=== PATIENT | male | born 1945 | race Caucasian/White ===

== ENCOUNTER 2024-01-06 18:37 | Emergency (ER) | payer MEDICARE, SELFPAY ==
[2024-01-06 18:40] VITALS: BP 170/99; PULSE 74; TEMP 36.7; O2SAT 100
--- NOTE | 2024-01-06 19:20 | ED_ITS ---
HPI - Ear Problem General Chief complaint: Ear Stated complaint: Hearing Aid Stuck in Ear Time Seen by Provider: 01/06/24 19:11 Source: patient Mode of arrival: walk-in History of Present Illness HPI Narrative: FB left ear canal. Patient removed his hearing aid and the rubber tip stayed in the ear. He attempted to removed it and pushed it down. not able to remove it Related Data Allergies Allergy/AdvReac Type Severity Reaction Status Date / Time No Known Drug Allergies Allergy Verified 01/06/24 18:42 Review of Systems ROS Status of ROS 10 or more systems reviewed and unremark able except as noted in history and below Exam Constitutional Vital Signs, click to edit/add: Last Vital Signs Temp 98.1 F 01/06/24 18:40 Pulse 74 01/06/24 18:40 Resp 18 01/06/24 18:40 BP 170/99 H 01/06/24 18:40 Pulse Ox 100 01/06/24 18:40 O2 Del Method Room Air 01/06/24 18:40 Common normals: no apparent distress, average body habitus, oriented x3, no limitations, healthy appearing, alert and well nourished [facility] Other: plastic FB left ear canal. normal canal otherwise Eye Common normals: PERRL and EOMs intact bilaterally Respiratory Common normals: normal respiratory effort, no retractions, no use of accessory muscles and clear to auscultation bilaterally Cardio Common normals: regular rate, regular rhythm, S1 normal heart sound and S2 normal heart sound Extremity Common normals: normal to inspection Neuro Common normals: oriented x3, moves all extremities and no focal motor deficits Psych Appearance: grossly normal Course Vital Signs Vital signs: Vital Signs Temperature 98.1 F 01/06/24 18:40 Pulse Rate 74 01/06/24 18:40 Respiratory Rate 18 01/06/24 18:40 Blood Pressure 170/99 H 01/06/24 18:40 Pulse Oximetry 100 01/06/24 18:40 Oxygen Delivery Method Room Air 01/06/24 18:40 Temperature 98.1 F 01/06/24 18:40 Pulse Rate 74 01/06/24 18:40 Respiratory Rate 18 01/06/24 18:40 Blood Pressure 170/99 H 01/06/24 18:40 Pulse Oximetry 100 01/06/24 18:40 Oxygen Delivery Method Room Air 01/06/24 18:40 Medical Decision Making MDM Narrative Medical decision making narrative: presents with FB left ear canal. Able to remove without incident. Tolerated well and discharged home Discharge Plan Discharge Stand Alone Forms: Portal Instructions Chief Complaint: Ear Clinical Impression: Foreign body in left ear Patient Disposition: Home, Self-Care Print Language: Korean Instructions: Ear Foreign Body (ED) Referrals: Cliff Bess MD [Primary Care Provider] - 1 week Procedures ED Procedure Instructions Procedures Procedures: FB identified left ear canal. able to remove on first attempt. No complications. Tolerated well
== END 2024-01-06 19:30 | disposition home or self-care (01) ==
PROVIDERS: Emergency Provider Internal Medicine; PCP Family Medicine
DX: T16.2XXA Foreign body in left ear, initial encounter (principal); W44.G1XA Audio device entering into or through a natural orifice, initial encounter
CPT/HCPCS: 99281

== ENCOUNTER 2024-06-12 08:00 | Outpatient (OUT) | payer MEDICARE, SELFPAY ==
--- NOTE | 2024-06-12 08:12 | ECG_ITS ---
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
== END 2024-06-12 08:01 | disposition home or self-care (01) ==
LOC: PST 08:01
PROVIDERS: PCP Family Medicine; Visit Provider Surgery
DX: Z01.810 Encounter for preprocedural cardiovascular examination (principal); K40.90 Unilateral inguinal hernia, without obstruction or gangrene, not specified as recurrent
CPT/HCPCS: 93005

== ENCOUNTER 2024-06-12 08:03 | Outpatient (OUT) | payer MEDICARE, SELFPAY | END 2024-06-12 08:04 | disposition home or self-care (01) | LOC: PST 08:03 | PROVIDERS: PCP Family Medicine; Visit Provider Surgery | DX: Z01.818 Encounter for other preprocedural examination (principal); Z12.11 Encounter for screening for malignant neoplasm of colon ==

== ENCOUNTER 2024-06-12 08:26 | Outpatient (OUT) | payer MEDICARE, SELFPAY ==
[2024-06-12 09:14] LABS: Basophils Percent Auto 1.1 % (0.2-2.0); Eosinophils Absolute Auto 0.1 10^3/uL (0.0-0.7); Eosinophils Percent Auto 3.7 % (0.9-7.0); Hematocrit 43.9 % (42.0-54.0); Hemoglobin 14.4 g/dL (14.0-18.0); Immature Granulocytes Abs Auto 0.01 10^3/uL (0.00-0.03); Immature Granulocytes Pct Auto 0.3 % (0.0-0.5); Lymphocytes Absolute Auto 0.6 10^3/uL (1.2-3.8); Lymphocytes Percent Auto 16.3 % (20.5-60.0); Mean Corpuscular HGB Conc 32.8 g/dL (29.9-35.2); Mean Corpuscular Volume 91.5 fL (80.0-94.0); Mean Platelet Volume 10.6 fL (9.5-13.5); Monocytes Absolute Auto 0.4 10^3/uL (0.3-0.8); Monocytes Percent Auto 10.4 % (1.7-12.0); Neutrophils Absolute Auto 2.6 10^3/uL (1.4-6.5); Neutrophils Percent Auto 68.2 % (43.0-75.0); Platelet Count 200 10^3/uL (150-450); Red Cell Distribution Width 14.2 % (11.0-15.0); White Blood Count 3.7 10^3/uL (4.0-11.0)
[2024-06-12 10:11] LABS: Alanine Aminotransferase 28 U/L (16-63); Albumin Globulin Ratio 1.2; Albumin Level 3.7 g/dL (3.4-5.0); Alkaline Phosphatase 37 U/L (46-116); Anion Gap 11.2; Aspartate Amino Transferase 22 U/L (15-37); BUN Creatinine Ratio 20.4; Bilirubin Total 0.5 mg/dL (0.2-1.0); Calcium 9.2 mg/dL (8.5-10.1); Carbon Dioxide 27.7 mmol/L (21.0-32.0); Chloride 105 mmol/L (98-107); Chol HDL Ratio 2.7; Cholesterol 218 mg/dL (<=200); Estimated GFR (African America >60 (>=60); Estimated GFR (Non-African Ame >60 (>=60); Free T3 2.42 pg/mL (2.18-3.98); Globulin 3.1 g/dL; Glucose 102 mg/dL (74-106); HDL Cholesterol 81 mg/dL (40-60); Potassium 4.9 mmol/L (3.5-5.1); Sodium 139 mmol/L (136-145); Total Protein 6.8 g/dL (6.4-8.2); Triglycerides 40 mg/dL (<=150)
== END 2024-06-12 08:27 | disposition home or self-care (01) ==
LOC: LAB 08:27
PROVIDERS: PCP Family Medicine; Visit Provider Family Medicine
DX: E78.5 Hyperlipidemia, unspecified (principal); R10.32 Left lower quadrant pain; I26.99 Other pulmonary embolism without acute cor pulmonale; E03.9 Hypothyroidism, unspecified; R73.09 Other abnormal glucose; E05.90 Thyrotoxicosis, unspecified without thyrotoxic crisis or storm
CPT/HCPCS: 80053; 80061; 83036; 84153; 84436; 84443; 84481; 85025

== ENCOUNTER 2025-08-15 10:14 | Outpatient (OUT) | payer MEDICARE, SELFPAY ==
--- OUTSIDE RECORDS SUMMARY | 2024-05-30 04:45 | XMS_ITS ---
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 Hernia swollen. * Medical History: Objective: * Vitals: Assessment: Plan: * Treatment: * * Electronic signature of Ady Bess MD, [id number] on 08/15/2025 at 10:23 AM EST Sign off status: PendingVisit Status:?CANC (Cancelled) * Provider: Brown Bess MD (TTC) Date: 0 05/30/2024 Generated for Printing/Faxing/eTransmitting on:?08/15/2025 10:23 AM EST
--- OUTSIDE RECORDS SUMMARY | 2025-08-11 11:00 | XMS_ITS ---
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 Name Role Phone Ady Bess Primary Care Provider Allergies No Known Allergies REASON FOR VISIT yearly wellness appointment Medications Medication SIG (Take, Route, Frequency, Duration) Notes Start Date End Date Status Latanoprost 0.005 % INSTILL 1 DROP INTO BOTH EYES AT BEDTIME Ophthalmic; Duration: 90 Days Active Social History Tobacco Use: Social History Observation Description Date Details (start date - stop date) Never Smoker NA - NA Tobacco Control (Standard) Question Answer Notes Tobacco use: Nonsmoker AUDIT-C (Standard) Question Answer Notes Did you have a drink containing alcohol in the p ast year? No [id number] Vital Signs Blood pressure systolic 138 mm Hg 08/11/20 25 Blood pressure diastolic 80 mm Hg 025 Height 73 in 08/11/2025 Weight 175.2 lbs 08/11/2025 BMI 23.11 kg/m2 08/11/2025 Procedures Procedure Date Ordered Date Performed Result Body Sit e Cerumen Removal - performed 08/11/2025 08/11/2025 N/A Encounters Encounter Location Date Provider Diagnosis [facility] [address] [place] [address] 08/11/2025 Ady Bess Leukopenia, unspecif ied decreased WBC count D72.819 ; Other pulmonary embolism without acute cor pulmonale I26.99 and Bilateral impacted cerumen H61.23 Assessments Encounter Date Diagnosis (ICD Code) Assessment Notes Treatment Notes Treatment Clinical Notes Section Notes 08/11/2025 Leukopenia, unspecified decrease d WBC count (ICD-10 - D72.819) 08/11/2025Other pulmonary embolism without acute cor pulmonale (ICD-10 - I26.99) 5Bilateral impacted cerumen (ICD-10 - H61.23) Plan Of Treatment Pending Test Test Name Order Date HEMOGLOBIN A1C (GLYCO) 08/11/2025 LIPID PANEL (CHOL/TRIG/HDL/LDL) 08/11/20 25 STOOL OCCULT BLOOD 08/11/2025 THYROID PANEL (T4/TSH/FREE T3) 5 PSA, SCREENING 08/11/2025 CMP (COMP MET KEMP) w/eGFR CKD-EPI 2024 CBC WITH DIFF 08/11/2025 Progress Notes * Get COSTADOB: [birth year] (79 yo M)Acc No.[id number]:08/11/2025 Progress Note Patient: Get DOBSON :?Cliff Bess ([facility]), MDDOB:1945???Age: 79 Y???Sex:MaleDate:08/11/2025Phone:[phone]:[address] [place], [place]Check In:03:50 PM ESTCheck Out:05:03 PM EST Subjective: * Chief Complaints: * Y early wellness appointment * HPI: ???Depression Screening:?PHQ-2 (2015 Edition)?Little interest or pleasure in doing things? Not at all ?Feeling down, depressed, or hopeless??Not at all ?Total Score?0 * ROS: ???EENT:?hearing changes?denies.?visual changes?denies. non-healing mouth sores?denies.?swollen glands or neck lumps?denies.?hoarseness?denies.?sore throat?denies.?difficulty swallowing?denies.?nose bleeds?denies.?nasal congestion?denies.?ear ache?denies.?ear discharge denies.?ringing in ears?denies.?light sensitivity?denies.?eye pain?denies.?blurring?denies.?eye irritation?denies.?double vision?denies. vision loss?denies.?General/Constitutional:?Sweats:?Denies.?Fatigue?denies.?Sleep proble ms?denies.?Anorexia?denies.?Malaise?denies.?Weight loss?denies. Fatigue or Weakness?denies.?Fever or Chills?denies.?Cardiovascular:?Shortness of Breath w/lying flat?denies.?Lightheadedne ss/dizziness?denies.?Chest tightness/ heavy pressure?denies.?Swelling of legs, a nkles, or feet?denies.?Waking up with shortness of breath?denies.?Chest pain&#16 0;denies.?Palpitations?denies.?Weight gain?denies.?Respiratory:?Chronic or frequent cough?denies.?Coughing up blood&#1 60;denies.?Difficulty breathing?denies.?Productive cough?denies.?Snoring&#1 60;denies.?Shortness of breath that awakens from sleep (PND)?denies.?Chest pain? denies.?Sputum production?denies.?Wheezing?denies.?Musculoskeletal:?Joint pain?denies.?Joint Fluid?denies.?Backpain?denies.?Knee pain?denies.?Neck pain?denies.?Joint Stiffness?denies.?Muscle cramps?denies.?Weakness of muscles?denies.?Arthritis?denies.?Muscle aches?denies.?Pain in shoulder(s)?denies.?Swollen joints?denies.? * Active Problem List Z86.718 Personal history of other venous thrombosis and embolism Modified On:05/27/2024W/U Status:okfnhkhucZ65.99Other pulmonary embolism without acute cor pulmonale Modified On:05/27/2024W/U Status:walntelubY47.551Pain in right hip Modified On:05/27/2024/U Status:vzxnxykkcD37.552Pain in left hip Modified On:05/27/2024/U Status:gwusasxzxY93.32Left inguinal pain Modified On:05/27/2024/U Status:dviypwmimF07.819Leukopenia, unspecified decreased WBC count Modified On:06/13/2024U Status:confirmed * Medical History: * Surgical History: W edge Excision & Debulking of Right Cheek Flap 02/24/23Right total Hip replacement Dr. Foley 03/14/22Debridement Right Maxilla with removal of hardware 05/30/22Left hip replacement Left Inguinal Hernia Repair 07/09/24 * Hospitalization/Major Diagno stic Procedure: s ee above * Family History: F ather: , diagnosed with Diabetes. M other: , oral cancer, diagnosed with Diabetes. S ister(s): alive, Colon Cancer, diagnosed with Cancer. 1 sister(s) . 2 son(s) - healthy. . * Social History: ???Tobacco Use:?Tobacco Control (Standard)?Tobacco use:?Nonsmoker ???Drug/Alcohol:?AUDIT-C (Standard)?Did you have a drink containing alcohol in the past year??No ?Points?0 ?Interpretation?Negative * Medications: T akingLatanoprost 0.005 % Solution INSTILL 1 DROP INTO BOTH EYES AT BEDTIME Ophthalmic Medication List reviewed and reconciled with the patientTaking Latanoprost 0.005 % Solution INSTILL 1 DROP INTO BOTH EYES AT BEDTIME Ophthalmic Medication List reviewed and reconciled with the patient * Allergies: N .K.D.A.no[Allergies Verified] Objective: * Vitals: W t:175.2lbs, Ht: 73 in, BP:138/80mm Hg, BMI:23.11Index, Ht-cm: 185.42 cm, Wt-k.47 kg. * Examination: ???Physical Exam: ?GENERAL:?well developed, well nourished, in no acute distress.?HEAD:?normocephalic/atraumatic.?EYES:?pupils equal, round and reactive to light, conjunctivae and sclerae normal.?EARS:?no deformity or lesion of external ear, canals and TM appear normal bilaterally, TM's intact, not inflamed with normal light reflex, hearing grossly normal to conversational speech.?NOSE:?no deformity, discharge, inflammation, or lesions. ?MOUTH:?mucous membranes moist, normal oropharynx and posterior pharynx without lesions or exudates, tongue normal, dentition normal.?NECK:?neck supple, no masses or palpable cervical nodes, trachea midline, thyroid without nodules, masses, tenderness, or enlargement.?CHEST:?no chest wall deformity, no chest wall tenderness. ?LUNGS:?normal respiratory effort and clear to auscultation, no wheezes, rales, or rhonchi, good air exchange.?CARDIO:?regular rate and rhythm, normal S1 and S2, nor murmur, rub, or gallop.?PULSES:?normal capillary refill.?ABDOMEN:?soft, non-distended, non-tender, no masses.?MUSCULOSKELETAL:?no deformity or scoliosis noted, normal range of motion, joints normal, no erythema, edema, effusion, or ecchymosis.?EXTREMITY:?no clubbing, cyanosis, edema, or deformity withnormal ROM in both upper and lower bilateral extremities.?NEUROLOGIC:?grossly normal.?SKIN:?no rashes, ulcerations, or suspicious lesions.?LYMPH NODES:?no cervical adenopathy, nodes normal.?MENTAL STATUS:?alert and oriented x3, normal mood and affect.? Assessment: * Assessment: 1.?Leukopenia, unspecified decreased WBC count - D72.819 (Primary)???2.?Other pulmonary embolism without acute cor pulmonale - I26.99???3.?Bilateral impacted cerumen - H61.23??? Plan: * Treatment: ?LAB: HEMOGLOBIN A1C (GLYCO) ?LAB: LIPID PANEL (CHOL/TRIG/HDL/LDL) ?LAB: STOOL OCCULT BLOOD ?LAB: THYROID PANEL (T4/TSH/FREE T3) ?LAB: PSA, SCREENING ?LAB: CMP (COMP MET KEMP) w/eGFR CKD-EPI ?LAB: CBC WITH DIFF2.?Other pulmonary embolism without acute cor pulmonale?LAB: HEMOGLOBIN A1C (GLYCO) ?LAB: LIPID PANEL (CHOL/TRIG/HDL/LDL) ?LAB: STOOL OCCULT BLOOD ?LAB: THYROID PANEL (T4/TSH/FREE T3) ?LAB: PSA, SCREENING ?LAB: CMP (COMP MET KEMP) w/eGFR CKD-EPI ?LAB: CBC WITH DIFF3.?Others?Procedure: Cerumen Removal - performed (Performed Date - 08/11/2025) * Procedure Codes: 6 9210 REMOVE IMPACTED CERUMEN * Preventive Medicine: ??Screenings/Counseling:?FALL RISK SCREENING?Fall Risk Assessment:?No falls in the past year * * Sign off status: CompletedVisit Status:?CHK (Check Out) true * Provider: Brown Bess (TTC)MD Date: 1 10/11/2024 Generated for Printing/Faxing/eTransmitting on:?08/15/2025 10:22 AM EST History and Physical Notes * HPI (History of Present Illness) CategorySub-CategoryDetailNotesCategory NotesDepression ScreeningPHQ-2 (2015 Edition)Little interest or pleasure in doing things?: Not at allFeeling down, depressed, or hopeless?: Not at allTotal Score: 0 Examination CategorySub-CategoryDetailNotesCategory NotesPhysical ExamGENERAL:well developed, well nourished, in no acute distressHEAD:normocephalic/atraumatic EYES:pupils equal, round and reactive to light, conjunctivae and sclerae normal EARS:no deformity or lesion of external ear, canals and TM appear normal bilaterally, TM's intact, not inflamed with normal light reflex, hearing grossly normal to conversational speechNOSE:no deformity, discharge, inflammation, or lesionsMOUTH:mucous membranes moist, normal oropharynx and posterior pharynx without lesions or exudates, tonguenormal, dentition normalNECK:neck supple, no masses or palpable cervical nodes, trachea midline, thyroid without nodules, masses, tenderness, or enlargementCHEST:no chest wall deformity, no chest wall tendernessLUNGS:normal respiratory effort and clear to auscultation, no wheezes, rales, or rhonchi, good air exchangeCARDIO:regular rate and rhythm, normal S1 and S2, nor murmur, rub, or gallopPULSES:normal capillary refillABDOMEN:soft, non-distended, non-tender, no massesRECTAL:MUSCULOSKELETAL:no deformity or scoliosis noted, normal range of motion, joints normal, no erythema, edema, effusion, or ecchymosisEXTREMITY:no clubbing, cyanosis, edema, or deformity with normal ROM in both upper and lower bilateral extremitiesNEUROLOGIC:grossly normalSKIN:no rashes, ulcerations, or suspicious lesionsLYMPH NODES:no cervical adenopathy, nodes normalMENTAL STATUS:alert and oriented x3, normal mood and affect
--- OUTSIDE RECORDS SUMMARY | 2025-08-15 10:21 | XMS_ITS | CCD ---
Author Organization [facility] CliniSyin Care Team Providers Care Emergency Service Restorer Name Role Phone KAVYA LUIS Admitting Unavailable KAVYA LUIS Attending Unavailable CLIFF FITZGERALD Referring Unavailable SR CHARLIE MULLINS Primary Care Unavailable TOMASZ SILVA Consulting Unavailable DOMINIQUE FRANCO Consulting Unavailable Sr Charlie Mullins Primary Care Provider Chuck MANZOS, Branden Unavailable Charlie Mullins DO Primary Care Provider Sang FLORES, Galo Unavailable Chuck DDS, Branden Unavailable Cliff Fitzgerald MD Primary Care Provider [phone] SLAVA, DR LETICIA Coppola Attending Unavailable SLAVA, DR LETICIA Coppola Admitting Unavailable SLAVA, DR LETICIA Coppola Consulting Unavailable AMILCAR, DR UPTON Primary Care Unavailable LÓPEZ STERN Consulting Unavailable SLAVA, DR LETICIA Coppola Admitting Unavailable SLAVA, DR LETICIA Coppola Consulting Unavailable SLAVA, DR LETICIA Coppola Attending Unavailable AMILCAR, DR UPTON Primary Care Unavailable HALLEY SCHNEIDER Consulting Unavailable SLAVA, DR LETICIA Coppola Admitting Unavailable HALLEY SCHNEIDER Consulting Unavailable AMILCAR, DR UPTON Primary Care Unavailable SLAVA, DR LETICIA Coppola Attending Unavailable SLAVA, DR LETICIA Coppola Attending Unavailable SLAVA, DR LETICIA Coppola Admitting Unavailable HALLEY SCHNEIDER Consulting Unavailable AMILCAR, DR UPTON Primary Care Unavailable AMILCAR, DR UPTON Primary Care Unavailable AMILCAR, DR UPTON Attending Unavailable AMILCAR, DR UPTON Admitting Unavailable MISC, DR LOPEZ Attending Unavailable REQUEST, NONE LISTED Primary Care Unavaila ble MISC, DR LOPEZ Admitting Unavailable MISC, DR LOPEZ Consulting Unavailable MISC, DR LOPEZ Consulting Unavailable MISC, DR LOPEZ Attending Unavailable REQUEST, NONE LISTED Primary Care Unavaila ble MISC, DR LOPEZ Admitting Unavailable MISC, DR LOPEZ Consulting Unavailable MISC, DR LOPEZ Attending Unavailable REQUEST, NONE LISTED Primary Care Unavaila ble MISC, DR LOPEZ Admitting Unavailable HOY, DR UPTON Primary Care Unavailable HOY, DR UPTON Consulting Unavailable HOY, DR UPTON Attending Unavailable HOY, DR UPTON Admitting Unavailable ECHEVERRIA, DR LETICIA Coppola Attending Unavailable ECHEVERRIA, DR LETICIA Coppola Admitting Unavailable AMILCAR, DR UPTON Primary Care Unavailable WEST, DR UMM Vanegas Consulting Unavailable ECHEVERRIA, DR LETICIA Coppola Consulting Unavailable ECHEVERRIA, DR LETICIA Coppola Attending Unavailable ECHEVERRIA, DR LETICIA Coppola Admitting Unavailable ECHEVERRIA, DR LETICIA Coppola Consulting Unavailable AMILCAR, DR UPTON Primary Care Unavailable Chuck DDS, Branden Unavailable Sang FLORES, Galo Unavailable Cliff Fitzgerald MD Primary Care Provider [phone] Chuck MANZOS, Branden Unavailable Sang FLORES, Galo Unavailable Cliff Fitzgerald MD Primary Care Provider [phone] Bobo Davidson MD Unavailable Cliff Fitzgerald Primary Care Physician Cliff Fitzgerald Referring Unavailable NILRajeev Morin Attending Unavailable Cliff Fitzgerald Referring Unavailable NILRajeev Morin Attending Unavailable AMILCAR CLIFF M Referring Unavailable AMILCAR CLIFF M Primary Care Unavailable UMM STEPHEN Attending Unavailable RAJEEV JONES Referring Unavailable AMILCAR, CLIFF M Primary Care Unavailable RAJEEV JONES Admitting Unavailable CAROLEESRAJEEV Attending Unavailable UMM STEPHEN Attending Unavailable HOY, CLIFF M Primary Care Unavailable RAJEEV JONES Attending Unavailable HOY, CLIFF M Primary Care Unavailable CLAUDIA CANADA Attending Unavailable JORDANY, CLIFF M Referring Unavailable HOY, CLIFF M Primary Care Unavailable Cliff Fitzgerald MD Primary Care Provider [phone] Cliff Fitzgerald MD Primary Care Provider [phone] Charlie Mullins MD Primary Care Provider AMANDA PENNINGTON Attending Unavailable Cliff Fitzgerald MD Primary Care Provider [phone] BOBO DAVIDSON Attending Unavailable CLIFF FITZGERALD Primary Care Unavailable CLIFF FITZGERALD Referring Unavailable Allergies Allergy ClassificationReported Allergen(s)Allergy TypeDate of OnsetReaction(s) Facility (1 source)No Known Medication Allergies; Translations: [No Known Medication Allergies]Propensity to adverse reactions (disorder)[facility] Repository Medications Current Medications MedicationDrug Class(es)DatesSig (Normalized)Sig (Original)acetaminophen 325 mg oral tablet (6 sources)Start: 34-96-3593qpou 3 tablets by mouth every eight hours acetaminophen (Tylenol) 325 MG tablet Take 3 tablets by mouth every 8 hours. 0 06/02/2022 ActiveStart: 05-27-2022 End: 79-87-0529orzv 1 tablet by mouth every eight hoursacetaminophen (TYLENOL) tablet 975 mgStart: 68-09-4809kmxqszhffhcry (TYLENOL) tablet 650 mg End: 68-82-0430jzvw 1 tablet by mouth every four hoursacetaminophen 325 MG tablet Take 325 mg by mouth every 4 hours. 0 06/02/2022 Discontinued (Stop Lilian pia at Discharge)take 1 tablet by mouth every six hours as neededacetaminophen (TYLENOL) 500 MG tablet Take 500 mg by mouth every 6 hours as needed 0 Active ampicillin 1000 mg / sulbactam 500 mg injection (2 sources)Penicillin-class Antibacterial, beta Lactamase InhibitorStart: 06-02-2022 End: 38-39-9402kbnaiw 1 dose intravenously every twelve hoursAmpicillin- Sulbactam Sodium injection 6 mg per dose, IV infusion every 12 hours continuous infusion. *diluent and final concentration at discretion of receiving pharmacy* 72 Each 0 06/02/2022 07/08/2022 Activeapixaban 5 mg oral tablet (4 sources)Factor Xa InhibitorStart: 37-41-1484rgkr 1 tablet by mouth twice dailyapixaban (ELIQUIS) 5 MG TABS tablet Take 1 tablet by mouth 2 times daily Start after you finish 10 mg twice a day on the next scheduled dose 60 tablet 3 12/14/2019 ActiveStart: 12-14-2019 End: 57-49-1756hrdsujts (ELIQUIS) tablet 5 mgStart: 12-08-2019 End: 85-67-8640fcmv 2 tablets by mouth twice dailyapixaban (ELIQUIS) 5 MG TABS tablet Take 2 tablets by mouth 2 times daily for 6 days 24 tablet 0 12/08/2019 12/14/2019 ActiveStart: 12-07-2019 End: 14-67-4894gftmpdbf (ELIQUIS) tablet 10 mgArtificial Tear Ointment (DRY EYES OP) (12 sources)Artificial Tear Ointment (DRY EYES OP) Apply to eye as needed. ActiveArtificial Tear Ointment (DRY EYES OP) Apply to eye as needed. 0 Active ARTIFICIAL TEAR OINTMENT OP (3 sources)ARTIFICIAL TEAR OINTMENT OP Administer into affected eye(s) Active ascorbic acid 500 mg oral tablet (3 sources)Vitamin Ctake 500 mg by mouth in the morningascorbic acid (VITAMIN C ORAL) Take 500 mg by mouth in the morning. Activeaspirin 81 mg delayed release oral tablet (20 sources)Platelet Aggregation Inhibitor, Nonsteroidal Anti-inflammatory Drug Start: 46-77-6604dtuardf 81 MG EC tablet Take 81 mg by mouth 06/07/2024 Active Start: 84-02-4951hjol 1 tablet by mouth twice dailyaspirin 81 mg Indications: Primary osteoarthritis of left hip TAKE 1 TABLET BY MOUTH TWICE A DAY *BEGIN TAKING AFTER TOTAL JOINT REPLACEMENT* 180 tablet 1 06/09/2022 ActiveStart: 05-28-2022 End: 24-54-2317gjjpxzg chewable tablet 81 mgStart: 44-84-0368elvf 1 tablet by mouth once dailyaspirin 81 MG chewable tablet Take 1 tablet by mouth daily 30 tablet 3 12/08/2019 ActiveStart: 15-45-0934lpeowfq chewable tablet 81 mg atorvastatin 40 mg oral tablet (2 sources)HMG-CoA Reductase InhibitorStart: 25-71-4597blkabmgaaypb (LIPITOR) tablet 40 mgStart: 11-01-5918cydg 1 tablet by mouth once dailyatorvastatin (LIPITOR) 40 MG tablet Take 1 tablet by mouth nightly 30 tablet 3 12/08/2019 ActiveCalcium Acetate-Magnesium Carb 450-200 MG tablet (20 sources)take 1 tablet by mouth at bedtimeCalcium Acetate-Magnesium Carb 450- 200 MG tablet Take 1 tablet by mouth at bedtime. Activetake 1 tablet by mouth at bedtimeCalcium Acetate-Magnesium Carb 450-200 MG tablet Take 1 tablet by mouth at bedtime. 0 ActiveCALCIUM ACETATE-MAGNESIUM CARB PO (3 sources)take 1 tablet by mouth at bedtimeCALCIUM ACETATE-MAGNESIUM CARB PO Take 1 tablet by mouth at bedtime ActiveCALCIUM-MAGNESIUM ORAL (3 sources)take 2 tablets by mouth once dailyCALCIUM-MAGNESIUM ORAL Take 2 tablets by mouth daily. Activecascara sagrada 450 mg oral capsule (20 sources)take 1 capsule by mouth once daily in the morningCascara Sagrada 450 MG capsule Take by mouth daily every morning. Activecaspofungin acetate 70 mg injection (2 sources)Echinocandin AntifungalStart: 06-02-2022 End: 09-17-0005gtmolf 1 dose intravenously every twenty-four hourscaspofungin injection 50 mg per dose, IV infusion every 24 hours. *diluent and final concentration at discretion of receiving pharmacy* 36 Each 0 06/02/2022 07/08/2022 Activechlorhexidine gluconate 1.2 mg/ml mouthwash (10 sources)Start: 05-27-2022 End: 84-96-5373fhdo 15 mL by mouth twice dailychlorhexidine 0.12 % Solution oral solution Swish and spit 15 mL 2 times daily for 7 days. 473 mL ActiveStart: 05-25-2021 End: 12-17-1235ajfzoohpxdeya 0.12 % Solution oral solution Swish 15-20mL of liquid for 20 seconds and spit. Twice daily until finished. 473 mL 3 05/25/2021 06/02/2022 Discontinued (Stop Taking at Discharge)Start: 41-11-7211ojqozymhmygff (PERIDEX) 0.12 % solution 15 mLCHROMIUM PICOLINATE (20 sources)CHROMIUM PICOLINATE PO Take by mouth in the morning. ActiveCHROMIUM PICOLINATE PO Take by mouth Daily Activetake 1 tablet by mouth in the morning chromium picolinate 200 mcg tablet Take 1 tablet by mouth in the morning. Active Chromium Picolinate (CHROMIUM PICOLATE PO) Take by mouth daily every morning. ActiveChromium Picolinate (CHROMIUM PICOLATE PO) Take by mouth daily every morning. 0 Activedocusate sodium 10 mg/ml oral suspension (2 sources)Start: 99-19-7814238 mg, Per G Tube, 2 TIMES DAILY PRN, Constipation, Starting 12/06/19 at 1342Start: 77-21-4880vrqtxhks (COLACE) 50 MG/5ML liquid 100 mg by Nasogastric route 2 times daily as needed 0 11/29/2019Activeibuprofen 600 mg oral tablet (20 sources)Nonsteroidal Anti-inflammatory DrugStart: 72-27-5195wwyv 1 tablet by mouth every six hours as neededibuprofen 600 MG tablet Take 600 mg by mouth every 6 (six) hours if needed 07/09/2024 Active End: 27-35-2273Rfyxwhyha 200 MG tablet Take 1 tablet by mouth as needed for Mild Pain. Activelatanoprost 0.05 mg/ml ophthalmic solution (6 sources)Prostaglandin AnalogStart: 43-19-1977nief 1 drop(s) into the eye(s) at bedtimelatanoprost (Xalatan) 0.005 % ophthalmic solution Administer 1 drop into both eyes at bedtime 11/12/2024 ActiveStart: 19-15-4577xuvx 1 drop(s) into the eye(s) once dailylatanoprost 0.005 % drops, emulsion Administer 1 drop to both eyes nightly. Instill 1 drop into both eyes at bedtime 06/03/2024 Active Start: 48-88-9517rsux 1 drop(s) into the eye(s) once daily in the evening latanoprost 0.005% ophthalmic emulsion 1 drop(s), Eye-Both, qPM, Refill(s) 0 Start Date: 06/03/24 Status: OrderedLecithin (3 sources)take 1 capsule by mouth in the morningLECITHIN ORAL Take 1 capsule by mouth in the morning. Activelisinopril 2.5 mg oral tablet (2 sources)Angiotensin Converting Enzyme InhibitorStart: 81-46-1648ysix 1 tablet by mouth once dailylisinopril (PRINIVIL;ZESTRIL) 2.5 MG tablet Take 1 tablet by mouth daily 30 tablet 3 12/08/2019 ActiveStart: 50-77-5740jzpsfrpfdf (PRINIVIL;ZESTRIL) tablet 2.5 mgLORazepam 0.5 mg oral tablet (2 sources)BenzodiazepineStart: 30-23-8374egho 0.5 mg by mouth every six hours as needed for anxiety0.5 mg, Oral, EVERY 6 HOURS PRN, Anxiety, Starting 12/06/19 at 1343Start: 10-37-3210addf 1 tablet by mouth twice dailyLORazepam (ATIVAN) 0.5 MG tablet Take 1 tablet by mouth 2 times daily. 0 11/04/2019 Active 24 hr metoprolol succinate 25 mg extended release oral tablet (2 sources)beta-Adrenergic BlockerStart: 87-45-2927ofyy 1 tablet by mouth once dailymetoprolol succinate (TOPROL XL) 25 MG extended release tablet Take 1 tablet by mouth daily 30 tablet 3 12/09/2019 ActiveStart: 19-55-7896ufysjfmsfi succinate (TOPROL XL) extended release tablet 25 mgmineral oil 0.15 mg/mg / petrolatum 0.83 mg/mg ophthalmic ointment (20 sources)Start: 06-02-2022 End: 24-76-9436mpezbfavir Ointment ophthalmic ointment Apply 1 Application to right eye at bedtime. 3.5 g 06/02/2022 ActiveStart: 06-01-2022 End: 14-15-5554vrrtirluvs (LUBRIFRESH) ophthalmic ointment 1 ApplicationMultiple Vitamin (multivitamin) capsule (20 sources)take 1 capsule by mouth twice dailyMultiple Vitamin (multivitamin) capsule Take 1 capsule by mouth 2 times daily. Activetake 1 capsule by mouth twice dailyMultiple Vitamin (multivitamin) capsule Take 1 capsule by mouth 2 times daily. 0 Activetake 1 capsule by mouth once daily in the morningMultiple Vitamin (multivitamin) capsule Take 1 capsule by mouth daily every morning. 0 Activemultivit-min/ferrous fumarate (MULTI VITAMIN ORAL) (3 sources)take 1 capsule by mouth once in the morningmultivit-min/ferrous fumarate (MULTI VITAMIN ORAL) Take 1 capsule by mouth in the morning. Active oxyCODONE hydrochloride 5 mg oral capsule (20 sources)Opioid AgonistStart: 28-32-1648gcbn 1 capsule by mouth every four hours as needed for painoxycodone 5 MG capsule Indications: Postoperative state Take 1 capsule by mouth every 4 hours as needed for moderate or severe pain for up to 3 days. 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 28 tablet0 06/02/2022 06/16/2022 Discontinued (Therapy completed)Start: 05-28-2022 End: 40-18-2293xomz 1 tablet by mouth every four hours as neededoxyCODONE (ROXICODONE) tablet 5 mgStart: 11-23-2019 End: 89-54-6991UKFUPBSAQ ER PO 5 mg by Nasogastric route 0 11/23/2019 12/08/2019 Discontinued (Stop Taking at Discharge)polyethylene glycol 3350 26756 mg powder for oral solution (1 source)Osmotic LaxativeStart: 55-95-733779 g, Oral, DAILY PRN, Constipation, Starting 12/06/19 at 1343 First line therapy for constipationpolyvinyl alcohol 0.014 ml/ml / povidone 6 mg/ml ophthalmic solution (20 sources)Start: 06-02-2022 End: 04-63-4501pioh 2 drop(s) into the eye(s) four times dailyPolyvinyl Alcohol- Povidone PF 1.4-0.6 % Solution ophthalmic solution Place 2 drops in right eye 4 times daily. 30 Each 1 06/02/2022 ActiveStart: 05-29-2022 End: 99-69-9209Usdfnbltd Alcohol-Povidone PF (REFRESH) ophthalmic solution 2 dropPromethazine (1 source)PhenothiazineStart: 09-55-7648ivwvnqappuem (PHENERGAN) tablet 12.5 mg sennosides, alf 8.6 mg oral tablet (1 source)Start: 10-20-2789bzufm (SENOKOT) 8.6 MG tablet 8.6 mg by Nasogastric route daily as needed 0 11/29/2019 Activesodium fluoride 0.011 mg/mg oral gel (11 sources)Start: 06-23-2023 End: 82-48-8698ALCDVY FLUORIDE, DENTAL GEL, 1.1 % Gel Apply 3-4 drops of gel directly to teeth. Do Not eat or drink for 30min. Once daily at bedtime. Fruit flavor 56 g 12 06/23/2023 ActiveStart: 04-15-2020 End: 92-95-4953QHNGLV FLUORIDE, DENTAL GEL, 1.1 % Gel Apply 3-4 drops of gel directly to teeth. Do Not eat or drink for 30min. Once daily at bedtime. 1 Tube 12 04/15/2020 06/02/2022 Discontinued (Stop Taking at Discharge)traMADol hydrochloride 50 mg oral tablet (2 sources)Opioid AgonistStart: 02-10-2022 End: 93-02-1040ghzq 1 tablet by mouth twice daily as neededtraMADol 50 MG tablet Take 50 mg by mouth 2 times daily as needed. 0 05/24/2022 ActiveTurmeric extract (17 sources)take 1 tablet by mouth in the morningTURMERIC PO Take 1 tablet by mouth in the morning. Active End: 67-92-6293hfjv 1 tablet by mouth once dailyTURMERIC ORAL Take 1 tablet by mouth daily. 07/03/2024 Discontinued (Patient Stopped On Own) End: 83-07-4266YQQOMCVC PO Take by mouth 3 times daily. 0 02/21/2023 Discontinued (Medication Reconciliation (suppress cancel msg))TURMERIC PO Take by mouth 3 times daily. 0 ActiveTURMERIC PO Take by mouth daily. 0 Active ubidecarenone 200 mg oral capsule (12 sources)take 1 capsule by mouth in the morningcoenzyme Q-10 200 MG capsule Take 200 mg by mouth in the morning. Activecoenzyme Q10 (CO Q-10) 200 mg capsule Take 200 mg by mouth in the morning. Active End: 22-59-7303mcyh 10 capsules by mouth once daily in the morningCoenzyme Q10 (Co Q 10) 100 MG capsule Take 200 mg by mouth daily every morning. 0 06/02/2022 Discontinued (Stop Taking at Discharge)UNABLE TO FIND (3 sources)take 2 tablets by mouth once dailyUNABLE TO FIND Take 2 tablets by mouth daily. josé dong Activevitamin e 180 mg oral capsule (20 sources)Start: 83-40-5991eerx 1 capsule by mouth twice dailyvitamin E 400 units capsule Take 1 capsule by mouth 2 times daily. 60 capsule 04/28/2021 ActiveStart: 12-25-2020 End: 81-48-3288vhor 1 capsule by mouth twice dailyvitamin E 400 units capsule Take 1 capsule by mouth 2 times daily. 60 capsule 0 04/28/2021 Active Completed/Discontinued Medications MedicationDrug Class(es)DatesSig (Normalized)Sig (Original)acetaminophen 325 mg / HYDROcodone bitartrate 5 mg oral tablet (2 sources)Opioid AgonistStart: 03-28-2022 End: 03-85-9786FXDAEgjbgqb-acetaminophen (NORCO) 5-325 mg per tablet Indications: S/P total left hip arthroplasty Take 1 tablet by mouth every 6 (six) hours as needed for pain. Max Daily Amount: 4 tablets 28 [id number]/28/2022 07/03/2024 Discontinued (Patient Stopped On Own)Start: 84-31-8388HUYRHfbsnmw- acetaminophen (NORCO) 5-325 MG per tablet 1 tabletacetaminophen 325 mg / oxyCODONE hydrochloride 5 mg oral tablet (1 source)Opioid AgonistStart: 07-09-2024 End: 82-27-6696kjgRAFANS-acetaminophen (PERCOCET) 5-325 mg per tablet Indications: Left inguinal hernia Take 1 tablet by mouth every 6 (six) hours as needed for pain for up to 12 doses. Max Daily Amount: 4 tablets 12 tablet 07/09/2024 07/23/2024 Discontinued (Therapy completed)Ampicillin-Sulbactam Sodium (UNASYN) 1.5 g in sodium chloride 0.9% (MB PLUS) 50 mL (total volume) IV PB (1 source)Start: 05-27-2022 End: 24-72-9796Glcjtlzowx-Sulbactam Sodium (UNASYN) 1.5 g in sodium chloride 0.9% (MB PLUS) 50 mL (total volume) IVPBAmpicillin-Sulbactam Sodium (UNASYN) 3 g in sodium chloride 0.9% (MB PLUS) 100 mL (total volume) IVPB (1 source)Start: 06-01-2022 End: 11-28-2195Smcazsutdj-Sulbactam Sodium (UNASYN) 3 g in sodium chloride 0.9% (MB PLUS) 100 mL (total volume) IVPBASHWAGANDHA PO (5 sources) End: 08-79-8888APOCIUCKNAU PO Take by mouth daily every morning. 0 06/02/2022 Discontinued (Stop Taking at Discharge)ASHWAGANDHA PO Take by mouth daily every morning. 0 Activebisacodyl 10 mg rectal suppository (1 source)Stimulant LaxativeStart: 05-27-2022 End: 20-62-3333bxqtigdxb (DULCOLAX) suppository 10 mgcalcium chloride 0.0014 meq/ml / potassium chloride 0.004 meq/ml / sodium chloride 0.103 meq/ml / sodium lactate 0.028 meq/ml injectable solution (3 sources)Start: 05-27-2022 End: 91-28-8567udeprtke ringers IV solutioncaspofungin (CANCIDAS) 50 mg in sodium chloride 0.9%, with overfill 282.14 mL (total volume) IVPB (2 sources)Start: 06-02-2022 End: 90-57-0106uamxiuqhynd (CANCIDAS) 50 mg in sodium chloride 0.9%, with overfill 282.14 mL (total volume) IVPBStart: 05-31-2022 End: 90-89-2999ropmtqsxtsp (CANCIDAS) 50 mg in sodium chloride 0.9%, with overfill 282.14 mL (total volume) IVPBcaspofungin (CANCIDAS) 70 mg in sodium chloride 0.9%, with overfill 285 mL (total volume) IVPB (1 source)Start: 05-30-2022 End: 31-21-0718xxrrdkpvdzn (CANCIDAS) 70 mg in sodium chloride 0.9%, with overfill 285 mL (total volume) IVPBcholecalciferol 0.025 mg oral capsule (20 sources)Vitamin DStart: 03-31-2022 End: 46-03-9141mqbw 1 capsule by mouth once in the morningcholecalciferol, vitamin D3, 25 mcg (1,000 unit) capsule Indications: Vitamin D deficiency TAKE 1 CAPSULE BY MOUTH IN THE MORNING AND 1 CAPSULE IN THE EVENING WITH MEALS 180 capsule 1 03/31/2022 07/03/2024 Discontinued (Patient Stopped On Own)Start: 03-31-2022 End: 10-88-2395XQU D3 25 MCG (1000 UT) capsule Take 25 capsules by mouth 2 times daily. 0 03/31/2022 02/21/2023 Discontinued (Medication Reconciliation (suppress cancel msg)) End: 34-75-0921unkz 1 tablet by mouth once daily in the morningcholecalciferol 25 MCG (1000 UNIT) tablet Take 1 tablet by mouth daily every morning. STOPPED TAKING ON 02/18/23 FOR SURGERY. 02/19/2025 Discontinued (Therapy completed) Collagen (4 sources) End: 06-09-8975cnvg 1 scoop(s) by mouth once dailyCOLLAGEN PO Take 1 Scoop by mouth daily. Collagen Powder 0 02/08/2023 Discontinued (Therapy completed)take 1 scoop(s) by mouth once dailyCOLLAGEN PO Take 1 Scoop by mouth daily. Collagen Powder 0 Active1 ml dexamethasone phosphate 4 mg/ml injection (1 source)CorticosteroidStart: 05-29-2022 End: 20-95-7309qufZDHAEevdlp (DECADRON) injection 8 mg0.4 ml enoxaparin sodium 100 mg/ml prefilled syringe (1 source)Low Molecular Weight HeparinStart: 05-28-2022 End: 92-23-1428Sxlmdxypre Sodium (LOVENOX) injection 40 mgergocalciferol 1.25 mg oral capsule (1 source)Provitamin D2 CompoundStart: 12-01-2021 End: 14-38-0000acxa 1 capsule by mouth every weekergocalciferol (DRISDOL) 1,250 mcg (50,000 unit) capsule Indications: Vitamin D deficiency Take 1 capsule (50,000 Units total) by mouth once a week. 6 capsule 12/01/2021 07/03/2024 Discontinued (Patient Stopped On Own)fluconazole 150 mg oral tablet (1 source)Azole AntifungalStart: 05-29-2022 End: 38-86-0965gxvdjvsmzva (DIFLUCAN) tablet 150 mggabapentin 100 mg oral capsule (6 sources)Anti-epileptic AgentStart: 11-02-2021 End: 28-26-9782ccrg 1 capsule by mouth three times dailygabapentin (NEURONTIN) 100 mg capsule Take 100 mg by mouth 3 (three) times a day. 11/02/2021 07/03/2024 Discontinued (Discontinued by another clinician)1 ml haloperidol 5 mg/ml injection (1 source)Typical AntipsychoticStart: 05-27-2022 End: 52-74-6667tricwxkperu lactate (HALDOL) injection 1 mg1 ml heparin sodium, porcine 5000 unt/ml prefilled syringe (3 sources)Unfractionated Heparin, Anti-coagulantStart: 05-27-2022 End: 72-43-9666rdwfduz injection 5,000 UnitsStart: 12-06-2019 End: 79-83-185254 Units/kg/hr 84.8 kg (15.264 mL/hr, rounded to 15.3 mL/hr), Intravenous, at 15.3 mL/hr, CONTINUOUS, Starting Mon12/06/19 at 1415 HIGH DOSE HEPARIN PROTOCOL 80 units/kg IV x 1 (max 10,000 units), then 18 units/kg/hr (max initial rate 2100 units/hr) Adjust infusion rate based on aPTT results (aPTT t arget range 1.5-2.5) aPTT < 30 Heparin Full re-bolus Increase infusion by 4 units/kg/hr aPTT 30-59 Heparin Half re-bolus Increase infusion by 2 units/kg/hr aPTT 60-80 No bolus No change aPTT 81-100 No bolus Decrease infusion by 2 units/kg/hr aPTT > 100 Hold heparin for 60 min Decrease infusion by 3 units/kg/hr aPTT > 120 Hold heparin for 60 min Decrease infusion by 4 units/kg/hr Check aPTT 6 hours after initiation and 6 hours after every dose change. When aPTT is within target range for two consecutive times, check aPTT once daily.Start: 12-06-2019 End: ,390 Units (rounded from 3,392 Units = 40 Units/kg 84.8 kg), Intravenous, PRN, Other, heparin dosing algorithm, Starting Mon12/06/19 at 1344 Half dose re-bolus based on pharmacy algorithm1 ml hydrALAZINE hydrochloride 20 mg/ml injection (1 source)Arteriolar VasodilatorStart: 05-27-2022 End: 11-74-5577zfow 10 mg intravenously every six hours as neededhydrALAZINE (APRESOLINE) injection 10 mgiohexol (OMNIPAQUE) 350 MG/ML injection 1-171 mL (2 sources)Start: 04-30-2022 End: 55-71-3975erxtohh (OMNIPAQUE) 350 MG/ML injection 1-171 mLStart: 04-28-2021 End: 58-07-7227epvuslw (OMNIPAQUE) 350 MG/ML injection 1-171 mLJevity 1.5 Ismael/Fiber LIQD (3 sources)Start: 06-01-2022 End: 94-12-6363Suxmum 1.5 Ismael/Fiber LIQDStart: 05-28-2022 End: 77-79-8622Abdzhs 1.5 Ismael/Fiber LIQDStart: 05-28-2022 End: 72-76-8742Cnjajw 1.5 Ismael/Fiber LIQDlabetalol (NORMODYNE) 10 mg in sodium chloride 0.9%, with overfill 62 mL (total volume) IVPB (1 source)Start: 05-27-2022 End: 11-05-1588hirq 10 mg intravenously every six hours as neededlabetalol (NORMODYNE) 10 mg in sodium chloride 0.9%, with overfill 62 mL (total volume) IVPBlidocaine hydrochloride 10 mg/ml injectable solution (1 source)Antiarrhythmic, Amide Local AnestheticStart: 06-01-2022 End: 71-08-2955Nwyinkfzz 1% for PICC (XYLOCAINE) 1 % injection SOLN 10-30 mg magnesium hydroxide 240 mg/ml oral suspension (1 source)Start: 05-27-2022 End: 85-23-3992sfqd 10 mL by mouth every twenty-four hours as neededmagnesium hydroxide (concentrate) (MILK OF MAGNESIA) oral suspension 10 mL50 ml magnesium sulfate 80 mg/ml injection (1 source)Start: 05-29-2022 End: 38-76-6807Sejfjpcul Sulfate 4 g in sterile water 50 ml premix IVPBmelatonin 3 mg oral tablet (1 source)Start: 05-27-2022 End: 40-58-7389tavixvbbl tablet 6 mgmeloxicam 15 mg oral tablet (1 source)Nonsteroidal Anti-inflammatory DrugStart: 02-09-2022 End: 62-86-9760bcav 1 tablet by mouth once daily in the morningmeloxicam (MOBIC) 15 mg tablet Indications: Primary osteoarthritis of right hip Take 1 tablet (15 mg total) by mouth in the morning. Begin taking day AFTER total joint replacement. 30 tablet 02/09/2022 07/03/2024 Discontinued (Therapy completed) mupirocin 0.02 mg/mg topical ointment (3 sources)RNA Synthetase Inhibitor AntibacterialStart: 04-28-2022 End: 34-60-5417vkorf 22 g nasal route twice dailymupirocin 2 % ointment Apply a small amount in each nostril twice daily for 5 days prior to surgery. 22 g 0 04/28/2022 06/02/2022 Discontinued (Stop Taking at Discharge)omega-3 acid ethyl esters (alf) 1000 mg oral capsule (4 sources) End: 51-62-3386vckj 1 capsule by mouth twice dailyomega-3 acid ethyl esters 1 g capsule Take 2 g by mouth 2 times daily. 0 04/27/2022 Discontinued (Therapy completed)ondansetron 4mg/2ml (ZOFRAN) injection 4 mg (1 source)Start: 05-28-2022 End: 35-57-3031wjlj 4 mg intravenously every six hours as neededondansetron 4mg/2ml (ZOFRAN) injection 4 mgpentoxifylline 400 mg extended release oral tablet (11 sources)Blood Viscosity ReducerStart: 12-25-2020 End: 67-05-8861vvat 1 tablet by mouth three times daily at mealtime pentoxifylline 400 MG Tab CR tablet ER Take 1 tablet by mouth 3 times daily with meals. 90 tablet 06/02/2022 Discontinued (Stop Taking at Discharge) PENTOXIFYLLINE PO ActivePENTOXIFYLLINE PO Pentoxifylline Activepiperacillin 4000 mg / tazobactam 500 mg injection (2 sources)Penicillin-class Antibacterial, beta Lactamase InhibitorStart: 05-29-2022 End: 35-42-1148rrgu 4.5 g intravenously every eight hourspiperacillin-tazobactam (ZOSYN) 4.5 g in dextrose premix IVPBpolyethylene glycol (MIRALAX) packet 17 g (1 source)Start: 05-28-2022 End: 24-76-9984vwyflkzubtic glycol (MIRALAX) packet 17 gpotassium phosphates 15 mmol in sodium chloride 0.9%, with overfill 280 mL (total volume) IVPB (1 source)Start: 05-29-2022 End: 57-42-9448inyjqfrez phosphates 15 mmol in sodium chloride 0.9%, with overfill 280 mL (total volume) IVPBProchlorperazine (1 source)PhenothiazineStart: 05-27-2022 End: 26-49-8447eait 1 tablet by mouth every six hours as neededprochlorperazine (COMPAZINE) tablet 10 mgSenna Leaves (1 source)Start: 06-02-2022 End: 34-69-7269xijib (SENOKOT) tablet 17.2 ir8878 ml sodium chloride 9 mg/ml injection (6 sources)Start: 06-01-2022 End: 68-08-6525emlpcp chloride 0.9% IV solutionStart: 05-31-2022 End: 23-14-9869lgzhps chloride 0.9% IV solutionStart: 04-30-2022 End: 51-68-0730eppmji chloride (PF) 0.9 % injection 1-100 mLStart: 04-28-2021 End: 01-58-6809wdnpal chloride (PF) 0.9 % injection 1-100 mLStart: 91-49-842583 mL, Intravenous, EVERY 12 HOURS SCHEDULED (2 times per day), First dose on Mon12/06/19 at 2100Start: 53-12-2205izvi 10 mL intravenous route once as ndxkny94 mL, Intravenous, PRN, Line Care, After every IV line use, Starting Mon12/06/19 at 1343sodium phosphate 15 mmol in sodium chloride 0.9%, with overfill 115 mL (total volume) IVPB (2 sources)Start: 05-30-2022 End: 06-48-9588vlcufs phosphate 15 mmol in sodium chloride 0.9%, with overfill 115 mL (total volume) IVPBStart: 05-29-2022 End: 05-56-8117epzcao phosphate 15 mmol in sodium chloride 0.9%, with overfill 115 mL (total volume) IVPBVancomycin HCl in NaCl (Vancocin) 1,250 mg 287.5 ml premade IVPB (2 sources)Start: 05-30-2022 End: 99-78-3345Lhzffpptse HCl in NaCl (Vancocin) 1,250 mg 287.5 ml premade IVPB Start: 05-29-2022 End: 29-29-1231Cmvdrtlxxg HCl in NaCl (Vancocin) 1,250 mg 287.5 ml premade IVPB zinc sulfate 220 mg oral capsule (4 sources) End: 24-33-2398jadd 1 capsule by mouth once daily in the morningzinc sulfate 220 MG capsule Take 220 mg by mouth daily every morning. 0 04/27/2022 Discontinued (Therapy completed) Problems Active Problems Problem ClassificationProblemDateDocumented DateEpisodic/ChronicAbdominal hernia (7 sources)Inguinal hernia; Translations: [Unilateral inguinal hernia, without obstruction or gangrene, not specified as recurrent]Onset: 91-06-8187Otzdztua Cancer of head and neck (20 sources)Primary malignant neoplasm of upper gum; Translations: [Malignant neoplasm of upper gum]Onset: 346094-17-7486YuwxaskVyvarz; other and unspecified primary (1 source)Personal history of malignant neoplasm of other organs and systems; Translations: [Personal historyof malignant neoplasm of other organs and systems]Onset: 72-93-2143VkysezdwHmlgwvhok of teeth and jaw (8 sources)Partial edentulism; Translations: [Partial loss of teeth, unspecified cause, unspecified class]EpisodicEsophageal disorders (1 source)Gastroesophageal reflux disease without esophagitis; Translations: [Gastro-esophageal reflux disease without esophagitis]ChronicGlaucoma (1 source)Igphmkxo65-25-4470RpstixrDkqg disorders (1 source)Mood unbmwifj19-55-3515PlaojeyZnnyfp and vomiting (1 source)Postoperative nausea and vomiting; Translations: [Nausea with vomiting, unspecified]EpisodicOsteoarthritis (15 sources)Unilateral primary osteoarthritis, right hip; Translations: [Bilateral primary osteoarthritis of hip]Onset: 36-92-4560BwqxxdwWuplg and unspecified benign neoplasm (2 sources)Melanocytic nevi of other parts of face; Translations: [Benign neoplasm of skin of other and unspecified parts of face]02-87-4305LtsmhqyqNjfwo and unspecified benign neoplasm (2 sources)Melanocytic nevus of trunk; Translations: [Melanocytic nevi of trunk] 26-30-4446RipshuqhWuhwd connective tissue disease (3 sources)History of total hip arthroplasty; Translations: [Presence of left artificial hip joint]Onset: 542220-22-1480AmgswrzMfjaf ear and sense organ disorders (20 sources)Hearing loss; Translations: [Unspecified hearing loss, unspecified ear]Onset: 111252-81-8053JnogpuuRnjrs gastrointestinal disorders (1 source)Personal history of other diseases of the digestive system; Translations: [Personal history of other diseases of the digestive system]Onset: 49-01-1689FyeheyegBriqg lower respiratory disease (2 sources)Nodule of lung; Translations: [Solitary pulmonary nodule]Episodic Other nervous system disorders (1 source)Trigeminal cerzdkkoc38-86-6910DaexidxsHxjch screening for suspected conditions (not mental disorders or infectious disease) (1 source)Screening for malignant neoplasm of colon done; Translations: [Encounter for screening for malignant neoplasm of colon]Onset: 06-07-2024 EpisodicOther skin disorders (2 sources)Seborrheic keratosis; Translations: [Other seborrheic keratosis] 95-69-8970YkacnzdeBozhm skin disorders (2 sources)Lentiginosis; Translations: [Other melanin hyperpigmentation] 20-79-2364CzrewguzCrgfoqqarc and visceral atherosclerosis (5 sources)Peripheral vascular disease, unspecified; Translations: [Peripheral vascular disease]Onset: 19-35-8304ZmqkyaqPzuvtydce; thrombophlebitis and thromboembolism (1 source)H/O: Deep vein hefyvguhxe39-79-7039ZurgwcgkGjktbcsvhqruyp care; fitting of prostheses; and adjustment of devices (1 source)Device status; Translations: [Encounter for fitting and adjustment of unspecified external prosthetic device]10-21-4527YgajuaoaIoyoqlsj codes; unclassified (20 sources)H/O: radiation exposure; Translations: [Personal history of irradiation]51-58-2593ShendmibKipqvvyy codes; unclassified (1 source)At high risk for dental caries; Translations: [Risk for dental caries, high]55-71-6835QwhjelutDlhnfhoo codes; unclassified (1 source)Other specified postprocedural states; Translations: [Other specified postprocedural states]Onset: 31-72-6865VqwdbijpLtiwjfng codes; unclassified (1 source)Family history of malignant neoplasm of digestive organs; Translations: [Family history of malignant neoplasm of digestive organs]Onset: 24-41-0144HkovhgalRuljegghrmu; intervertebral disc disorders; other back problems (2 sources)Spondylosis without myelopathy or radiculopathy, lumbar region; Translations: [Other spondylosis with radiculopathy, lumbar region]Onset: 28-18-2159LlamzinTnfesikgpcq; intervertebral disc disorders; other back problems (5 sources)Radiculopathy, lumbar region; Translations: [Lumbar radiculopathy] Onset: 98-65-6658LtbuhrqjUfudhbttxztd (1 source)Patient encounter kpgatl85-09-9536Uqamehggfyrk (1 source)Post-opOnset: 07-23-2024 Past or Other Problems Problem ClassificationProblemDateDocumented DateEpisodic/ChronicCancer of head and neck (1 source)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, oral cavity, and pharynx; Translations: [PERS HX MAL YOGESH LIP ORL CAV AND PHARYNX]Onset: 37-80-0958XqibjmndNtvayg; other and unspecified primary (20 sources)History of malignant neoplasm of head and/or neck; Translations: [Personal history of malignant neoplasm of other organs and systems]Onset: 475031-13-6953HqqkankaZjgb disorders (20 sources)Mood disordersOnset: 04-27-2022 Resolved: 515412-07-6099Kgqyc aftercare (1 source)Other senior living (current) drug therapy; Translations: [[employer]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]Onset: 34-81-8422UbdfiosiSonzt nervous system disorders (1 source)Trigeminal neuralgia; Translations: [TRIGEMINAL NEURALGIA]Onset: 71-45-0244GzsomrzcDrlzb non-traumatic joint disorders (1 source)Pain in left knee; Translations: [PAIN IN LEFT KNEE]Onset: 11-04-2021 EpisodicOther non-traumatic joint disorders (4 sources)Pain in left hip; Translations: [PAIN IN LEFT HIP]Onset: 10-12-2021 EpisodicOther non-traumatic joint disorders (1 source)Pain in right hip; Translations: [PAIN IN RIGHT HIP]Onset: 10-16-2021 EpisodicPulmonary heart disease (20 sources)Pulmonary embolism; Translations: [H/O: pulmonary embolus]Onset: 601836-52-4248LxqoqbqcJagslrcq codes; unclassified (19 sources)Postoperative state; Translations: [Other specified postprocedural states]Onset: 40-48-2092HhnkbxioPfclefya codes; unclassified (2 sources)Family history of cancer of colon; Translations: [Family history of malignant neoplasm of digestiveorgans]14-93-1452Aiqiyqku Results Test NameValueInterpretationReference RangeFacilityAmbulatory Visit Summaryon 20-66-2157Cpyzuesiud Visit SummaryAmbulatory Visit Summary LILLY ARGUETA :1945 Visit Date:06/07/2024 Ambulatory Visit Instructions Your Care Team Attending Physician - Rajeev SOLO MD Primary Care Physician - Cliff Fitzgerald MD Referring Physician - Cliff Fitzgerald MD This Is Your Medications List aspirin (aspirin 81 mg Oral EC Tab) Contact prescribing physician if questions or concerns latanoprost ophthalmic (latanoprost 0.005% ophthalmic emulsion) Procedures Performed Appendectomy, Arthroplasty of left hip, Arthroplasty of right hip, Debridement, Debulking, Graft ofskin, Tracheostomy, Wedge excision. Discharge Vitals Heart Rate (Peripheral) 85 Respiratory Rate 16 Blood Pressure 136/90 Height 185.4 cm Height 73 in Weight 78.7 kg Weight 173.14 lb BMI 22.9 Medications What How Much When Instructions Unchanged aspirin (aspirin 81 mg Oral EC Tab) 1 Tablets By Mouth Every day Unchanged latanoprost ophthalmic (latanoprost 0.005% ophthalmic emulsion) 1 Drops Both eyes Once a day (in the evening) Contact prescribing physician if questions or concerns Allergies No Known Allergies No Known Medication Allergies Problems Ongoing - Any problem that you are currently receiving treatment for. Family history of colon cancer Glaucoma Hearing loss History of DVT (deep vein thrombosis) History of malignant neoplasm of head and/or neck Lumbar radiculopathy Mood disorder Nodule of lung Pulmonary embolism PVD (peripheral vascular disease) Trigeminal neuralgia Patient Survey You may receive a survey via text or e-mail asking about your office visit. Please share your experience with us by completing your survey. We appreciate your feedback and thank you for choosing us for your care. NormalMansfield HospitalCBC AND ELECTRONIC DIFFon 38-50-5025Kltgwvpqj (Bld) [#/Vol]0.05 10*3/uL0.00 - 0.09 K/uLSelect Medical Specialty Hospital - CantonBasophils/100 WBC (Bld)0.8 %[facility] CantonDifferential cell count method Nom (Bld)Electronic DifferentialOSFayette County Memorial Hospital Eosinophils (Bld) [#/Vol]0.10 10*3/uL0.00 - 0.48 K/[facility] Eosinophils/100 WBC (Bld)1.5 %[facility] - CantonErythrocyte distribution width (RBC) [Ratio]14.7 %High10.9 - 14.3 %[facility] CantonHematocrit (Bld) [Volume fraction]42.3 %39.6 - 48.8 %[facility] CantonHemoglobin (Bld) [Mass/Vol]13.3 g/dLLow13.4 - 16.8 g/dLSelect Medical Specialty Hospital - CantonImmature granulocytes (Bld) [#/Vol]K/uLNINF - 0.07 K/uLSelect Medical Specialty Hospital - CantonImmature granulocytes/100 WBC (Bld)0.3 %[facility] CantonInterpretation and review of laboratory resultsAbnormalOACMC Healthcare SystemLymphocytes (Bld) [#/Vol]0.54 10*3/uLLow0.83 - 3.57 K/uLSelect Medical Specialty Hospital - CantonLymphocytes/100 WBC (Bld)8.1 %[facility] CenterH (RBC) [Entitic mass]27.7 pg26.1 - 33.3 pgSelect Medical Specialty Hospital - CantonMCHC (RBC) [Mass/Vol]31.4 g/dLLow31.9 - 36.5 g/dLSelect Medical Specialty Hospital - CantonMCV (RBC) [Entitic vol]87.9 fL79.0 - 94.5 [facility] Cancer CenterMonocytes (Bld) [#/Vol]0.76 10*3/uL0.24 - 0.93 K/[facility] CenterMonocytes/100 WBC (Bld)11.4 %[facility] Neutrophils (Bld) [#/Vol]5.17 10*3/uL1.57 - 6.19 [facility] Nucleated RBC/100 WBC (Bld) [Ratio]0.0 %Peoples HospitalPlatelet mean volume (Bld) [Entitic vol]10.8 fL8.7 - 12.3 [facility] Platelets (Bld) [#/Vol]263 10*3/uL146 - 337 K/[facility] CenterRBC (Bld) [#/Vol]4.81 10*6/[facility] Healthegmented neutrophils/100 WBC (Bld)77.9 %[facility] - CantonWBC (Bld) [#/Vol]6.64 10*3/uL3.73 - 10.10 /[facility] CenterCHEM 6 (LYTES, BUN CREA)on 05-13-4155Rykuc gap [Moles/Vol]11 mmol/L7 - 17 mmol/[facility] Chloride [Moles/Vol]106 mmol/L98 - 108 mmol/[facility] InstituteCO2 [Moles/Vol]26 mmol/L21 - 31 mmol/[facility] InstituteCreatinine [Mass/Vol] 1.11 mg/dL0.70 - 1.30 mg/dLSelect Medical Specialty Hospital - CantonGFR/1.73 sq M.predicted CKD- EPI (S/P/Bld) [Vol rate/Area]69- PINFOACMC Healthcare SystemComment on above: Reported eGFR is based on the CKD-EPI 2020 equation using creatinine, age, and sex.Potassium [Moles/Vol]4.5 mmol/L3.5 - 5.0 mmol/[facility] Sodium [Moles/Vol]138 mmol/L135 - 145 mmol/[facility] InstituteUrea nitrogen [Mass/Vol]20 mg/dL7 - 25 mg/dLSelect Medical Specialty Hospital - CantonUrea nitrogen/Creatinine [Mass ratio]18 mg/mgKaiser Foundation HospitalPR PREP FACE/ORAL PROST MANDIBULARon 50-66-5330HkbdxNell Lucio DMD 03/06/2023 4:04 PM Date of service: 12/22/22 Maxillary Resection Prosthesis ( The mandibular resection prosthesis code was used since there is no code for maxillary resection prosthesis) The maxillary resection prosthesis is prescribed for patients who have had significant segments of the maxilla removed due to cancer, trauma or infection that does not communicate with the nasal cavity, maxillary sinus or nasopharynx. These patients have a disruption in mastication, swallowing and can experience altered speech. This prosthesis is medically necessary and must be worn for the remainder of the patient s life. Lilly Argueta was prescribed a maxillary resection prosthesis. He is s/p maxillary resection and free flap christianity to close the site. Fabrication of the prosthesis should provide prosthetic reshaping of the maxilla and palatal contours to improve speech and tongue function. It will allow the tongue to articulate against the palate during speech and forcefully move the food bolus toward the throat during deglutition. Impressions were made today for its fabrication. A custom tray was used and border molded in the right side. A final impression was made using PVS light and medium body. The impression was poured in type IV dnetal stone. He tolerated the procedures very well.Kaiser Foundation HospitalXR tomography Mandible PanoramicOrdered By: Unassigned Pacs on 62-73-3135SQPSelect Medical Specialty Hospital - Canton Work Phone: XR tomography Mandible Panoramicon 51-32-2716Xpajnjerc Study observation (narrative)[facility] - CantonCBC AUTO DIFFon 07-04-2022 BASO #0.0 103/ulNormal0.0-0.1The [facility] HospitalComment on above:Performed By: #### CBC #### [facility] [address] [place] [address] Dr. Marine HsiehBasophils/100 WBC (Bld)0.6 %Normal0.2-2.0The [facility] Comment on above:Performed By: #### CBC #### [facility] [address] [place] [address] Dr. Marine Espinal #0.2 103/ulNormal0.0-0.7The [facility] HospitalComment on above: Performed By: #### CBC #### [facility] [address] [place] [address] Dr. Marine Tsaiosinophils/100 WBC (Bld)4.1 %Normal0.9-7.0The [facility] Comment on above:Performed By: #### CBC #### [facility] [address] [place] [address] Dr. Marine Tsairythrocyte distribution width (RBC) [Ratio]14.6 %Huwjvi69.0-15.0 The [facility] HospitalComment on above:Performed By: #### CBC #### [facility] [address] [place] [address] Dr. Marine HsiehHematocrit (Bld) [Volume fraction]32.4 %Critically low42.0-54.0 The [facility] HospitalComment on above:Performed By: #### CBC #### [facility] [address] [place] [address] Dr. Marine HsiehHemoglobin (Bld) [Mass/Vol]10.1 g/dLCritically low14.0-18.0The [facility] HospitalComment on above:Performed By: #### CBC #### [facility] [address] [place] [address] Dr. Marine Myles #0.01 10e3/ulNormal0.00-0.03The [facility] HospitalComment on above:Performed By: #### CBC #### [facility] [address] [address] [address] Marine Myles %0.2 %Normal0.0-0.5The [facility] HospitalComment on above: Performed By: #### CBC #### [facility] [address] [place] [address] Dr. Marine Byrne #0.6 103/ulCritically low1.2-3.8The [facility] Comment on above:Performed By: #### CBC #### [facility] [address] [place] [address] Dr. Marine Chavezhocytes/100 WBC (Bld)12.3 %Critically low20.5-60.0The [facility] HospitalComment on above:Performed By: #### CBC #### [facility] [address] [place] [address] Dr. Marine HortonUAL DIFF REQNONormalThe [facility] HospitalComment on above: Performed By: #### CBC #### [facility] [address] [place] [address] Dr. Marine Lopez (RBC) [Entitic mass]27.5 lbKglmzr66.9-34.0The [facility] HospitalComment on above:Performed By: #### CBC #### [facility] [address] [place] [address] Dr. Marine Lopez (RBC) [Mass/Vol]31.2 g/xZHyanpu93.9-35.2The [facility] HospitalComment on above:Performed By: #### CBC #### [facility] [address] [place] [address] Dr. Marine Lopez (RBC) [Entitic vol]88.3 vFAvslll06.0-94.0The [facility] HospitalComment on above:Performed By: #### CBC #### [facility] [address] [place] [address] Dr. Marine Martin #0.5 103/ulNormal0.3-0.8The [facility] HospitalComment on above:Performed By: #### CBC #### [facility] [address] [address] [address] Marine HsiehMonocytes/100 WBC (Bld)11.4 %Normal1.7-12.0[facility] Comment on above:Performed By: #### CBC #### [facility] [address] [place] [address] Dr. Marine EstevesUT #3.3 103/ulNormal1.4-6.5The [facility] HospitalComment on above:Performed By: #### CBC #### [facility] [address] [place] [address] Dr. Marine Estevesutrophils/100 WBC (Bld)71.4 %Ukbqog34.0-75.0The [facility] HospitalComment on above:Performed By: #### CBC #### [facility] [address] [place] [address] Dr. Marine HsiehPlatelet mean volume (Bld) [Entitic vol]10.2 fLNormal9.5-13.5The [facility] HospitalComment on above:Performed By: #### CBC #### [facility] [address] [place] [address] Dr. Marine HsiehPLT339 103/fbEpumlo038-933Bwg [facility] HospitalComment on above: Performed By: #### CBC #### [facility] [address] [place] [address] Dr. Marine HsiehRBC3.67 106/ulCritically low4.70-6.10The [facility] HospitalComment on above:Performed By: #### CBC #### [facility] [address] [place] [address] Dr. Marine HsiehWBC4.6 103/ulNormal4.0-11.0The [facility] HospitalComment on above: Performed By: #### CBC #### [facility] [address] [place] [address] Dr. Marine HsiehPROF CHEM 8 (BAS METB)on 71-92-5113Rrlka gap [Moles/Vol]12.5 mmol/LNormalThe Tarah HospitalComment on above:Performed By: #### BMP #### [facility] [address] [address] [address] Marine HsiehCalcium [Mass/Vol]8.7 mg/dLNormal8.5-10.1[facility] Comment on above:Performed By: #### BMP #### [facility] [address] [address] [address] Marine HsiehChloride [Moles/Vol]106 mmol/DAfgvvu23-694UcgOhiohealth Grady Memorial Hospital Comment on above:Performed By: #### BMP #### [facility] [address] [address] [address] Marine HsiehCO2 [Moles/Vol]27.4 mmol/DKdeusb82.0-32.0The [facility] Comment on above:Performed By: #### BMP #### [facility] [address] [place] [address] Dr. Marine HsiehCreatinine [Mass/Vol]1.05 mg/dLNormal0.70-1.30The [facility] HospitalComment on above:Performed By: #### BMP #### [facility] [address] [address] [address] Hawthorne ChangEGFR-AF PRYDEINIG>60Normal>=60The [facility] HospitalComment on above:Performed By: #### BMP #### [facility] [address] [place] [address] Dr. Marine TsaiGFR-NON AF PRYDEINIG>60Normal>=60The [facility] HospitalComment on above:Performed By: #### BMP #### [facility] [address] [address] [address] Marine HsiehGlucose [Mass/Vol]94 mg/sKJlnzlc76-645WqcOhiohealth Grady Memorial Hospital Comment on above:Performed By: #### BMP #### [facility] [address] [address] [address] Marine HsiehPotassium [Moles/Vol]3.9 mmol/LNormal3.5-5.1The [facility] Comment on above:Performed By: #### BMP #### [facility] [address] [address] [address] Marine Nixondium [Moles/Vol]142 mmol/NGnpdsl315-283Eig [facility] Comment on above:Performed By: #### BMP #### [facility] [address] [address] [address] Marine HsiehUrea nitrogen [Mass/Vol]16.0 mg/dLNormal7.0-18.0The [facility] HospitalComment on above:Performed By: #### BMP #### [facility] [address] [address] [address] Marine HsiehUrea nitrogen/Creatinine [Mass ratio]15.2 mg/mgNormalThe [facility] HospitalComment on above:Performed By: #### BMP #### [facility] [address] [address] [address] Marine Menendez W MANUAL DIFFon 77-48-6016VSDYCUUX LYMPH #NormalThe [facility] HospitalComment on above:Performed By: #### CBCMAN ####[facility] [address] [address]. Yilan ChangATYPICAL LYMPH %NormalThe [facility] Memorial HospitalComment on above:Performed By: #### CBCMAN ####[facility] [address] [address]Dr. Yilan ChangBAND #Normal0.0-0.3The [facility] HospitalComment on above:Performed By: #### CBCMAN ####[facility] [address] [address]Dr. Yilan ChangBAND %Normal0-5The [facility] HospitalComment on above: Performed By: #### CBCMAN ####[facility] [address]qghino[address] [address]Dr. Yilan ChangBASOM #0.10 103/ulNormal0.00-0.10The [facility] HospitalComment on above:Performed By: #### CBCMAN ####[facility] Wiuziimccb[address] [place], [place] [address]Dr. Yilan ChangBASOM %2.0 %Normal0.2-2.0The [facility] HospitalComment on above:Performed By: #### CBCMAN ####[facility] U[address]xdevjks[address] [address]Dr. Yilan ChangBLAST #NormalThe [facility] HospitalComment on above:Performed By: #### CBCMAN ####[facility] Wbowznjchm[address] [address]Dr. Yilan ChangBLAST %NormalThe [facility] HospitalComment on above: Performed By: #### CBCMAN ####[facility] Gjxqunxpqv[address] [place], [place] [address]Dr. Yilan ChangBURR CELLSSLIGHTNormalThe [facility] HospitalComment on above:Performed By: #### CBCMAN ####[facility] Pangyvpdgy[address] [place], [place] [address]Dr. Yilan ChangCORRECTED WBC Normal4.0-11.0The [facility] HospitalComment on above:Performed By: #### CBCMAN ####[facility] Cgnpxpvkdr[address] [place], [place] [address]Dr. Yilan ChangEOS #0.30 103/ulNormal0.00-0.70The [facility] HospitalComment on above: Performed By: #### CBCMAN ####[facility] Rjbzxrofms[address] [place], [place] [address]Dr. Yilan ChangEOS%6.0 %Normal0.9-7.0The [facility] HospitalComment on above:Performed By: #### CBCMAN ####[facility] Uovxelzuwf[address] [place], [place] [address]Dr. Yilan IpbxhVIT72.7 % Critically low42.0-54.0The [facility] HospitalComment on above:Performed By: #### CBCMAN ####[facility] Gegndxfhfi[address] [place], [place] [address]Dr. Yilan OawmuYWN90.6 g/dlCritically low14.0-18.0The [facility] Comment on above:Performed By: #### CBCMAN ####[facility] Ilsunqpasj[address] [place], [place] [address]Dr. Yilan ChangLYMPHM #0.65 103/ulCritically low1.20-3.80The [facility] HospitalComment on above:Performed By: #### CBCMAN ####[facility] Dyclvozcxc[address] [address]Dr. Marine HsiehLYMPHM%13.0 %Critically low20.5-60.0The [facility] HospitalComment on above:Performed By: #### CBCMAN ####[facility] Svphkyqduv[address] [address]Dr. Marine HsiehMCH27.7 vfUesbyt35.9-34.0The [facility] HospitalComment on above:Performed By: #### CBCNETTA ####[facility] Ibzihujceq[address] [place], [place] [address]Dr. Marine HsiehMCHC31.5 g/dl Fzjeue15.9-35.2The [facility] HospitalComment on above:Performed By: #### CBCNETTA ####[facility] Fbegssjtna[address] [place], [place] [address]Dr. Marine HsiehMCV88.0 pKOsvliv26.0-94.0The [facility] HospitalComment on above: Performed By: #### CBCMAN ####[facility] Inukkbagdo[address] [place], [place] [address]Dr. Marine ChangMETAMYELOCYTE #NormalOhiohealth Grady Memorial HospitalComchelsea hospital on above:Performed By: #### CBCMAN ####[facility] Ugatwocnrm[address] [place], [place] [address]Dr. Marine ChangMETAMYELOCYTE %NormalThe [facility] HospitalComment on above:Performed By: #### CBCMAN ####[facility] Ezvggcclrz[address] [place], [place] [address]Dr. Marine HsiehMONOM#0.50 103/ulNormal0.30-0.80The [facility] HospitalComment on above:Performed By: #### CBCMAN ####[facility] Bvovlptgad[address] [place], [place] [address]Dr. Marine HsiehMONOM%10.0 %Normal1.7-12.0The [facility] HospitalComment on above:Performed By: #### CBCMAN ####[facility] [address]fc[address]jbbs[address] [address]Dr. Yilan GegheIAB20.1 fL Normal9.5-13.5The [facility] HospitalComment on above:Performed By: #### CBCMAN ####[facility] [address]ptbaxtfge[address] [address]Dr. Yilan ChangMYELOCYTE #NormalThe [facility] HospitalComment on above:Performed By: #### CBCMAN ####[facility] Isnoenkgrb[address] [address]Dr. Yilan ChangMYELOCYTE %NormalThe [facility] HospitalComment on above: Performed By: #### CBCMAN ####[facility] Aaemlnwbln[address] [place], [place] [address]Dr. Yilan ChangNRBCNormalThe [facility] HospitalComment on above:Performed By: #### CBCNETTA ####[facility] Qvzyqpzjfz[address] [place], [place] [address]Dr. Yilan NkwwoGDD612 103/efQobcgl790-851Loz [facility] HospitalComment on above:Performed By: #### CBCNETTA ####[facility] Vevxnuhrjg[address] [place], [place] [address]Dr. Yilan ChangRBC 3.83 106/ulCritically low4.70-6.10The [facility] HospitalComment on above: Performed By: #### CBCNETTA ####[facility] Hbduvdcqtw34[address] [place], [place] [address]Dr. Yilan FjoyxBGK63.5 %Kwqbwp31.0-15.0The [facility] HospitalComment on above:Performed By: #### CBCMAN ####[facility] Ynovsgxzvl[address] [place], [place] [address]Dr. Yilan ChangSEG #3.45 103/ulNormal1.40-6.50The [facility] HospitalComment on above:Performed By: #### CBCMAN ####[facility] Pdesngvzhj[address] [place], [place] [address]Dr. Yilan ChangSEG %69.0 %Dnxgis72.0-75.0The [facility] HospitalComment on above:Performed By: #### CBCMAN ####[facility] [address] [address]Dr. Marine HsiehWBC5.0 103/ulNormal4.0-11.0The [facility] HospitalComment on above:Performed By: #### CBCMAN ####[facility] [address]uxmmlrth[address] [address]Dr. Marine HsiehPROF CHEM 8 (BAS METB)on 93-94-9532Aytqd gap [Moles/Vol]12.8 mmol/LNormalThe [facility] HospitalComment on above:Performed By: #### BMP #### [facility] [address] [address] [address] Marine HsiehCalcium [Mass/Vol]9.2 mg/dLNormal8.5-10.1The [facility] Comment on above:Performed By: #### BMP #### [facility] [address] [address] [address] Marine HsiehChloride [Moles/Vol]104 mmol/AJfbmeq94-022Lfq [facility] Comment on above:Performed By: #### BMP #### [facility] [address] [address] [address] Marine HsiehCO2 [Moles/Vol]27.1 mmol/WZzlano27.0-32.0The [facility] Comment on above:Performed By: #### BMP #### [facility] [address] [address] [address] Marine HsiehCreatinine [Mass/Vol]1.11 mg/dLNormal0.70-1.30The [facility] HospitalComment on above:Performed By: #### BMP #### [facility] [address] [address] [address] Marine TsaiGFR-AF PRYDEINIG>60Normal>=60The [facility] HospitalComment on above:Performed By: #### BMP #### [facility] [address] [address] [address] Marine TsaiGFR-NON AF PRYDEINIG>60Normal>=60The [facility] HospitalComment on above:Performed By: #### BMP #### [facility] [address] [address] [address] Marine HsiehGlucose [Mass/Vol]101 mg/oQNvujhi47-877KozOhiohealth Grady Memorial Hospital Comment on above:Performed By: #### BMP #### [facility] [address] [address] [address] Marine HsiehPotassium [Moles/Vol]3.9 mmol/LNormal3.5-5.1[facility] Comment on above:Performed By: #### BMP #### [facility] [address] [address] [address] Marine HsiehSodium [Moles/Vol]140 mmol/QVjklsg800-083Gxh [facility] Comment on above:Performed By: #### BMP #### [facility] [address] [place] [address] Dr. Marine HsiehUrea nitrogen [Mass/Vol]11.0 mg/dLNormal7.0-18.0The [facility] HospitalComment on above:Performed By: #### BMP #### [facility] [address] [place] [address] Dr. Marine Bazan nitrogen/Creatinine [Mass ratio]9.9 mg/mgNormalThe [facility] HospitalComment on above:Performed By: #### BMP #### [facility] [address] [place] [address] Dr. Marine Menendez W MANUAL DIFFon [id number] LYMPH #0.18 103/ulNormal The [facility] HospitalComment on above:Performed By: #### CBCMAN #### [facility] [address] [place] [address] Dr. Marine HsiehATYPICAL LYMPH %4 %NormalThe [facility] HospitalComment on above: Performed By: #### CBCMAN #### [facility] [address] [place] [address] Dr. Marine Walker #0.0 103/ulNormal0.0-0.3The [facility] HospitalComment on above:Performed By: #### CBCNETTA #### [facility] [address] [address] [address] Marine Walker %1 %Normal0-5The [facility] HospitalComment on above:Performed By: #### CBCNETTA #### [facility] [address] [address] [address] Marine Pride #0.00 103/ulNormal0.00-0.10The [facility] HospitalComment on above:Performed By: #### VERONICA #### [facility] [address] [place] [address] Dr. Marine Pride %0.0 %Critically low0.2-2.0The [facility] HospitalComment on above:Performed By: #### VERONICA #### [facility] [address] [place] [address] Dr. Marine Hassan #NormalThe [facility] HospitalComment on above:Performed By: #### VERONICA #### [facility] [address] [place] [address] Dr. Marine Hassan %NormalThe [facility] HospitalComment on above:Performed By: #### VERONICA #### [facility] [address] [place] [address] Dr. Marine HsiehCORRECTED WBCNormal4.0-11.0The [facility] HospitalComment on above: Performed By: #### CBCNETTA #### [facility] [address] [place] [address] Dr. Marine Rodriguez #0.36 103/ulNormal0.00-0.70The [facility] HospitalComment on above:Performed By: #### CBCNETTA #### [facility] [address] [place] [address] Dr. Marine Rodriguez%8.0 %Critically high0.9-7.0The [facility] HospitalComment on above:Performed By: #### CBCNETTA #### [facility] [address] [place] [address] Dr. Marine HsiehHCT33.2 %Critically low42.0-54.0The [facility] HospitalComment on above:Performed By: #### CBCMAN #### [facility] [address] [address] [address] Marine HsiehHGB10.5 g/dlCritically low14.0-18.0The [facility] HospitalComment on above:Performed By: #### CBCMAN #### [facility] [address] [address] [address] Marine Thompson #0.27 103/ulCritically low1.20-3.80The [facility] Comment on above:Performed By: #### CBCNETTA #### [facility] [address] [address] [address] Marine Thompson%6.0 %Critically low20.5-60.0The [facility] HospitalComment on above:Performed By: #### CBCNETTA #### [facility] [address] [place] [address] Dr. Marine LopezH28.1 keOqzfeh02.9-34.0The [facility] HospitalComment on above: Performed By: #### CBCNETTA #### [facility] [address] [address] [address] Marine LopezHC31.6 g/rrTnbvhb36.9-35.2The [facility] HospitalComment on above:Performed By: #### CBCNETTA #### [facility] [address] [address] [address] Marine LopezV88.8 cEHzqhfs19.0-94.0The [facility] HospitalComment on above: Performed By: #### CBCMAN #### [facility] [address] [address] [address] Marine QuezadaOCYTE #NormalThe [facility] HospitalComment on above: Performed By: #### CBCMAN #### [facility] [address] [address] [address] Marine QuezadaOCYTE %NormalThe [facility] HospitalComment on above: Performed By: #### CBCMAN #### [facility] [address] [address] [address] Marine Perea#0.27 103/ulCritically low0.30-0.80The [facility] Comment on above:Performed By: #### VERONICA #### [facility] [address] [place] [address] Dr. Marine Perea%6.0 %Normal1.7-12.0The [facility] HospitalComment on above: Performed By: #### VERONICA #### [facility] [address] [place] [address] Dr. Marine HsiehMPV10.9 fLNormal9.5-13.5The [facility] HospitalComment on above: Performed By: #### VERONICA #### [facility] [address] [place] [address] Dr. Marine Valerio #NormalThe [facility] HospitalComment on above:Performed By: #### VERONICA #### [facility] [address] [place] [address] Dr. Marine AbrahamOCYTE %NormalThe [facility] HospitalComment on above:Performed By: #### VERONICA #### [facility] [address] [place] [address] Dr. Marine HsiehNRBCNormalThe [facility] HospitalComment on above:Performed By: #### VERONICA #### [facility] [address] [place] [address] Dr. Marine HsiehPLT231 103/gnCskwlx933-221Ghe [facility] HospitalComment on above: Performed By: #### VERONICA #### [facility] [address] [place] [address] Dr. Marine HsiehRBC3.74 106/ulCritically low4.70-6.10The [facility] HospitalComment on above:Performed By: #### VERONICA #### [facility] [address] [place] [address] Dr. Marine HsiehRDW14.5 %Pvuuvl03.0-15.0The [facility] HospitalComment on above: Performed By: #### VERONICA #### [facility] [address] [address] [address] Marine Johnson #3.38 103/ulNormal1.40-6.50The [facility] HospitalComment on above:Performed By: #### CBCMAN #### [facility] [address] [place] [address] Dr. Marnie Johnson %75.0 %Kwrhlz40.0-75.0The [facility] HospitalComment on above: Performed By: #### CBCMAN #### [facility] [address] [place] [address] Dr. Marine HsiehWBC4.5 103/ulNormal4.0-11.0The [facility] HospitalComment on above: Performed By: #### CBCMAN #### [facility] [address] [place] [address] Dr. Marine HsiehPROF CHEM 8 (BAS METB)on 66-53-6436Mczfc gap [Moles/Vol]11.1 mmol/LNormalThe [facility] HospitalComment on above:Performed By: #### BMP #### [facility] [address] [place] [address] Dr. Marine HsiehCalcium [Mass/Vol]9.2 mg/dLNormal8.5-10.1The [facility] Comment on above:Performed By: #### BMP #### [facility] [address] [place] [address] Dr. Marine HsiehChloride [Moles/Vol]106 mmol/FAiwslm35-057Aau [facility] Comment on above:Performed By: #### BMP #### [facility] [address] [place] [address] Dr. Marine HsiehCO2 [Moles/Vol]28.2 mmol/MHksfkw58.0-32.0The [facility] Comment on above:Performed By: #### BMP #### [facility] [address] [place] [address] Dr. Marine HsiehCreatinine [Mass/Vol]1.08 mg/dLNormal0.70-1.30The [facility] HospitalComment on above:Performed By: #### BMP #### [facility] [address] [address] [address] Marine TsaiGFR-AF PRYDEINIG>60Normal>=60The [facility] HospitalComment on above:Performed By: #### BMP #### [facility] [address] [address] [address] Marine TsaiGFR-NON AF PRYDEINIG>60Normal>=60The [facility] HospitalComment on above:Performed By: #### BMP #### [facility] [address] [address] [address] Marine HsiehGlucose [Mass/Vol]99 mg/wAWalanr39-234Lpa [facility] Comment on above:Performed By: #### BMP #### [facility] [address] [address] [address] Marine HsiehPotassium [Moles/Vol]4.3 mmol/LNormal3.5-5.1The [facility] Comment on above:Performed By: #### BMP #### [facility] [address] [address] [address] Marine HsiehSodium [Moles/Vol]141 mmol/HDqqgbg603-887Ahm [facility] Comment on above:Performed By: #### BMP #### [facility] [address] [address] [address] Marine HsiehUrea nitrogen [Mass/Vol]12.0 mg/dLNormal7.0-18.0The [facility] HospitalComment on above:Performed By: #### BMP #### [facility] [address] [address] [address] Marine Bazan nitrogen/Creatinine [Mass ratio]11.1 mg/mgNormalThe [facility] HospitalComment on above:Performed By: #### BMP #### [facility] [address] [address] [address] Marine Menendez W MANUAL DIFFon [id number] LYMPH #0.00 103/ulNormal The [facility] HospitalComment on above:Performed By: #### CBCMAN #### [facility] [address] [place] [address] Dr. Marine Romo LYMPH %0 %NormalThe [facility] HospitalComment on above: Performed By: #### VERONICA #### [facility] [address] [place] [address] Dr. Marine Walker #0.1 103/ulNormal0.0-0.3The [facility] HospitalComment on above:Performed By: #### VERONICA #### [facility] [address] [place] [address] Dr. Marnie Walker %2 %Normal0-5The [facility] HospitalComment on above:Performed By: #### VERONICA #### [facility] [address] [place] [address] Dr. Marine Pride #0.00 103/ulNormal0.00-0.10The [facility] HospitalComment on above:Performed By: #### VERONICA #### [facility] [address] [place] [address] Dr. Marine Pride %0.0 %Critically low0.2-2.0The [facility] HospitalComment on above:Performed By: #### VERONICA #### [facility] [address] [place] [address] Dr. Marine Hassan #0.0 103/ulNormalThe [facility] HospitalComment on above: Performed By: #### VERONICA #### [facility] [address] [place] [address] Dr. Marine Hassan %0 %NormalThe [facility] HospitalComment on above:Performed By: #### VERONICA #### [facility] [address] [place] [address] Dr. Marine HsiehCORRECTED WBCNormal4.0-11.0The [facility] HospitalComment on above: Performed By: #### VERONICA #### [facility] [address] [place] [address] Dr. Marine Rodriguez #0.05 103/ulNormal0.00-0.70The [facility] HospitalComment on above:Performed By: #### CBCNETTA #### [facility] [address] [address] [address] Marine Rodriguez%1.0 %Normal0.9-7.0The [facility] HospitalComment on above: Performed By: #### CBCNETTA #### [facility] [address] [address] [address] Marine HsiehHCT31.1 %Critically low42.0-54.0The [facility] HospitalComment on above:Performed By: #### CBCNETTA #### [facility] [address] [address] [address] Marine HsiehHGB10.0 g/dlCritically low14.0-18.0The [facility] HospitalComment on above:Performed By: #### VERONICA #### [facility] [address] [address] [address] Marine Thompson #0.36 103/ulCritically low1.20-3.80The [facility] Comment on above:Performed By: #### VERONICA #### [facility] [address] [address] [address] Marine Thompson%7.0 %Critically low20.5-60.0The [facility] HospitalComment on above:Performed By: #### VERONICA #### [facility] [address] [address] [address] Marine LopezH28.9 veJpeghq33.9-34.0The [facility] HospitalComment on above: Performed By: #### CBCNETTA #### [facility] [address] [address] [address] Marine LopezHC32.2 g/arYgewfq97.9-35.2The [facility] HospitalComment on above:Performed By: #### CBCNETTA #### [facility] [address] [address] [address] Marine LopezV89.9 eZSlorwl25.0-94.0The [facility] HospitalComment on above: Performed By: #### CBCNETTA #### [facility] [address] [address] [address] Marine PaulinoAMYELOCYTE #0.0 103/ulNormOhioHealth Nelsonville Health CenterComment on above:Performed By: #### VERONICA #### [facility] [address] [place] [address] Dr. Marine HsiehMETAMYELOCYTE %0 %NormalOhiohealth Grady Memorial HospitalComment on above: Performed By: #### VERONICA #### [facility] [address] [address] [address] Marine AgustinOM#0.46 103/ulNormal0.30-0.80The [facility] HospitalComment on above:Performed By: #### VERONICA #### [facility] [address] [place] [address] Dr. Marine Perea%9.0 %Normal1.7-12.0[facility] HospitalComchelsea hospital on above: Performed By: #### VERONICA #### [facility] [address] [place] [address] Dr. Marine HsiehMPV11.[address] fLNormal9.5-13.5ThMount St. Mary HospitalComment on above: Performed By: #### VERONICA #### [facility] [address] [place] [address] Dr. Marine AbrahamOCYTE #0.0 103/ulFirelands Regional Medical CenterComchelsea hospital on above: Performed By: #### VERONICA #### [facility] [address] [place] [address] Dr. Marine AbrahamOCYTE %0 %NormalOhiohealth Grady Memorial HospitalComchelsea hospital on above: Performed By: #### VERONICA #### [facility] [address] [place] [address] Dr. Marine HsiehHrediDLTQ8MljumkFoyFirelands Regional Medical CenterComchelsea hospital on above:Performed By: #### VERONICA #### [facility] [address] [place] [address] Dr. Marine HsiehPLT339 103/vmOyuevt103-348Fox [facility] HospitalComment on above: Performed By: #### VERONICA #### [facility] [address] [address] [address] Marine CernaC3.46 106/ulCritically low4.70-6.10The [facility] HospitalComment on above:Performed By: #### CBCNETTA #### [facility] [address] [address] [address] Marine HsiehRDW14.9 %Enhclv69.0-15.0The [facility] HospitalComment on above: Performed By: #### VERONICA #### [facility] [address] [address] [address] Marine Johnson #4.13 103/ulNormal1.40-6.50The [facility] HospitalComment on above:Performed By: #### VERONICA #### [facility] [address] [address] [address] Marine Johnson %81.0 %Critically high43.0-75.0The [facility] HospitalComment on above:Performed By: #### VERONICA #### [facility] [address] [address] [address] Marine HsiehWBC5.1 103/ulNormal4.0-11.0The [facility] HospitalComment on above: Performed By: #### VERONICA #### [facility] [address] [address] [address] Marine Blanca CHEM 8 (BAS METB)on 65-95-7518Hvaxi gap [Moles/Vol]11.0 mmol/LNormalThe [facility] HospitalComment on above:Performed By: #### BMP ####[facility] [address] [place] [address]Dr. Marine HsiehCalcium [Mass/Vol]9.3 mg/dLNormal8.5-10.1The [facility] HospitalComchelsea hospital on above:Performed By: #### BMP ####[facility] [address] [address]Dr.Yilan HsiehChloride [Moles/Vol]105 mmol/LNormal 98-107The [facility] HospitalComment on above:Performed By: #### BMP ####[facility] [address] [address]Dr.Yilan ChangCO2 [Moles/Vol]27.1 mmol/CGsqxoq55.0-32.0The [facility] HospitalComment on above: Performed By: #### BMP ####[facility] [address]xt[address] [place], [place] [address]Dr.Yilan ChangCreatinine [Mass/Vol]1.07 mg/dLNormal 0.70-1.30The [facility] HospitalComment on above:Performed By: #### BMP ####[facility] [address] [place], [place] [address]Dr. Yilan ChangEGFR-AF PRYDEINIG>60Normal>=60The [facility] HospitalComchelsea hospital on above: Performed By: #### BMP ####[facility] [address]qfmktmh[address] [place], [place] [address]Dr.Yilan ChangEGFR-NON AF PRYDEINIG>60Normal>=60The [facility] Hospitalment on above:Performed By: #### BMP ####[facility] Jrz[address]zkcadb[address] [place], [place] [address]Dr.Yilan ChangGlucose [Mass/Vol]101 mg/aTMqwice68-496Knd [facility] on above:Performed By: #### BMP ####[facility] [address]mndohmadm[address] [place], [place] [address]Dr.Yilan ChangPotassium [Moles/Vol]4.1 mmol/LNormal3.5-5.1The [facility] HospitalComment on above:Performed By: #### BMP ####[facility] [address]myoteeujr[address] [place], [place] [address]Dr.Yilan ChangSodium [Moles/Vol]139 mmol/QQqisfg011-679Rzj [facility] HospitalComment on above: Performed By: #### BMP ####[facility] [address] [place], [place] [address]Dr.Yilan ChangUrea nitrogen [Mass/Vol]19.0 mg/dL Critically high7.0-18.0The [facility] Memorial HospitalComment on above:Performed By: #### BMP ####[facility] [address] [address]Dr. Marine Bazan nitrogen/Creatinine [Mass ratio]17.8 mg/mgNormalThe [facility] HospitalComment on above:Performed By: #### BMP ####[facility] [address] [address]Dr.Yilan Menendez W MANUAL DIFFon [id number] LYMPH #NormalGreen Cross Hospital HospitalComment on above: Performed By: #### VERONICA #### [facility] [address] [place] [address] Dr. Marine CevallosYPICAL LYMPH %NormalGreen Cross Hospital HospitalComment on above: Performed By: #### VERONICA #### [facility] [address] [place] [address] Dr. Marine Walker #0.0 103/ulNormal0.0-0.3The [facility]ason HospitalComment on above:Performed By: #### VERONICA #### [facility] [address] [place] [address] Dr. Marine Walker %1 %Normal0-5The [facility] HospitalComment on above:Performed By: #### VERONICA #### [facility] [address] [place] [address] Dr. Marine Pride #0.00 103/ulNormal0.00-0.10The [facility] HospitalComment on above:Performed By: #### VERONICA #### [facility] [address] [place] [address] Dr. Marine Pride %0.0 %Critically low0.2-2.0The [facility] HospitalComment on above:Performed By: #### CBCNETTA #### [facility] [address] [place] [address] Dr. Marine Hassan #NormalOhiohealth Grady Memorial HospitalComment on above:Performed By: #### VERONICA #### [facility] [address] [place] [address] Dr. Marine Hassan %NormalOhiohealth Grady Memorial HospitalComment on above:Performed By: #### CBCNETTA #### [facility] [address] [address] [address] Marine HsiehCORRECTED WBCNormal4.0-11.0The [facility] Hospitalment on above: Performed By: #### CBCNETTA #### [facility] [address] [address] [address] Marine Rodriguez #0.05 103/ulNormal0.00-0.70The [facility] Hospitalment on above:Performed By: #### CBCNETTA #### [facility] [address] [address] [address] Marine Rodriguez%1.0 %Normal0.9-7.0[facility] on above: Performed By: #### VERONICA #### [facility] [address] [address] [address] Marine HsiehHCT30.9 %Critically low42.0-54.0[facility] on above:Performed By: #### VERONICA #### [facility] [address] [address] [address] Marine HsiehHGB9.8 g/dlCritically low14.0-18.0[facility] on above:Performed By: #### VERONICA #### [facility] [address] [address] [address] Marine Thompson #0.38 103/ulCritically low1.20-3.80The [facility] Comment on above:Performed By: #### CBCNETTA #### [facility] [address] [address] [address] Marine Thompson%8.0 %Critically low20.5-60.0[facility] on above:Performed By: #### CBCNETTA #### [facility] [address] [address] [address] Marine HsiehMCH28.7 ysIkmlnj48.9-34.0[facility] on above: Performed By: #### CBCNETTA #### [facility] [address] [place] [address] Dr. Marine LopezHC31.7 g/pzHjjipa77.9-35.2The [facility] HospitalComment on above:Performed By: #### VERONICA #### [facility] [address] [place] [address] Dr. Marine LopezV90.4 aEBuodka25.0-94.0The [facility] HospitalComment on above: Performed By: #### VERONICA #### [facility] [address] [place] [address] Dr. Marine QuezadaOCYTE #NormalThe [facility]ason HospitalComment on above: Performed By: #### VERONICA #### [facility] [address] [place] [address] Dr. Marine QuezadaOCYTE %NormalThe [facility] HospitalComment on above: Performed By: #### VERONICA #### [facility] [address] [place] [address] Dr. Marine Perea#0.53 103/ulNormal0.30-0.80The [facility] HospitalComment on above:Performed By: #### VERONICA #### [facility] [address] [place] [address] Dr. Marine Perea%11.0 %Normal1.7-12.0The [facility] HospitalComment on above: Performed By: #### VERONICA #### [facility] [address] [place] [address] Dr. Marine HartV10.6 fLNormal9.5-13.5The [facility] HospitalComment on above: Performed By: #### VERONICA #### [facility] [address] [place] [address] Dr. Marine Valerio #NormalThe [facility] HospitalComment on above:Performed By: #### VERONICA #### [facility] [address] [place] [address] Dr. Marine AbrahamOCYTE %NormalThe [facility] HospitalComment on above:Performed By: #### VERONICA #### [facility] [address] [place] [address] Dr. Marine HsiehNRBCNormalThe [facility] HospitalComment on above:Performed By: #### VERONICA #### [facility] [address] [place] [address] Dr. Marine AriasT357 103/skDmfgxf735-750Nil [facility] HospitalComment on above: Performed By: #### VERONICA #### [facility] [address] [place] [address] Dr. Marine CernaC3.42 106/ulCritically low4.70-6.10The [facility] HospitalComment on above:Performed By: #### VERONICA #### [facility] [address] [place] [address] Dr. Marine HsiehRDW14.8 %Fuelvp06.0-15.0The [facility] HospitalComchelsea hospital on above: Performed By: #### VERONICA #### [facility] [address] [place] [address] Dr. Marine Johnson #3.79 103/ulNormal1.40-6.50The [facility] HospitalComment on above:Performed By: #### VERONICA #### [facility] [address] [place] [address] Dr. Marine Johnson %79.0 %Critically high43.0-75.0The [facility] HospitalComchelsea hospital on above:Performed By: #### VERONICA #### [facility] [address] [place] [address] Dr. Marine ManningBC4.8 103/ulNormal4.0-11.0The [facility] HospitalComment on above: Performed By: #### VERONICA #### [facility] [address] [place] [address] Dr. Marine Blanca CHEM 8 (BAS METB)on 40-87-4708Kcvof gap [Moles/Vol]8.7 mmol/LNormalThe [facility] HospitalComment on above:Performed By: #### BMP #### [facility] [address] [place] [address] Dr. Marine HsiehCalcium [Mass/Vol]8.7 mg/dLNormal8.5-10.1The [facility] Comment on above:Performed By: #### BMP #### [facility] [address] [address] [address] Marine HsiehChloride [Moles/Vol]105 mmol/XSuqnwm75-525Efi [facility] Comment on above:Performed By: #### BMP #### [facility] [address] [address] [address] Marine HsiehCO2 [Moles/Vol]29.3 mmol/LUettgu89.0-32.0The [facility] Comment on above:Performed By: #### BMP #### [facility] [address] [place] [address] Dr. Marine HsiehCreatinine [Mass/Vol]0.98 mg/dLNormal0.70-1.30The [facility] HospitalComment on above:Performed By: #### BMP #### [facility] [address] [place] [address] Dr. Hawthorne ChangEGFR-AF PRYDEINIG>60Normal>=60The [facility] HospitalComment on above:Performed By: #### BMP #### [facility] [address] [place] [address] Dr. Marine TsaiGFR-NON AF PRYDEINIG>60Normal>=60The [facility] HospitalComment on above:Performed By: #### BMP #### [facility] [address] [place] [address] Dr. Marine HsiehGlucose [Mass/Vol]106 mg/kGEswmvn16-828Zdv [facility] Comment on above:Performed By: #### BMP #### [facility] [address] [address] [address] Marine HsiehPotassium [Moles/Vol]4.1 mmol/LNormal3.5-5.1The [facility] Comment on above:Performed By: #### BMP #### [facility] [address] [address] [address] Marine HsiehSodium [Moles/Vol]139 mmol/AOtjnxt242-206Heg [facility] Comment on above:Performed By: #### BMP #### [facility] [address] [place], [place] [address] Dr. Marine Bazan nitrogen [Mass/Vol]19.0 mg/dLCritically high7.0-18.0Ohio[facility]ady Memorial HospitalComment on above:Performed By: #### BMP #### [facility] [address] [place], [place] [address] Dr. Marine Bazan nitrogen/Creatinine [Mass ratio]19.4 mg/mgNormalThMount St. Mary HospitalComment on above:Performed By: #### BMP #### [facility] [address] [place], [place] [address] Dr. Marine Bernard CULTUREOrdered By: Hailee Watkins on 06-02-2022 Bacteria identified Cx Nom (Unsp spec)No anaerobic growthOSU Our Lady Of Mercy Hospital - AndersonOSFayette County Memorial HospitalT4 FREEon 69-01-3466Llas T4 [Mass/Vol]1.46 ng/dL 0.89 - 1.76 ng/dLSelect Medical Specialty Hospital - CantonInterpretation and review of laboratory resultsNormKentfield HospitalTSHon 75-88-7679Oeaiflfjdzirep and review of laboratory resultsNoVeterans Health Administration Qn2.457 m[IU]/LOSU [facility] - AndersonOSFayette County Memorial HospitalBACTERIAL CULTURE AND DIRECT SMEAR, LESION, TISSUE, DEVICEOrdered By: Rosangela Cook on 62-10-4843Hmzlddbx identified Cx Nom (Unsp spec)GrowthOSU [facility] Hospital - AndersonBacteria identified Cx Nom (Unsp spec)STAPHYLOCOCCUS AUREUS AbnormalOSU [facility] Hospital - AndersonComment on above:Susceptibilities setup on 05/29/22 Bacteria identified Cx Nom (Unsp spec)Common oropharyngeal microbesOSU [facility] Hospital - AndersonBacteria identified Cx Nom (Unsp spec)STAPHYLOCOCCUS EPIDERMIDIS AbnormalOSU [facility] Hospital - AndersonComment on above:Per request, Susceptibilities setup on 05/30/22Bacteria identified Cx Nom (Unsp spec)STREPTOCOCCUS CONSTELLATUSAbnormalOSU [facility] Hospital - AndersonComment on above:Member of Streptococcus anginosus group Per request, Susceptibilities setup on 05/30/22 Bacteria identified Cx Nom (Unsp spec)Moderate Growth Streptococcus viridans groupAbMercy Health St. Rita's Medical CenterComment on above:Per request, Susceptibilities setup on 05/29/22 Bacteria identified Cx Nom (Unsp spec)NATASHA KRUSEIAbnoBrown Memorial HospitalComment on above:PER REQUEST, Susceptibility to Follow Identification was performed on the MALDI-TOF mass spectrometer Biotyper using the FDA, lab-developed, or RUO libraries. The performance characteristics of the lab-developed and RUO libraries were determined by [facility] at [facility].They have not been cleared or approved by the FDA. The laboratory is regulated under CLIA as qualified to perform high-complexity testing. This test is used for clinical purposes. It should not be regarded as investigational or for research. Susceptibilities setup on 05/31/22 Natasha krusei is intrinsically resistant to fluconazole. Bacteria identified Cx Nom (Unsp spec)Ordered By: Rosangela Cook on 06-01-2022 Interpretation and review of laboratory resultsAbMercy Health St. Rita's Medical Center Microscopic observation Other stain Nom (Unsp spec)Neutrophils, LightOSU [facility] Hospital - AndersonMicroscopic observation Other stain Nom (Unsp spec)Mononuclear cells presentOSU [facility] - AndersonMicroscopic observation Other stain Nom (Unsp spec)Red Blood Cells PresentOSU [facility] - AndersonMicroscopic observation Other stain Nom (Unsp spec)PositiveOSU [facility] Microscopic observation Other stain Nom (Unsp spec)NegativeOSU [facility] - AndersonOSU [facility] - AndersonCALCIUMon 94-75-7880Qmgdmgb [Mass/Vol]8.7 mg/dL 8.6 - 10.5 mg/dLOSFayette County Memorial HospitalCBC,PLATELETSon 64-07-3394Niokmrykuiw distribution width (RBC) [Ratio]14.7 %High10.9 - 14.3 %[facility] Hematocrit (Bld) [Volume fraction]33.0 %Low39.6 - 48.8 %[facility] - CantonHemoglobin (Bld) [Mass/Vol]10.6 g/dLLow13.4 - 16.8 g/dLSelect Medical Specialty Hospital - CantonInterpretation and review of laboratory resultsAbnormWayne HealthCare Main CampusH (RBC) [Entitic mass]28.8 pg26.1 - 33.3 pgSelect Medical Specialty Hospital - CantonMCHC (RBC) [Mass/Vol]32.1 g/dL31.9 - 36.5 g/dLSelect Medical Specialty Hospital - CantonMCV (RBC) [Entitic vol]89.7 fL79.0 - 94.5 [facility] MD, Cancer CenterPlatelet mean volume (Bld) [Entitic vol]10.3 fL8.7 - 12.3 [facility], Cancer CenterPlatelets (Bld) [#/Vol]305 10*3/uL146 - 337 K/[facility] CenterRBC (Bld) [#/Vol]3.68 10*6/uLLowSelect Medical Specialty Hospital - CantonWBC (Bld) [#/Vol]5.67 10*3/uL3.73 - 10.10 K/uLSelect Medical Specialty Hospital - CantonOSFayette County Memorial HospitalCHEM 7 (LYTES,BUN,CREA,GLUC)on 91-97-9821Mnffh gap [Moles/Vol]13 mmol/L7 - 17 mmol/[facility] InstituteChloride [Moles/Vol]104 mmol/L98 - 108 mmol/[facility] InstituteCO2 [Moles/Vol]26 mmol/L21 - 31 mmol/[facility] Creatinine [Mass/Vol]0.92 mg/dL0.70 - 1.30 mg/dLSelect Medical Specialty Hospital - [facility]on GFR/1.73 sq M.predicted CKD-EPI (S/P/Bld) [Vol rate/Area]87>=60 mL/min/1.46s1IUOSelect Medical Specialty Hospital - CantonComment on above:Reported eGFR is based on the CKD-EPI 2020 equation using creatinine, age, and sex.Glucose [Mass/Vol]131 mg/vHFytn06 - 99 mg/dLSelect Medical Specialty Hospital - CantonInterpretation and review of laboratory results AbnormalSelect Medical Specialty Hospital - CantonOsmolality Calc [Osmolality]295OSFayette County Memorial HospitalPotassium [Moles/Vol]4.1 mmol/L3.5 - 5.0 mmol/LOSU [facility] Healthcareodium [Moles/Vol]139 mmol/L135 - 145 mmol/LOSU [facility] - AndersonUrea nitrogen [Mass/Vol]19 mg/dL7 - 25 mg/dLSelect Medical Specialty Hospital - CantonUrea nitrogen/Creatinine [Mass ratio]21 mg/mgSelect Medical Specialty Hospital - CantonMAGNESIUMon 10-15-6664Xbtvafbew [Mass/Vol]2.0 mg/dL1.6 - 2.6 mg/dLSelect Medical Specialty Hospital - [facility]on No Panel Informationon 68-68-7728Lcgppeymxesfya and review of laboratory results NormalSelect Medical Specialty Hospital - CantonOSFayette County Memorial HospitalPHOSPHATE, INORGANICon 86-13-6810Aashdiplu [Mass/Vol]3.1 mg/dL2.2 - 4.6 mg/dLSelect Medical Specialty Hospital - [facility]on CALCIUMon 87-89-2646Cfchgxd [Mass/Vol]8.9 mg/dL8.6 - 10.5 mg/dLSelect Medical Specialty Hospital - CantonCBC,PLATELETSon 39-82-2697Ofrqnnedfya distribution width (RBC) [Ratio]15.1 %High10.9 - 14.3 %[facility] - CantonHematocrit (Bld) [Volume fraction]32.4 %Low39.6 - 48.8 %[facility] CantonHemoglobin (Bld) [Mass/Vol]10.6 g/dLLow13.4 - 16.8 g/dLSelect Medical Specialty Hospital - CantonInterpretation and review of laboratory resultsAbnormalOACMC Healthcare SystemMCH (RBC) [Entitic mass]28.8 pg26.1 - 33.3 pgSelect Medical Specialty Hospital - CantonMCHC (RBC) [Mass/Vol]32.7 g/dL31.9 - 36.5 g/dLSelect Medical Specialty Hospital - CantonMCV (RBC) [Entitic vol]88.0 fL79.0 - 94.5 [facility], Cancer CenterPlatelet mean volume (Bld) [Entitic vol]10.7 fL8.7 - 12.3 [facility] Cancer CenterPlatelets (Bld) [#/Vol]322 10*3/uL146 - 337 K/uLSelect Medical Specialty Hospital - CantonRBC (Bld) [#/Vol]3.68 10*6/uLLowU [facility] - AndersonWBC (Bld) [#/Vol]7.38 10*3/uL3.73 - 10.10 K/uLSelect Medical Specialty Hospital - CantonOSFayette County Memorial HospitalCHEM 7 (LYTES,BUN,CREA,GLUC)on 76-04-7380Mgnio gap [Moles/Vol]11 mmol/L7 - 17 mmol/[facility] InstituteChloride [Moles/Vol]105 mmol/L98 - 108 mmol/[facility] InstituteCO2 [Moles/Vol]29 mmol/L21 - 31 mmol/[facility] Creatinine [Mass/Vol]1.01 mg/dL0.70 - 1.30 mg/dLSelect Medical Specialty [facility] GFR/1.73 sq M.predicted CKD-EPI (S/P/Bld) [Vol rate/Area]78>=60 mL/min/1.17j8XUHSelect Medical Specialty Hospital - CantonComment on above:Reported eGFR is based on the CKD-EPI 2020 equation using creatinine, age, and sex.Glucose [Mass/Vol]96 mg/dL70 - 99 mg/dL [facility] - AndersonOsmolality Calc [Osmolality]299OSFayette County Memorial HospitalPotassium [Moles/Vol]4.3 mmol/L3.5 - 5.0 mmol/[facility] Sodium [Moles/Vol]141 mmol/L135 - 145 mmol/[facility] Health InstituteUrea nitrogen [Mass/Vol]23 mg/dL7 - 25 mg/dLSelect Medical Specialty Hospital - CantonUrea nitrogen/Creatinine [Mass ratio]23 mg/mgSelect Medical Specialty Hospital - CantonMAGNESIUMon 50-20-7742Yzbwqikgd [Mass/Vol]2.2 mg/dL1.6 - 2.6 mg/dLSelect Medical Specialty Hospital - [facility] No Panel Informationon 59-19-9081Macccoqifdyjtv and review of laboratory results NormalOSU [facility] Hospital - AndersonOSFayette County Memorial HospitalPHOSPHATE, INORGANICon 34-00-1442Ulhulykzi [Mass/Vol]3.1 mg/dL2.2 - 4.6 mg/dLSelect Medical Specialty [facility] VANCOMYCIN LEVEL, TROUGH (PRE DRUG LEVEL)on 07-62-2499Kbkgijcfps trough [Mass/Vol]16.1 ug/mLTherapeutic Range: 10.0-20.0 mcg/mL mcg/mLSelect Medical Specialty Hospital - CantonCALCIUMon 35-42-0772Lukiwnt [Mass/Vol]8.9 mg/dL8.6 - 10.5 mg/dLSelect Medical Specialty Hospital - CantonCBC,PLATELETSon 85-67-0957Zagkvjyyxcf distribution width (RBC) [Ratio]15.0 %High10.9 - 14.3 %[facility] - CantonHematocrit (Bld) [Volume fraction]34.7 %Low39.6 - 48.8 %[facility] CantonHemoglobin (Bld) [Mass/Vol]11.0 g/dLLow13.4 - 16.8 g/dLSelect Medical Specialty Hospital - CantonInterpretation and review of laboratory resultsAbnormWayne HealthCare Main CampusH (RBC) [Entitic mass]28.2 pg26.1 - 33.3 pgU [facility] for RehabilitationHC (RBC) [Mass/Vol]31.7 g/dLLow31.9 - 36.5 g/dLSelect Medical Specialty Hospital - CantonMCV (RBC) [Entitic vol]89.0 fL79.0 - 94.5 [facility] Cancer CenterPlatelet mean volume (Bld) [Entitic vol]10.6 fL8.7 - 12.3 [facility] Cancer CenterPlatelets (Bld) [#/Vol]306 10*3/uL146 - 337 K/uLU [facility] - AndersonRBC (Bld) [#/Vol]3.90 10*6/uLLowU [facility] AndersonWBC (Bld) [#/Vol]10.46 10*3/uLHigh3.73 - 10.10 K/uLU [facility] AndersonOSFayette County Memorial HospitalCHEM 7 (LYTES,BUN,CREA,GLUC)on 56-35-1503Ughvq gap [Moles/Vol]11 mmol/L7 - 17 mmol/[facility] InstituteChloride [Moles/Vol]104 mmol/L98 - 108 mmol/[facility] InstituteCO2 [Moles/Vol]28 mmol/L21 - 31 mmol/[facility] Creatinine [Mass/Vol]0.98 mg/dL0.70 - 1.30 mg/dLSelect Medical Specialty [facility] GFR/1.73 sq M.predicted CKD-EPI (S/P/Bld) [Vol rate/Area]81>=60 mL/min/1.94c0IHOSelect Medical Specialty Hospital - CantonComment on above:Reported eGFR is based on the CKD-EPI 2020 equation using creatinine, age, and sex.Glucose [Mass/Vol]172 mg/pYTuhc98 - 99 mg/dLSelect Medical Specialty Hospital - CantonInterpretation and review of laboratory results AbnormalSelect Medical Specialty Hospital - CantonOsmolality Calc [Osmolality]298OSFayette County Memorial HospitalPotassium [Moles/Vol]4.2 mmol/L3.5 - 5.0 mmol/[facility] Campusodium [Moles/Vol]139 mmol/L135 - 145 mmol/[facility] InstituteUrea nitrogen [Mass/Vol]19 mg/dL7 - 25 mg/dLSelect Medical Specialty Hospital - CantonUrea nitrogen/Creatinine [Mass ratio]19 mg/mgSelect Medical Specialty Hospital - CantonMAGNESIUMon 42-18-9026Mklqesdqw [Mass/Vol]2.3 mg/dL1.6 - 2.6 mg/dLSelect Medical Specialty [facility] No Panel Informationon 33-41-9526Heazppjpmvnabn and review of laboratory results NormalOSHudson County Meadowview HospitalPHOSPHATE, INORGANICon 95-91-4677Vqacwizay [Mass/Vol]2.4 mg/dL2.2 - 4.6 mg/dLSelect Medical Specialty [facility] - [facility]on T4 FREEon 59-42-5640Abeh T4 [Mass/Vol]1.26 ng/dL0.89 - 1.76 ng/dLSelect Medical Specialty Hospital - CantonInterpretation and review of laboratory resultsNormalOSU [facility] - AndersonOSFayette County Memorial HospitalTSHon 37-79-5784Tmeuufhjdvrluk and review of laboratory resultsAbnormWooster Community HospitalTSH Qn0.330 m[IU]/LLowU [facility] CenterCALCIUMon 83-32-3494Retskuc [Mass/Vol]8.7 mg/dL8.6 - 10.5 mg/dLSelect Medical Specialty Hospital - CantonCBC,PLATELETSon 16-94-4416Kfimjhvttjf distribution width (RBC) [Ratio]14.9 %High10.9 - 14.3 %[facility] - CantonHematocrit (Bld) [Volume fraction]34.4 %Low39.6 - 48.8 % [facility] - CantonHemoglobin (Bld) [Mass/Vol]11.2 g/dLLow13.4 - 16.8 g/dL [facility] CantonInterpretation and review of laboratory resultsAbnormal [facility] CenterH (RBC) [Entitic mass]28.7 pg26.1 - 33.3 pgSelect Medical Specialty Hospital - CantonMCHC (RBC) [Mass/Vol]32.6 g/dL31.9 - 36.5 g/dLSelect Medical Specialty Hospital - CantonMCV (RBC) [Entitic vol]88.2 fL79.0 - 94.5 [facility] Platelet mean volume (Bld) [Entitic vol]10.2 fL8.7 - 12.3 [facility] Cancer CenterPlatelets (Bld) [#/Vol]272 10*3/uL146 - 337 K/[facility] RBC (Bld) [#/Vol]3.90 10*6/uLLowU [facility] - AndersonWBC (Bld) [#/Vol]10.04 10*3/uL3.73 - 10.10 K/[facility] CenterComment on above:This is an appended report. These results have been appended to a previously preliminary verified report.[facility] - CantonCHEM 7 (LYTES,BUN,CREA,GLUC)on 22-70-6306Zobzo gap [Moles/Vol]11 mmol/L7 - 17 mmol/LOSU [facility] Chloride [Moles/Vol]105 mmol/L98 - 108 mmol/[facility] InstituteCO2 [Moles/Vol]25 mmol/L21 - 31 mmol/[facility] InstituteCreatinine [Mass/Vol] 0.93 mg/dL0.70 - 1.30 mg/dLSelect Medical Specialty Hospital - CantonGFR/1.73 sq M.predicted CKD- EPI (S/P/Bld) [Vol rate/Area]86>=60 mL/min/1.71z4CYRSelect Medical Specialty [facility] Comment on above:Reported eGFR is based on the CKD-EPI 2020 equation using creatinine, age, and sex.Glucose [Mass/Vol]220 mg/yBQywv28 - 99 mg/dLSelect Medical Specialty Hospital - CantonOsmolality Calc [Osmolality]295OSFayette County Memorial HospitalPotassium [Moles/Vol]4.2 mmol/L3.5 - 5.0 mmol/[facility] Campusodium [Moles/Vol] 137 mmol/L135 - 145 mmol/[facility] InstituteUrea nitrogen [Mass/Vol]13 mg/dL7 - 25 mg/dLSelect Medical Specialty Hospital - CantonUrea nitrogen/Creatinine [Mass ratio] 14 mg/mgSelect Medical Specialty Hospital - CantonMAGNESIUMon 66-20-6014Dcnevztzb [Mass/Vol]2.4 mg/dL1.6 - 2.6 mg/dLSelect Medical Specialty Hospital - CantonNo Panel Informationon 05-29-2022 Interpretation and review of laboratory resultsAbnoBrown Memorial Hospital Interpretation and review of laboratory resultsNoBrown Memorial Hospital O[facility] - AndersonPHOSPHATE, INORGANICon 59-30-0093Xzdtejxkr [Mass/Vol] 1.7 mg/dLLow2.2 - 4.6 mg/dLSelect Medical Specialty Hospital - CantonT4 FREEon 45-02-6524Zsql T4 [Mass/Vol]1.38 ng/dL0.89 - 1.76 ng/dLSelect Medical Specialty Hospital - CantonInterpretation and review of laboratory resultsNoBarlow Respiratory HospitalCALCIUMon 63-81-9133Qjsawpq [Mass/Vol]8.8 mg/dL8.6 - 10.5 mg/dLSelect Medical Specialty Hospital - CantonCBC,PLATELETSon 86-12-0818Samusvrezoc distribution width (RBC) [Ratio]15.0 %High10.9 - 14.3 %[facility] - CantonHematocrit (Bld) [Volume fraction]33.3 %Low39.6 - 48.8 %[facility] CantonHemoglobin (Bld) [Mass/Vol]11.0 g/dLLow13.4 - 16.8 g/dLSelect Medical Specialty Hospital - CantonInterpretation and review of laboratory resultsAbnormWayne HealthCare Main CampusH (RBC) [Entitic mass]28.9 pg26.1 - 33.3 pgSelect Medical Specialty Hospital - CantonMCHC (RBC) [Mass/Vol]33.0 g/dL31.9 - 36.5 g/dLSelect Medical Specialty Hospital - CantonMCV (RBC) [Entitic vol]87.4 fL79.0 - 94.5 [facility], Cancer CenterPlatelet mean volume (Bld) [Entitic vol]10.3 fL8.7 - 12.3 [facility] Cancer CenterPlatelets (Bld) [#/Vol]254 10*3/uL146 - 337 K/uLSelect Medical Specialty Hospital - CantonRBC (Bld) [#/Vol]3.81 10*6/uLLowU [facility] AndersonWBC (Bld) [#/Vol]9.01 10*3/uL3.73 - 10.10 K/uLSelect Medical Specialty Hospital - CantonOSFayette County Memorial HospitalCHEM 7 (LYTES,BUN,CREA,GLUC)on 34-39-1271Xyphu gap [Moles/Vol]13 mmol/L7 - 17 mmol/[facility] InstituteChloride [Moles/Vol]105 mmol/L98 - 108 mmol/[facility] InstituteCO2 [Moles/Vol]25 mmol/L21 - 31 mmol/[facility] Creatinine [Mass/Vol]1.02 mg/dL0.70 - 1.30 mg/dLSelect Medical Specialty Hospital [facility]on GFR/1.73 sq M.predicted CKD-EPI (S/P/Bld) [Vol rate/Area]77>=60 mL/min/1.55l2ZYCSelect Medical Specialty Hospital - CantonComment on above:Reported eGFR is based on the CKD-EPI 2020 equation using creatinine, age, and sex.Glucose [Mass/Vol]122 mg/aLZlas84 - 99 mg/dLSelect Medical Specialty Hospital - CantonInterpretation and review of laboratory results AbnormalOSU [facility] AndersonOsmolality Calc [Osmolality]293OSU [facility] AndersonPotassium [Moles/Vol]4.1 mmol/L3.5 - 5.0 mmol/LOSU UK Healthcareodium [Moles/Vol]139 mmol/L135 - 145 mmol/LOSU [facility] AndersonUrea nitrogen [Mass/Vol]13 mg/dL7 - 25 mg/dLSelect Medical Specialty Hospital - CantonUrea nitrogen/Creatinine [Mass ratio]13 mg/mgSelect Medical Specialty Hospital - CantonCONTINUOUS CARDIAC MONITORING STRIPon 69-94-2281GJCACMC Healthcare SystemMAGNESIUMon 09-79-2237Yktcxsuiq [Mass/Vol]1.8 mg/dL1.6 - 2.6 mg/dLSelect Medical Specialty [facility] Canton No Panel Informationon 83-97-9198Lqwjokumcoeucx and review of laboratory results NormalOSFayette County Memorial HospitalOSFayette County Memorial HospitalPHOSPHATE, INORGANICon 32-50-2713Lhwihhqxg [Mass/Vol]2.5 mg/dL2.2 - 4.6 mg/dLSelect [facility]on PREALBUMINon 13-77-8930Quzyindkzi [Mass/Vol]20 mg/dL17 - 34 mg/dLDetwiler Memorial HospitalCREEN: MRSA/MSSAOrdered By: Rebekah Moses on 05-28-2022 Interpretation and review of laboratory resultsNormalOACMC Healthcare System Methicillin Resistant S. Aureus By PcrNegativeNegativeU [facility] Staphylococcus Aureus By PcrNegativeNegativeSelect Medical Specialty Hospital - CantonThis test was performed using a real time PCR assay. Results should be interpreted in conjunction with other clinical and laboratory findings. A positive result does not necessarily indicate the presence of viable organism. This test should not be used as a test of cure. For E-swab specimens, this test was developed and its performance characteristics determined by the Clinical Microbiology Laboratory at [facility]. It has not been cleared or approved by theA.The laboratory is regulated under CLIA as qualified to perform high-complexity testing. This test is used for clinical purposes. It should not be regarded as investigational or for research.Kaiser Foundation HospitalTSHon 35-68-5488Qmsuetswrjsdch and review of laboratory resultsNoBrown Memorial HospitalTS Qn1.001 m[IU]/[facility] at UCLACONTINUOUS CARDIAC MONITORING STRIPon 19-29-7468BGCACMC Healthcare SystemCONTINUOUS CARDIAC MONITORING STRIPOrdered By: Unassigned Pacs on 97-13-4517UAO[address] [place] [address] Work Phone: poc ARTERIAL BLOOD GASon 88-11-2769Hacv excess Calc (Bld) [Moles/Vol]-0.9000 mmol/L-3.0 - 3.0 mmol/[facility] Calcium.ionized (Bld) [Mass/Vol]4.83 mg/dL4.60 - 5.30 mg/dLSelect Medical Specialty Hospital - CantonCO2 (Bld) [Partial pressure]41 mm[Hg][facility] CantonGlucose [Mass/Vol]142 mg/nBCwee44 - 99 mg/dLSelect Medical Specialty Hospital - CantonHCO3 (Bld) [Moles/Vol]24 mmol/L22 - 28 mmol/[facility] Health InstituteHematocrit (Bld) [Volume fraction]33.0 %Low40.2 - 50.4 %[facility] CantonHemoglobin (Bld) [Mass/Vol]10.8 g/dLLow13.4 - 16.8 g/dLSelect Medical Specialty Hospital - CantonInterpretation and review of laboratory resultsAbnoBrown Memorial HospitalLactate [Moles/Vol]0.9 mmol/L0.5 - 1.6 mmol/[facility] InstituteOxygen (Bld) [Partial pressure]99 mm[Hg][facility] CantonOxygen saturation in Blood98 %[facility] CantonpH (Bld)7.38 [pH][facility] CantonPotassium [Moles/Vol]4.0 mmol/L3.5 - 5.0 mmol/LOSU [facility] Healthcareodium [Moles/Vol] 139 mmol/L135 - 145 mmol/LOSU [facility] Healthcarepecimen source Nom (Unsp spec)ArterialSelect Medical Specialty Hospital - CantonTest performed at address of the patient encounter.[facility] - CantonOSFayette County Memorial HospitalXR Abdomen Single viewon 58-55-1662UVREILDRXT: Distal tip of the Dobbhoff tube in the proximal stomach. RADIOLOGY EXAM: XR ABDOMEN 1 VIEW PORTABLE, 05/27/2022 17:21 PM COMPARISON: November 27, 2019 CLINICAL INDICATIONS: Confirm Nasogastric Tube Placement FINDINGS: The distal tip of the Dobbhoff tube is visualized in the proximal stomach. No gross free air is noted or visceromegaly. The mid to lower pelvis was excluded. Mild gaseous dilatation of some small bowel loops is noted. There is no colonic dilatation. No bowel obstruction is suspected. Degenerative changes are identified in the spine. RADIOLOGYCordCarisa rosenberg MD - 05/27/2022 EXAM: XR ABDOMEN 1 VIEW PORTABLE, 05/27/2022 17:21 PM COMPARISON: November 27, 2019 CLINICAL INDICATIONS: Confirm Nasogastric Tube Placement FINDINGS: The distal tip of the Dobbhoff tube is visualized in the proximal stomach. No gross free air is noted or visceromegaly. The mid to lower pelvis was excluded. Mild gaseous dilatation of some small bowel loops is noted. There is no colonic dilatation. No bowel obstruction is suspected. Degenerative changes are identified in the spine. IMPRESSION IMPRESSION: Distal tip of the Dobbhoff tube in the proximal stomach. [facility] CantonRadiology Study observation (narrative)[facility] CantonXR Abdomen Single viewOrdered By: Carisa Godoy on 05-27-2022 [facility] Work Phone: XR Unspecified body region Views for foreign bodyon 65-43-7801Uxpnpuxzas: No definite radiopaque foreign bodies. RADIOLOGYEXAM: XR OTHER-FOREIGN BODY PLEASE SPECIFY, 05/27/2022 15:28 PM CLINICAL INDICATIONS: Foreign Body TIMES: Ordered: 05/27/2022 14:11 PM Requested: 05/27/2022 14:58 PM Regional Liaison arrival in OR: 05/27/2022 14:58 PM Completion of Exam: 05/27/2022 15:28 PM Radiology Attending communication of results to Surgery Attending (Time): 3:35 PM DETAILS: Specific missing device: 4-0 Vicryl RB-1 needle Attending Surgeon receiving results: Attending surgeon not available. Results given to Dr. Loraine Weiss the fellow. Confounding issues: None FINDINGS: Number of Images: 1 Soft Tissue: Multiple surgical clips are noted bilaterally but more so on the right within the soft tissues of the neck. Overlying tubing and wires are noted. Bone: No bony abnormalities are present. RADIOLOGYBert Schmidt MD - 05/27/2022 EXAM: XR OTHER-FOREIGN BODY PLEASE SPECIFY, 05/27/2022 15:28 PM CLINICAL INDICATIONS: Foreign Body TIMES: Ordered: 05/27/2022 14:11 PM Requested: 05/27/2022 14:58 PM Regional Liaison arrival in OR: 05/27/2022 14:58 PM Completion of Exam: 05/27/2022 15:28 PM Radiology Attending communication of results to Surgery Attending (Time): 3:35 PM DETAILS: Specific missing device: 4-0 Vicryl RB-1 needle Attending Surgeon receiving results: Attending surgeon not available. Results given to Dr. Loraine Weiss the fellow. Confounding issues: None FINDINGS: Number of Images: 1 Soft Tissue: Multiple surgical clips are noted bilaterally but more so on the right within the soft tissues of the neck. Overlying tubing and wires are noted. Bone: No bony abnormalities are present. IMPRESSION Impression: No definite radiopaque foreign bodies. [facility] - CantonImpression: No radiopaque foreign body identified in the visualized portion of the left thigh. RADIOLOGYEXAM: XR OTHER-FOREIGN BODY PLEASE SPECIFY, 05/27/2022 15:28 PM CLINICAL INDICATIONS: Foreign Body TIMES: Ordered: 05/27/2022 14:11 PM Requested: 05/27/2022 14:59 PM Regional Liaison arrival in OR: 05/27/2022 14:59 PM Completion of Exam: 05/27/2022 15:28 PM Radiology Attending communication of results to Surgery Attending (Time): 3:30 PM DETAILS: Specific missing device: There is a missing 4-all Vicryl RB1 needle. Attending Surgeon receiving results: Dr. Davidson Confounding issues: Left total hip arthroplasty precludes evaluation over the femoral stem. FINDINGS: Number of Images: 1 Soft Tissue: There is surgical drain is in the lateral aspect of the proximal thigh. Surgical clips overlie the lesser trochanter. There is a skin staple in the distal medial thigh. Bone: The inferior aspect of a left total hip arthroplasty is noted. RADIOLOGYYXavier blank MD - 05/27/2022 EXAM: XR OTHER-FOREIGN BODY PLEASE SPECIFY, 05/27/2022 15:28 PM CLINICAL INDICATIONS: Foreign Body TIMES: Ordered: 05/27/2022 14:11 PM Requested: 05/27/2022 14:59 PM Regional Liaison arrival in OR: 05/27/2022 14:59 PM Completion of Exam: 05/27/2022 15:28 PM Radiology Attending communication of results to Surgery Attending (Time): 3:30 PM DETAILS: Specific missing device: There is a missing 4-all Vicryl RB1 needle. Attending Surgeon receiving results: Dr. Davidson Confounding issues: Left total hip arthroplasty precludes evaluation over the femoral stem. FINDINGS: Number of Images: 1 Soft Tissue: There is surgical drain is in the lateral aspect of the proximal thigh. Surgical clips overlie the lesser trochanter. There is a skin staple in the distal medial thigh. Bone: The inferior aspect of a left total hip arthroplasty is noted. IMPRESSION Impression: No radiopaque foreign body identified in the visualized portion of the left thigh. ayette [facility] HospitalRadiology Study observation (narrative)OSFayette County Memorial HospitalRadiology Study observation (narrative)[facility] AndersonXR Unspecified body region Views for foreign bodyOrdered By: Bert Schmidt on [id number] Healthcare System Work Phone: XR Unspecified body region Views for foreign body Ordered By: Xavier Gonzalez on 10-39-4049IDEACMC Healthcare System Work Phone: eXTRA MICROon [id number] Healthcare System SCREEN: MRSA/MSSAOrdered By: Waleska Reyez on 73-25-0097Szgrwcmowyctaf and review of laboratory resultsAbnormalOACMC Healthcare SystemMethicillin Resistant S. Aureus By PcrNegativeNegativeOSCentervilletaphylococcus Aureus By PcrPositiveAbnormalNegativeOSFayette County Memorial HospitalThis test was performed using a real time PCR assay. Results should be interpreted in conjunction with other clinical and laboratory findings. A positive result does not necessarily indicate the presence of viable organism. This test should not be used as a test of cure. For E-swab specimens, this test was developed and its performance characteristics determined by the Clinical Microbiology Laboratory at [facility]. It has not been cleared or approved by theA.The laboratory is regulated under CLIA as qualified to perform high- complexity testing. This test is used for clinical purposes. It should not be regarded as investigational or for research.[facility] CantonOSU [facility] AndersonCBC AND ELECTRONIC DIFFon [id number] (Bld) [#/Vol]10*3/uL 0.00 - 0.09 K/uLSelect Medical Specialty Hospital - CantonBasophils/100 WBC (Bld)0.6 %OSFayette County Memorial HospitalDifferential cell count method Nom (Bld)Electronic DifferentialOSFayette County Memorial HospitalEosinophils (Bld) [#/Vol]0.10 10*3/uL0.00 - 0.48 K/uLSelect Medical Specialty Hospital - CantonEosinophils/100 WBC (Bld)2.0 %[facility] Erythrocyte distribution width (RBC) [Ratio]14.9 %High10.9 - 14.3 %[facility] CantonHematocrit (Bld) [Volume fraction]39.7 %39.6 - 48.8 %[facility] CantonHemoglobin (Bld) [Mass/Vol]12.6 g/dLLow13.4 - 16.8 g/dLSelect Medical Specialty Hospital - CantonImmature granulocytes (Bld) [#/Vol]10*3/uL<=0.07 K/uLSelect Medical Specialty Hospital - CantonImmature granulocytes/100 WBC (Bld)0.4 %[facility] Interpretation and review of laboratory resultsAbnormWooster Community Hospital Lymphocytes (Bld) [#/Vol]0.44 10*3/uLLow0.83 - 3.57 K/uLSelect Medical Specialty Hospital - CantonLymphocytes/100 WBC (Bld)8.6 %[facility] CenterH (RBC) [Entitic mass]28.3 pg26.1 - 33.3 pgOSFayette County Memorial HospitalMCHC (RBC) [Mass/Vol]31.7 g/dLLow31.9 - 36.5 g/dLSelect Medical Specialty Hospital - CantonMCV (RBC) [Entitic vol]89.0 fL 79.0 - 94.5 [facility] Cancer CenterMonocytes (Bld) [#/Vol]0.37 10*3/uL0.24 - 0.93 K/uLSelect Medical Specialty Hospital - CantonMonocytes/100 WBC (Bld)7.3 %[facility] CantonNeutrophils (Bld) [#/Vol]4.14 10*3/uL1.57 - 6.19 K/uLSelect Medical Specialty Hospital - CantonNucleated RBC/100 WBC (Bld) [Ratio]0.0 %<=0.2 /100 WBCSelect Medical Specialty Hospital - CantonPlatelet mean volume (Bld) [Entitic vol]10.6 fL8.7 - 12.3 [facility] Cancer CenterPlatelets (Bld) [#/Vol]323 10*3/uL146 - 337 K/uLSelect Medical Specialty Hospital - CantonRBC (Bld) [#/Vol]4.46 10*6/uLDetwiler Memorial Hospitalegmented neutrophils/100 WBC (Bld)81.1 %[facility] CantonWBC (Bld) [#/Vol]5.10 10*3/uL3.73 - 10.10 K/uLSelect Medical Specialty Hospital - CantonOSFayette County Memorial HospitalCHEM 7 (LYTES,BUN,CREA,GLUC)on 59-04-1271Qdsig gap [Moles/Vol]11 mmol/L7 - 17 mmol/L OSFayette County Memorial HospitalChloride [Moles/Vol]104 mmol/L98 - 108 mmol/[facility] InstituteCO2 [Moles/Vol]29 mmol/L21 - 31 mmol/[facility] Creatinine [Mass/Vol]1.03 mg/dL0.70 - 1.30 mg/dLSelect Medical Specialty Hospital - [facility]on GFR/1.73 sq M.predicted CKD-EPI (S/P/Bld) [Vol rate/Area]76>=60 mL/min/1.23n8NEBSelect Medical Specialty Hospital - CantonComment on above:Reported eGFR is based on the CKD-EPI 2020 equation using creatinine, age, and sex.Glucose [Mass/Vol]103 mg/eIJuuq82 - 99 mg/dLSelect Medical Specialty Hospital - CantonInterpretation and review of laboratory results AbnormalSelect Medical Specialty Hospital - CantonOsmolality Calc [Osmolality]293OS[facility] AndersonPotassium [Moles/Vol]4.6 mmol/L3.5 - 5.0 mmol/[facility] Campusodium [Moles/Vol]139 mmol/L135 - 145 mmol/[facility] Health InstituteUrea nitrogen [Mass/Vol]16 mg/dL7 - 25 mg/dLSelect Medical Specialty Hospital - CantonUrea nitrogen/Creatinine [Mass ratio]16 mg/mgKaiser Foundation HospitalEXTRA LIGHT BLUE TOP DOUBLE SPINon 95-50-8788Ercih LRR - Route to Double SpinReceivedSelect Medical Specialty Hospital - CantonOSFayette County Memorial HospitalPROTIME-INR on 02-22-5412JMB Coag (Bld) [Relative time]1.0 {INR}[facility] Interpretation and review of laboratory resultsNormWooster Community HospitalPT Coag (PPP) [Time]13.5 sOSFayette County Memorial HospitalOSFayette County Memorial HospitalPTT W/MIXING STUDY PERF ONLYOrdered By: Lore Baker on 69-04-2077kVFV Coag (PPP) [Time]30.[address] [facility] HospitalPTT Mixing Study With Normal Plasma Not IndicatedOSU [facility]oken University Medical CenterTYPE AND SCREEN - PREADMISSIONon 00-84-9595JWP/RH(D) TYPEPositiveOSHudson County Meadowview HospitalURINALYSIS REFLEX TO CULTURE PERFORMABLEOrdered By: Conchita Nelson on 00-07-5360Qjytwpkzsz (U)ClearClearOACMC Healthcare SystemBacteria LM Ql (Urine sed)ABSENTABSENTOSFayette County Memorial HospitalColor (U)YellowYellowSelect Medical Specialty Hospital - CantonEpithelial cells.squamous LM Ql (Urine sed)ABSENT1/hpf = 1+, 2-5/hpf = 2+, 0/hpf = 0+, ABSENTOSFayette County Memorial HospitalGlucose Test strip (U) [Mass/Vol]NegativeNegativeSelect Medical Specialty Hospital - CantonInterpretation and review of laboratory resultsAbnoBrown Memorial HospitalKetones (U) [Mass/Vol] NegativeNegativeSelect Medical Specialty Hospital - CantonLeukocyte esterase Test strip Ql (U) NegativeNegativeSelect Medical Specialty Hospital - CantonNitrite Ql (U)NegativeNegativeSelect Medical Specialty Hospital - CantonpH (U)5.5 [pH]5.0 - 7.0OS[facility] AndersonProtein (U) [Mass/Vol]NegativeNegativeOSFayette County Memorial HospitalRBC (U) [#/Vol]TraceAbnormal NegativeOSFayette County Memorial HospitalRBC LM.HPF (Urine sed) [#/Area]0-20 - 2 /HPFOSU UK Healthcarepecific gravity (U) [Rel density]1.015OS[facility] AndersonUrobilinogen (U) [Mass/Vol]0.2 E.U./dL0.2 E.U/dL, 1.0 E.U/dLOSU [facility] - AndersonWBC LM.HPF (Urine sed) [#/Area]0-50 - 5 /HPFOSU [facility] - AndersonOSU [facility] AndersonXR Chest PA and Lateralon 55-44-1531VXTFBFEWSW: No acute cardiopulmonary disease RADIOLOGY EXAM: XR CHEST PA AND LATERAL, 04/27/2022 12:30 PM COMPARISON: November 22, 2019 CLINICAL INDICATIONS: Preoperative evaluation RELEVANT CLINICAL HISTORY: Z01.818:Preop exam for internal medicine 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 Pleural Spaces: No pleural effusion. No pneumothorax. Mediastinum and Rajni: Normal Cardiac silhouette and great vessels: Normal heart size. Unremarkable aorta. Chest Wall: A few surgical clips are seen in the right supraclavicular region. The bony structures are unremarkable except for mild degenerative changes. 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 Pleural Spaces: No pleural effusion. No pneumothorax. Mediastinum and Rajni: Normal Cardiac silhouette and great vessels: Normal heart size. Unremarkable aorta. Chest Wall: A few surgical clips are seen in the right supraclavicular region. The bony structures are unremarkable except for mild degenerative changes. IMPRESSION IMPRESSION: No acute cardiopulmonary disease ayette County Memorial HospitalRadiology Study observation (narrative)[facility] CantonXR Chest PA and LateralOrdered By: Gregory De La Rosa on 04-27-2022 [facility] Work Phone: XR HIPS REJI 3_4V WO PELVISon [id number] HIPS REJI 3_4V WO PELVISEXAMINATION: XR HIPS REJI 3_4V WO PELVIS HISTORY: Bilateral hip joint pain COMPARISON: No relevant comparison available. FINDINGS: RIGHT FINDINGS: BONES: No acute fracture or dislocation. Severe degenerative osteoarthritis with bony remodeling. Marked subchondral lytic and sclerotic changes SOFT TISSUES: Negative. No visible soft tissue swelling. OTHER: Negative. LEFT FINDINGS: BONES: No acute fracture or dislocation. Severe degenerative osteoarthritis with bony remodeling. Marked subchondral lytic and sclerotic changes SOFT TISSUES: Negative. No visible soft tissue swelling. OTHER: Negative. IMPRESSION: RIGHT CONCLUSION: Severe osteoarthritis LEFT CONCLUSION: Severe osteoarthritis Electronically authenticated by: UMM GONZALES Date: 2021-10-13 15:33[facility] CenterXR LSPINE MIN 4 VIEWSon 77-75-3423XC LSPINE MIN 4 VIEWS EXAMINATION: XR LSPINE MIN 4 VIEWS HISTORY: Bilateral hip joint pain COMPARISON: No relevant comparison available. FINDINGS: BONES: Normal alignment of the lumbar vertebral bodies with no acute fracture or spondylolisthesis. Moderate diffuse spondylosis. Moderate to severe facet osteoarthropathy DISC SPACES: Multilevel disc space narrowing with endplate sclerosis PARASPINOUS: Negative. No paraspinous abnormality is seen. OTHER: Negative. IMPRESSION: Moderate to severe diffuse degenerative changes Electronically authenticated by: UMM GONZALES Date: 2021-10-13 15:35[facility] CenterCREAT/GFRon 42-73-3555Bvmaxppkqn [Mass/Vol]0.54 mg/dLLow0.70 - 1.30 mg/dLSelect Medical Specialty Hospital - CantonEst Gfr, (Poc Device)>60>=60 mL/min/1.73 sq m [facility] CantonInterpretation and review of laboratory resultsAbnormal [facility] CantonTest performed at address of the patient encounter.[facility] CantonOSFayette County Memorial HospitalPlatelet Counton 12-08-2019 Platelets (Bld) [#/Vol]544 10*3/rWIvua362-445LmqjqAdams County Regional Medical Center Comment on above:Performed By: #### CBC, PTT #### [facility] [address] [place] [address] Mushroom Farmer: Gudelia Alvarado 06-62-5437Pvatnpcnerstdw and review of laboratory resultsAbnoWilson Health, KYPlatelets (Bld) [#/Vol] 544 10*3/uLHighWadsworth-Rittman Hospital, KYTROP/MYOGLOBINon 04-86-7023Edvtzdehnzlntp and review of laboratory resultsAbnoWilson Health, KYMyoglobin [Mass/Vol]23 ng/mLLow28 - 72 ng/mLWadsworth-Rittman Hospital, KYTroponin I.cardiac [Mass/Vol]NOT REPORTEDWadsworth-Rittman Hospital, KYTroponin T.cardiac [Mass/Vol]NOT REPORTED<0.03 ng/mL [facility], KYTroponin, High Sqiechhsdoe73 ng/LCritically high0 - 22 ng/L [facility], COComment on above: High Sensitivity Troponin values cannot be compared with other Troponin methodologies. Patients with high levels of Biotin oral intake (i.e >5mg/day) may have falsely decreased Troponin levels. Samples collected within 8 hours of biotin intake may require additional information for diagnosis. Previous Alert Value Reported Interpretation and review of laboratory resultsAbnoWilson Health, [place] Myoglobin [Mass/Vol]34 ng/mL28 - 72 ng/mLWadsworth-Rittman Hospital, KYTroponin I.cardiac [Mass/Vol]NOT REPORTEDWadsworth-Rittman Hospital, KYTroponin T.cardiac [Mass/Vol]NOT REPORTED<0.03 ng/mLWadsworth-Rittman Hospital, KYTroponin, High Okrawcofmwe82 ng/L Critically high0 - 22 ng/LMUniversity Hospitals Beachwood Medical Center, KYComment on above: High Sensitivity Troponin values cannot be compared with other Troponin methodologies. Patients with high levels of Biotin oral intake (i.e >5mg/day) may have falsely decreased Troponin levels. Samples collected within 8 hours of biotin intake may require additional information for diagnosis. Previous Alert Value Reported Trop/Myoglobinon 47-53-8623Bqsraqam, High Sens72 ng/LCritically high0-22Ad[facility] Medical CenterComment on above:Result Comment: High Sensitivity Troponin values cannot be compared with other Troponin methodologies. Patients with high levels of Biotin oral intake (i.e >5mg/day) may have falsely decreased Troponin levels. Samples collected within 8 hours of biotin intake may require additional information for diagnosis. Previous Alert Value ReportedPerformed By: #### CBC, PTT #### [facility] [address] [place] [address] Mushroom Farmer: Gerber Cartwright MDMyoglobin [Mass/Vol]23 ng/oSEwx79-11QaynjAdams County Regional Medical CenterComment on above:Performed By: #### CBC, PTT #### [facility] [address] [place] [address] Mushroom Farmer: Marcy Alvarado I.cardiac [Mass/Vol]NOT REPORTEDNormal [facility] Medical CenterComment on above:Performed By: #### CBC, PTT #### [facility] [address] [place] [address] Mushroom Farmer: Mracy Alvaradocardiac [Mass/Vol]NOT REPORTEDNormal <0.03Ad[facility] Medical CenterComment on above:Performed By: #### CBC, PTT #### [facility] [address] [place] [address] Mushroom Farmer: Marcy Alvarado High Sens87 ng/LCritically high0-22 [facility] CenterComment on above:Result Comment: High Sensitivity Troponin values cannot be compared with other Troponin methodologies. Patients with high levels of Biotin oral intake (i.e >5mg/day) may have falsely decreased Troponin levels. Samples collected within 8 hours of biotin intake may require additional information for diagnosis. Previous Alert Value ReportedPerformed By: #### CBC, PTT #### [employer] [address] [place] [address] 04258 Mushroom Farmer: TYRESE Alvaradoyoglobin [Mass/Vol]34 ng/bCRbxlbu24-27BlcalAdams County Regional Medical CenterComment on above:Performed By: #### CBC, PTT #### [facility] [address] [place] [address] 86515 Mushroom Farmer: Marcy Alvarado I.cardiac [Mass/Vol]NOT REPORTEDNormal [facility] Medical CenterComment on above:Performed By: #### CBC, PTT #### [facility] [address] [place] [address] 95303 Mushroom Farmer: Marcy Alvaradocardiac [Mass/Vol]NOT REPORTEDNormal <0.03Ad[facility] Medical CenterComment on above:Performed By: #### CBC, PTT #### [facility] [address] [place] [address] 89823 Mushroom Farmer: Marcy Alvarado High Sens89 ng/LCritically high0-22 [facility] Medical CenterComment on above:Result Comment: High Sensitivity Troponin values cannot be compared with other Troponin methodologies. Patients with high levels of Biotin oral intake (i.e >5mg/day) may have falsely decreased Troponin levels. Samples collected within 8 hours of biotin intake may require additional information for diagnosis. Previous Alert Value ReportedPerformed By: #### CBC, PTT #### [facility] [address] [place] [address] 98322 Mushroom Farmer: TYRESE Alvaradoyoglobin [Mass/Vol]31 ng/pUIxxqml93-70AyrpeAdams County Regional Medical CenterComment on above:Performed By: #### CBC, PTT #### [facility] [address] [place] [address] 71078 Mushroom Farmer: Regine Alvarado [id number] Coag (Bld) [Time]78.1 s High20.5-30.5Ad[facility] Medical CenterComment on above:Performed By: #### CBC, PTT #### [facility] [address] [place] [address] [phone] Mushroom Farmer: Gerber Cartwright MDaPTT Coag (Bld) [Time]78.1 [facility], KYInterpretation and review of laboratory resultsAbnoWilson Health, KYaPTT Coag (Bld) [Time]45.0 sHigh20.5-30.5[facility] Comment on above:Performed By: #### PTT #### [employer] [address] [place], [place] [phone] Mushroom Farmer: Gerber Cartwright MDaPTT Coag (Bld) [Time]45.0 [facility], KYInterpretation and review of laboratory resultsAbnoWilson Health, COBasic Metabolic Panelon [id number] gap [Moles/Vol]12 mmol/L9 - 17 mmol/L [facility], KYBun/Cre RatioNOT REPORTEDWadsworth-Rittman Hospital, KYCalcium [Mass/Vol]8.3 mg/dLLow8.6 - 10.4 mg/dLWadsworth-Rittman Hospital, KYChloride [Moles/Vol] 103 mmol/L98 - 107 mmol/LMUniversity [facility]als Beachwood [facility], KYCO2 [Moles/Vol]21 mmol/L20 - 31 mmol/LMUniversity Hospitals Beachwood [facility], KYCreatinine [Mass/Vol]0.74 mg/dL0.7 - 1.2 mg/dLWadsworth-Rittman Hospital, KYGFR >60>60 mL/minWadsworth-Rittman Hospital, KYGFR Non- >60>60 mL/minWadsworth-Rittman Hospital, KYGFR/1.73 sq M predicted among non-blacks MDRD (S/P/Bld) [Vol rate/Area][facility], KYComment on above: Average GFR for 70 or more years old: 75 mL/min/1.73sq m Chronic Kidney Disease: <60 mL/min/1.73sq m Kidney failure: <15 mL/min/1.73sq m eGFR calculated using average adult body mass. Additional eGFR calculator available at: http://www.ideaForge/multiple_crcl_2012.htm GFR/1.73 sq M predicted among non-blacks MDRD (S/P/Bld) [Vol rate/Area]NOT REPORTEDWadsworth-Rittman Hospital, KYGlucose [Mass/Vol]143 mg/dYHkto26 - 99 mg/dLWadsworth-Rittman Hospital, KYInterpretation and review of laboratory resultsAbnormalWadsworth-Rittman Hospital, KYPotassium [Moles/Vol]3.9 mmol/L3.7 - 5.3 mmol/LMUniversity [facility]als Beach[facility], KYSodium [Moles/Vol]136 mmol/L135 - 144 mmol/LMUniversity Hospitals Beach[facility], KYUrea nitrogen [Mass/Vol]15 mg/dL8 - 23 mg/dLWadsworth-Rittman Hospital, KYBasic Metabolic Profon [id number] gap [Moles/Vol]12 mmol/LNormal9-17[facility] Medical CenterComment on above:Performed By: #### SHEFALI SANCHEZ, BMP #### [employer] [address] [place] [address] 52786 Mushroom Farmer: FREDERICK Alvaradoalcium [Mass/Vol]8.3 mg/dLLow8.6-10.4Ad[facility] Medical CenterComment on above:Performed By: #### SHEFALI SANCHEZ, BMP #### [employer] [address] [place] [address] 31180 Mushroom Farmer: FREDERICK Alvaradohloride [Moles/Vol]103 mmol/TPvtbuj55-039DxgbhAdams County Regional Medical CenterComment on above:Performed By: #### SHEFALI SANCHEZ, BMP #### [employer] [address] [place] [address] Mushroom Farmer: FREDERICK AlvaradoO2 [Moles/Vol]21 mmol/FThhqyd83-40MogrsAdams County Regional Medical CenterComment on above:Performed By: #### SHEFALI SANCHEZ, BMP #### [employer] [address] [place] [address] Mushroom Farmer: FREDERICK Alvaradoreatinine [Mass/Vol]0.74 mg/dLNormal0.70-1.20 [facility] Medical CenterComment on above:Performed By: #### SHEFALI SANCHEZ, BMP #### [facility] [address] [place] [address] 90147 Mushroom Farmer: Gerber Cartwright MDGFR, Amer>60Normal>60MerSt. Joseph HospitalComment on above:Performed By: #### SHEFALI SANCHEZ, BMP #### [facility] [address] [place] [address] 24693 Mushroom Farmer: Gerber Cartwright MDGFR,non Amer>60Normal>60[facility] Medical CenterComment on above:Performed By: #### SHEFALI SANCHEZ, BMP #### [facility] [address] [place] [address] 72631 Mushroom Farmer: Gerber Cartwright MDGlucose [Mass/Vol]143 mg/tZJeqa09-97XfsblProvidence Tarzana Medical CenterComment on above:Performed By: #### SHEFALI SANCHEZ, BMP #### [facility] [address] [place] [address] 01137 Mushroom Farmer: JARED Alvaradootassium [Moles/Vol]3.9 mmol/LNormal3.7-5.3 [facility] Medical CenterComment on above:Performed By: #### SHEFALI SANCHEZ, BMP #### [facility] [address] [place] [address] 08529 Mushroom Farmer: Gerber Cartwright MDSodium [Moles/Vol]136 mmol/FLtkjbv671-598RdqseAdams County Regional Medical CenterComment on above:Performed By: #### SHEFALI SANCHEZ, BMP #### [address] [address] Mushroom Farmer: Gerber Cartwright MDUrea nitrogen [Mass/Vol]15 mg/dLNormal8-23Ad[facility] Medical CenterComment on above:Performed By: #### SHEFALI SANCHEZ, BMP #### [facility] [address] [place] [address] Mushroom Farmer: Gerber Cartwright MD(cont.)[facility] Comment on above:Result Comment: Average GFR for 70 or more years old: 75 mL/min/1.73sq m Chronic Kidney Disease: <60 mL/min/1.73sq m Kidney failure: <15 mL/min/1.73sq m eGFR calculated using average adult body mass. Additional eGFR calculator available at: http://www.ideaForge/multiple_crcl_2012.htmPerformed By: #### SHEFALI SANCHEZ, BMP #### [facility] [address] [place] [address] 09240 Mushroom Farmer: LOU Alvarado/KSENIA Meyers REPORTEDSterling[address] [place], [place] [address]Comment on above:Performed By: #### SHEFALI SANCHEZ, BMP #### [facility] [address] [place] [address] 53733 Mushroom Farmer: ANEESH Alvaradotaging:NOT REPORTEDLakeHealth Beachwood Medical CenterComment on above:Performed By: #### SHEFALI SANCHEZ, BMP #### [facility] [place] [address] Mushroom Farmer: Gerber Cartwright [facility] Auto Differentialon [id number] (Bld) [#/Vol]0.00 10*3/[facility]- [place], KYBasophils/100 WBC (Bld)0 %0 - 2 % [facility]- [place], KYDifferential TypeNOT [facility]- [place], KYEosinophils (Bld) [#/Vol]0.00 10*3/uLTr[facility] Health [facility]- [place], KYEosinophils/100 WBC (Bld)0 %Low1 - 4 %[facility]- [place], KYErythrocyte distribution width (RBC) [Ratio]13.8 %11.8 - 14.4 %[facility]- [place], KYHematocrit (Bld) [Volume fraction]30.4 %Low40.7 - 50.3 %[facility]- [place], EDHemoglobin (Bld) [Mass/Vol]9.3 g/dLLow13 - 17 g/dL [facility]- [place], EDImmature granulocytes (Bld) [#/Vol]0.00 10*3/uLWvumedicine Harrison Community Hospital- [place], KYImmature granulocytes (Bld) [#/Vol]0 %0[facility]- [place], KYInterpretation and review of laboratory resultsAbnormalWvumedicine [facility]- [place], KYLymphocytes (Bld) [#/Vol]0.72 10*3/uLLowWvumedicine Harrison Community Hospital- [place], KYLymphocytes/100 WBC (Bld)10 %Low24 - 44 %[facility]- [place], KYMCH (RBC) [Entitic mass]30.2 pg25.2 - 33.5 pgWvumedicine Harrison Community Hospital- [place], KYMCHC (RBC) [Mass/Vol]30.6 g/dL28.4 - 34.8 g/dLWadsworth-Rittman Hospital, [place] MCV (RBC) [Entitic vol]98.7 fL82.6 - 102.9 fLWadsworth-Rittman Hospital, KYMonocytes (Bld) [#/Vol]0.36 10*3/uLWvumedicine Harrison Community Hospital- [place], KYMonocytes/100 WBC (Bld)5 %1 - 7 %[facility], EDMorphology Yehuda (Bld) [Interp]NormalWvumedicine Harrison [facility] Hospital- [place], KYPlatelet mean volume (Bld) [Entitic vol]9.4 fL8.1 - 13.5 fLWvumedicine Harrison Community Hospital- [place], KYPlatelets (Bld) [#/Vol]NOT REPORTEDWvumedicine Harrison [facility] Hospital- [place], KYPlatelets (Bld) [#/Vol]534 10*3/uL HighWvumedicine Harrison Community Hospital- [place], KYRBC (Bld) [#/Vol]3.08 10*6/uLLow4.21 - 5.77 m/[facility]- [place], KYRBC morphology finding Nom (Bld)NOT REPORTEDAkron Children[facility]S Hospital [place], [place] Segmented neutrophils/100 WBC (Bld)85 %High36 - 66 %[facility], KYSegs Absolute6.12[facility], COWBC (Bld) [#/Vol]7.2 10*3/uLWadsworth-Rittman Hospital, [place] WBC (Bld) [#/Vol]0.0 10*3/uL0.0 per 100 WBCWadsworth-Rittman Hospital, KYWBC MorphologyNOT REPORTEDWadsworth-Rittman Hospital, COCBC with Diffon [id number]. Basophil0.00 k/uL Normal0.0-0.2MercColorado River Medical CenterComment on above:Performed By: #### SHEFALI SANCHEZ, BMP #### [facility] [employer] [address] [place] [address] 58353 Mushroom Farmer: MDAbs. JennyImm.Granulocyte0.00 k/uLNormal0.00-0.30[facility] Medical CenterComment on above:Performed By: #### SHEFALI SANCHEZ, BMP #### [facility] [employer] [address] [place] [address] 99638 Mushroom Farmer: Giles Alvarado.Neutrophil (Seg)6.12 k/uLNormal1.8-7.7Ad[facility] Medical CenterComment on above:Performed By: #### SHEFALI SANCHEZ, BMP #### [facility] [employer] [address] [place] [address] 04700 Mushroom Farmer: Gerber Cartwright MDBasophils/100 WBC (Bld)0 %Normal0-2MProvidence Tarzana Medical CenterComment on above:Performed By: #### SHEFALI SANCHEZ, BMP #### [facility] [address] [place] [address] 82202 Mushroom Farmer: Gerber Cartwright MDEosinophils (Bld) [#/Vol]0.00 10*3/uLNormal 0.0-0.4Ad[facility] Medical CenterComment on above:Performed By: #### SHEFALI SANCHEZ, BMP #### [facility] [employer] [address] [place] [address] 14119 Mushroom Farmer: Gerber Cartwright MDEosinophils/100 WBC (Bld)0 %Low1-4[facility] Medical CenterComment on above:Performed By: #### SHEFALI SANCHEZ, BMP #### [facility] [address] [place] [address] 24756 Mushroom Farmer: Gerber Cartwright MDImmature granulocytes (Bld) [#/Vol]0 %Normal0 [facility] Medical CenterComment on above:Performed By: #### SHEFALI SANCHEZ, BMP #### [facility] [address] [place] [address] 41994 Mushroom Farmer: Gerber Cartwright MDLymphocytes (Bld) [#/Vol]0.72 10*3/uLLow1.0-4.8 [facility] CenterComment on above:Performed By: #### SHEFALI SANCHEZ, BMP #### [facility] [address] [place] [address] 76981 Mushroom Farmer: Gerber Cartwright MDLymphocytes/100 WBC (Bld)10 %Kut32-56DbytgAdams County Regional Medical CenterComment on above:Performed By: #### SHEFALI SANCHEZ, BMP #### [facility] [address] [place] [address] 86208 Mushroom Farmer: TYRESE Alvaradoonocytes (Bld) [#/Vol]0.36 10*3/uLNormal0.1-0.8 [facility] CenterComment on above:Performed By: #### SHEFALI SANCHEZ, BMP #### [facility] [address] [place] [address] 17952 Mushroom Farmer: TYRESE Alvaradoonocytes/100 WBC (Bld)5 %Normal1-7Ad[facility] Medical CenterComment on above:Performed By: #### SHEFALI SANCHEZ, BMP #### [facility] [address] [place] [address] 29935 Mushroom Farmer: TYRESE Alvaradoorphology Yehuda (Bld) [Interp]NormalNormalAdams County Regional Medical CenterComment on above:Performed By: #### SHEFALI SANCHEZ, BMP #### [facility] [employer] [address] [place] [address] 18834 Mushroom Farmer: Gerber Cartwright MDNeutrophil (Seg)85 %Eahe26-89VotfjAdams County Regional Medical CenterComment on above:Performed By: #### SHEFALI SANCHEZ, BMP #### [facility] [address] [place] [address] 09656 Mushroom Farmer: Gerber Cartwright MDErythrocyte distribution width (RBC) [Ratio]13.8 %Kdxjxb95.8-14.4Ad[facility] Medical CenterComment on above:Performed By: #### SHEFALI SANCHEZ, BMP #### [facility] [employer] [address] [place] [address] 10147 Mushroom Farmer: Gerber Cartwright MDHematocrit (Bld) [Volume fraction]30.4 %Low 40.7-50.3[facility] Medical CenterComment on above:Performed By: #### SHEFALI SANCHEZ, BMP #### [facility] [employer] [address] [place] [address] 65799 Mushroom Farmer: Gerber Cartwright MDHemoglobin (Bld) [Mass/Vol]9.3 g/dLLow13.0-17.0 [facility] CenterComment on above:Performed By: #### SHEFALI SANCHEZ, BMP #### [facility] [employer] [address] [place] [address] 59161 Mushroom Farmer: TYRESE AlvaradoCH (RBC) [Entitic mass]30.2 ejCkeyev83.2-33.5 [facility] CenterComment on above:Performed By: #### SHEFALI SANCHEZ, BMP #### [facility] [employer] [address] [place] [address] 80220 Mushroom Farmer: Gerber Madoff, MDMCHC (RBC) [Mass/Vol]30.6 g/eARhtiip08.4-34.8 [facility] CenterComment on above:Performed By: #### SHEFALI SANCHEZ, BMP #### [facility] [address] [place] [address] 28112 Mushroom Farmer: TYRESE AlvaradoCV (RBC) [Entitic vol]98.7 qDSzacwo19.6-102.9 [facility] CenterComment on above:Performed By: #### SHEFALI SANCHEZ, BMP #### [facility] [address] [place] [address] 92576 Mushroom Farmer: JIMMY Alvarado Automated0.0 per 100 WBCNormal0.0Ad[facility] Medical CenterComment on above:Performed By: #### SHEFALI SANCHEZ, BMP #### [facility] [employer] [address] [place] [address] 36858 Mushroom Farmer: Jackson Alvaradotedeena mean volume (Bld) [Entitic vol]9.4 fL Normal8.1-13.5[facility] Medical CenterComment on above:Performed By: #### SHEFALI SANCHEZ, BMP #### [facility] [employer] [address] [place] [address] 39468 Mushroom Farmer: Jackson Alvaradotealdair (Bld) [#/Vol]534 10*3/mWFdhk195-990 [facility] CenterComment on above:Performed By: #### SHEFALI SANCHEZ, BMP #### [facility] [address] [place] [address] 38690 Mushroom Farmer: DUANE AlvaradoBC (Bld) [#/Vol]3.08 10*6/uLLow4.21-5.77[facility] Medical CenterComment on above:Performed By: #### SHEFALI SANCHEZ, BMP #### [facility] [address] [place] [address] 87213 Mushroom Farmer: KARON Alvarado (Bld) [#/Vol]7.2 10*3/uLNormal3.5-11.3[facility] CenterComment on above:Performed By: #### SHEFALI SANCHEZ, BMP #### [facility] [address] [place] [address] 25027 Mushroom Farmer: Luis Alberto Alvarado Diff PerformedNOT REPORTEDNormalMerSt. Joseph HospitalComment on above:Performed By: #### SHEFALI SANCHEZ, BMP #### [facility] [address] [place] [address] 06257 Mushroom Farmer: Lisa Alvarado (Bld) [#/Vol]NOT REPORTEDNormalAdams County Regional Medical CenterComment on above:Performed By: #### SHEFALI SANCHEZ, BMP #### [facility] [address] [place] [address] 97637 Mushroom Farmer: JOSE JUAN Alvarado morphology finding Nom (Bld)NOT REPORTED NormalAdams County Regional Medical CenterComment on above:Performed By: #### SHEFALI SANCHEZ, BMP #### [facility] [address] [place] [address] Mushroom Farmer: KARON Alvarado MorphologyNOT REPORTEDNormSuburban Community Hospital & Brentwood HospitalComment on above:Performed By: #### SHEFALI SANCHEZ, BMP #### [facility] [address] [place] [address] 67594 Mushroom Farmer: Stanislav Alvarado Metabolic Pr/rfx MGon 12-07-2019(cont.) [facility] Medical CenterComment on above:Result Comment: Average GFR for 70 or more years old: 75 mL/min/1.73sq m Chronic Kidney Disease: <60 mL/min/1.73sq m Kidney failure: <15 mL/min/1.73sq m eGFR calculated using average adult body mass. Additional eGFR calculator available at: http://www.globalrp.Electric Imp/multiple_crcl_2011.htmPerformed By: #### LACTIC, CMPX #### [facility] [address] [place] [address] 61722 Mushroom Farmer: Gerber Cartwright MDAlbumin [Mass/Vol]2.8 g/dLLow3.5-5.2[facility] Medical CenterComment on above:Performed By: #### LACTIC, CMPX #### [facility] [address] [place] [address] 81796 Mushroom Farmer: Gerber Cartwright MDAlbumin/Globulin [Mass ratio]0.8 {ratio}Low 1.0-2.5[facility] Medical CenterComment on above:Performed By: #### LACTIC, CMPX #### [address] [address] Mushroom Farmer: Dawit Alvaradokaline Phos90 U/QPtuxtz18-826XtkcgAdams County Regional Medical CenterComment on above:Performed By: #### LACTIC, CMPX #### [facility] [address] [address] Mushroom Farmer: Gerber Cartwright MDALT [Catalytic activity/Vol]73 U/LHigh5-41[facility] CenterComment on above:Performed By: #### LACTIC, CMPX #### [facility] [address] [place] [address] 84614 Mushroom Farmer: Gerber Cartwright MDAnion gap [Moles/Vol]13 mmol/LNormal9-17[facility] CenterComment on above:Performed By: #### LACTIC, CMPX #### [facility] [employer] [address] [place] [address] 76514 Mushroom Farmer: Gerber Cartwright MDAST [Catalytic activity/Vol]29 U/LNormal<40[facility] CenterComment on above:Performed By: #### LACTIC, CMPX #### [facility] [address] [place] [address] 46842 Mushroom Farmer: Gerber Cartwright MDBilirubin Ql (U)0.42 mg/dLNormal0.3-1.2MProvidence Tarzana Medical CenterComment on above:Performed By: #### LACTIC, CMPX #### [facility] [address] [place] [address] 38873 Mushroom Farmer: FREDERICK Alvaradoalcium [Mass/Vol]8.6 mg/dLNormal8.6-10.4[facility] CenterComment on above:Performed By: #### LACTIC, CMPX #### [facility] [address] [place] [address] 51536 Mushroom Farmer: FREDERICK Alvaradohloride [Moles/Vol]102 mmol/GMerfwr34-000VpxexAdams County Regional Medical CenterComment on above:Performed By: #### LACTIC, CMPX #### [facility] [address] [place] [address] 95142 Mushroom Farmer: Gerber Cartwright MDCO2 [Moles/Vol]20 mmol/EQluwba08-66DfdgjAdams County Regional Medical CenterComment on above:Performed By: #### LACTIC, CMPX #### [facility] [address] [place] [address] 11301 Mushroom Farmer: FREDERICK Alvaradoreatinine [Mass/Vol]0.69 mg/dLLow0.70-1.20[facility] CenterComment on above:Performed By: #### LACTIC, CMPX #### [facility] [address] [place] [address] 24945 Mushroom Farmer: MARLO Alvarado, Amer>60Normal>60[facility] CenterComment on above:Performed By: #### LACTIC, CMPX #### [facility] [address] [place] [address] 71673 Mushroom Farmer: Gerber Madoff, MDGFR,non Amer>60Normal>60[facility] CenterComment on above:Performed By: #### LACTIC, CMPX #### [facility] [address] [place] [address] Mushroom Farmer: Gerber Cartwright MDGlucose [Mass/Vol]132 mg/jPJjjn14-63EucasProvidence Tarzana Medical CenterComment on above:Performed By: #### LACTIC, CMPX #### [facility] [address] [place] [address] Mushroom Farmer: Gerber Cartwright MDPotassium [Moles/Vol]3.8 mmol/LNormal3.7-5.3 [facility] CenterComment on above:Performed By: #### LACTIC, CMPX #### [place] [address] Mushroom Farmer: Gerber Cartwright MDProtein [Mass/Vol]6.5 g/dLNormal6.4-8.3MProvidence Tarzana Medical CenterComment on above:Performed By: #### LACTIC, CMPX #### [place] [address] Mushroom Farmer: ANEESH Alvaradoodium [Moles/Vol]135 mmol/CKidccm086-875NzfxeAdams County Regional Medical CenterComment on above:Performed By: #### [employer], CMPX #### [place] [address] Mushroom Farmer: Gerber Cartwright MDUrea nitrogen [Mass/Vol]15 mg/dLNormal8-23[facility] CenterComment on above:Performed By: #### LACTIC, CMPX #### [facility] [employer] [address] [place] [address] Mushroom Farmer: Gerber Cartwright MDBUN/CRE RatioNOT REPORTEDNormal9-20[facility] Medical CenterComment on above:Performed By: #### LACTIC, CMPX #### [employer] [address] [place], [place] [phone] Mushroom Farmer: ANEESH Alvaradotaging:NOT REPORTEDNormalAdams County Regional Medical CenterComment on above:Performed By: #### LACTIC, CMPX #### [employer] [address] [place], [place] [phone] Mushroom Farmer: FREDERICK Alvaradoomprehensive Metabolic Panel w/ Reflex to MGon [id number] [Mass/Vol]2.8 g/dLLow3.5 - 5.2 g/dLMercy Health- [place], [place] Albumin/Globulin [Mass ratio]0.8 {ratio}LowMercy Health- [place], KYALP [Catalytic activity/Vol]90 U/L40 - 129 U/LMercy Health- [place], KYALT [Catalytic activity/Vol] 73 U/LHigh5 - 41 U/LMercy Health- [place], KYAnion gap [Moles/Vol]13 mmol/L9 - 17 mmol/LMercy Health- [place], KYAST [Catalytic activity/Vol]29 U/L<40[facility]- [place], KYBilirubin Ql (U)0.42 mg/dL0.3 - 1.2 mg/dLMercy Health- [place], KYBun/Cre RatioNOT REPORTEDMer Health- [place], KYCalcium [Mass/Vol]8.6 mg/dL8.6 - 10.4 mg/dLMercy Health- [place], KYChloride [Moles/Vol]102 mmol/L98 - 107 mmol/LMercy Health- [place], [place] CO2 [Moles/Vol]20 mmol/L20 - 31 mmol/LMercy Health- [place], KYCreatinine [Mass/Vol] 0.69 mg/dLLow0.7 - 1.2 mg/dLMercy Health- [place], KYGFR >60>60 mL/minMercy Health- [place], KYGFR Non->60>60 mL/minMercy Health- [place], KYGFR/1.73 sq M predicted among non-blacks MDRD (S/P/Bld) [Vol rate/Area][facility]- [place], KYComment on above:Average GFR for 70 or more years old: 75 mL/min/1.73sq m Chronic Kidney Disease: <60 mL/min/1.73sq m Kidney failure: <15 mL/min/1.73sq m eGFR calculated using average adult body mass. Additional eGFR calculator available at: http://www.ideaForge/multiple_crcl_2012.htm GFR/1.73 sq M predicted among non-blacks MDRD (S/P/Bld) [Vol rate/Area]NOT REPORTEDWadsworth-Rittman Hospital, KYGlucose [Mass/Vol]132 mg/jAQdtn47 - 99 mg/dLWadsworth-Rittman Hospital, KYInterpretation and review of laboratory resultsAbnormalWadsworth-Rittman Hospital, KYPotassium [Moles/Vol]3.8 mmol/L3.7 - 5.3 mmol/LMwooster community hospitaly [facility] [place], KYProtein [Mass/Vol]6.5 g/dL6.4 - 8.3 g/dLWadsworth-Rittman Hospital, KYSodium [Moles/Vol] 135 mmol/L135 - 144 mmol/LMwooster community hospitaly [facility] [place] KYUrea nitrogen [Mass/Vol]15 mg/dL8 - 23 mg/dLWadsworth-Rittman Hospital, KYECHO Complete 2D W Doppler W Coloron 12-07-2019 Jett, Mhpn Incoming Cardio Results From [facility]/ - 12/07/2019 10:22 AM EDT Transthoracic Echocardiography Report (TTE) Patient Name KENDALL Date of Study 12/06/2019 LILLY Date of 1945 Gender Male Age 74 year(s) Race Other Room Number 2006 Height: 71 inch, 180.34 cm Corporate ID [id number] Weight: 190 pounds, 86.2 kg # Patient Acct [id number] BSA: 2.06 m^2 BMI: 26.5 # kg/m^2 MR # [id number] [employer]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 Procedure Date Date: 12/06/2019 Start: 04:44 PM Study Location: [facility] Technical Quality: Fair visualization History / Tech. Comments: Procedure explained to patient. Study done bedside. Pulmonary embolism Patient Status: Inpatient Height: 71 inches Weight: 190 pounds BSA: 2.06 m^2 BMI: 26.5 kg/m^2 HR: 100 bpm CONCLUSIONS Summary Left ventricle is normal in size. Global left ventricular systolic function is mildly reduced. Estimated ejection fraction is 45 % . Calculated EF via heart model is 45 %. Normal left ventricular wall thickness. No significant valvular regurgitation or stenosis seen. Mildly dilated right ventricular cavity. Right ventricular function appears normal . No significant pericardial effusion is seen. Signature - - - - FINDINGS Left Atrium Left atrial size is at the upper limits of normal. Left Ventricle Left ventricle is normal in size. Global left ventricular systolic function is mildly reduced. Estimated ejection fraction is 45 % . Calculated EF via heart model is 45 %. Normal left ventricular wall thickness. Right Atrium Right atrium is normal size . Right Ventricle Mildly dilated right ventricular cavity. Right ventricular function appears normal . Mitral Valve Normal mitral valve structure. No mitral regurgitation. No mitral stenosis. Aortic Valve Aortic valve structure and function normal. Aortic valve is trileaflet. No aortic insufficiency. No aortic stenosis. Tricuspid Valve Normal tricuspid valve leaflets. No tricuspid regurgitation. No tricuspid stenosis. Insignificant tricuspid regurgitation, unable to estimate RVSP. Pulmonic Valve Pulmonic valve is normal in structure and function. No pulmonic insufficiency. No evidence of pulmonic stenosis. Pericardial Effusion No significant pericardial effusion is seen. Miscellaneous Normal aortic root dimension. E/E' average = 6.3. IVC not visualized, unable to assess size and respiratory collapse. M-mode / 2D Measurements & Calculations: LVIDd:4.2 cm(3.7 - 5.6 cm) Diastolic Volume:177 ml LVIDs:2.5 cm(2.2 - 4.0 cm) Systolic Volume:98 ml IVSd:1 cm(0.6 - 1.1 cm) Aortic Root:3 cm(2.0 - 3.7 cm) LVPWd:1 cm(0.6 - 1.1 cm) LA Dimension: 3.2 cm(1.9 - 4.0 cm) Fractional Shortenin.48 % LA volume/Index: 65.97 ml /32m^2 Calculated LVEF (%): 44.63 % LVOT:2.1 cm RVDd:4.2 cm Mitral: Aortic Valve Area (P1/2-Time): 4.07 cm^2 Peak Velocity: 1.39 m/s Peak E-Wave: 0.66 m/s Mean Velocity: 0.94 m/s Peak A-Wave: 0.80 m/s Peak Gradient: 7.73 mmHg E/A Ratio: 0.82 Mean Gradient: 4 mmHg Peak Gradient: 1.72 mmHg Mean Gradient: 2 mmHg Deceleration Time: 169 msec Area (continuity): 3.05 cm^2 P1/2t: 54 msec AV VTI: 23.4 cm Area (continuity): 3.92 cm^2 Mean Velocity: 0.57 m/s Pulmonic: Peak Velocity: 0.79 m/s Peak Gradient: 2.48 mmHg Diastology / Tissue Doppler Septal Wall E' velocity:0.09 m/s Septal Wall E/E':7.5 Lateral Wall E' velocity:0.13 m/s Lateral Wall E/E':5.1Mwooster [facility]y [facility] (TTE) Patient Name KENDALL Date of Study 12/06/2019 LILLY Date of 1945 Gender Male Age 74 year(s) Race Other Room Number 2006 Height: 71 inch, 180.34 cm Corporate ID [id number] Weight: 190 pounds, 86.2 kg # Patient Acct [id number] BSA: 2.06 m^2 BMI: 26.5 # kg/m^2 MR # [id number] [employer]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 Procedure Date Date: 12/06/2019 Start: 04:44 PM Study Location: [facility] Technical Quality: Fair visualization History / Tech. Comments: Procedure explained to patient. Study done bedside. Pulmonary embolism Patient Status: Inpatient Height: 71 inches Weight: 190 pounds BSA: 2.06 m^2 BMI: 26.5 kg/m^2 HR: 100 bpm CONCLUSIONS Summary Left ventricle is normal in size. Global left ventricular systolic function is mildly reduced. Estimated ejection fraction is 45 % . Calculated EF via heart model is 45 %. Normal left ventricular wall thickness. No significant valvular regurgitation or stenosis seen. Mildly dilated right ventricular cavity. Right ventricular function appears normal . No significant pericardial effusion is seen. Signature FINDINGS Left Atrium Left atrial size is at the upper limits of normal. Left Ventricle Left ventricle is normal in size. Global left ventricular systolic function is mildly reduced. Estimated ejection fraction is 45 % . Calculated EF via heart model is 45 %. Normal left ventricular wall thickness. Right Atrium Right atrium is normal size . Right Ventricle Mildly dilated right ventricular cavity. Right ventricular function appears normal . Mitral Valve Normal mitral valve structure. No mitral regurgitation. No mitral stenosis. Aortic Valve Aortic valve structureand function normal. Aortic valve is trileaflet. No aortic insufficiency. No aortic stenosis. Tricuspid Valve Normal tricuspid valve leaflets. No tricuspid regurgitation. No tricuspid stenosis. Insignificant tricuspid regurgitation, unable to estimate RVSP. Pulmonic Valve Pulmonic valve is normal in structure and function. No pulmonic insufficiency. No evidence of pulmonic stenosis. Pericardial Effusion No significant pericardial effusion is seen. Miscellaneous Normal aortic root dimension. E/E' average = 6.3. IVC not visualized, unable to assess size and respiratory collapse. M-mode / 2D Measurements & Calculations: LVIDd:4.2 cm(3.7 - 5.6 cm) Diastolic Volume:177 ml LVIDs:2.5 cm(2.2 - 4.0 cm) Systolic Volume:98 ml IVSd:1 cm(0.6 - 1.1 cm) Aortic Root:3 cm(2.0 - 3.7 cm) LVPWd:1 cm(0.6 - 1.1 cm) LA Dimension: 3.2 cm(1.9 - 4.0 cm) Fractional Shortenin.48 % LA volume/Index: 65.97 ml/32m^2 Calculated LVEF (%): 44.63 % LVOT:2.1 cm RVDd:4.2 cm Mitral: Aortic Valve Area (P1/2-Time): 4.07 cm^2 Peak Velocity: 1.39 m/s Peak E-Wave: 0.66 m/s Mean Velocity: 0.94 m/s Peak A-Wave: 0.80 m/s Peak Gradient: 7.73 mmHg E/A Ratio: 0.82 Mean Gradient: 4 mmHg Peak Gradient: 1.72 mmHg Mean Gradient: 2 mmHg Deceleration Time: 169 msec Area (continuity): 3.05 cm^2 P1/2t: 54 msec AV VTI: 23.4 cm Area (continuity): 3.92 cm^2 Mean Velocity: 0.57 m/s Pulmonic: Peak Velocity: 0.79 m/s Peak Gradient: 2.48 mmHg Diastology / Tissue Doppler Septal Wall E' velocity:0.09 m/s Septal Wall E/E':7.5 Lateral Wall E' velocity:0.13 m/s Lateral Wall E/E':5.1Mwooster [facility] hospitaly [facility] [place], COLactic Acidon [id number] [Moles/Vol]0.8 mmol/LNormal0.7-2.1 [facility] CenterComment on above:Performed By: #### LACTIC, CMPX #### [employer] [address] [place] [phone] Mushroom Farmer: Conor Alvaradoate [Moles/Vol]NOT REPORTEDNormalAdams County Regional Medical CenterComment on above:Performed By: #### LACTIC, CMPX #### [employer] [address] [place] [phone] Mushroom Farmer: Rancho Alvar[place] plasmaon [id number] [Moles/Vol]NOT REPORTEDmmol/LMercy Health- [place], KYLactic Acid, Whole Blood0.8 mmol/L0.7 - 2.1 mmol/LMercy Health- [place], KYTROP/MYOGLOBINon 12-07-2019 Interpretation and review of laboratory resultsAbnormalMer Health- [place], [place] Myoglobin [Mass/Vol]31 ng/mL28 - 72 ng/mLMercy Health- [place], KYTroponin I.cardiac [Mass/Vol]NOT REPORTEDMer Health- [place], KYTroponin T.cardiac [Mass/Vol]NOT REPORTED<0.03 ng/mLMercy Health- [place], KYTroponin, High Tunfaipohfh90 ng/L Critically high0 - 22 ng/LMercy Health- [place], KYComment on above: High Sensitivity Troponin values cannot be compared with other Troponin methodologies. Patients with high levels of Biotin oral intake (i.e >5mg/day) may have falsely decreased Troponin levels. Samples collected within 8 hours of biotin intake may require additional information for diagnosis. Previous Alert Value Reported Interpretation and review of laboratory resultsAbnormtnMercy Health- [place], [place] Myoglobin [Mass/Vol]31 ng/mL28 - 72 ng/mLMercy Health- [place], KYTroponin I.cardiac [Mass/Vol]NOT REPORTEDMer Health- [place], KYTroponin T.cardiac [Mass/Vol]NOT REPORTED<0.03 ng/mLMercy Health- [place], KYTroponin, High Pypjtdgtsln85 ng/L Critically high0 - 22 ng/LMercy Health- [place], KYComment on above: High Sensitivity Troponin values cannot be compared with other Troponin methodologies. Patients with high levels of Biotin oral intake (i.e >5mg/day) may have falsely decreased Troponin levels. Samples collected within 8 hours of biotin intake may require additional information for diagnosis. Previous Alert Value Reported Interpretation and review of laboratory resultsAbnormtnMer Health- [place], [place] Myoglobin [Mass/Vol]28 ng/mL28 - 72 ng/mLMercy Health- [place], KYTroponin I.cardiac [Mass/Vol]NOT REPORTEDMercy Health- [place], KYTroponin T.cardiac [Mass/Vol]NOT REPORTED<0.03 ng/mLWadsworth-Rittman [facility], KYTroponin, High Nlnmxsgqmcd83 ng/L Critically high0 - 22 ng/LMercy [place], KYComchelsea hospital on above: High Sensitivity Troponin values cannot be compared with other Troponin methodologies. Patients with high levels of Biotin oral intake (i.e >5mg/day) may have falsely decreased Troponin levels. Samples collected within 8 hours of biotin intake may require additional information for diagnosis. Previous Alert Value Reported Interpretation and review of laboratory resultsAbnormalWadsworth-Rittman Hospital, [place] Myoglobin [Mass/Vol]32 ng/mL28 - 72 ng/mLWadsworth-Rittman Hospital, COTroponin I.cardiac [Mass/Vol]NOT REPORTEDWadsworth-Rittman Hospital, KYTroponin T.cardiac [Mass/Vol]NOT REPORTED<0.03 ng/mLWadsworth-Rittman Hospital, COTroponin, High Gkcaqfvrtqw387 ng/L Critically high0 - 22 ng/LMwooster community hospitaly [place], KYComchelsea hospital on above: High Sensitivity Troponin values cannot be compared with other Troponin methodologies. Patients with high levels of Biotin oral intake (i.e >5mg/day) may have falsely decreased Troponin levels. Samples collected within 8 hours of biotin intake may require additional information for diagnosis. Trop/Myoglobinon 52-30-4501Nlpfzbwo I.cardiac [Mass/Vol]NOT REPORTEDNormalAdams County Regional Medical CenterComment on above:Performed By: #### CBC, PTT #### [employer] [address] [place] [address] [phone] Mushroom Farmer: Marcy Alvaradocardiac [Mass/Vol]NOT REPORTEDNormal <0.03Ad[facility] Medical CenterComment on above:Performed By: #### CBC, PTT #### [employer] [address] [place] [address] Mushroom Farmer: Marcy Alvarado High Sens86 ng/LCritically high0-22 [facility] CenterComment on above:Result Comment: High Sensitivity Troponin values cannot be compared with other Troponin methodologies. Patients with high levels of Biotin oral intake (i.e >5mg/day) may have falsely decreased Troponin levels. Samples collected within 8 hours of biotin intake may require additional information for diagnosis. Previous Alert Value ReportedPerformed By: #### CBC, PTT #### [employer] [address] [place] [phone] Mushroom Farmer: Gerber Cartwright MDMyoglobin [Mass/Vol]31 ng/eQAerqmp42-74YrtkyAdams County Regional Medical CenterComment on above:Performed By: #### CBC, PTT #### [employer] [address] [place] [address] Mushroom Farmer: Marcy Alvarado I.cardiac [Mass/Vol]NOT REPORTEDNormal [facility] CenterComment on above:Performed By: #### CBC, PTT #### [employer] [address] [place] [address] Mushroom Farmer: Marcy Alvaradocardiac [Mass/Vol]NOT REPORTEDNormal <0.03Ad[facility] Medical CenterComment on above:Performed By: #### CBC, PTT #### [employer] [address] [place] [phone] Mushroom Farmer: Marcy Alvarado High Sens98 ng/LCritically high0-22 [facility] CenterComment on above:Result Comment: High Sensitivity Troponin values cannot be compared with other Troponin methodologies. Patients with high levels of Biotin oral intake (i.e >5mg/day) may have falsely decreased Troponin levels. Samples collected within 8 hours of biotin intake may require additional information for diagnosis. Previous Alert Value ReportedPerformed By: #### CBC, PTT #### [employer] [address] [place] [address] Mushroom Farmer: TYRESE Alvaradoyoglobin [Mass/Vol]28 ng/yJSuhtjn40-52FlxsxAdams County Regional Medical CenterComment on above:Performed By: #### CBC, PTT #### [facility] [address] [place] [address] Mushroom Farmer: Marcy Alvarado I.cardiac [Mass/Vol]NOT REPORTEDNormal [facility] CenterComment on above:Performed By: #### CBC, PTT #### [facility] [address] [place] [phone] Mushroom Farmer: Marcy Alvaradocardiac [Mass/Vol]NOT REPORTEDNormal <0.03[facility] CenterComment on above:Performed By: #### CBC, PTT #### [facility] [address] [place] [address] Mushroom Farmer: TYRESE Alvaradoyoglobin [Mass/Vol]32 ng/vRUgekdc10-14KplwsAdams County Regional Medical CenterComment on above:Performed By: #### SHEFALI SANCHEZ, BMP #### [facility] [employer] [address] [place] [address] Mushroom Farmer: Marcy Alvarado High Zkgb325 ng/LCritically high0-22 [facility] CenterComment on above:Result Comment: High Sensitivity Troponin values cannot be compared with other Troponin methodologies. Patients with high levels of Biotin oral intake (i.e >5mg/day) may have falsely decreased Troponin levels. Samples collected within 8 hours of biotin intake may require additional information for diagnosis.Performed By: #### SHEFALI SANCHEZ, BMP #### [facility] [address] [place] [address] Mushroom Farmer: Marcy Alvarado I.cardiac [Mass/Vol]NOT REPORTEDNormal [facility] CenterComment on above:Performed By: #### SHEFALI SANCHEZ, BMP #### [facility] [address] [place] [address] Mushroom Farmer: Gerber Madoff, MDTroponin T.cardiac [Mass/Vol]NOT REPORTEDNormal <0.03[facility] Medical CenterComment on above:Performed By: #### ECENZ, CDP, BMP #### [facility] [employer] [address] [place] [address] Mushroom Farmer: Regine Alvarado [id number] Coag (Bld) [Time]25.7 s Unhvfc56.5-30.5Ad[facility] Medical CenterComment on above:Performed By: #### CBC, PTT #### [facility] [employer] [address] [place] [address] Mushroom Farmer: Jose Alvarado Coag (Bld) [Time]25.7 [facility]on 80-31-4128Oxehqdibaxv distribution width (RBC) [Ratio]13.9 %Normal 11.8-14.4[facility] Medical CenterComment on above:Performed By: #### CBC, PTT #### [facility] [employer] [address] [place] [address] Mushroom Farmer: Gerber Cartwright MDHematocrit (Bld) [Volume fraction]31.5 %Low 40.7-50.3MProvidence Tarzana Medical CenterComment on above:Performed By: #### CBC, PTT #### [facility] [employer] [address] [place] [address] Mushroom Farmer: Gerber Cartwright MDHemoglobin (Bld) [Mass/Vol]9.6 g/dLLow13.0-17.0 [facility] CenterComment on above:Performed By: #### CBC, PTT #### [facility] [employer] [address] [place] [address] Mushroom Farmer: TYRESE AlvaradoCH (RBC) [Entitic mass]29.8 hxDobjus04.2-33.5 [facility] CenterComment on above:Performed By: #### CBC, PTT #### [facility] [employer] [address] [place] [address] Mushroom Farmer: TYRESE AlvaradoCHC (RBC) [Mass/Vol]30.5 g/rHIlesrg62.4-34.8 [facility] CenterComment on above:Performed By: #### CBC, PTT #### [address] [address] Mushroom Farmer: TYRESE AlvaradoCV (RBC) [Entitic vol]97.8 yEFnmieq14.6-102.9 [facility] CenterComment on above:Performed By: #### CBC, PTT #### [address] [address] Mushroom Farmer: SARAH AlvaradoBC Automated0.0 per 100 WBCNormal0.0Ad[facility] Medical CenterComment on above:Performed By: #### CBC, PTT #### [address] [address] Mushroom Farmer: JARED Alvaradolatelet mean volume (Bld) [Entitic vol]9.6 fL Normal8.1-13.5Ad[facility] Medical CenterComment on above:Performed By: #### CBC, PTT #### [address] [address] Mushroom Farmer: Gerber Cartwright MDPlatelets (Bld) [#/Vol]535 10*3/pYUwll486-612 [facility] CenterComment on above:Performed By: #### CBC, PTT #### [address] [address] Mushroom Farmer: Gerber Cartwright MDRBC (Bld) [#/Vol]3.22 10*6/uLLow4.21-5.77[facility] Medical CenterComment on above:Performed By: #### CBC, PTT #### [address] [phone] Mushroom Farmer: Gerber Cartwright MDWBC (Bld) [#/Vol]7.0 10*3/uLNormal3.5-11.3[facility] Medical CenterComment on above:Performed By: #### CBC, PTT #### [employer] [address] [place], [place] [phone] Mushroom Farmer: Gerber Cartwright MDErythrocyte distribution width (RBC) [Ratio]13.9 %11.8 - 14.4 %[facility]- [place], KYHematocrit (Bld) [Volume fraction]31.5 %Low 40.7 - 50.3 %[facility]- [place], KYHemoglobin (Bld) [Mass/Vol]9.6 g/dLLow13 - 17 g/dLAkron Children'S Hospital [place], KYInterpretation and review of laboratory resultsAbnormal [facility] [place], KYH (RBC) [Entitic mass]29.8 pg25.2 - 33.5 pgAkron Children'S Hospital [place], KYMCHC (RBC) [Mass/Vol]30.5 g/dL28.4 - 34.8 g/dLWvumedicine Harrison [facility] Hospital- [place], KYV (RBC) [Entitic vol]97.8 fL82.6 - 102.9 fLWvumedicine Harrison Community Hospital- [place], KYPlatelet mean volume (Bld) [Entitic vol]9.6 fL8.1 - 13.5 fLWvumedicine Harrison Community Hospital- [place], KYPlatelets (Bld) [#/Vol]535 10*3/uLHighWvumedicine Harrison [facility] Hospital- [place], KYRBC (Bld) [#/Vol]3.22 10*6/uLLow4.21 - 5.77 m/uLWvumedicine Harrison Community Hospital- [place], KYWBC (Bld) [#/Vol]0.0 10*3/uL0.0 per 100 WBCWvumedicine Harrison Community Hospital- [place], KYWBC (Bld) [#/Vol]7.0 10*3/uLWvumedicine Harrison Community Hospital- [place], KYTROP/MYOGLOBINon 18-46-1110Suqvchpdzohfyg and review of laboratory resultsAbnormalWvumedicine Harrison [facility] Hospital- [place], KYMyoglobin [Mass/Vol]35 ng/mL28 - 72 ng/mLWadsworth-Ritt[facility] Hospital, KYTroponin I.cardiac [Mass/Vol]NOT REPORTEDWadsworth-Rittman Hospital, KYTroponin T.cardiac [Mass/Vol]NOT REPORTED<0.03 ng/mLWadsworth-Rittman Hospital, KYTroponin, High Sensitivity 101 ng/LCritically high0 - 22 ng/LMercy [facility] [place], KYComment on above: High Sensitivity Troponin values cannot be compared with other Troponin methodologies. Patients with high levels of Biotin oral intake (i.e >5mg/day) may have falsely decreased Troponin levels. Samples collected within 8 hours of biotin intake may require additional information for diagnosis. Previous Alert Value Reported Interpretation and review of laboratory resultsAbnormalWadsworth-Rittman Hospital, [place] Myoglobin [Mass/Vol]35 ng/mL28 - 72 ng/mLWadsworth-Rittman [facility], KYTroponin I.cardiac [Mass/Vol]NOT REPORTEDWadsworth-Rittman Hospital, KYTroponin T.cardiac [Mass/Vol]NOT REPORTED<0.03 ng/mLWadsworth-Rittman Hospital, COTroponin, High Vtltwdmbfpb58 ng/L Critically high0 - 22 ng/LMercy [facility] [place], KYComchelsea hospital on above: High Sensitivity Troponin values cannot be compared with other Troponin methodologies. Patients with high levels of Biotin oral intake (i.e >5mg/day) may have falsely decreased Troponin levels. Samples collected within 8 hours of biotin intake may require additional information for diagnosis. Trop/Myoglobinon 55-38-8339Waatufbfm [Mass/Vol]35 ng/jQFnodys03-10BtvnlAdams County Regional Medical CenterComment on above:Performed By: #### ECENZ #### [facility] [employer] [address] [place] [address] [phone] Mushroom Farmer: Marcy Alvarado High Nipm304 ng/LCritically high0-22 [facility] CenterComment on above:Result Comment: High Sensitivity Troponin values cannot be compared with other Troponin methodologies. Patients with high levels of Biotin oral intake (i.e >5mg/day) may have falsely decreased Troponin levels. Samples collected within 8 hours of biotin intake may require additional information for diagnosis. Previous Alert Value ReportedPerformed By: #### ECENZ #### [facility] [employer] [address] [place] [phone] Mushroom Farmer: Marcy Alvarado I.cardiac [Mass/Vol]NOT REPORTEDNormal [facility] CenterComment on above:Performed By: #### ECENZ #### [facility] [employer] [address] [place] [phone] Mushroom Farmer: Marcy Alvaradocardiac [Mass/Vol]NOT REPORTEDNormal <0.03[facility] CenterComment on above:Performed By: #### ECENZ #### [facility] [employer] [address] [place] [address] Mushroom Farmer: Marcy Alvarado High Sens97 ng/LCritically high0-22 [facility] CenterComment on above:Result Comment: High Sensitivity Troponin values cannot be compared with other Troponin methodologies. Patients with high levels of Biotin oral intake (i.e >5mg/day) may have falsely decreased Troponin levels. Samples collected within 8 hours of biotin intake may require additional information for diagnosis.Performed By: #### ECENZ #### [facility] [employer] [address] [place] [address] Mushroom Farmer: TYRESE Alvaradoyoglobin [Mass/Vol]35 ng/iACfqzst72-01FkhlgAdams County Regional Medical CenterComment on above:Performed By: #### ECENZ #### [facility] [employer] [address] [place] [address] Mushroom Farmer: Marcy Alvarado I.cardiac [Mass/Vol]NOT REPORTEDNormal [facility] CenterComment on above:Performed By: #### ECENZ #### [facility] [employer] [address] [place] [address] Mushroom Farmer: Marcy Alvaradocardiac [Mass/Vol]NOT REPORTEDNormal <0.03[facility] Medical CenterComment on above:Performed By: #### ECENZ #### [employer] [address] [place] [address] Mushroom Farmer: Gerber Cartwright MDSALEM [facility] Surgical Pathology Departmenton 10-15-2019 [facility] Surgical Pathology DepartmentName LILLY ARGUETA Pathologist: ADRIENNE SINGH DMD Date of Procedure: 10/15/2019 Date Received: 10/16/2019 Date Reported 10/21/2019 Submitting Physician: BRANDEN GODDARD DDS Location: [facility] Other External # FINAL DIAGNOSIS A. RIGHT MAXILLA, BUCCAL VESTIBULE, INCISIONAL BIOPSY: -- SQUAMOUS CELL CARCINOMA WITH PAPILLARY FEATURES ICD-10/CPT: C03.0/76719 Electronically Signed Out By ADRIENNE SINGH DMD/VITALY By the signature on this report, the individual or group listed as making the Final Interpretation/Diagnosis certifies that they have reviewed this case. Microscopic Description: The sections show a papillary, arborizing proliferation of cytologically malignant squamous epithelium with an exophytic and complex endophytic component. This arises from overlying dysplastic stratified squamous epithelium. The lamina propria consists of densely collagenous fibrovascular tissue with moderate acute and chronic inflammation and numerous eosinophils. Clinical History: The lesion was biopsied from the right buccal vestibule in the area of tooth #6. The lesion extends from the maxillary tuberosity to tooth #6 and presents as a fungating mass that has been increasing in size for one year. Clinical diagnosis: Squamous cell carcinoma. Specimens Submitted As: A: RIGHT BUCCAL VESTIBULE Gross Description: Received in formalin, labeled with the patient's name and hospital number and right buccal vestibule , is a segment of [place] tissue measuring 1.4 x 0.4 x 0.3 cm. The specimen is submitted in toto in one cassette. DARON arthur/10/17/2019NoAnimas Surgical HospitalComment on above:Performed By: #### [facility] #### [facility] Surgical Pathology Department [address] [facility] [address] Vital Signs Date TimeVital SignValuePerforming [id number] 13:00-0400Body .4 Tala Davidson MD Work Phone: [facility]06-04-2025 13:00-0400Body mass index (BMI) [Ratio]23.11 kg/e0VxqmmpgBobo Davidson MD Work Phone: 1(546)[facility]74[facility]06-04-2025 13:00-0400Body fgnirtqkwnt10.81 [degF]Bobo Davidson MD Work Phone: 1(502)[facility]74[facility]06-04-2025 13:00-0400Body laiqtm11.47 kgBobo Davidson MD Work Phone: 1(515)[facility]74[facility]06-04-2025 13:00-0400 Diastolic blood xharmaxr79 mm[Hg]Bobo Davidson MD Work Phone: 1(633)[facility]74[facility]06-04-2025 13:00-0400Heart rate69 /Aurelia Davidson MD Work Phone: 1(480)[address] [place], [place] 4340306-04-2025 13:00-0400 Respiratory rate18 /Aurelia Davidson MD Work Phone: 1(747)[facility]74[facility]06-04-2025 13:00-4703XgN5% (BldA) [Mass fraction]98 %Bobo Davidson MD Work Phone: 1(472)[facility]8074[facility]06-04-2025 13:00-0400Systolic blood udjslunh516 mm[Hg]Bobo Davidson MD Work Phone: 1(400)[facility]74[facility]11-05-2024 11:39-0500Body drctci037 cmJepamela Canada APRN-CONTAINER CRANE OPERATOR Work Phone: [facility]11-05-2024 11:39-0500Body mass index (BMI) [Ratio]23.24 kg/m0UwxcbtsClaudia Canada APRN-CONTAINER CRANE OPERATOR Work Phone: [facility]11-05-2024 11:39-0500Body hlfxox06.56 kgClaudia Canada APRN-CONTAINER CRANE OPERATOR Work Phone: 1(419)355-[address] [place], [place] 6247611-05-2024 11:39-0500Diastolic blood ecoippnv61 mm[Hg]Claudia Canada FROG SHAKER-CONTAINER CRANE OPERATOR Work Phone: [facility]11-05-2024 11:39-0500Heart rate 81 /minClaudia Canada FROG SHAKER-CONTAINER CRANE OPERATOR Work Phone: [facility]11-05-2024 11:39-0500Systolic blood xarlfaqg507 mm[Hg]Claudia Canada FROG SHAKER-CONTAINER CRANE OPERATOR Work Phone: [facility]10-17-2024 14:29-0400Body ffnbgi775.[address]10-17-2024 14:29-0400Body mass index (BMI) [Ratio]23.35 kg/m2Pmh [address] [place], [place] 2836410-17-2024 14:29-0400Body gyedbx20.[address] [place], [place] 2836410-16-2024 14:05-0400Body umchzj581.4 cmMichael Grillis DO Work Phone: 1([phone]10-16-2024 14:05-0400Body mass index (BMI) [Ratio]23.41 kg/o9Lvnzzma Grillis DO Work Phone: [facility]10-16-2024 14:05-0400Body scsqyu92.47 kgMichael Grillis DO Work Phone: [facility]10-16-2024 14:05-0400Diastolic blood mm[Hg]Rajeev Mcintyres DO Work Phone: [facility]10-16-2024 14:05-0400Heart rate 71 /minMichael Grillis DO Work Phone: [facility]10-16-2024 14:05-0400Systolic blood jmtqvoor157 mm[Hg]Rajeev Mcintyres DO Work Phone: [facility]09-20-2024 13:08-0400Blood Pressure LocationMichael NILL [phone]-ViejlKind[facility] 06-07-2024 13:08-0400Diastolic blood fyihqmgu97 mm[Hg]Rajeev ZAMBRANOL [phone]-NmkucKind[facility] 06-07-2024 13:08-0400Heart rate85 /minMichael NILL [phone]-GgqikKind[facility] 06-07-2024 13:08-0400Respiratory rate16 /minMichael NILL [phone]-BbrweKindred [facility] 06-07-2024 13:08-0400Systolic blood vmotprth531 mm[Hg]Rajeev ZAMBRANOL [phone]-CjfsmKind[facility] 02-07-2024 13:00-0400Body mass index (BMI) [Ratio]23.66 kg/z3BjyhrtzBobo Davidson MD Work Phone: 1(529)532[facility]26[facility]05-22-2024 13:00-0400Body plmxtctkhga21.11 [degF]Bobo Davidson MD Work Phone: 1(611)[facility]05[facility]05-22-2024 13:00-0400Body .33 kgBobo Davidson MD Work Phone: 1(174)243[facility]51[facility]05-22-2024 13:00-0400 Diastolic blood tzzqutdl50 mm[Hg]Bobo Davidson MD Work Phone: 1(916)7878027[facility]05-22-2024 13:00-0400Heart rate73 /Aurelia Davidson MD Work Phone: 1(674)608[facility]74[facility]05-22-2024 13:00-0400 Respiratory rate18 /Aurelia Davidson MD Work Phone: 1(077)098[facility]15[facility]05-22-2024 13:00-9638JvF4% (BldA) [Mass fraction]98 %Bobo Davidson MD Work Phone: 1(500)[facility]8074[facility]05-22-2024 13:00-0400Systolic blood ibcisqhi905 mm[Hg]Bobo Davidson MD Work Phone: 1(208)[facility]74[facility]11-15-2023 16:06-0500Body mass index (BMI) [Ratio]23.83 kg/p2Dcjpbdaniele Lucio DMD Work Phone: 1(388)[address] [place], [place] 3316811-15-2023 16:06-0500Body hqnturmsfia44.11 [degF]Nell Leeentin DMD Work Phone: 1(034)[address] [place], [place] 3316811-15-2023 16:06-0500Body vmyfpb55.92 kgSaannemariefawn LeeNaveed DMD Work Phone: 1(094)[address] [place], [place] 3316811-15-2023 16:06-0500 Diastolic blood iymlgjzi04 mm[Hg]Nell Lucio DMD Work Phone: 1(694)[address] [place], [place] 3316811-15-2023 16:06-0500Heart rate77 /Jeremi Leeentin DMD Work Phone: 1(538)[address] [place], [place] 3316811-15-2023 16:06-0500 Respiratory rate16 /minSchandu Leeentin DMD Work Phone: 1(351)[address] [place], [place] 3316811-15-2023 16:06-7764BbM1% (BldA) [Mass fraction]99 %Nell Naveed DMD Work Phone: 1(452)[address] [place], [place] 3316811-15-2023 16:06-0500Systolic blood cmopajah989 mm[Hg]Nelljeromy LeeNaveed DMD Work Phone: 1(962)[address] [place], [place] 3316811-15-2023 15:09-0500Body mass index (BMI) [Ratio]23.8 kg/y8FbumqnyBobo Davidson MD Work Phone: 1(797)[facility]8006[facility]11-15-2023 15:09-0500Body qrfrfiezqli35.11 [degF]Bobo Davidson MD Work Phone: 1([phone]11-15-2023 15:09-0500Body ollvkn48.83 kgStparis Davidson MD Work Phone: 1(870)[facility]8074[facility]11-15-2023 15:09-0500 Diastolic blood hfsbtqcu07 mm[Hg]Bobo Davidson MD Work Phone: 1(233)293[facility]74[facility]11-15-2023 15:09-0500Heart rate77 /Aurelia Davidson MD Work Phone: 1(462)[facility]8074[facility]11-15-2023 15:09-0500 Respiratory rate16 /Aurelia Davidson MD Work Phone: 1(223)[facility]74[facility]11-15-2023 15:09-2078EzJ5% (BldA) [Mass fraction]99 %Bobo Davidson MD Work Phone: 1(112)[facility]74[facility]11-15-2023 15:09-0500Systolic blood rkviplkd829 mm[Hg]Bobo Davidson MD Work Phone: 1(596)293[facility]74[facility]10-06-2023 11:03-0400Body mass index (BMI) [Ratio]23.62 kg/t9HqgtqNell Lucio DMD Work Phone: 1(813)[address] [place], [place] 3316810-06-2023 11:03-0400Body nvpvwupzdtc31.7 [degF]Nell Lucio DMD Work Phone: 1(457)[address] [place], [place] 3316810-06-2023 11:03-0400Body qwsoqo26.19 kgSadaniele Lucio DMD Work Phone: 1(176)[address] [place], [place] 3316810-06-2023 11:03-0400 Diastolic blood dsgeuuix65 mm[Hg]Nell Lucio DMD Work Phone: 1(296)[address] [place], [place] 3316810-06-2023 11:03-0400Heart rate65 /Jeremi Lucio DMD Work Phone: 1(615)[address] [place], [place] 3316810-06-2023 11:03-0400 Respiratory rate16 /Jeremi Naveed DMD Work Phone: 1(049)[address] [place], [place] 3316810-06-2023 11:03-7158CpW5% (BldA) [Mass fraction]99 %Nell Leeentin DMD Work Phone: 1(275)[address] [place], [place] 3316810-06-2023 11:03-0400Systolic blood tdsltlah461 mm[Hg]Nell Lucio DMD Work Phone: 1(105)[address] [place], [place] 3316809-08-2023 11:11-0400Body mass index (BMI) [Ratio]23.64 kg/h9OjopyNell Lucio DMD Work Phone: 1(580)[address] [place], [place] 3316809-08-2023 11:11-0400Body eqyxhxtybnu04.11 [degF]Nell Lucio DMD Work Phone: 1(404)[address] [place], [place] 3316809-08-2023 11:11-0400Body ygpoeq80.28 kgdaniele LeeNaveed DMD Work Phone: 1(811)[address] [place], [place] 3316809-08-2023 11:11-0400 Diastolic blood gawhokds72 mm[Hg]Nell Lucio DMD Work Phone: 1(570)[address] [place], [place] 3316809-08-2023 11:11-0400Heart rate64 /Teresachandu Lucio DMD Work Phone: 1(955)[address] [place], [place] 3316809-08-2023 11:11-0400 Respiratory rate18 /Jeremi Naveed DMD Work Phone: 1(618)[address] [place], [place] 3316809-08-2023 11:11-1154ToF0% (BldA) [Mass fraction]98 %Nell Lucio DMD Work Phone: 1(864)[address] [place], [place] 3316809-08-2023 11:11-0400Systolic blood chwdqyqo805 mm[Hg]Nell Lucio DMD Work Phone: 1(454)[address] [place], [place] 3316808-29-2023 11:19-0400Body mass index (BMI) [Ratio]23.62 kg/x0Paddnfawn Lucio DMD Work Phone: 1(766)[address] [place], [place] 3316808-29-2023 11:19-0400Body cutittohjeo01.1 [degF]Nell Lucio DMD Work Phone: 1(138)[address] [place], [place] 3316808-29-2023 11:19-0400Body mnfomx18.19 kgStevenfawn LeeNaveed DMD Work Phone: 1(454)[address] [place], [place] 3316808-29-2023 11:19-0400 Diastolic blood mm[Hg]Nell Lucio DMD Work Phone: 1(383)[address] [place], [place] 3316808-29-2023 11:19-0400Heart rate57 /Jeremi Naveed DMD Work Phone: 1(833)[address] [place], [place] 3316808-29-2023 11:19-0400 Respiratory rate16 /minSchandu Leeentin DMD Work Phone: 1(972)[address] [place], [place] 3316808-29-2023 11:19-0373TeQ4% (BldA) [Mass fraction]97 %Nell Lucio DMD Work Phone: 1(752)[address] [place], [place] 3316808-29-2023 11:19-0400Systolic blood efpzspmj166 mm[Hg]Nell Lucio DMD Work Phone: 1(182)[address] [place], [place] 3316808-16-2023 13:05-0400Body mass index (BMI) [Ratio]23.73 kg/v8Twhvt Naveed DMD Work Phone: 1(750)[address] [place], [place] 3316808-16-2023 13:05-0400Body rujrjypgbhz85.59 [degF]Nell Lucio DMD Work Phone: 1(914)[address] [place], [place] 3316808-16-2023 13:05-0400Body kzyeyj22.6 kgannemariefawn Lucio DMD Work Phone: 1(075)[address] [place], [place] 3316808-16-2023 13:05-0400 Diastolic blood cjtifnfc86 mm[Hg]Nell Lucio DMD Work Phone: 1(020)[address] [place], [place] 3316808-16-2023 13:05-0400Heart rate66 /minSchandu Naveed DMD Work Phone: 1(525)[address] [place], [place] 3316808-16-2023 13:05-0400 Respiratory rate18 /minSdarrickfawn Lucio DMD Work Phone: 1(298)[address] [place], [place] 3316808-16-2023 13:05-6295GoR1% (BldA) [Mass fraction]98 %Nell Leeentin DMD Work Phone: 1(114)[address] [place], [place] 3316808-16-2023 13:05-0400Systolic blood mm[Hg]Nell Lucio DMD Work Phone: 1(490)[address] [place], [place] 3316808-04-2023 13:09-0400Body mass index (BMI) [Ratio]23.52 kg/r9Msken Naveed DMD Work Phone: 1(912)[address] [place], [place] 3316808-04-2023 13:09-0400Body bqsojxtqjdn75.4 [degF]Nelljeromy Lucio DMD Work Phone: 1(927)[address] [place], [place] 3316808-04-2023 13:09-0400Body wnworw49.88 kgdaniele Lucio DMD Work Phone: 1(007)[address] [place], [place] 3316808-04-2023 13:09-0400 Diastolic blood mm[Hg]Nell Lucio DMD Work Phone: 1(182)[address] [place], [place] 3316808-04-2023 13:09-0400Heart rate68 /Jennyfawn Naveed DMD Work Phone: 1(777)[address] [place], [place] 3316808-04-2023 13:09-0400 Respiratory rate18 /Jeremi Lucio DMD Work Phone: 1(289)[address] [place], [place] 3316808-04-2023 13:09-9240AzN6% (BldA) [Mass fraction]98 %Nell Lucio DMD Work Phone: 1(930)[address] [place], [place] 3316808-04-2023 13:09-0400Systolic blood psrxukxa231 mm[Hg]Nell Lucio DMD Work Phone: 1(851)[address] [place], [place] 3316806-21-2023 14:43-0400Body mass index (BMI) [Ratio]23.72 kg/f0LlotakuBobo Davidson MD Work Phone: 1(038)[address] [place], [place] 4340306-21-2023 14:43-0400Body byconcfklra08.1 [degF]Bobo Davidson MD Work Phone: 1(189)[address] [place], [place] 4340306-21-2023 14:43-0400Body .56 kgBobo Davidson MD Work Phone: 1(292)[address] [place], [place] 4340306-21-2023 14:43-0400 Diastolic blood pkvvqkou43 mm[Hg]Bobo Davidson MD Work Phone: 1(323)[address] [place], [place] 4340306-21-2023 14:43-0400Heart rate58 /Aurelia Davidson MD Work Phone: 1(475)[address] [place], [place] 4340306-21-2023 14:43-0400 Respiratory rate18 /Aurelia Davidson MD Work Phone: 1(370)[address] [place], [place] 4340306-21-2023 14:43-2668MiU3% (BldA) [Mass fraction]99 %Bobo Davidson MD Work Phone: 1(549)[address] [place], [place] 4340306-21-2023 14:43-0400Systolic blood befpywzm188 mm[Hg]Bobo Davidson MD Work Phone: 1(836)[address] [place], [place] 4340306-21-2023 12:02-0400Body mass index (BMI) [Ratio]23.75 kg/a8RtwmkNell Lucio DMD Work Phone: 1(102)[facility] [place], [place] 8641306-21-2023 12:02-0400Body nsjonwlitwk18.81 [degF]Nell Lucio DMD Work Phone: 1(624)[facility] [place], [place] 8641306-21-2023 12:02-0400Body smwofy78.65 kgSadaniele Lucio DMD Work Phone: 1(781)[address] [place], [place] 3316806-21-2023 12:02-0400 Diastolic blood rcoxmbjv11 mm[Hg]Nell Lucio DMD Work Phone: 1(585)[address] [place], [place] 3316806-21-2023 12:02-0400Heart rate67 /Jeremi Lucio DMD Work Phone: 1(205)[address] [place], [place] 3316806-21-2023 12:02-0400 Respiratory rate16 /Jeremi Lucio DMD Work Phone: 1(015)[address] [place], [place] 3316806-21-2023 12:02-7723WrF0% (BldA) [Mass fraction]98 %Nell Lucio DMD Work Phone: 1(454)[address] [place], [place] 3316806-21-2023 12:02-0400Systolic blood eljkujxt092 mm[Hg]Nell Lucio DMD Work Phone: 1(383)[address] [place], [place] 3316806-06-2023 07:36-0400Body dpzhax395.4 cmKenmary Mejias FROG SHAKER-CONTAINER CRANE OPERATOR Work Phone: [facility]06-06-2023 07:36-0400Body mass index (BMI) [Ratio]23.62 kg/p8Iqhknfmary Mejias FROG SHAKER-CONTAINER CRANE OPERATOR Work Phone: [facility]06-06-2023 07:36-0400Body dlohytkwrnl57.2 [degF]Cecilia Mejias FROG SHAKER-CONTAINER CRANE OPERATOR Work Phone: [facility]06-06-2023 07:36-0400Body cnwsyh10.19 kgKenmary Mejias FROG SHAKER-CONTAINER CRANE OPERATOR Work Phone: [facility]06-06-2023 07:36-0400 Diastolic blood ujqbapwh19 mm[Hg]Cecilia Mejias FROG SHAKER-CONTAINER CRANE OPERATOR Work Phone: [facility]06-06-2023 07:36-0400Heart rate74 /minKendal Mejias FROG SHAKER-CONTAINER CRANE OPERATOR Work Phone: [facility]06-06-2023 07:36-0400 Respiratory rate20 /minKendal Mejias FROG SHAKER-CONTAINER CRANE OPERATOR Work Phone: [facility]06-06-2023 07:36-9018OeG8% (BldA) [Mass fraction]97 %Cecilia Mejias FROG SHAKER-CONTAINER CRANE OPERATOR Work Phone: [facility]06-06-2023 07:36-0400Systolic blood kfhokunf641 mm[Hg]Cecilia Arriagaann FROG SHAKER-CONTAINER CRANE OPERATOR Work Phone: [facility]05-10-2023 13:24-0400Body mass index (BMI) [Ratio]24.22 kg/f3EdopiNell Lucio DMD Work Phone: 1(539)[address] [place], [place] 3316805-10-2023 13:24-0400Body uwhtjcqiwax30.4 [degF]Nell Lucio DMD Work Phone: 1(484)[address] [place], [place] 3316805-10-2023 13:24-0400Body jwepns21.28 kgNell Lucio DMD Work Phone: 1(106)[address] [place], [place] 3316805-10-2023 13:24-0400 Diastolic blood iqntqxbb36 mm[Hg]Nell Lucio DMD Work Phone: 1(520)[address] [place], [place] 3316805-10-2023 13:24-0400Heart rate60 /Jeremi Lucio DMD Work Phone: 1(518)[address] [place], [place] 3316805-10-2023 13:24-0400 Respiratory rate16 /minSchandu Lucio DMD Work Phone: 1(665)[address] [place], [place] 3316805-10-2023 13:24-4184NxD5% (BldA) [Mass fraction]99 %Nell Lucio DMD Work Phone: 1(701)[address] [place], [place] [address]Comment on above:room air 01-25-2023 13:24-0400Systolic blood bqkdeegi137 mm[Hg]Nell Leeentin DMD Work Phone: 1(461)[address] [place], [place] 3316804-06-2023 12:33-0400Body mass index (BMI) [Ratio]23.91 kg/f7Gqlih Naveed DMD Work Phone: 1(100)[address] [place], [place] 3316804-06-2023 12:33-0400Body siioshdnllj99.01 [degF]Nell Lucio DMD Work Phone: 1(995)[address] [place], [place] 3316804-06-2023 12:33-0400Body vvuint71.19 kgStevenfawn LeeNaveed DMD Work Phone: 1(901)[address] [place], [place] 3316804-06-2023 12:33-0400 Diastolic blood svcvwaal33 mm[Hg]Nell Lucio DMD Work Phone: 1(115)[address] [place], [place] 3316804-06-2023 12:33-0400Heart rate66 /Jeremi Lucio DMD Work Phone: 1(503)[address] [place], [place] 3316804-06-2023 12:33-0400 Respiratory rate18 /minSchandu Leeentin DMD Work Phone: 1(543)[address] [place], [place] 3316804-06-2023 12:33-2225XaA3% (BldA) [Mass fraction]98 %Nell Leeentin DMD Work Phone: 1(956)[address] [place], [place] 3316804-06-2023 12:33-0400Systolic blood iwaxpihn682 mm[Hg]Nelljeromy LeeNaveed DMD Work Phone: 1(246)[address] [place], [place] 3316802-08-2023 12:04-0500Body mass index (BMI) [Ratio]23.46 kg/g8Weabm Naveed DMD Work Phone: 1(844)[address] [place], [place] 3316802-08-2023 12:04-0500Body ihwffonlmey28.49 [degF]Nell Lucio DMD Work Phone: 1(377)[address] [place], [place] 3316802-08-2023 12:04-0500Body iuqpxz80.65 kgSadaniele LeeNaveed DMD Work Phone: 1(041)[address] [place], [place] 3316802-08-2023 12:04-0500 Diastolic blood bosimcei50 mm[Hg]Nell Leeentin DMD Work Phone: 1(053)[address] [place], [place] 3316802-08-2023 12:04-0500Heart rate87 /minSchandu Leeentin DMD Work Phone: 1(555)[address] [place], [place] 3316802-08-2023 12:04-0500 Respiratory rate16 /minSchandu Leeentin DMD Work Phone: 1(741)[address] [place], [place] 3316802-08-2023 12:04-5395GfO6% (BldA) [Mass fraction]100 %Nell Leeentin DMD Work Phone: 1(430)[address] [place], [place] 3316802-08-2023 12:04-0500Systolic blood jruujbcx390 mm[Hg]Nelljeromy LeeNaveed DMD Work Phone: 1(685)[address] [place], [place] 3316802-08-2023 11:36-0500Body mass index (BMI) [Ratio]23.46 kg/a8ChbpcRolanda Ignacio PA-C Work Phone: [facility]02-08-2023 11:36-0500Body chxdzinzfuk22.49 [degF]Rolanda Ignacio PA-C Work Phone: [facility]02-08-2023 11:36-0500Body .65 kgRolanda Ignacio PA-C Work Phone: [facility]02-08-2023 11:36-0500 Diastolic blood rhdyjopk24 mm[Hg]Rolanda Ignacio PA-C Work Phone: [facility]02-08-2023 11:36-0500Heart rate87 /minRolanda Ignacio PA-C Work Phone: [facility]02-08-2023 11:36-0500 Respiratory rate16 /minRolanda Ignacio PA-C Work Phone: 1(251)[facility]74[facility]02-08-2023 11:36-8883TdQ2% (BldA) [Mass fraction]100 %Rolanda Mateus PA-C Work Phone: 1(759)[facility]74[facility]02-08-2023 11:36-0500Systolic blood lpsqeson014 mm[Hg]Rolanda Morinlman PA-C Work Phone: 1(429)[address] [place], [place] 4340309-28-2022 14:55-0400Body mass index (BMI) [Ratio]23.62 kg/s9Czxgkwgparis Davidson MD Work Phone: 1(597)[address] [place], [place] 4340309-28-2022 14:55-0400Body yyhndaozfov40.8 [degF]Bobo Davidson MD Work Phone: 1(730)[address] [place], [place] 4340309-28-2022 14:55-0400Body bicfty55.19 kgStparis Davidson MD Work Phone: 1(557)[address] [place], [place] 4340309-28-2022 14:55-0400 Diastolic blood hlfljfpi48 mm[Hg]Bobo Davidson MD Work Phone: 1(232)[address] [place], [place] 4340309-28-2022 14:55-0400Heart rate63 /Aurelia Davidson MD Work Phone: 1(979)[address] [place], [place] 4340309-28-2022 14:55-0400 Respiratory rate16 /Aurelia Davidson MD Work Phone: 1(014)[address] [place], [place] 4340309-28-2022 14:55-6216LuI9% (BldA) [Mass fraction]99 %Bobo Davidson MD Work Phone: 1(123)[address] [place], [place] 4340309-28-2022 14:55-0400Systolic blood yikfxhxp964 mm[Hg]Bobo Davidson MD Work Phone: 1(893)[address] [place], [place] 4340309-15-2022 11:46-0400Body amzwekexfcy44.29 [degF]Bobo Davidson MD Work Phone: 1(918)[address] [place], [place] 4340309-15-2022 11:46-0400 Diastolic blood mm[Hg]Bobo Davidson MD Work Phone: 1(780)[address] [place], [place] 4340309-15-2022 11:46-0400Heart rate79 /Aurelia Davidson MD Work Phone: 1(296)[address] [place], [place] 4340309-15-2022 11:46-0400 Respiratory rate18 /Aurelia Davidson MD Work Phone: 1(179)[address] [place], [place] 4340309-15-2022 11:46-7042QwK8% (BldA) [Mass fraction]95 %Bobo Davidson MD Work Phone: 1(338)[address] [place], [place] 4340309-15-2022 11:46-0400Systolic blood axczngzt767 mm[Hg]Bobo Davidson MD Work Phone: 1(661)[address] [place], [place] 4340309-09-2022 05:57-0400Body hwdofe799.4 Tala Davidson MD Work Phone: 1(167)[address] [place], [place] 4340309-09-2022 05:57-0400Body mass index (BMI) [Ratio]23.22 kg/d9FpyndpxBobo Davidson MD Work Phone: 1(947)[address] [place], [place] 4340309-09-2022 05:57-0400Body nezone96.83 kgBobo Davidson MD Work Phone: 1(348)[address] [place], [place] 4340308-13-2022 10:34-0400Body .4 Tala Davidson MD Work Phone: 1(371)[address] [place], [place] 4340308-13-2022 10:34-0400 Diastolic blood nheebrsr52 mm[Hg]Bobo Davidson MD Work Phone: 1(499)[address] [place], [place] 4340308-13-2022 10:34-0400Heart rate71 /Aurelia Davidson MD Work Phone: 1(378)[facility]8074[facility]08-13-2022 10:34-0400Systolic blood jkftechg582 mm[Hg]Bobo Davidson MD Work Phone: 1(443)[facility]74[facility]08-10-2022 13:25-0400Body mass index (BMI) [Ratio]23.15 kg/v3LjwwgpbBobo Davidson MD Work Phone: 1(109)[address] [place], [place] 4340308-10-2022 13:25-0400Body uwgfwtoufhc54.69 [degF]Bobo Davidson MD Work Phone: 1(577)[address] [place], [place] 4340308-10-2022 13:25-0400Body .61 kgBobo Davidson MD Work Phone: 1(039)[address] [place], [place] 4340308-10-2022 13:25-0400 Diastolic blood mm[Hg]Bobo Davidson MD Work Phone: 1(652)[address] [place], [place] 4340308-10-2022 13:25-0400Heart rate77 /Aurelia Davidson MD Work Phone: 1(242)[address] [place], [place] 4340308-10-2022 13:25-0400 Respiratory rate16 /Aurelia Davidson MD Work Phone: 1(631)[address] [place], [place] 4340308-10-2022 13:25-6467GiZ1% (BldA) [Mass fraction]98 %Bobo Davidson MD Work Phone: 1(709)[facility]8074[facility]08-10-2022 13:25-0400Systolic blood hzrkhwgi986 mm[Hg]Bobo Davidson MD Work Phone: 1(611)[address] [place], [place] 4340308-10-2022 10:00-0400Body cqykbn602.4 Vinh Ruiz [employer] Work Phone: 1(219)[facility]2914[facility] [facility]08-10-2022 10:00-0400Body mass index (BMI) [Ratio]23.19 kg/c6Doygjcu Glosser FROG SHAKER-CONTAINER CRANE OPERATOR Work Phone: [phone] [place], [place] 7942308-10-2022 10:00-0400Body lwcrpuknfsq83.81 [degF]Cathie Painterer FROG SHAKER-CONTAINER CRANE OPERATOR Work Phone: [phone] [place], [place] 0405608-10-2022 10:00-0400Body .74 kgCathie Painterer FROG SHAKER-CONTAINER CRANE OPERATOR Work Phone: [phone] [place], [place] 0405608-10-2022 10:00-0400 Diastolic blood kfukpcez54 mm[Hg]Cathie Painterer FROG SHAKER-CONTAINER CRANE OPERATOR Work Phone: [phone] [place], [place] 0405608-10-2022 10:00-0400Heart rate78 /minSabrleandro Madinaer FROG SHAKER-CONTAINER CRANE OPERATOR Work Phone: [phone] [place], [place] 0405608-10-2022 10:00-8675NlZ8% (BldA) [Mass fraction]97 %Cathie Ruiz FROG SHAKER-CONTAINER CRANE OPERATOR Work Phone: [phone]08-10-2022 10:00-0400Systolic blood ebhnhpbr299 mm[Hg]Cathie Ruiz FROG SHAKER-CONTAINER CRANE OPERATOR Work Phone: [phone]08-11-2021 12:53-0400Body mass index (BMI) [Ratio]23.68 kg/k4LhkjduhBobo Davidson MD Work Phone: [facility]08-11-2021 12:53-0400Body cntogvxhykn82.49 [degF]Bobo Davidson MD Work Phone: [facility]08-11-2021 12:53-0400Body rqnoxa54.42 kgBobo Davidson MD Work Phone: [facility]08-11-2021 12:53-0400 Diastolic blood pkufqhab04 mm[Hg]Bobo Davidson MD Work Phone: [facility]08-11-2021 12:53-0400Heart rate73 /minStephen Davidson MD Work Phone: [facility]08-11-2021 12:53-0400 Respiratory rate16 /Aurelia Davidson MD Work Phone: [facility]08-11-2021 12:53-4372RzT3% (BldA) [Mass fraction]98 %Bobo Davidson MD Work Phone: [facility]08-11-2021 12:53-0400Systolic blood camkjmjb190 mm[Hg]Bobo Davidson MD Work Phone: [facility]03-22-2020 10:17-0400Body Qtlirndpngy82.6 [degF]Kavya Holley [facility], JK06-61-5439 10:17-0400 BP Nkndeedza78 mm[Hg]Kavya Holley [facility], PK75-44-6217 10:17-0400 BP Jgjbirek168 mm[Hg]Kavya Holley [facility], XO72-73-5060 10:17-0400 Pulse (Heart Rate)91 /minKavya Holley [facility], QN01-35-2063 10:17-0400Pulse Fwzrwfrk47 %Kavya [facility], XF86-46-8286 10:17-0400Respiratory Rate16 /minKavya Holley [facility], JX28-34-9547 06:19-0400BMI (Body Mass Index)25.02 kg/y1Iacdyg Bautista [facility] [place] 12-07-2019 06:19-0400Body eiuflx50.38 kgLeighandrea Holley [facility] 12-06-2019 13:45-2753Uaindn437.3 cmMaandrea Bautista [facility] Encounters Encounter DateEncounter TypeCare ProviderFacilityStart: 02-19-2025 End: 20-98-0639Ctxdql outpatient visit 15 minutesStparis Davidson MD Work Phone: Department of OtolaryngologyComment on above: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)Start: 02-19-2025 ambulatorySTEPHEN Y KANGFacility:JAMESStart: 01-06-2025 End: 44-25-3255Dqgyhlestefani Pennington MD Work Phone: [facility] DERMStart: 01-06-2025 End: 89-25-7366Mpmcoz flowsheetAmanda Pennington MD Work Phone: noms [facility] DERMStart: 01-06-2025 End: 90-03-2413htyqvevmhyTFCAN A PETITTINot AvailableStart: 01-06-2025 End: 50-98-2693Cmijbf outpatient visit 15 minutesEmelen Pennington MD Work Phone: [facility] DERMComment on above:Seborrheic keratosis (Primary Dx); History of nevus excision; Lentigines; Melanocytic nevus of face, other location; Melanocytic nevus of trunkStart: 07-23-2024 End: 97-23-4265skpcaslsyoNHKNKDA Fawn [facility] Start: 07-23-2024 End: 16-58-9801Xbjrym follow up visit related to original [facility] Fawn [place] FROG SHAKER-CONTAINER CRANE OPERATOR Work Phone: [facility] General SurgeryComment on above: Status post left inguinal hernia repair (Primary Dx)Start: 07-09-2024 End: 90-92-1573Aygeumemcn and management of inpatientDACHRISD Junaid [facility] HospitalStart: 07-09-2024 End: 57-56-5560Gevyznzwxt and management of inpatientMICHAEL Camilo MCINTYREMary Rutan Hospitaltart: 07-04-2024 End: 89-44-5008sjoqajnpxgBGLAPOJ M [facility] Hospitaltart: 07-88-4723Tutpxpzau for other preprocedural examinationDOUGLAS [facility] Hospitaltart: 07-04-2024 End: 00-01-3044Yejtwaz encounter procedureLutheran [facility] Pre-Ad[facility] Testing [address] [place] [address] - Pre AdmitComment on above:Preop examination (Primary Dx)Start: 07-04-2024 End: 59-95-9569Lwkfpjpitmglb examination done[address]tart: 07-03-2024 End: 04-77-6471Vricot outpatient new 45 minutesRajeev Jones DO Work Phone: [facility] General SurgeryComment on above: Left inguinal hernia (Primary Dx); Family history of colon cancer; History of head and neck cancerStart: 07-03-2024 End: 63-81-8336fuhyldylypCSKNZ [facility] Hospitaltart: 53-27-7459bqyndrwccqWzfnqpa HoyFacility: ueStart: 06-07-2024 End: 54-68-4392ijbfashzmoJglinsu HoyFacility: JorgekStart: 06-07-2024 End: 50-23-0354Wgaumwt encounter procedureRajeev SOLO [phone]-WaurbKettering Health [facility] Yeaddiss Start: 12-37-6755mvvrxagraeOuiihqv HoyFacility:[facility] Hospitaltart: 34-42-0502cahrbrcdrhTfybnio HoyFacility:[facility] Hospitaltart: 02-07-2024 End: 63-19-4278Gcbwan outpatient visit 15 minutesBobo Davidson MD Work Phone: Department of OtolaryngologyComment on above:Oral cancer (Primary Dx)Start: 08-02-2023 End: 05-24-4075Cfhxxit encounter procedureSchandu Lucio DMD Work Phone: department of Maxillofacial ProsthodonticsComment on above: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); S/P flap graft; S/P radiation therapy; Prosthesis adjustmentStart: 08-02-2023 End: 74-75-1499Dxwibi outpatient visit 15 minutesBobo Davidson MD Work Phone: Department of OtolaryngologyComment on above:Oral cancer (Primary Dx)Start: 06-23-2023 End: 04-51-7829Iruwdzz encounter procedureSchandu Lucio DMD Work Phone: department of Maxillofacial ProsthodonticsComment on above:Risk for dental caries, high (Primary Dx); 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; S/P flap graft; S/P radiation therapyStart: 05-26-2023 End: 95-42-7805Ojnwfwi encounter procedureSchandu Lucio DMD Work Phone: department of Maxillofacial ProsthodonticsComment on above: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); S/P flap graft; S/P radiation therapy; Partially edentulous maxilla, unspecified edentulism classStart: 05-16-2023 End: 60-22-9016Ywackyl encounter procedureSchandu Lucio DMD Work Phone: department of Maxillofacial ProsthodonticsComment on above: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); S/P flap graft; S/P radiation therapy; Partially edentulous maxilla, unspecified edentulism classStart: 05-03-2023 End: 00-09-6247Idqenqm encounter procedureSchandu Lucio DMD Work Phone: department of Maxillofacial ProsthodonticsComment on above: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); S/P flap graft; S/P radiation therapy; Partial edentulism, unspecified edentulism classStart: 04-21-2023 End: 27-32-2305Vtngvar encounter procedureSchandu Lucio DMD Work Phone: department of Maxillofacial ProsthodonticsComment on above: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); S/P flap graft; S/P radiation therapy; Partial edentulism, unspecified edentulism classStart: 03-08-2023 End: 82-69-8278Aggvlp follow up visit related to original Joelle Davidson MD Work Phone: Department of OtolaryngologyComment on above: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)Start: 03-08-2023 End: 44-92-6943Reogzaa encounter procedureSchandu Lucio DMD Work Phone: department of Maxillofacial ProsthodonticsComment on above: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); S/P flap graft; S/P radiation therapy; Partial edentulism, unspecified edentulism classStart: 02-21-2023 End: 33-29-3301Wfmywe consultation new/estab patient 60 minCecilia Mejias APRN-CONTAINER CRANE OPERATOR Work Phone: [phone]-Fcearggfx Evaluation and Assessment [facility] Outpatient CareComment on above:Preop exam for internal medicine (Primary Dx); 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; History of pulmonary embolism; Gastroesophageal reflux disease without esophagitis; PONV (postoperative nausea and vomiting); History of tracheostomyStart: 02-21-2023 End: 14-19-5091Uizeprj encounter Monica Mejias APRN-CONTAINER CRANE OPERATOR Work Phone: [phone]-Ormavaamv Evaluation and Assessment [facility] CareStart: 01-25-2023 End: 66-68-1279Ywjhigm encounter procedureSchandu Lucio DMD Work Phone: department of Maxillofacial ProsthodonticsComment on above: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); S/P flap graft; S/P radiation therapy; Partial edentulism, unspecified edentulism classStart: 12-22-2022 End: 05-37-2171Slqodsh encounter procedureSchandu Lucio DMD Work Phone: department of Maxillofacial ProsthodonticsComment on above: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); S/P flap graft; S/P radiation therapy; Partial edentulism, unspecified edentulism classStart: 10-26-2022 End: 53-42-4561Uajsyn outpatient visit 40 minutesNell Lucio DMD Work Phone: department of Maxillofacial ProsthodonticsComment on above: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); S/P flap graft; S/P radiation therapy; Partial edentulism, unspecified edentulism classStart: 10-26-2022 End: 72-85-9685Iqqsxo outpatient visit 15 minutesBobo Davidson MD Work Phone: Department of OtolaryngologyComment on above: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)Start: 07-03-2022 End: 40-48-0514lovypzmrmfIR DOCTOR MISCFacility:O9Bwmdi: 06-18-2022 End: 03-70-7718ovnzvyfjcdAF DOCTOR MISCFacility:W3Uupol: 06-15-2022 End: 31-74-5919Bsfngu follow up visit related to original Joelle Davidson MD Work Phone: Department of OtolaryngologyComment on above: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)Start: 06-03-2022 End: 50-02-4162rdmvtxjqdzHX DOCTOR MISCFacility:A3Hovfj: 05-27-2022 End: 87-12-3934Hmebcndyjt and management of inpatientSrosaura Davidson MD Work Phone: [phone] on above:Postoperative stateStart: 56-45-0469pmjnkjeeirAU LETICIA S KUMARFacility:A3Aufmu: 04-30-2022 End: 41-66-3441Mfbigsohwc hospital visit by Kwan Davidson MD Work Phone: [facility] [place] Comment on above:ArrivedStart: 04-27-2022 End: 97-84-6231Ukscyi outpatient visit 15 Isaiah Davidson MD Work Phone: Department of OtolaryngologyComment on above: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)Start: 04-27-2022 End: 83-18-1468Vbqvefi encounter statusSabrina Glosser FROG SHAKER-CONTAINER CRANE OPERATOR Work Phone: [facility] Out[facility] CareStart: 04-27-2022 End: 05-68-4373Hxjruwggrr hospital visit by Nick ROCHE Work Phone: Imaging [facility] Outpatient CareComment on above:ArrivedStart: 04-27-2022 End: 56-95-8781Rdzhjy consultation new/estab patient 40 Aristeoleandro ROCHE Work Phone: [phone]-Yhdnxjqzu Evaluation and Assessment [facility] Outpatient CareComment on above:Preop exam for internal medicine (Primary Dx); 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Start: 04-27-2022 End: 56-88-8610Rneuszo encounter statusCathie ROCHE Work Phone: [phone]-Gjybwcemi Evaluation and Assessment [facility] Outpatient CareStart: 95-49-9475kubzpbygeuBS CLIFF HOYFacility:H1 Start: 02-10-2022 End: 61-64-4672uzzxhmcbpaNQ LETICIA S KUMARFacility:E4Zihin: 11-02-2021 End: 66-44-9807cfrqfcejpfYQ LETICIA S KUMARFacility:H1Aekdl: 10-19-2021 End: 30-77-8209pfoijwkozsJX LETICIA S KUMARFacility:W0Bnwzc: 10-13-2021 End: 24-39-4361whljoswnciDC LETICIA S KUMARFacility:T1Plvrc: 10-12-2021 End: 13-51-0490jyuemuedlfNI LETICIA S KUMARFacility:H1Frrew: 08-20-2021 End: 65-35-2095afmrazffduIV CLIFF HOYFacility:Y0Sownc: 04-28-2021 End: 89-88-3141Nlsjqxpdna hospital visit by Kwan Davidson MD Work Phone: Department of RadiologyComment on above:ArrivedStart: 04-28-2021 End: 09-72-5323Uoprti outpatient visit 15 minutesStparis Davidson MD Work Phone: Department of OtolaryngologyComment on above:Oral cancer (Primary Dx)Start: 12-06-2019 End: 44-07-3550Sxuimdyokt and management of inpatientMAHMUD AL Maria [facility]tart: 12-06-2019 End: 54-55-6410Wgamxnhacd and management of inpatientGildardoud Bautitsa Dunham Work Phone: stvz CAR 2 Procedures DateProcedureProcedure DetailPerforming ClinicianStart: 58-07-0903GZB AND ELECTRONIC DIFFKendal A Mejias FROG SHAKER-CONTAINER CRANE OPERATOR Work Phone: Start: 25-94-8274Fcpvdrdt blood count with white cell differential, automatedKendal A Mejias FROG SHAKER-CONTAINER CRANE OPERATOR Work Phone: Start: 55-89-6412Tbeyvajziv bloodKendal A Mejias FROG SHAKER-CONTAINER CRANE OPERATOR Work Phone: Start: 48-97-7391Knqvnbknym & prepj mandibular resection prosthesSchandu Lucio DMD Work Phone: start: 78-44-5368IlqpunmndfvulvOarjk D Valentin DMD Work Phone: Start: 61-66-9906Zbuee of free Nata Munoz MD Work Phone: Start: 30-31-3007Dbtaz of Sadi Munoz MD Work Phone: Start: 96-99-3688Numgv of Sadi Munoz MD Work Phone: Start: 06-02-9936Vkbo screen quantitative vancomycinJ. Junaid Carver [facility]ITALtart: 20-01-1571Wtcsm of Sadi Munoz MD Work Phone: Start: 93-67-9385Dtzjx of Sadi Munoz MD Work Phone: Start: 07-28-6853Lzfjz of magnesiumSating Munoz MD Work Phone: Start: 48-23-4042SUFUXSQNZS CARDIAC MONITORING STRIP Other OtherStart: 94-64-8873Mrngnliwpe exam abdomen 1 Charlene Munoz MD Work Phone: Start: 29-65-5753VYVXJVIAHV CARDIAC MONITORING STRIP Other OtherStart: 05-27-2022 End: 06-99-3492Xldfyzbmyl examination neck soft tissueSrosaura Davidson MD Work Phone: Start: 22-07-3740Gohkoxn ionizedStparis Davidson MD Work Phone: Start: 14-68-5062Gqsvgjk fngi mold/yeast prsmptv oth xcpt bloodBobo Davidson MD Work Phone: Start: 05-27-2022 End: 55-47-6641Uwhatlshiflkp flexible transoral diagnosticSrosaura Davidson MD Work Phone: Start: 05-27-2022 End: 70-94-4952Forzucpuhhx penetrating wound spx neckBobo Davidson MD Work Phone: Start: 05-27-2022 End: 92-10-3422Ihum skin flap w/microvascular anastomosisCatthien Cesar MD Work Phone: Start: 05-27-2022 End: 66-62-7705Nyxrrbzxq wire/pin w/appl skeletal traction spxSrosaura Davidson MD Work Phone: Start: 05-27-2022 End: 77-00-7672Gudizfgdiebf w/wo tracheoscopy dx except newbornSrosaura Davidson MD Work Phone: Start: 05-27-2022 End: 36-52-4841Wgvurktvlxhk planned separate procedureSrosaura Davidson MD Work Phone: Start: 16-14-8065GWQMRTKZRY CARDIAC MONITORING STRIP Other OtherStart: 79-54-9772Mfxky s aureus amplified probe tqSharif Reyes MD Work Phone: Start: 58-27-4164Hyerlusc screenSabrina Glosser FROG SHAKER-CONTAINER CRANE OPERATOR Work Phone: Start: 19-55-8067ELCGQ MICROSabrina Glosser FROG SHAKER-CONTAINER CRANE OPERATOR Work Phone: Start: 39-02-1948Lndgd s aureus amplified probe tq Cathie Glosser FROG SHAKER-CONTAINER CRANE OPERATOR Work Phone: Start: 30-03-0878BZVQHRJHNX REFLEX TO CULTURESabrina Glosser FROG SHAKER-CONTAINER CRANE OPERATOR Work Phone: Start: 07-98-6081Gnhxzxolxk exam chest 2 viewsSabrina Glosser FROG SHAKER-CONTAINER CRANE OPERATOR Work Phone: Start: 85-06-4673Bfqey typing serologic aboSabrina Glosser FROG SHAKER-CONTAINER CRANE OPERATOR Work Phone: Start: 21-93-3154RKP AND ELECTRONIC DIFFSabrina Glosser FROG SHAKER-CONTAINER CRANE OPERATOR Work Phone: Start: 45-14-0119Celpwnjd blood count with white cell differential, automatedSabrina Glosser FROG SHAKER-CONTAINER CRANE OPERATOR Work Phone: Start: 46-44-2226FYPZL LIGHT BLUE TOPSabrina Glosser FROG SHAKER-CONTAINER CRANE OPERATOR Work Phone: Start: 71-82-2901Acpddugmnpt timeSabrina Glosser FROG SHAKER-CONTAINER CRANE OPERATOR Work Phone: Start: 66-19-0805UQQ WITH MIXING STUDYSabrina Glosser FROG SHAKER-CONTAINER CRANE OPERATOR Work Phone: Start: 76-32-5597Rcxddgblhu bloodSteplokesh Davidson MD Work Phone: Start: 27-32-2633RMPILLPFZ PATIENTMAHMUD AL FURGANI Start: 68-93-9899WNSX/MYOGLOBINMAHMUD AL FURGANIStart: 35-39-5968HKHWIGCQ OXYGEN THERAPY PROTOCOLMAHMUD AL FURGANIStart: 53-61-0134IXPW/MYOGLOBINMalissa D Delgrosso Work Phone: Start: 53-32-7118Fmsow count platelet automatedMAHMUD AL FURGANIStart: 15-22-3526HUAZ/MYOGLOBINMAHMUD AL FURGANIStart: 90-95-4847Zwpmj count platelet automatedMahmud Al Furgani Work Phone: Start: 97-50-0627XEVS/MYOGLOBINMalissa D Delgrosso Work Phone: Start: 72-17-3806NZYR/MYOGLOBINMAHMUD AL FURGANIStart: 72-13-9092MIYM/MYOGLOBINMalissa D Delgrosso Work Phone: Start: 00-87-0995JAXU/MYOGLOBINMAHMUD AL FURGANIStart: 98-27-8192OKFT/MYOGLOBINMalissa D Delgrosso Work Phone: Start: 08-74-2094VBZX/MYOGLOBINMAHMUD AL FURGANIStart: 81-72-9790HFHY/MYOGLOBINMalissa D Delgrosso Work Phone: Start: 28-22-4529DNGVSNCB OXYGEN THERAPY PROTOCOL KAVYA AL FURGANIStart: 40-64-0748Izqee of lactateMAHMUD AL FURGANIStart: 24-82-5458Hiebm count complete auto&auto difrntl wbcMAHMUD AL FURGANIStart: 56-11-2455Euapknvbjfiift time partial plasma/whole bloodMAHMUD AL FURGANIStart: 99-92-4739Fetdt of lactateMahmud Al Furgani Work Phone: Start: 15-62-0237Uvxuk count complete auto&auto difrntl wbcMahmud Al Furgani Work Phone: Start: 68-37-6709Jxptcxkkhaevsc time partial plasma/whole bloodMahmud Al Furgani Work Phone: Start: 59-48-5556Furus metabolic panel calcium total MAHMUD AL FURGANIStart: 63-30-2717Obpui count complete auto&auto difrntl wbc MAHMUD AL FURGANIStart: 89-36-5748CXEM/MYOGLOBINMAHMUD AL FURGANIStart: 79-57-4133EV CONSULT TO CARDIOLOGYMAHMUD AL FURGANIStart: 40-41-2668Wxy routine ecg w/least 12 lds w/i&rMAHMUD AL FURGANIStart: 18-58-7453Kynai metabolic panel calcium totalMalissa D Delgrosso Work Phone: Start: 35-42-3521Mmjif count complete auto&auto difrntl wbcMalissa D Delgrosso Work Phone: Start: 16-49-1768NVUQ/MYOGLOBINMalissa D Delgrosso Work Phone: Start: 23-08-5301Brnempssfjqkux time partial plasma/whole bloodMAHMUD AL FURGANIStart: 53-81-2209Bjjfmfvfzizhka time partial plasma/whole bloodMahmud Al Furgani Work Phone: Start: 82-84-5111GHTU/MYOGLOBINMAHMUD AL FURGANIStart: 80-50-6412XVRJ/MYOGLOBINMahmud Al Furgani Work Phone: Start: 35-46-9122Lbuf tthrc r-t 2d w/wom-mode compl spec&colr dMAHMUD AL FURGANIStart: 96-15-1285Byehs count complete automated MAHMUD AL FURGANIStart: 29-79-0398Cthwqfninzkwoa time partial plasma/whole blood MAHMUD AL FURGANIStart: 88-44-3074YGXT/MYOGLOBINMAHMUD AL FURGANIStart: 67-37-9932YXIIO OSTOMY EVALMAHMUD AL FURGANIStart: 82-37-2888Szid tthrc r-t 2d w/wom-mode compl spec&colr dJae M Simran Work Phone: Start: 54-10-7698Eyxwk count complete automatedMahmud Al Furgani Work Phone: Start: 24-59-7825Oidvfvxfkcvpoe time partial plasma/whole bloodMaandrea Luis Work Phone: Start: 22-58-1789VUTR/MYOGLOBINMchristopher Luis Work Phone: Start: 23-22-6631KAPW TUBE FEED CONTINUOUS/CYCLIC NPO KAVYA HOLLEY FURGANIStart: 16-62-3401KD CONSULT TO DIETITIANMAANDREA HOLLEY FURGANIStart: 32-28-3322ZE CONSULT TO VASCULAR SURGERYMAANDREA HOLLEY FURGANIStart: 44-24-5453RPDK CODEMAANDREA HOLLEY GANIStart: 81-82-5800EYFUCXPM OXYGEN THERAPY PROTOCOLMAANDREA HOLLEY FURGANIStart: 71-45-2722PXIJMIV CESSATION EDUCATIONMAANDREA HOLLEY GANIStart: 91-96-4510CKVKD SIGNSMAANDREA HOLLEY GANIStart: 94-77-4848BAFOMMW STATUS (DIRECT) KAVYA MUÑIZGANIAppendectomyMichael NILL DebridementMichael NILL Debulking - action (qualifier value)Rajeev NILL Exteriorization of tracheaMichael NILL H/O: surgeryS/P flap graftSasha D Naveed DMD Work Phone: H/O: surgeryS/P flap graftSasha D Naveed DMD Work Phone: H/O: surgeryS/P flap graftSasha D Naveed DMD Work Phone: H/O: surgeryS/P flap graftSasha D Naveed DMD Work Phone: H/O: surgeryS/P flap graftSasha D Naveed DMD Work Phone: H/O: surgeryS/P flap graftSasha D Naveed DMD Work Phone: H/O: surgeryS/P flap graftSasha D Naveed DMD Work Phone: H/O: surgeryS/P flap graftSasha D Naveed DMD Work Phone: H/O: surgeryS/P flap graftSasha D Naveed DMD Work Phone: H/O: surgeryS/P flap graftSasha D Naveed DMD Work Phone: H/O: surgeryHistory of nevus excisionEmelen Pennington MD Work Phone: H/O: tracheostomyHistory of tracheostomyBobo Davidson MD Work Phone: [phone]/O: tracheostomyHistory of tracheostomyeplokesh Davidson MD Work Phone: H/O: tracheostomyHistory of tracheostomyKendal Fawn Mejias FROG SHAKER-CONTAINER CRANE OPERATOR Work Phone: History of radiation therapyS/P radiation therapySasha D Naveed DMD Work Phone: History of radiation therapyS/P radiation therapySasha D Naveed DMD Work Phone: History of radiation therapyS/P radiation therapySasha D Naveed DMD Work Phone: History of radiation therapyS/P radiation therapySasha D Naveed DMD Work Phone: History of radiation therapyS/P radiation therapySasha D Naveed DMD Work Phone: History of radiation therapyS/P radiation therapySasha D Naveed DMD Work Phone: History of radiation therapyS/P radiation therapySasha D Naveed DMD Work Phone: History of radiation therapyS/P radiation therapySasha D Naveed DMD Work Phone: History of radiation therapyS/P radiation therapySasha D Naveed DMD Work Phone: History of radiation therapyS/P radiation therapySasha D Naveed DMD Work Phone: History of repair of inguinal herniaStatus post left inguinal hernia repairJepamela Augustine [place] FROG SHAKER-CONTAINER CRANE OPERATOR Work Phone: Repair of joint of left hipMichael NILL Repair of joint of right hipMichael NILL Skin graft material (substance)Rajeev NILL Wedge resectionMichael NILL Plan of Treatment DateCare ActivityDetailAuthorStart: 02-25-2026 End: 44-59-0568Ewsnzfw encounter hfddprabp42/10/2026 1:00 PM EDT Office Visit Department of Otolaryngology [address] [place] [address] Bobo Davidson MD [address] [place] [address] Department of OtolaryngologyStart: 01-06-2026 End: 93-99-7244Sowcgwp encounter bfpkjmlot46/21/2026 11:35 AM EDT Office Visit [facility] [address] [place] [phone] Amanda Pennington MD [address] [place] [address] [facility] DERMStart: 80-81-6314Fwxmtiw ScreeningTobacco ScreeningProMedica Health SystemStart: 06-32-8748Kszlr BMI ScreeningAdult BMI ScreeningProMedica Health SystemStart: 78-46-3738Aoazdev ScreeningTobacco ScreeningProMedica Health SystemStart: 05-67-4336Zjbeb BMI ScreeningAdult BMI ScreeningProMedica Health SystemStart: 76-96-4177Mnmxbji ScreeningTobacco ScreeningProMedica Health SystemStart: 30-20-7680Mnoptfpnj vaccinationInfluenza Vaccine (Season Ended)[facility]Start: 02-05-2025 End: 42-70-8784Uruxzrf encounter vivvfwkqb27/21/2025 1:30 PM EDT Office Visit Department of Otolaryngology [address] [place] [address] Bobo Davidson MD [address] [place] [address] Department of OtolaryngologyStart: 08-22-2024 End: 07-95-8902Ggofwou encounter fmmravyvk70/05/2024 11:00 AM EST Office Visit [facility] [address] [place] [phone] Claudia [place], FROG SHAKER-CONTAINER CRANE OPERATOR [address] [facility] [place] [address] [facility] SurgeryStart: 07-23-2024 End: 46-13-2177Uhsqlbz encounter bsurifogg27/05/2024 11:30 AM EST Office Visit [facility] [address] [facility] [phone] Claudia Canada, FROG SHAKER-CONTAINER CRANE OPERATOR [address] [place] [address] [facility] SurgeryStart: 07-09-2024 End: [id number] Procedure / SurgeryUnlisted Procedure / Surgery Procedures Routine Left inguinal hernia Expected: 07/09/2024, Expires:07/03/2025 [facility] Work Phone: Comment on above:Expected: 07/09/2024, Expires: 07/03/2025Start: 07-09-2024 End: 44-22-7819Hekcysygl to same day surgery hcfngm4107/09/2024 9:15 AM EDT - 07/09/2024 10:30 AM EDT Surgery [facility] - Surgery [address] [place] [address] Rajeev Jones, DO [address] [place] [address] REPAIR HERNIA INGUINAL mesh [62674 (CPT )][facility] - Surgery Comment on above:REPAIR HERNIA INGUINAL mesh [57699 (CPT )]Start: 07-09-2024 End: 05-71-8409Qjp 1st ingun hrna age 7 yrs/> reducibleREPAIR HERNIA INGUINAL left inguinal hernia 07/09/2024 9:15 AM EDTFREMONT SURGERYStart: 07-09-2024 Subsequent hospital visit by mzzubloid09/22/2024 9:15 AM EDT Hospital Encounter [facility] - Surgery [address] [place] [address] Rajeev Jones, DO [address] [place] [address] [facility] - SurgeryStart: 07-04-2024 End: 80-41-4296Zfxpmtt encounter /17/2024 2:15 PM EDT Procedure visit [facility] - Pre Admit [address] [place] [address] SqrVbvtjq [facility] - Pre AdmitStart: 68-07-5393XMRDR-19 Vaccine ( season)COVID-19 Vaccine ( season)[facility] SystemStart: 11-70-4396KLXCD-19 Vaccine ( season)COVID-19 Vaccine ( season)[facility] SystemStart: 97-56-9741Keetcgfab vaccinationOSCentervilletart: 02-07-2024 End: 24-83-7051Hyuuymj encounter unewnxgom01/22/2024 9:00 AM EDT Office Visit Department of Otolaryngology [address] [place] [address] Bobo Davidson MD [address] [place] [address] Department of OtolaryngologyStart: 02-06-2024 End: 10-40-0507Drxuauf encounter jxubpokmo74/21/2024 2:30 PM EDT Office Visit Department of Otolaryngology [address] [place] [address] Rolanda Ignacio, PAC [address] [place] [address] Department of OtolaryngologyStart: 02-06-2024 End: 14-00-2019Masrlns encounter jdezcvvbv09/21/2024 11:30 AM EDT Office Visit Department of Maxillofacial Prosthodontics [address] [place] [address] Nell Lucio, DMD [address] [place], [place] Department of Maxillofacial ProsthodonticsStart: 07-05-2023 End: 55-97-1804Dzvimeh encounter rtsiwizmf73/18/2023 11:00 AM EDT Office Visit Department of Otolaryngology [address] [place] [address] Bobo Davidson MD [address] [place] [address] Department of OtolaryngologyStart: 07-74-2763AUCQU-19 VACCINE ( season)COVID-19 VACCINE ( season)[facility]: 25-20-2249Urubyfyig vaccinationOSU UK Healthcaretart: 04-21-2023 End: 02-12-4303Meknxqi encounter /04/2023 1:00 PM EDT Office Visit Department of Maxillofacial Prosthodontics [address] [place] [address] Nell Lucio, DMD [address] [place] [address] Department of Maxillofacial ProsthodonticsStart: 03-08-2023 End: 22-89-5936Njqbrth encounter weausgdef06/21/2023 2:45 PM EDT Office Visit Department of Otolaryngology [address] [place] [address] Bobo Davidson MD [address] [place] [address] Department of OtolaryngologyStart: 03-08-2023 End: 78-00-0251Yfvzmif encounter procedureDepartment of Maxillofacial ProsthodonticsStart: 02-24-2023 End: 95-69-8289Vknamtysj to same day surgery nhlske6502/24/2023 Surgery Multispecialty Bobo Davidson MD [address] [place] [address] EXCISION LESION SOFT TISSUE FACE SCALPCCCT PERIOPComment on above:EXCISION LESION SOFT TISSUE FACE SCALP Start: 02-24-2023 End: 23-58-8468Vipmzwhj tumor soft tiss face/scalp subq <2cmEXCISION LESION SOFT TISSUE FACE SCALP 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 02/24/2023 7:30 AM EDTOSU CCCT MAIN ORStart: 14-33-1362Qlbnnhxeln hospital visit by qobaharfq16/09/2023 Hospital Encounter Multispecialty Bobo Davidson MD [address] [place] [address] 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CCCT PERIOPComment on above: 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Start: 02-22-2023 End: 71-80-8156Fwapimn encounter /07/2023 Office Visit Otolaryngology Bobo Davidson MD [address] [place] [address] Department of OtolaryngologyStart: 02-22-2023 End: 09-73-4519altgllcswi18/07/2023 Pre-Operative Nurse Assessment Multispecialty Bobo Davidson MD [address] [place] [address] [facility]rivedCom[facility] on above:ArrivedStart: 02-15-2023 End: 29-67-7026Lubpeoy encounter owaijauoc61/31/2023 Office Visit Maxillofacial Prosthodontics Nell Lucio, DMD [address] [place] [address] Department of Maxillofacial ProsthodonticsStart: 02-08-2023 End: 17-60-8964Lqvaugm encounter zfojfomyc09/24/2023 Office Visit Otolaryngology Bobo Davidson MD [address] [place] [address] Department of OtolaryngologyStart: 02-08-2023 End: 21-57-7354Llyyeqt encounter bctnzifpy71/24/2023 Office Visit Maxillofacial Prosthodontics Nell Lucio, DMD [address] [place] [address] Department of Maxillofacial ProsthodonticsStart: 01-25-2023 End: 64-51-1809Wmblybr encounter eesxyugsq00/10/2023 Office Visit Maxillofacial Prosthodontics Nell Lucio, DMD [address] [place] [address] Department of Maxillofacial ProsthodonticsStart: 01-10-2023 End: 59-46-5682Qufvsbo encounter wurmxkggm99/25/2023 Office Visit Maxillofacial Prosthodontics Nell Lucio, DMD [address] [place] [address] Department of Maxillofacial ProsthodonticsStart: 12-22-2022 End: 12-74-9574Mkdyxqe encounter /06/2023 Office Visit Maxillofacial Prosthodontics Nell Lucio, DMD [address] [place] [address] Department of Maxillofacial ProsthodonticsStart: 48-41-8188IIX VACCINE (1 - 1-dose 75+ series)RSV VACCINE (1 - 1-dose 75+ series)[facility]: 07-20-2022 End: 04-81-8202Xjwrlcw encounter gakevsqai37/02/2022 Office Visit Otolaryngology Bobo Davidson MD [address] [place] [address] Department of OtolaryngologyStart: 07-14-2022 End: 95-36-8800Quohsof encounter hdeujlfgx00/27/2022 Office Visit Infectious Diseases Yung Zapata DO [address], [place] Infectious [facility] Care [facility] Outpatient CareStart: 06-15-2022 End: 82-32-7830zrrvzumsht48/28/2022 Rehab Services Visit Voice & Swallowing Bobo Davidson MD [address] [place] [address] Patience Sierra SLP [address] [place] [address] InstituteStart: 06-15-2022 End: 84-47-7402Wkzthnt encounter flnpidhzg19/28/2022 Office Visit Otolaryngology Bobo Davidson MD [address] [place] [address] Department of OtolaryngologyStart: 05-27-2022 End: 32-03-0968Psrlqhrvwvlln flexible transoral diagnosticOSU CCCT MAIN ORStart: 05-27-2022 End: 88-36-9052Nfyitggtjc and management of inpatientCCCT PERIOPComment on above: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REMOVAL HARDWAREStart: 05-27-2022 End: 53-14-8296Vgqqedgvxrx penetrating wound spx neckOSU CCCT MAIN ORStart: 05-27-2022 End: 23-97-1542Wggp fascial flap w/microvascular anastomosisOSU CCCT MAIN OR Start: 05-27-2022 End: 29-39-8538Rhid muscle/myocutaneous flap w/mvasc anastOSU CCCT MAIN ORStart: 05-27-2022 End: 67-27-4522Svem skin flap w/microvascular anastomosisOSU CCCT MAIN ORStart: 05-27-2022 End: 56-61-0296Safpoumed wire/pin w/appl skeletal traction spxOSU CCCT MAIN OR Start: 05-27-2022 End: 86-80-2118Ivjyseoxcwzj w/wo tracheoscopy dx except newbornOSU CCCT MAIN OR Start: 05-27-2022 End: 43-26-1999Zefrthlkmbcv planned separate procedureOSU CCCT MAIN ORStart: 54-36-4811Vqpsumxxb vaccinationINFLUENZA VACCINE (#1)[facility] Start: 05-94-3037Lmutazguxy hospital visit by gixuxnmrd54/13/2022 Hospital Encounter Computerized Tomography Scan Bobo Davidson MD [address] [place] [address] [facility]: 04-27-2022 End: 06-15-0098RMH Neck vessels WO and W contrast IVCT ANGIO NECK Imaging Routine 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 Expected: 04/27/20, Expires: 04/27/2023[facility] Work Phone: Comment on above:Expected: 04/27/2022, Expires: 04/27/2023Start: 88-76-1629NZJWW-19 VACCINE (4 - Booster for Pfizer series) COVID-19 VACCINE (4 - Booster for Pfizer series)[facility]art: 10-47-2681BYEOR-19 VACCINE (4 - Booster for Pfizer series)COVID-19 VACCINE (4 - Booster for Pfizer series)[facility]tart: 95-45-5545GAIUX-19 VACCINE (4 - Pfizer series)COVID-19 VACCINE (4 - Pfizer series)[facility]: 07-28-2021 End: 51-15-5682Iviallr encounter odtsrcqwq83/10/2021 Office Visit Otolaryngology Bobo Davidson MD [address] [place] [address] Department of OtolaryngologyStart: 92-75-6875Tdudamean vaccinationINFLUENZA VACCINE (#1)[facility] Start: 05-05-2021 End: 56-54-0576Xmwlwkk encounter acomjmivp34/18/2021 Office Visit Maxillofacial Prosthodontics Nell Lucio, JAZ [address] [place] [address] Department of Maxillofacial ProsthodonticsStart: 40-79-7389Bilfecdeqq hospital visit by sxvpudbil28/18/2021 Hospital Encounter Computerized Tomography Scan Cliff Drew MD [address] [place] [address] Canceled (Condition Prohibitive)Department of RadiologyComment on above: Canceled (Condition Prohibitive)Start: 06-42-2703Vhymlinug vaccinationFlu vaccine (#1)[facility]art: 62-29-0253Gvox Risk ScreeningFall Risk ScreeningProGalion Hospitaltart: 00-37-5724Ppztcddzqypb vaccinationOSU [facility] CenterStart: 56-41-7903Mruldryjoacvdd of varicella zoster vaccine Zoster (Shingles) Vaccine (1 of 2)[facility] SystemStart: 12-02-1997 Pneumococcal vaccinationPNEUMOCOCCAL VACCINE SERIES (1 of 1 - PCV)[facility] CenterStart: 34-45-1571Qwdwojoalbaq Vaccine: 65+ Years (1 of 1 - PCV) Pneumococcal Vaccine: 65+ Years (1 of 1 - PCV)[facility] InstituteStart: 12-02-1997 Prostate specific antigen measurementPROSTATE CANCER SCREENING DISCUSSIONOSU UK Healthcaretart: 33-18-1084Dtrvgr vaccine hzv live for subcutaneous useZOSTER (SHINGLES) VACCINE (1 of 2)[facility] CenterStart: 12-02-1992 ColonoscopyCOLORECTAL CANCER SCREENING DISCUSSIONOSU UK Healthcaretart: 91-51-4792Ukfamyrsp for malignant neoplasm of colonCOLORECTAL CANCER SCREENING DISCUSSIONOSU UK Healthcaretart: 54-59-2431Qviuolk lipid profileLIPID SCREENINGOSCentervilletart: 74-72-9956Rksko panelLIPID SCREENINGOSCentervilletart: 51-19-0159GWuJ,Tdap and Td Vaccines (1 - Tdap) DTaP,Tdap and Td Vaccines (1 - Tdap)[facility] Hospitaltart: 12-02-1966 Third diphtheria, tetanus and acellular pertussis (DTaP) vaccinationTDAP (ADULT) OSUniversity [facility]als [facility] CenterStart: 74-41-0491Gewpcqb vaccinationTETANUSOSCentervilletart: 78-74-5736Xleysysuct ScreeningDepression ScreeningProCleveland Clinic [facility] SystemStart: 03-17-1948Medicare Annual Wellness VisitMedicare Annual Wellness VisitProMedica Health SystemStart: 52-89-6101Ikaiqaf vaccinationTETANUS [facility] End: 30-97-9455QYL WITHOUT GLUCOSEBMP WITHOUT GLUCOSE Lab Routine 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 Once a week for6 Occurrences starting 06/02/2022 until 06/02/2023[facility] CantonComment on above:Once a week for 6 Occurrences starting 06/02/2022 until 06/02/2023 End: 39-59-0923Vzcoqtwx blood count with white cell differential, automatedCBC, EDIF, PLATELET Lab Routine 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 Once a week for6 Occurrences starting 06/02/2022 until 06/02/2023[facility]onComment on above:Once a week for 6 Occurrences starting 06/02/2022 until 06/02/2023 End: 94-24-3737VF of thorax with contrastSelect Medical Specialty [facility] Work Phone: Comment on above:1 Occurrences starting 04/28/2021 until 04/28/2021 End: 58-18-3533MCU Neck vessels WO and W contrast IVSelect Medical Specialty [facility] Work Phone: Comment on above:1 Occurrences starting 04/30/2022 until 04/30/2022Ecg routine ecg w/least 12 lds w/i&rPR ELECTROCARDIOGRAM, COMPLETE KS - OFFICE PERFORMED Routine Preop exam for internal medicine 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 Ordered: 04/27/2022SU [facility]Comment on above:Ordered: 04/27/2022Ecg routine ecg w/least 12 lds w/i&rPR ELECTROCARDIOGRAM, COMPLETE [place] - OFFICE PERFORMED Routine Preop exam for internal medicine Ordered: 02/21/2023[facility]onComment on above: Ordered: 02/21/2023ESOPHAGOSCOPY DIAGNOSTICESOPHAGOSCOPY DIAGNOSTIC 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OSU CCCT MAIN OREXPLORATION POSTOP HEMORRHAGE THROMBOSIS INFECTION NECKEXPLORATION POSTOP HEMORRHAGE THROMBOSIS INFECTION NECK 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OSU CCCT MAIN ORFree fascial flap w/microvascular anastomosisFLAP FREE RADIAL FOREARM FASCIAL 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OSU CCCT MAIN ORFree muscle/myocutaneous flap w/mvasc anastFLAP FREE RECTUS ABDOMINIS MUSCLE/VRAM/TRAM 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OSU CCCT MAIN ORFree skin flap w/microvascular anastomosisFLAP FREE ANTEROLATERAL THIGH (ALT) SKIN 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OSU CCCT MAIN OR Fungus identified in Unspecified specimen by CultureFUNGUS CULTURE Microbiology Routine 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 05/27/2022 9:51 AM [facility] HospitalInitiate Oxygen Therapy ProtocolInitiate Oxygen Therapy Protocol Respiratory Care Routine Daily until discontinued starting 12/06/2019[facility] ArbovaxComment on above:Daily until discontinued starting 12/06/2019Insertion of endotracheal tubeTRACHEOSTOMY 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OSU CCCT MAIN ORLAB INSTRUCTIONSLAB INSTRUCTIONS Lab Routine 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 Ordered: 06/02/2022 U [facility] AndersonComment on above:Ordered: 06/02/2022Laryngoscopy w/wo tracheoscopy dx except newbornLARYNGOSCOPY DIRECT DIAGNOSTIC 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OSU [facility]ENTERT MAIN ORMycobacterium sp identified in Unspecified specimen by Organism specific cultureACID FAST CULTURE Microbiology Routine 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 05/27/2022 9:51 AM [facility] HospitalPlatelets (Bld) [#/Vol]Platelet count Lab Routine Every Other Day until discontinued starting 12/08/2019, 1 completedW[facility], ArbovaxComment on above:Every Other Day until discontinued starting 12/08/2019, 1 completedREMOVAL HARDWAREREMOVAL HARDWARE 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OSU [facility] CENTERT MAIN ORSURG PATH REQUESTSelect Medical Specialty [facility] Work Phone: Comment on above:Release Upon Ordering for 1 Occurrences starting 05/27/2022, 1 completed End: 43-64-9946OHYR/MYOGLOBINTROP/MYOGLOBIN Lab STAT Every 6 Hours (Lab) for 7 Days starting 12/07/2019 until 12/14/2019, [facility] [place] Comment on above:Every 6 Hours (Lab) for 7 Days starting 12/07/2019 until 12/14/2019, 5 completed End: 51-68-4163Wswjd ostomy evalWound ostomy eval Wound Ostomy Routine One Time for 1 Occurrences starting 12/06/2019 until 12/06/2019[facility], [place] Comment on above:One Time for 1 Occurrences starting 12/06/2019 until 12/06/2019 Immunizations Immunization DateImmunizationNotesCare PfocqxyjDravorez48-55-2274LCTD-NyT-0 (COVID-19) mRNA BNT-162b2 vaxMichael NILL [phone]-VbbnwKindred Healthcare Surgery Yeaddiss Comment on above:Result Comment: 2024-06-03: AFW2118-75-6500IVSS-KfX-9 (COVID- 19) mRNA-1273 vaccineMichael NILL [phone]-FlolsMetrohealth Main Campus Medical Center 40-29-3895WWFR-COV-2 (COVID-19), Mrna, Lnp-s, Pf, 30 Mcg/0.3 Ml Dose PFIZER Bobo Davidson MD Work Phone: osu [facility] AndersonUiyqxb08-61-9058GLOL-AaL-2 (COVID- 19) mRNA-1273 vaccineMichael NILL [phone]-WewprMetrohealth Main Campus Medical Center 58-23-9865SNOJ-COV-2 (COVID-19), Mrna, Lnp-s, Pf, 30 Mcg/0.3 Ml Dose PFIZER Bobo Davidson MD Work Phone: [facility] Payers DatePayer CategoryPayerPolicy [id number] 2020Medicare MEDICARE MEDICARE PART A AND B xxxxxxxxxxx 2019-Present [phone] [place], [place] [address]xdbulafujef [id number] 2020MedicareMEDICARE MEDICARE A AND B [id number] 2019-Present [address] [place], [place] [id number] [id number] 1960Medicare [id number] 2..840.1.832915.3.57[id number] 2.840.1.498942.3.57[id number] 2.840.1.442242.3.579.2.09494-48-3351Aszhemv3934322 2.840.1.470044.3.579.2.20078-16-1894Qdqtfey8894192 2.840.1.541516.3.57[id number] 2.840.1.362206.3.579.[id number] 2.840.1.165792.3.57[id number] 2.840.1.558778.3.579.2.00252-78-5530Qwdonjv6714165 2.840.1.058173.3.579.2.92437-54-3176Xjfwppc3612195 2.840.1.765478.3.579.2.35514-99-9344Ffblgbo5979166 2.840.1.734347.3.57[id number] 2.16840.1.790426.3.57[id number] 2.16.840.1.839257.3.579.[id number] 2.16.840.1.001580.3.57[id number] 2.16.840.1.229488.3.57[id number] 2.16.840.1.853478.3.579.2.9[id number] 2.16.840.1.541141.3.579.2.547[id number] 2.16.840.1.447167.3.57[id number] 2.16.840.1.850650.3.579.2.[id number] 2.16.840.1.319831.3.579.2.939603-39-4080Nybwzca95403890 2.16.840.1.920365.3.579.2.149174-04-8013Tjlcser7791898 2..840.1.376941.3.579.[id number] 2.16.840.1.777075.3.579.2.594 Social History DateTypeDetailFacilityTobacco smoking status NHISUnknown if ever smokedSumma Health [facility]: 12-39-6485Bsd Assigned At BirthNot on fileSumma Health [facility]: 10-31-2019 End: 22-86-1929Ibvclql smoking status NHISNeWood [facility] Hospital Start: 10-31-2019 End: 36-60-3412Rbnuhhd use and exposureNever usedDetwiler Memorial Hospitaltart: 04-01-2021 End: 30-70-2106Zpzefxs intakeEx-drinker (finding)[facility]tart: 05-18-2022 End: 90-84-5553Ztljknue to SARS-CoV-2 (event)Not sureSelect [facility] Start: 10-16-2022 End: 40-24-5414Fvuuupkb to SARS-CoV-2 (event)Unable to assessOSU UK Healthcaretart: 02-27-2023 End: 59-79-1216Xndwfzt of Social functionOSCentervilletart: 02-27-2023 End: 50-70-6708Utqbxgf use panelOSFayette County Memorial HospitalAdolescent depression screening bwlhaonkwb1HBMCentervilletart: 10-30-2019 End: 96-31-6789TykKewf (finding)[facility] HospitalThat's Solar SystemStart: 12-27-0420Gfombbv smoking status NHISTobacco smoking consumption unknownNONE HealthcareStart: 62-50-9060Khcndg identityIdentifies as male gender (finding)[facility]tart: 55-38-9805Xngkqc orientationHeterosexual (finding)[facility] Medical Equipment Procedure CodeEquipment CodeEquipment Original TextEquipment IdentifierDates Director Channel Anastomotic 4.0mm Gem2 - [id number]_fmvSugpk: 00-84-4651Ctgzwph Anastomotic 4.0mm Gem2 - [id number]_hwnQqqjj: 59-39-1972Aotzyfs Mtx Glxrpai423444_mhvDbdxq: 19-35-0604Pczql Micro Maxdrv 1.5x5mm/Ea - [id number]_impStart: 91-58-4123Hvfgp Micro Maxdrv 1.5x7mm/Ea - [id number]_bji Start: 69-05-4708Sjc Tsv Mcol Mg 4.1mm 13m - [id number]_vsuBtzlg: 05-15-8908Sowq Collar 3.5x4.5 3mm - [id number]_qrbTxpzp: 98-92-3419Mpx Tsv Mcol Mg 4.1mm 13m - [id number]_lpgLepyx: 77-18-0142Btik Collar 3.5x4.5 3mm - [id number]_gwpSmmmn: 43-25-2884Ippmtxz Ndcvrq947825_hmmKycxz: 39-13-3056Mlxyfew Surgical Matrix Wtji580924_cjfPazwa: 94-01-9969Bwdglkyv Micromatrx 200mg - [id number]_kzeVzrcs: 48-50-7217Inbjxwr Xrsfmal295811_uwq Start: 33-63-5104Bhwgdsb on above:Description: Facial reconstructionDressing Micromatrx 200mg - [id number]_kwtUkltw: 27-45-2969Ozlxakta Matrix Thin 7x10 - [id number]_rceGczzp: 34-28-5261Wwrkxcr Anastomosis 3mm Ring Pin Ultrasonic Doppler - [id number]_iqbSrtjs: 02-96-9369Cmcbnzz Midface [id number]_expStart: 91-89-1398Mzscydf on above:Description: Facial reconstruction Screw Micro Maxdrv 1.5x5mm/Ea - [id number]_ruhUohow: 85-35-2224Ockel Actb 62mm Hip Lmt Hl Clr Cd Pps G7 H Hmsphr - [id number] - [id number]_jpdPqgod: 40-65-6802Hfhly Actb 36mm H Ntrl Arcomxl G7 Hip - [id number] - [id number]_impStart: 52-22-3096Orkmei Hip Std Os Tpr G7 Blx D Opt Centering Ty 1 Rpl 090-9013 - [id number] - [id number]_bpmNxpts: 48-92-6763Umtb Fem 125mm 20mm 133d Hi Os Tpr Tprlk Microplasty Pps Ti - [id number] - [id number]_ocoAhhrg: 50-47-2728Meke Fem 36mm G7 Blx D Biolox Opt Hip Rpl 650-8315 - [id number] - [id number]_ykoHtpab: 84-99-8627Qeaw Fem 36mm G7 Blx D Biolox Opt Hip Rpl 650-1057 - [id number]_xqcQbkms: 39-78-5272Ehwme Actb 60mm Hip Lmt Hl Clr Cd Pps G7 G Hmsphr - [id number]_pdfQtxfe: 26-10-0730Vubzm Actb 36mm G Ntrl Arcomxl G7 Hip - [id number]_nxlXuohx: 06-36-9443Wihk Fem 125mm 20mm 133d Hi Os Tpr Tprlk Microplasty Pps Ti - [id number]_lcwQlwab: 20-47-1836Lfrbhn Hip -3mm Os Tpr G7 Blx D Opt Ti Centering Ty 1 Rpl 650-1065 - [id number]_impStart: 01-94-3049Useq 1in Med Pp Srgpro Nabsb Knit Plg Srg Strl Clr Hrn Rpl 408593+069648+368364 - Sna - [id number] (01)[id number])[id number](10)S1T9842W(21)NA, 694964_imp FDAStart: 07-09-2024 Goals DatePatient GoalDesired Activity/StatePersonal health goalComment on above: Evaluation of progress towards goal: Current discharge plan is home with home care and support of spouse. - Tiffani Claros RN 12/06/21 1:25 PM Functional Status XgxmZpeygnsdeqFtleaiViibcyap37-59-0608Kdydxkyslc StatusN/AFisher-[facility] Surgery Icydtpx46-63-5103Rwu you deaf, or do you have serious difficulty hearingNo 05/27/2022 10:30 PM EDT Gris Capellan, RON [facility]09-09-2022Are you blind, or do you have serious difficulty seeing, even when wearing glassesNo 05/27/2022 10:30 PM Gris Mueller, RON [facility]09-09-2022Do you have serious difficulty walking or climbing stairsNo 05/27/2022 10:30 PM EDT [facility]22Do you have difficulty dressing or bathingNo 05/27/2022 10:30 PM EDT Gris Capellan, [facility]ON [facility] [id number] of a physical, mental, or emotional condition, do you have difficulty doing errands alone such as visiting a physician's office or shoppingNo 05/27/2022 10:30 PM EDT Gris Capellan RN [facility] Mental Status Srol[id number] of a physical, mental, or emotional condition, do you have serious difficulty concentrating, remembering, or making decisionsNo 05/27/2022 10:30 PM EDT Gris Capellan RN [facility] Clinical Notes 04-28-2021 to 02-19-2025 Note Date & [id number] History of Present illness Narrative* Yovani Lin MD - 02/19/2025 1:15 PM EDT HPI: Lilly Argueta is a 79 y.o. 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 Patient had an area of exposed hardware on his right cheek and is s/p removal of R maxillary hardware and previous FFF, R neck exploration, L ALT on 05/27/22. He then underwent wedge excision and debulking of right cheek flap 02/24/23. He presents today for regular follow up. It has now been 5 years since original treatment. He is doing well with obturator. Eating a full diet and maintaining weight. Reports tenderness to right buccal mucosa just medial to flap. Otherwise, denies dysphagia, odynophagia, dyspnea, vocal changes, or other masses/lesions. Nursing documentation has been reviewed. Past Medical History: Diagnosis Date History of head and neck radiation History of pulmonary embolism 11/2019 Post-operative DVT/PE in November 2019. Treated with Eliquis; discontinued by PCP in May 2020. 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 History of tracheostomy Past Surgical History: Procedure Laterality Date EXCISION LESION SOFT TISSUE FACE SCALP Right 02/24/2023 Laterality: Right; Surgeon: Bobo Davidson MD; Location: [facility] OR REMOVAL HARDWARE Right 05/27/2022 Laterality: Right; Surgeon: Bobo Davidson MD; Location: [facility] OR EXPLORATION TRAUMATIC WOUND NECK N/A 05/27/2022 Laterality: N/A; Surgeon: Bobo Davidson MD; Location: [facility] OR LARYNGOSCOPY DIRECT DIAGNOSTIC N/A 05/27/2022 Laterality: N/A; Surgeon: Bobo Davidson MD; Location: [facility] OR ESOPHAGOSCOPY DIAGNOSTIC N/A 05/27/2022 Laterality: N/A; Surgeon: Bobo Davidson MD; Location: [facility] OR TRACHEOSTOMY N/A 05/27/2022 Laterality: N/A; Surgeon: Bobo Davidson MD; Location: [facility] OR FLAP FREE ANTEROLATERAL THIGH (ALT) SKIN N/A 05/27/2022 Laterality: N/A; Surgeon: Ifrah Cesar MD; Location: [facility] OR DEBRIDEMENT BONE N/A 06/08/2020 Laterality: N/A; Surgeon: Bobo Davidson MD; Location: [facility] OR PLACEMENT TUBE NASO-/LIANG-GASTRIC N/A 06/08/2020 Laterality: N/A; Surgeon: Bobo Davidson MD; Location: [facility] OR LARYNGOSCOPY DIRECT DIAGNOSTIC N/A 11/22/2019 Laterality: N/A; Surgeon: Bobo Davidson MD; Location: [facility] OR ESOPHAGOSCOPY DIAGNOSTIC N/A 11/22/2019 Laterality: N/A; Surgeon: Bobo Davidson MD; Location: [facility] OR MAXILLECTOMY W/O ORBITAL EXENTERATION Right 11/22/2019 Laterality: Right; Surgeon: Bobo Davidson MD; Location: [facility] OR LYMPHADENECTOMY CERVICAL (MODIFIED RADICAL NECK DISSECTION) Right 11/22/2019 Laterality: Right; Surgeon: Bobo Davidson MD; Location: [facility] OR TRACHEOSTOMY N/A 11/22/2019 Laterality: N/A; Surgeon: Bobo Davidson MD; Location: [facility] EXTRACTION TOOTH N/A 11/22/2019 Laterality: N/A; Surgeon: Bobo Davidson MD; Location: [facility] OR PLACEMENT TUBE NASO-/LIANG-GASTRIC N/A 11/22/2019 Laterality: N/A; Surgeon: Bobo Davidson MD; Location: [facility] OR FLAP FREE BONE W/ MICROVASCULAR ANASTOMOSIS FIBULA N/A 11/22/2019 Laterality: N/A; Surgeon: Joao Burch MD; Location: [facility] FLAP FREE RADIAL FOREARM FASCIAL Left 11/22/2019 Laterality: Left; Surgeon: Joao Burch MD; Location: [facility] OR APPENDECTOMY LIGATION OR 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 Current Outpatient Medications Medication Sig Dispense Refill Artificial Tear Ointment (DRY EYES OP) Apply to eye as needed. aspirin 81 MG Chew Tab chewable tablet Chew 1 tablet at bedtime. Calcium Acetate-Magnesium Carb 450-200 MG tablet Take 1 tablet by mouth at bedtime. Cascara [place] 450 MG capsule Take by mouth daily every morning. cholecalciferol 25 MCG (1000 UNIT) tablet Take 1 tablet by mouth daily every morning. STOPPED TAKING ON 02/18/23 FOR SURGERY. Chromium Picolinate (CHROMIUM PICOLATE PO) Take by mouth daily every morning. Ibuprofen 200 MG tablet Take 1 tablet by mouth as needed for Mild Pain. Multiple Vitamin (multivitamin) capsule Take 1 capsule by mouth 2 times daily. oxycodone 5 MG capsule Take 1 capsule by mouth every 4 hours as needed for moderate or severe pain for up to 3 days. 10 capsule 0 petrolatum Ointment ophthalmic ointment Apply 1 Application to right eye at bedtime. 3.5 g 0 Polyvinyl Alcohol-Povidone PF 1.4-0.6 % Solution ophthalmic solution Place 2 drops in right eye 4 times daily. 30 Each 1 SODIUM FLUORIDE, DENTAL GEL, 1.1 % Gel Apply 3-4 drops of gel directly to teeth. Do Not eat or drink for 30min. Once daily at bedtime. Fruit flavor 56 g 12 vitamin E 400 units capsule Take 1 capsule by mouth 2 times daily. 60 capsule 0 No current facility-administered medications for this visit. No Known Allergies Exam: BP (!) 163/91 (BP Position: Sitting) Pulse 69 Temp 97.8 F (36.6 C) (Temporal) Resp 18 Ht 1.854 m (6' 1 ) Wt 79.5 kg (175 lb 3.2 oz) SpO2 98% BMI 23.11 kg/m Smoking Status Never Documented vital signs from today's visit reviewed. Physical exam including head and neck examination of the oral cavity, oropharynx, larynx, and hypopharynx including indirect mirror exam as well asinspection and palpation of the face, parotid and neck is remarkable for findings consistent with posttreatment postoperative changes and negative for new lesions, masses or lymphadenopathy. Intraoral flap well healed Less bulky in appearance. Impression/Plan: Mr. Argueta has a history of T4a N0 SCC Right maxilla s/p maxillectomy, neck dissection, fibula flap, and adjuvant radiation 2020 now s/p surgery and flap for exposed hardware. S/p wedge excision anddebulking of right cheek flap 02/24/23. Continues to have GURMEET on exam. Area of tenderness not concerning for disease. He is now 5+ years out from original cancer treatment with no signs of recurrence. -RTC in 1 year Attending Physician Note I independently interviewed, examined and formulated the medical decision making. Details of my interview, examination findings, and medical decision- making confirmed the findings below. I have personally amended the below documentation where appropriate. documented [facility] this encounter[facility] Instructions* Patient Instructions* Lorena Duran RN - 02/19/2025 1:15 PM EDT Please call Dr. Davidson's nurse, Lorena, at [phone] if you notice any new lumps in head or neck, new onset of difficulty with swallowing, persistent ear pain, hoarseness or new pain in head and neckthat does not go away for 2 weeks. documented in this encounterOSU [facility]04[facility] History of Present illness Narrative* Amanda Pennington MD - 01/06/2025 1:00 PM EDT Skin Check Location: Patient requests a skin examination from the waist up, A full body skin exam was offered,patient declined Dermatologic history: history of atypical mole(s) Last visit: 1 year ago Established patient All pertinent medical history, medications, and allergies were reviewed. General Exam: alert, oriented to person, place, and time, normal affect, well appearing Unaccompanied A complete skin exam was offered, pt declined. Areas not examined despite medical recommendation: From the waist down Scalp, Examined , exam limited by hair Head, Face Examined Neck Examined Chest Examined Back Examined Abdomen Examined Right arm Examined Left arm Examined Hands Examined Digits,nails: Examined Lymphatics: Not examined Skin Exam 1. SEBORRHEIC KERATOSIS (2) Generalized, Head - Anterior (Face) Stuck on verrucous, madison-brown papules and plaques. Patient was counseled regarding these benign growths. Removal is normally not necessary, but they may be removed if they are symptomatic or for cosmetic reasons. 2. HISTORY OF NEVUS EXCISION Posterior Mid Neck No evidence of recurrence in scar from atypical mole excision. Notify office for any recurrence at surgery site or for any new or changing lesions. 3. LENTIGINES (2) Generalized, Head - Anterior (Face) Scattered madison macules in sun-exposed areas. The patient was informed that lentigines are benign pigmented lesions that occur on sun-exposed andsun-damaged skin. No treatment is necessary. Recommended regular use of broad spectrum sunscreen SPF 30 or higher 4. MELANOCYTIC NEVUS OF FACE, OTHER LOCATION Head - Anterior (Face) Scattered benign appearing, regular brown to light brown melanocytic papules and macules with similar morphology Counseled regarding these benign growths. Rarely, a nevus can develop into malignant melanoma, so any changing nevi should be promptly re-evaluated. 5. MELANOCYTIC NEVUS OF TRUNK Generalized Scattered benign appearing, regular brown to light brown melanocytic papules and macules with similar morphology Counseled regarding these benign growths. Rarely, a nevus can develop into malignant melanoma, so any changing nevi should be promptly re-evaluated. Next Visit: 1 year documented in this encounterFreeman Cancer [id number] History of Present illness Narrative* MELCHOR Berger - 07/23/2024 11:30 AM EST Images from the original note were not included. Subjective Lilly Argueta is a 78 y.o. male status post open left inguinal hernia repair with mesh on 07/09/2024. He is still having a little bit of pain at the incision. This goes away after he walks a little bit. He is taking ibuprofen as needed. He denies fever and chills. He is tolerating oral intake and having bowel movements. Objective Vitals: 07/23/24 1139 BP: 140/79 Pulse: 81 Physical Exam Constitutional: General: He is not in acute distress. Appearance: Normal appearance. He is not ill-appearing. Abdominal: Palpations: Abdomen is soft. Skin: General: Skin is warm and dry. Findings: Bruising present. No erythema. Comments: Left inguinal incision clean, dry and intact with some bruising and small amount of swelling. No signs of infection. Assessment Lilly Argueta is a 78 y.o.male postoperative left inguinal hernia repair. Plan Continue light activity. Follow up 1 month. Status post left inguinal hernia repair [Z98.890, Z87.19] M[facility]OR BERGER [facility] [place] [employer] This note was created with the assistance of a speech recognition program. While intending to generate a timely document that accurately reflects the content of the visit, no guarantee can be provided that every grammatical or spelling mistake has been or will be identified or corrected. Thank you for your understanding. MELCHOR Berger 07/23/24 1212 documented in this encounterUniversity Hospitals [facility]10-17-2024 Instructions* Patient Instructions* Enma Carreon RN - 07/04/2024 2:15 PM EDT Preoperative Education Checklist- General Surgery date: 07/09/24 Surgery time: 0915 a.m. Arrival time: 0715 a.m. 1. Bring a photo ID and your insurance card with you the day of surgery. You will check in at the main lobby of the [facility]- registration desk is straight ahead as soon as you walk in. Tell them you are here for surgery. 2. If you have a Living Will/Durable Power of Labor Mediator for Health Care that is not on file here, please bring a copy the day of surgery. 3. Please shower/bathe the night before surgery with the provided soap or wipes. Do not shower the morning of surgery- you will do use wipes when you arrive here at the hospital before getting into your surgical gown. Do not shave the area of your procedure for 2 days prior to your surgery. 4. NO powder, lotion, perfume/cologne, aftershave, make-up, deodorant, or hair products after you have bathed. 5. NO nail pakistani/acrylic on at least one finger. If you are having a hand, wrist or foot surgery then all nail pakistani and artificial/acrylic nails must be removed from that hand or foot. 6. Avoid ALL Aspirin and non-steroidal anti-inflammatory drugs and certain vitamins (Ibuprofen, Advil, Aleve, Excedrin, Meloxicam, Celebrex, fish/krill oil, etc.) for 7 days prior to surgery as instructed by your surgeon and/or your prescribing doctor. Tylenol IS ALLOWED. If you are on Ticlid, Xarelto, Eliquis, Pradaxa, Plavix or Coumadin, please check with your prescribing doctor for instructions for when to stop them. 7. If you use an inhaler, continue to use it routinely. 8. Nothing to eat or drink (not even water, gum, mints, or hard candy!) AFTER midnight prior to your surgery. 9. Take only medications that you are instructed to on the morning of surgery with a TINY SIP OF WATER. 10. Choose a responsible adult that will be able to drive you home when you are discharged from your hospital stay for your surgery and can stay with you in your home for 24 hours after your procedure. You must NOT drive any vehicle or operate any machinery for 24 hours after surgery. 11. When you dress for your appointment, please wear loose fitting clothing that is appropriate to accommodate your surgical area procedure. BRING WITH YOU ANY DEVICES YOU MAY NEED: ANI hose, ice machine, sling/swath, brace or special shoe, oversized zip-up or button up shirt, CPAP machine if staying overnight. 12. Do NOT wear jewelry, watches, or any piercings or metal for surgery- leave these valuables and money at home. 13. Do NOT wear contact lenses for surgery- glasses are okay if needed. 14. The anesthesiologist will talk with you the day of surgery and will ask you to sign a Consent Form. 15. Refrain from smoking or any type of tobacco use for at least 8 hours and marijuana for 24 hoursprior to arrival for your surgery. 16. If a GREEN BLOOD band is given to you, please bring it with you for the day of surgery. 17. Notify your surgeon if you develop any illness before your surgery. 18. If you are staying overnight, please DO NOT BRING your home medications with you. 19. If you have any questions prior to surgery, please call the Preadmission Testing office at [phone], Mon.-Fri. 7 a.m.-3 p.m. Leave a voicemail if needed. Pre-Surgery Instructions: Medication Instructions ascorbic acid (VITAMIN C ORAL) Stop taking 0 days prior to procedure aspirin 81 mg Stop taking 1 week prior to procedure CALCIUM-MAGNESIUM ORAL Stop taking 0 days prior to procedure chromium picolinate 200 mcg tablet Stop taking 0 days prior to procedure coenzyme Q10 (CO Q-10) 200 mg capsule Stop taking 0 days prior to procedure latanoprost 0.005 % drops, emulsion Stop taking 0 days prior to procedure LECITHIN ORAL Stop taking 0 days prior to procedure multivit-min/ferrous fumarate (MULTI VITAMIN ORAL) Stop taking 0 days prior to procedure UNABLE TO FIND Stop taking 0 days prior to procedure How to Avoid an Infection after Your Surgery Your doctor will give you specific instructions, but remember: -ALWAYS wash hands before caring for your incision. -No picking, scratching, or rubbing your incision. -No creams, lotion, powder, rubbing alcohol or hydrogen peroxide on the incision (can harm the tissue and slow healing). -Your doctor will give you specific instructions for what type of dressing you will need and how often it will need changed for infection purposes. -No tight clothing on incision. -Do not allow anyone to touch your incision unless they are cleaning, checking, or redressing it (be sure they wash their hands first). -No contact of your incision with pets; avoid sleeping with pets. -Take full course of antibiotic if prescribed for you after surgery- do not stop unless directed luz elena your physician. You may also be given an antibiotic prior to your surgery to help prevent surgical site infections. -Eat a healthy and varied diet including proteins, fruits, and vegetables to help promote wound healing and keep blood sugars under control if you are diabetic. -Smoking slows the healing process by decreasing the amount of oxygen in your blood that is needed for tissue healing. Try to avoid or stop smoking if possible. LOOK at your incision each morning and each night to check the progress of healing. Some soreness, numbness, itching and/or mild bruising around the incision is normal. Call your doctor if you noticeany of the following: -Increased redness or hardening around the incision area. -Increased pain at the incision site. -Incision feels hot to the touch. -Swelling or pulling apart of the incision edges. -Yellow or green drainage or foul odor coming from the incision. -Bleeding from the incision (apply pressure as needed). -Fever higher than 101 degrees Fahrenheit for more than 4 hours. SHOWERING: Your doctor will give you specific instructions, but remember: -Be careful getting into and out of the shower. -Showers should be quick (5 minutes or less). -Use a clean washcloth to gently wash your incision with soap and water and pat the area dry with aclean towel. -No re-using wash cloths or towels; get a fresh one to clean your incision. -Do not soak in the bathtub, go swimming or use a hot tub (Jacuzzi), or perform activities where your incision is submerged in water or exposed to any fluids or substances until instructed by your doctor. -If your have the sticky strips (steri-strips) over the incision, it is OK to shower with them. Do not remove them. Let them fall off on their own. If you have a question, call your doctor s office. Go to the follow-up appointment with your doctor. documented in this encounterUniversity Hospitals [facility]aug[facility] Center10-17-2024 Miscellaneous Notes* Perioperative Nursing Note - Enma Carreon RN - 07/04/2024 2:15 PM EDT Preoperative Education Checklist- General Surgery date: 07/09/24 Surgery time: 0915 a.m. Arrival time: 0715 a.m. 1. Bring a photo ID and your insurance card with you the day of surgery. You will check in at the main lobby of the [facility]- registration desk is straight ahead as soon as you walk in. Tell them you are here for surgery. 2. If you have a Living Will/Durable Power of Labor Mediator for Health Care that is not on file here, please bring a copy the day of surgery. 3. Please shower/bathe the night before surgery with the provided soap or wipes. Do not shower the morning of surgery- you will do use wipes when you arrive here at the hospital before getting into your surgical gown. Do not shave the area of your procedure for 2 days prior to your surgery. 4. NO powder, lotion, perfume/cologne, aftershave, make-up, deodorant, or hair products after you have bathed. 5. NO nail pakistani/acrylic on at least one finger. If you are having a hand, wrist or foot surgery then all nail pakistani and artificial/acrylic nails must be removed from that hand or foot. 6. Avoid ALL Aspirin and non-steroidal anti-inflammatory drugs and certain vitamins (Ibuprofen, Advil, Aleve, Excedrin, Meloxicam, Celebrex, fish/krill oil, etc.) for 7 days prior to surgery as instructed by your surgeon and/or your prescribing doctor. Tylenol IS ALLOWED. If you are on Ticlid, Xarelto, Eliquis, Pradaxa, Plavix or Coumadin, please check with your prescribing doctor for instructions for when to stop them. 7. If you use an inhaler, continue to use it routinely. 8. Nothing to eat or drink (not even water, gum, mints, or hard candy!) AFTER midnight prior to your surgery. 9. Take only medications that you are instructed to on the morning of surgery with a TINY SIP OF WATER. 10. Choose a responsible adult that will be able to drive you home when you are discharged from your hospital stay for your surgery and can stay with you in your home for 24 hours after your procedure. You must NOT drive any vehicle or operate any machinery for 24 hours after surgery. 11. When you dress for your appointment, please wear loose fitting clothing that is appropriate to accommodate your surgical area procedure. BRING WITH YOU ANY DEVICES YOU MAY NEED: ANI hose, ice machine, sling/swath, brace or special shoe, oversized zip-up or button up shirt, CPAP machine if staying overnight. 12. Do NOT wear jewelry, watches, or any piercings or metal for surgery- leave these valuables and money at home. 13. Do NOT wear contact lenses for surgery- glasses are okay if needed. 14. The anesthesiologist will talk with you the day of surgery and will ask you to sign a Consent Form. 15. Refrain from smoking or any type of tobacco use for at least 8 hours and marijuana for 24 hoursprior to arrival for your surgery. 16. If a GREEN BLOOD band is given to you, please bring it with you for the day of surgery. 17. Notify your surgeon if you develop any illness before your surgery. 18. If you are staying overnight, please DO NOT BRING your home medications with you. 19. If you have any questions prior to surgery, please call the Preadmission Testing office at [phone], Mon.-Fri. 7 a.m.-3 p.m. Leave a voicemail if needed. Pre-Surgery Instructions: Medication Instructions ascorbic acid (VITAMIN C ORAL) Stop taking 0 days prior to procedure aspirin 81 mg Stop taking 1 week prior to procedure CALCIUM-MAGNESIUM ORAL Stop taking 0 days prior to procedure chromium picolinate 200 mcg tablet Stop taking 0 days prior to procedure coenzyme Q10 (CO Q-10) 200 mg capsule Stop taking 0 days prior to procedure latanoprost 0.005 % drops, emulsion Stop taking 0 days prior to procedure LECITHIN ORAL Stop taking 0 days prior to procedure multivit-min/ferrous fumarate (MULTI VITAMIN ORAL) Stop taking 0 days prior to procedure UNABLE TO FIND Stop taking 0 days prior to procedure How to Avoid an Infection after Your Surgery Your doctor will give you specific instructions, but remember: -ALWAYS wash hands before caring for your incision. -No picking, scratching, or rubbing your incision. -No creams, lotion, powder, rubbing alcohol or hydrogen peroxide on the incision (can harm the tissue and slow healing). -Your doctor will give you specific instructions for what type of dressing you will need and how often it will need changed for infection purposes. -No tight clothing on incision. -Do not allow anyone to touch your incision unless they are cleaning, checking, or redressing it (be sure they wash their hands first). -No contact of your incision with pets; avoid sleeping with pets. -Take full course of antibiotic if prescribed for you after surgery- do not stop unless directed luz elena your physician. You may also be given an antibiotic prior to your surgery to help prevent surgical site infections. -Eat a healthy and varied diet including proteins, fruits, and vegetables to help promote wound healing and keep blood sugars under control if you are diabetic. -Smoking slows the healing process by decreasing the amount of oxygen in your blood that is needed for tissue healing. Try to avoid or stop smoking if possible. LOOK at your incision each morning and each night to check the progress of healing. Some soreness, numbness, itching and/or mild bruising around the incision is normal. Call your doctor if you noticeany of the following: -Increased redness or hardening around the incision area. -Increased pain at the incision site. -Incision feels hot to the touch. -Swelling or pulling apart of the incision edges. -Yellow or green drainage or foul odor coming from the incision. -Bleeding from the incision (apply pressure as needed). -Fever higher than 101 degrees Fahrenheit for more than 4 hours. SHOWERING: Your doctor will give you specific instructions, but remember: -Be careful getting into and out of the shower. -Showers should be quick (5 minutes or less). -Use a clean washcloth to gently wash your incision with soap and water and pat the area dry with aclean towel. -No re-using wash cloths or towels; get a fresh one to clean your incision. -Do not soak in the bathtub, go swimming or use a hot tub (Jacuzzi), or perform activities where your incision is submerged in water or exposed to any fluids or substances until instructed by your doctor. -If your have the sticky strips (steri-strips) over the incision, it is OK to shower with them. Do not remove them. Let them fall off on their own. If you have a question, call your doctor s office. Go to the follow-up appointment with your doctor. * Perioperative Nursing Note - Enma Carreon RN - 07/04/2024 2:15 PM EDT Hibiclens and surgical instructions reviewed. Patient and his verbalized understanding. documented in this encounterEast Liverpool City HospitalIn The Chat Communications [facility] [id number] Nurse Note* Perioperative Nursing Note - Enma Carreon RN - 07/04/2024 2:15 PM EDT Preoperative Education Checklist- General Surgery date: 07/09/24 Surgery time: 0915 a.m. Arrival time: 0715 a.m. 1. Bring a photo ID and your insurance card with you the day of surgery. You will check in at the main lobby of the [facility]- registration desk is straight ahead as soon as you walk in. Tell them you are here for surgery. 2. If you have a Living Will/Durable Power of Labor Mediator for Health Care that is not on file here, please bring a copy the day of surgery. 3. Please shower/bathe the night before surgery with the provided soap or wipes. Do not shower the morning of surgery- you will do use wipes when you arrive here at the hospital before getting into your surgical gown. Do not shave the area of your procedure for 2 days prior to your surgery. 4. NO powder, lotion, perfume/cologne, aftershave, make-up, deodorant, or hair products after you have bathed. 5. NO nail pakistani/acrylic on at least one finger. If you are having a hand, wrist or foot surgery then all nail pakistani and artificial/acrylic nails must be removed from that hand or foot. 6. Avoid ALL Aspirin and non-steroidal anti-inflammatory drugs and certain vitamins (Ibuprofen, Advil, Aleve, Excedrin, Meloxicam, Celebrex, fish/krill oil, etc.) for 7 days prior to surgery as instructed by your surgeon and/or your prescribing doctor. Tylenol IS ALLOWED. If you are on Ticlid, Xarelto, Eliquis, Pradaxa, Plavix or Coumadin, please check with your prescribing doctor for instructions for when to stop them. 7. If you use an inhaler, continue to use it routinely. 8. Nothing to eat or drink (not even water, gum, mints, or hard candy!) AFTER midnight prior to your surgery. 9. Take only medications that you are instructed to on the morning of surgery with a TINY SIP OF WATER. 10. Choose a responsible adult that will be able to drive you home when you are discharged from your hospital stay for your surgery and can stay with you in your home for 24 hours after your procedure. You must NOT drive any vehicle or operate any machinery for 24 hours after surgery. 11. When you dress for your appointment, please wear loose fitting clothing that is appropriate to accommodate your surgical area procedure. BRING WITH YOU ANY DEVICES YOU MAY NEED: ANI hose, ice machine, sling/swath, brace or special shoe, oversized zip-up or button up shirt, CPAP machine if staying overnight. 12. Do NOT wear jewelry, watches, or any piercings or metal for surgery- leave these valuables and money at home. 13. Do NOT wear contact lenses for surgery- glasses are okay if needed. 14. The anesthesiologist will talk with you the day of surgery and will ask you to sign a Consent Form. 15. Refrain from smoking or any type of tobacco use for at least 8 hours and marijuana for 24 hoursprior to arrival for your surgery. 16. If a GREEN BLOOD band is given to you, please bring it with you for the day of surgery. 17. Notify your surgeon if you develop any illness before your surgery. 18. If you are staying overnight, please DO NOT BRING your home medications with you. 19. If you have any questions prior to surgery, please call the Preadmission Testing office at [phone], Mon.-Fri. 7 a.m.-3 p.m. Leave a voicemail if needed. Pre-Surgery Instructions: Medication Instructions ascorbic acid (VITAMIN C ORAL) Stop taking 0 days prior to procedure aspirin 81 mg Stop taking 1 week prior to procedure CALCIUM-MAGNESIUM ORAL Stop taking 0 days prior to procedure chromium picolinate 200 mcg tablet Stop taking 0 days prior to procedure coenzyme Q10 (CO Q-10) 200 mg capsule Stop taking 0 days prior to procedure latanoprost 0.005 % drops, emulsion Stop taking 0 days prior to procedure LECITHIN ORAL Stop taking 0 days prior to procedure multivit-min/ferrous fumarate (MULTI VITAMIN ORAL) Stop taking 0 days prior to procedure UNABLE TO FIND Stop taking 0 days prior to procedure How to Avoid an Infection after Your Surgery Your doctor will give you specific instructions, but remember: -ALWAYS wash hands before caring for your incision. -No picking, scratching, or rubbing your incision. -No creams, lotion, powder, rubbing alcohol or hydrogen peroxide on the incision (can harm the tissue and slow healing). -Your doctor will give you specific instructions for what type of dressing you will need and how often it will need changed for infection purposes. -No tight clothing on incision. -Do not allow anyone to touch your incision unless they are cleaning, checking, or redressing it (be sure they wash their hands first). -No contact of your incision with pets; avoid sleeping with pets. -Take full course of antibiotic if prescribed for you after surgery- do not stop unless directed luz elena your physician. You may also be given an antibiotic prior to your surgery to help prevent surgical site infections. -Eat a healthy and varied diet including proteins, fruits, and vegetables to help promote wound healing and keep blood sugars under control if you are diabetic. -Smoking slows the healing process by decreasing the amount of oxygen in your blood that is needed for tissue healing. Try to avoid or stop smoking if possible. LOOK at your incision each morning and each night to check the progress of healing. Some soreness, numbness, itching and/or mild bruising around the incision is normal. Call your doctor if you noticeany of the following: -Increased redness or hardening around the incision area. -Increased pain at the incision site. -Incision feels hot to the touch. -Swelling or pulling apart of the incision edges. -Yellow or green drainage or foul odor coming from the incision. -Bleeding from the incision (apply pressure as needed). -Fever higher than 101 degrees Fahrenheit for more than 4 hours. SHOWERING: Your doctor will give you specific instructions, but remember: -Be careful getting into and out of the shower. -Showers should be quick (5 minutes or less). -Use a clean washcloth to gently wash your incision with soap and water and pat the area dry with aclean towel. -No re-using wash cloths or towels; get a fresh one to clean your incision. -Do not soak in the bathtub, go swimming or use a hot tub (Jacuzzi), or perform activities where your incision is submerged in water or exposed to any fluids or substances until instructed by your doctor. -If your have the sticky strips (steri-strips) over the incision, it is OK to shower with them. Do not remove them. Let them fall off on their own. If you have a question, call your doctor s office. Go to the follow-up appointment with your doctor. [facility]10-17-2024 Nurse Note* Perioperative Nursing Note - Enma Carreon RN - 07/04/2024 2:15 PM EDT Hibiclens and surgical instructions reviewed. Patient and his verbalized understanding. [facility]10-16-2024 History of Present illness Narrative* Rajeev Jones DO - 07/03/2024 2:15 PM EDT Images from the original note were not included. [facility] [id number] [id number] CONSULT NOTE CHIEF COMPLAINT Chief Complaint Patient presents with Hernia Left inguinal hernia, self referred Lilly Argueta is a 78 y.o. male Accompanied by his with complaints of a left inguinal hernia which he noticed about 5 weeks ago. It has been painful and uncomfortable for him. He denies any nausea vomiting but has had difficulty with bowel habits. He was scheduled for an outpatient screening colonoscopy with Dr. Zambrano and also repair of the left inguinal hernia at the [facility] but it was canceled by anesthesia because they did not feel comfortable giving him a general anesthetic or a spinal anesthetic. Patient had some sort of mouth cancer 4 years ago operated on at [facility] on multiple occasions the last time being about 2 years ago. He also received radiation therapy after that he has some facial distortion due to that. He has also had 2 hip replacements. He has a sister who had colon cancer diagnosed at age 69 and wants to have a screening colonoscopy.He denies any melena hematochezia weight loss abdominal pain nausea or vomiting. He wears an upper plate on the left side of the mouth due to his head and neck cancer. MEDICATION Current Outpatient Medications: ascorbic acid (VITAMIN C ORAL), Take 500 mg by mouth in the morning., Disp: , Rfl: aspirin 81 mg, TAKE 1 TABLET BY MOUTH TWICE A DAY *BEGIN TAKING AFTER TOTAL JOINT REPLACEMENT*, Disp: 180 tablet, Rfl: 1 CALCIUM-MAGNESIUM ORAL, Take 2 tablets by mouth daily., Disp: , Rfl: chromium picolinate 200 mcg tablet, Take 1 tablet by mouth in the morning., Disp: , Rfl: coenzyme Q10 (CO Q-10) 200 mg capsule, Take 200 mg by mouth in the morning., Disp: , Rfl: latanoprost 0.005 % drops, emulsion, Administer 1 drop to both eyes nightly. Instill 1 drop into both eyes at bedtime, Disp: , Rfl: LECITHIN ORAL, Take 1 capsule by mouth in the morning., Disp: , Rfl: multivit-min/ferrous fumarate (MULTI VITAMIN ORAL), Take 1 capsule by mouth in the morning., Disp: , Rfl: UNABLE TO FIND, Take 2 tablets by mouth daily. josé dong, Disp: , Rfl: ALLERGY No Known Allergies MEDICAL HISTORY Past Medical History: Diagnosis Date Arthritis Cancer ([facility]) mouth Dental disease missing teeth r/t mouth cancer, metal plate exposure right upper lip area Headache HL (hearing loss) slight Nocturia up at night PONV (postoperative nausea and vomiting) Pulmonary emboli ([facility]) 2020 Right hip pain here for surigcal work-up for right total hip replacement Varicose vein of leg Visual impairment wears corrective lenses SURGICAL HISTORY Past Surgical History: Procedure Laterality Date APPENDECTOMY 1963 BLEPHAROPLASTY Bilateral 2014 BONE GRAFT Right 11/22/2019 graft for mouth surgery from right lower leg MOUTH SURGERY Right 11/22/2019 cancer, has a plate in place REPLACEMENT TOTAL JOINT HIP ANTERIOR SUPINE INTERMUSCULAR Right 03/14/2022 Performed by Onel Foley MD at [facility] REPLACEMENT TOTAL JOINT HIP/ANTERIOR Left 12/06/2021 Performed by Onel Foley MD at [facility] SKIN LESION EXCISION SOCIAL HISTORY Social History Socioeconomic History Marital status: Spouse name: Not on file Number of children: Not on file Years of education: Not on file Highest education level: Not on file Occupational History Not on file Tobacco Use Smoking status: Never Smokeless tobacco: Never Vaping Use Vaping status: Never Used Substance and Sexual Activity Alcohol use: Not Currently Drug use: Never Sexual activity: Not Currently Partners: Female Other Topics Concern Caffeine Use Yes Social History Narrative Not on file Social Drivers of Health Financial Resource Strain: Not on file Food Insecurity: Unknown (07/03/2024) Hunger Screening Food Insecurity - Worry: Never True Food Insecurity - Inability: Not on file Transportation Needs: Not on file Physical Activity: Not on file Stress: Not on file Social Connections: Not on file Interpersonal Safety: Not on file Housing Instability: Not on file FAMILY HISTORY Family History Problem Relation Age of Onset Cancer Mother mouth Back Problems Mother Diabetes Father Other Father prostate problems Ulcers Father Colon cancer Sister REVIEW OF SYSTEMS: Constitutional: Denies fevers, denies recent illnesses. Eyes: Denies any vision changes. ENT: Denies any throat pain. Neck: Denies any neck pain. Cardiovascular denies chest pain. Denies palpitations. Respiratory: Positive history of PE; Denies shortness of breath, denies cough, denies history of asthma or any other pulmonary illnesses. Gastrointestinal: Negative for abdominal pain, nausea, melena, hematochezia, weight loss, change inbowel habits or weight loss or emesis. Genitourinary negative for dysuria hematuria urinary frequency or urgency. Musculoskeletal: Negative for extremity pains or joint discomfort. Neurologic: No change in sensation or paresthesias or history of seizure disorder skin: No rashes. Hematologic: No anemia. No purpura. No petechiae and no prolonged or excessive bleeding Allergic and immunologic: No pruritus. No swelling. Endocrine: No unexplained weight loss. No polydipsia. No polyuria. No polyphagia. PHYSICAL EXAM Constitutional: He is oriented to person, place, and time. Vital signs are normal. He appears well-developed and well-nourished. HEENT: Head: Normocephalic and atraumatic. Disfigurement of the right side of the face and mouth due to his history of surgery. Eyes: Conjunctivae, EOM and lids are normal. Neck: Trachea normal. Neck supple. No thyroid mass present. Cardiovascular: Normal rate and regular rhythm. Pulmonary/Chest: Effort normal and breath sounds normal. Abdominal: Soft. Positive left inguinal hernia reducible moderate-size. Testes descended bilaterally without masses. No other abdominal masses noted. Musculoskeletal: Normal range of motion. Lymphadenopathy: He has no cervical adenopathy. Neurological: He is alert and oriented to person, place, and time. Skin: Skin is warm, dry and intact. Psychiatric: He has a normal mood and affect. His speech is normal and behavior is normal. Cognition and memory are normal. IMPRESSION 1. Left inguinal hernia reducible 2. Screening for cancer; family history of colon cancer in sister diagnosed at age 69 3. History of head and neck cancer right maxilla? With radiation therapy 4. History of pulmonary embolism 5. History of osteoarthritis ASSESSMENT & PLAN 1. Open repair of left inguinal hernia with mesh. Risks benefits alternatives to surgery may include infection, bleeding, nerve injury, recurrence of the hernia, blood clots to legs or lungs, pneumonia, heart attack, stroke, and/or . 2.Colonoscopy with possible biopsy or polypectomy at patient's convenience ; he wishes to have hernia repair done 1st. I discussed the risks, benefits, alternatives to the above which may include perforation or bleeding or risks of anesthesia. They understood all the above and wished to proceed. I will speak with anesthesia to make sure there no problems prior to coming to the hospital. [facility] as well as an EKG which were all normal. I recommend those bescanned into the chart still they do not need to be repeated. He and his have a vacation scheduled for a cabin in [place] on July 28. He should still be able to make that if we do surgery next week. After surgery no lifting greater than 5-10 lb for 6weeks stool softener twice daily and no driving for week to 10 days until rechecked in the office. They voiced understanding of all the above and wished to proceed. Evaluation included: Preparing to see the patient (e.g., review of tests) Obtaining and/or reviewing separately obtained history Performing a medically appropriate examination and/or evaluation Counseling and educating the patient/family/caregiver Referring and communicating with other health director of managed care Left inguinal hernia [K40.90] Rajeev Jones DO This note was created with the assistance of a speech recognition program. While intending to generate a timely document that accurately reflects the content of the visit, no guarantee can be provided that every grammatical or spelling mistake has been or will be identified or corrected. Thank you for your understanding. documented in this encounterEast Liverpool City HospitalIn The [employer] Communications [facility] [id number] NoteGeneral Surgery Office/Clinic Note Chief Complaint consultation for colonoscopy and possible LIH HPI Staff 78 year old male presents on consultation from Dr. Fitzgerald for screening colonoscopy and possible left inguinal hernia. Denies abdominal or rectal pain. No rectal bleeding or change in bowel habits. Denies nausea or vomiting. No unexplained weight loss. Never had colonoscopy in the past. Sister with history of colon cancer, diagnosed age 69. Reports noting left inguinal discomfort and swelling approximately 3 weeks ago. Verbalized discomfort and swelling are intermittent. No imaging completed. History of Present Illness 78 yo male with h/o DVT/PE, PVD, malignant neoplasm of head/neck, lumbar radiculopathy, trigeminal neuralgia; referred for screening colonoscopy and left inguinal discomfort/swelling; patient reports1 month h/o swelling in left groin, worse at end of day, resolves with lying down; no skin changes,some discomfort/pressure; no N/V; no bowel changes; no blood in stools; may have begun after straining for hard bm; abd operations significant for remote open appendectomy; no previous colonoscopy; on baby asa daily, no NSAID use; no tobacco use; fmhx of colon cancer in patient's sister, dx at age 69; no fmhx o IBD. Review of Systems PHQ Score Initial Depression Screen Score: 0 SCORE ROS - Provider Constitutional: no fever, no sweats, no weight loss. Eyes: no glasses, no blurred vision, no visual loss. ENMT: no dentures, no hoarseness, no swallowing difficulties, no hearing loss, no ear infection(s),no nose bleeds. Cardiovascular: normal blood pressure, no chest pain, regular heartbeat, no heart murmur. Respiratory: no shortness of breath, no cough, no asthma, no wheezing. Gastrointestinal: no nausea, no vomiting, no diarrhea, no constipation, no blood in stool, no change in bowel habits, no abdominal pain, no hepatitis. Genitourinary: no kidney stones, no urine infection, no dysuria. Musculoskeletal: no pain, no weakness. Skin: no changing moles, no rash, no skin lumps. Neurologic: no seizures, no epilepsy, no headache. Psychiatric: no emotional or psychiatric problem. Heme/Lymph: no bleeding problems, no anemia, no blood clots, no transfusions. Allergy/Immunologic: no swollen lymph nodes/glands, no IV drug abuse. Other: Additional ROS info: Except as noted in the above Review of Systems and in the History of Present Illness, all other systems have been reviewed and are negative or noncontributory. Physical Exam Vitals & Measurements HR: 85(Peripheral) RR: 16 BP: 136/90 HT: 73 in HT: 185.4 cm WT: 78.7 kg WT: 173.14 lb BMI: 22.9 HEENT: normal conjunctiva, sclera clear, no scleral icterus, EOM intact, PERRLA, oral mucosa moist without lesions. right fascial reconstruction Neck: trachea midline, no mass, symmetric, no thyromegaly or nodules, no adenopathy; trach scar Respiratory: lungs CTA, respirations non labored. Cardiovascular: regular rate and rhythm, no murmur, no pedal edema or varicosities. Gastrointestinal: soft, non distended, no tenderness, well-healed RLQ scar no masses, reducible right inguinal hernia, nontender, no skin changes; diastasis recti no, no hepatosplenomegaly; normal bs Lymphatic: no cervical adenopathy, no supraclavicular adenopathy, no inguinal adenopathy. Musculoskeletal: normal gait, digits and nails without infection, nodes, cyanosis, clubbing. Skin: no rashes, no lesions, no ulcers, no subcutaneous nodules, induration. Psychiatric/Neuro: oriented to time, place, person, judgement normal, affect appropriate for age, insight intact, no focal deficits. Tests: , review of old records completed , Discussed surgical options, risks, and possible complications with patient Assessment/Plan 1. Screening for malignant neoplasm of colon (Z12.11: Encounter for screening for malignant neoplasm of colon) plan colonoscopy under anesthesia at [facility], informed consent obtained. 2. Reducible left inguinal hernia (K40.90: Unilateral inguinal hernia, without obstruction or gangrene, not specified as recurrent) after colonoscopy, proceed with LIHR with mesh insertion, informed consent obtained. Ancef 2 gms IV prior to OR TAP block per anesthesia SCDs Follow-up No qualifying data available Problem List/Past Medical History Ongoing Family history of colon cancer Glaucoma Hearing loss History of DVT (deep vein thrombosis) History of malignant neoplasm of head and/or neck Lumbar radiculopathy Mood disorder Nodule of lung Pulmonary embolism PVD (peripheral vascular disease) Reducible left inguinal hernia Screening for malignant neoplasm of colon Trigeminal neuralgia Historical No qualifying data Procedure/Surgical History Appendectomy, Arthroplasty of left hip, Arthroplasty of right hip, Debridement, Debulking, Graft ofskin, Tracheostomy, Wedge excision. Medications aspirin 81 mg Oral EC Tab, 81 mg= 1 tab(s), Oral, Daily latanoprost 0.005% ophthalm (more content not included)...[facility]field HospitalComment on above:Result Comment: Electronically Signed By: GERMANIA FLORES, Rajeev Lawrence\Date and Time Signed: 06/07/24 16:01 [id number] History of Present illness Narrative* Amanda Reynolds MD - 02/07/2024 1:30 PM EDT HPI: Lilly Argueta is a 78 y.o. 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 Patient had an area of exposed hardware on his right cheek and is s/p removal of R maxillary hardware and previous FFF, R neck exploration, L ALT on 05/27/22. He then underwent wedge excision and debulking of right cheek flap 02/24/23. He presents to clinic for scheduled follow up. Well healed and happy with obturator. Doing well, tolerating regular diet, no concerns. Nursing documentation has been reviewed. Past Medical History: Diagnosis Date History of head and neck radiation History of pulmonary embolism 11/2019 Post-operative DVT/PE in November 2019. Treated with Eliquis; discontinued by PCP in May 2020. 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 History of tracheostomy Past Surgical History: Procedure Laterality Date EXCISION LESION SOFT TISSUE FACE SCALP Right 02/24/2023 Laterality: Right; Surgeon: Bboo Davidson MD; Location: [facility] OR REMOVAL HARDWARE Right 05/27/2022 Laterality: Right; Surgeon: Bobo Davidson MD; Location: [facility] OR EXPLORATION TRAUMATIC WOUND NECK N/A 05/27/2022 Laterality: N/A; Surgeon: Bobo Davidson MD; Location: [facility] OR LARYNGOSCOPY DIRECT DIAGNOSTIC N/A 05/27/2022 Laterality: N/A; Surgeon: Bobo Davidson MD; Location: [facility] OR ESOPHAGOSCOPY DIAGNOSTIC N/A 05/27/2022 Laterality: N/A; Surgeon: Bobo Davidson MD; Location: [facility] OR TRACHEOSTOMY N/A 05/27/2022 Laterality: N/A; Surgeon: Bobo Davidson MD; Location: [facility] OR FLAP FREE ANTEROLATERAL THIGH (ALT) SKIN N/A 05/27/2022 Laterality: N/A; Surgeon: Ifrah Cesar MD; Location: [facility] OR DEBRIDEMENT BONE N/A 06/08/2020 Laterality: N/A; Surgeon: Bobo Davidson MD; Location: [facility] OR PLACEMENT TUBE NASO-/LIANG-GASTRIC N/A 06/08/2020 Laterality: N/A; Surgeon: Bobo Davidson MD; Location: [facility] OR LARYNGOSCOPY DIRECT DIAGNOSTIC N/A 11/22/2019 Laterality: N/A; Surgeon: Bobo Davidson MD; Location: [facility] OR ESOPHAGOSCOPY DIAGNOSTIC N/A 11/22/2019 Laterality: N/A; Surgeon: Bobo Davidson MD; Location: [facility] OR MAXILLECTOMY W/O ORBITAL EXENTERATION Right 11/22/2019 Laterality: Right; Surgeon: Bobo Davidson MD; Location: [facility] OR LYMPHADENECTOMY CERVICAL (MODIFIED RADICAL NECK DISSECTION) Right 11/22/2019 Laterality: Right; Surgeon: Bobo Davidson MD; Location: [facility] TRACHEOSTOMY N/A 11/22/2019 Laterality: N/A; Surgeon: Bobo Davidson MD; Location: [facility] EXTRACTION TOOTH N/A 11/22/2019 Laterality: N/A; Surgeon: Bobo Davidson MD; Location: [facility] OR PLACEMENT TUBE NASO-/LIANG-GASTRIC N/A 11/22/2019 Laterality: N/A; Surgeon: Bobo Davidson MD; Location: [facility] FLAP FREE BONE W/ MICROVASCULAR ANASTOMOSIS FIBULA N/A 11/22/2019 Laterality: N/A; Surgeon: Joao Burch MD; Location: [facility] FLAP FREE RADIAL FOREARM FASCIAL Left 11/22/2019 Laterality: Left; Surgeon: Joao Burch MD; Location: [facility] OR APPENDECTOMY LIGATION OR 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 Current Outpatient Medications Medication Sig Dispense Refill Artificial Tear Ointment (DRY EYES OP) Apply to eye as needed. aspirin 81 MG Chew Tab chewable tablet Chew 1 tablet at bedtime. Calcium Acetate-Magnesium Carb 450-200 MG tablet Take 1 tablet by mouth at bedtime. [place] 450 MG capsule Take by mouth daily every morning. cholecalciferol 25 MCG (1000 UNIT) tablet Take 1 tablet by mouth daily every morning. STOPPED TAKING ON 02/18/23 FOR SURGERY. Chromium Picolinate (CHROMIUM PICOLATE PO) Take by mouth daily every morning. Ibuprofen 200 MG tablet Take 1 tablet by mouth as needed for Mild Pain. Multiple Vitamin (multivitamin) capsule Take 1 capsule by mouth 2 times daily. oxycodone 5 MG capsule Take 1 capsule by mouth every 4 hours as needed for moderate or severe pain for up to 3 days. 10 capsule 0 petrolatum Ointment ophthalmic ointment Apply 1 Application to right eye at bedtime. (Patient not taking: Reported on 03/08/2023) 3.5 g 0 Polyvinyl Alcohol-Povidone PF 1.4-0.6 % Solution ophthalmic solution Place 2 drops in right eye 4 times daily. (Patient not taking: Reported on 08/02/2023) 30 Each 1 SODIUM FLUORIDE, DENTAL GEL, 1.1 % Gel Apply 3-4 drops of gel directly to teeth. Do Not eat or drink for 30min. Once daily at bedtime. Fruit flavor 56 g 12 vitamin E 400 units capsule Take 1 capsule by mouth 2 times daily. (Patient not taking: Reported on03/08/2023) 60 capsule 0 No current facility-administered medications for this visit. No Known Allergies Exam: Smoking Status Never Documented vital signs from today's visit reviewed. Physical exam including head and neck examination of the oral cavity, oropharynx, larynx, and hypopharynx including indirect mirror exam as well asinspection and palpation of the face, parotid and neck is remarkable for findings consistent with posttreatment postoperative changes and negative for new lesions, masses or lymphadenopathy. Intraoral flap well healed Less bulky in appearance. Impression/Plan: Mr. Argueta has a history of T4a N0 SCC Right maxilla s/p maxillectomy, neck dissection, fibula flap, and adjuvant radiation 2020 now s/p surgery and flap for exposed hardware. S/p wedge excision anddebulking of right cheek flap 02/24/23. GURMEET on exam today, will plan to see him back in 1 year for surveillance visit or sooner if needed. Attending Physician Note I independently interviewed, examined and formulated the medical decision making. Details of my interview, examination findings, and medical decision- making confirmed the findings below. I have personally amended the below documentation where appropriate. [facility] Instructions* Patient Instructions* Lorena Duran RN - 02/07/2024 1:30 PM EDT Please call Dr. Davidson's nurse, Lorena, at [phone] if you notice any new lumps in head or neck, new onset of difficulty with swallowing, persistent ear pain, hoarseness or new pain in head and neckthat does not go away for 2 weeks. documented in this encounterSelect [facility] [place]-15-[facility]23 History of Present illness Narrative* Issa Arellanos - 08/02/2023 4:00 PM EST Patient check-in for Dr. Lucio. Vital signs transferred from [facility]. No Falls as reported by patient. No pain as reported by patient. No changes in medications or allergies as reported by patient. No changes to pharmacy location as reported by patient. Patient in company with: Jerson All patient information reviewed & discussed with Dr. Lucio. Issa Trevizo, DA III * Nell D Naveed, DMD - 08/02/2023 4:00 PM EST Images from the original note were not included. [facility] Lilly Argueta is 78 y.o. 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 Most recently he is s/p debridement and A-cell placement on 06/08/20. Completed RT locally and developed ORN with exposed fibula and exposed hardware in the right cheek, now s/p R maxillary hardware and previous FFF, R neck exploration, L ALT on 05/27/22. He presents for FOLLOW-UP: Adjustments to metal framework maxillary resection prosthesis Chief Complaint Patient presents in company of his Jerson. Overall, he is doing well. He complains of biting onthe metal in the left side, mild but can feel it. Medical History Past Medical History: Diagnosis Date History of head and neck radiation History of pulmonary embolism 11/2019 Post-operative DVT/PE in November 2019. Treated with Eliquis; discontinued by PCP in May 2020. 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 History of tracheostomy Surgical History Past Surgical History: Procedure Laterality Date EXCISION LESION SOFT TISSUE FACE SCALP Right 02/24/2023 Laterality: Right; Surgeon: Bobo Davidson MD; Location: [facility] OR REMOVAL HARDWARE Right 05/27/2022 Laterality: Right; Surgeon: Bobo Davidson MD; Location: [facility] OR EXPLORATION TRAUMATIC WOUND NECK N/A 05/27/2022 Laterality: N/A; Surgeon: Bobo Davidson MD; Location: [facility] OR LARYNGOSCOPY DIRECT DIAGNOSTIC N/A 05/27/2022 Laterality: N/A; Surgeon: Bobo Davidson MD; Location: [facility] OR ESOPHAGOSCOPY DIAGNOSTIC N/A 05/27/2022 Laterality: N/A; Surgeon: Bobo Davidson MD; Location: [facility] TRACHEOSTOMY N/A 05/27/2022 Laterality: N/A; Surgeon: Bobo Davidson MD; Location: [facility] OR FLAP FREE ANTEROLATERAL THIGH (ALT) SKIN N/A 05/27/2022 Laterality: N/A; Surgeon: Ifrah Cesar MD; Location: [facility] DEBRIDEMENT BONE N/A 06/08/2020 Laterality: N/A; Surgeon: Bobo Davidson MD; Location: [facility] PLACEMENT TUBE NASO-/LIANG-GASTRIC N/A 06/08/2020 Laterality: N/A; Surgeon: Bobo Davidson MD; Location: [facility] OR LARYNGOSCOPY DIRECT DIAGNOSTIC N/A 11/22/2019 Laterality: N/A; Surgeon: Bobo Davidson MD; Location: [facility] OR ESOPHAGOSCOPY DIAGNOSTIC N/A 11/22/2019 Laterality: N/A; Surgeon: Bobo Davidson MD; Location: [facility] MAXILLECTOMY W/O ORBITAL EXENTERATION Right 11/22/2019 Laterality: Right; Surgeon: Bobo Davidson MD; Location: [facility] OR LYMPHADENECTOMY CERVICAL (MODIFIED RADICAL NECK DISSECTION) Right 11/22/2019 Laterality: Right; Surgeon: Bobo Davidson MD; Location: [facility] TRACHEOSTOMY N/A 11/22/2019 Laterality: N/A; Surgeon: Bobo Davidson MD; Location: [facility] EXTRACTION TOOTH N/A 11/22/2019 Laterality: N/A; Surgeon: Bobo Daivdson MD; Location: [facility] OR PLACEMENT TUBE NASO-/LIANG-GASTRIC N/A 11/22/2019 Laterality: N/A; Surgeon: Bobo Davidson MD; Location: [facility] OR FLAP FREE BONE W/ MICROVASCULAR ANASTOMOSIS FIBULA N/A 11/22/2019 Laterality: N/A; Surgeon: Joao Burch MD; Location: [facility] FLAP FREE RADIAL FOREARM FASCIAL Left 11/22/2019 Laterality: Left; Surgeon: Joao Burch MD; Location: [facility] MA[facility] OR APPENDECTOMY LIGATION OR 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 Social History Social History Socioeconomic History Marital status: Spouse name: Not on file Number of children: Not on file Years of education: Not on file Highest education level: Not on file Occupational History Not on file Tobacco Use Smoking status: Never Smokeless tobacco: Never Vaping Use Vaping status: Never Used Substance and Sexual Activity Alcohol use: Not Currently Drug use: Not Currently Sexual activity: Not on file Other Topics Concern Not on file Social History Narrative Not on file Social Determinants of Health Financial Resource Strain: Not on file Food Insecurity: Not on file Transportation Needs: Not on file Physical Activity: Not on file Stress: Not on file Social Connections: Not on file Intimate Partner Violence: Not on file Housing Stability: Not on file Current Medications Current Outpatient Medications Medication Sig Artificial Tear Ointment (DRY EYES OP) Apply to eye as needed. aspirin 81 MG Chew Tab chewable tablet Chew 1 tablet at bedtime. Calcium Acetate-Magnesium Carb 450-200 MG tablet Take 1 tablet by mouth at bedtime. Cascara [place] 450 MG capsule Take by mouth daily every morning. cholecalciferol 25 MCG (1000 UNIT) tablet Take 1 tablet by mouth daily every morning. STOPPED TAKING ON 02/18/23 FOR SURGERY. Chromium Picolinate (CHROMIUM PICOLATE PO) Take by mouth daily every morning. Ibuprofen 200 MG tablet Take 1 tablet by mouth as needed for Mild Pain. Multiple Vitamin (multivitamin) capsule Take 1 capsule by mouth 2 times daily. oxycodone 5 MG capsule Take 1 capsule by mouth every 4 hours as needed for moderate or severe pain for up to 3 days. petrolatum Ointment ophthalmic ointment Apply 1 Application to right eye at bedtime. Polyvinyl Alcohol-Povidone PF 1.4-0.6 % Solution ophthalmic solution Place 2 drops in right eye 4 times daily. SODIUM FLUORIDE, DENTAL GEL, 1.1 % Gel Apply 3-4 drops of gel directly to teeth. Do Not eat or drink for 30min. Once daily at bedtime. Fruit flavor vitamin E 400 units capsule Take 1 capsule by mouth 2 times daily. 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 Yes S/P flap graft S/P radiation therapy Prosthesis adjustment Chemo/Radiation Patient completed adjuvant radiation locally due to the COVID-19 pandemia. No systemic therapy. Radiation Oncologist: Galo Domínguez MD in [facility]. CT simulation was done 12/26/19 and a custom MOTD radiation stent was used. Examination Vitals Blood pressure 146/82, pulse 77, temperature 97.1 F (36.2 C), temperature source Temporal, resp. rate 16, weight 81.9 kg (180 lb 9.6 oz), SpO2 99%. Documented vital signs above from today's visit reviewed. Reviewed medications. Evaluation includedthe face, lip and oral cavity, lip, tongue, floor of mouth, hard palate, soft palate and revealed well healed ALT free flap in the right face and right maxilla. Assessment Lilly Argueta presents for adjustments to metal framework maxillary resection prosthesis. He had a take down of the failed right FFF and now is s/p ALT free flap. He is feeling well and is eating by mouth but is esthetically concerned about his missing teeth and the appearance of the flapon his right cheek. Clinical exam reveals a well healed ALT free flap and limited prosthetic space.Recommended to make him a removable resection prosthesis. On 03/08/23, I delivered an all acrylic prosthesis. On 05/16/23, I delivered a metal framework prosthesis. Today I am doing adjustments. He complains of biting on the metal in the left canine. He likes the metal framework prosthesis better than the all acrylic. In our prior dental appt, I removed the backmolar #3 per his request to reduce the bulkiness. I also made the palate thinner. Also adjusted theback premolar #4 buccal cusp to make it straight. Today I used articulating paper to check the occlusion in the left side. Adjusted the metal framework on left maxillary premolar #12 and the enamel on the left mandibular canine until the occlusion was felt normal and not biting in the metal anymore. I also thinned out the palate as he requested. He felt it much better. Denture teeth shade A4 matches his natural maxillary teeth very well. He needs to return for follow-up Plan of Care Pre-radiation Fabrication of MOTD stent (DONE) Fabrication of fluoride trays (DONE) Jaw opening exercises to prevent trismus Post-radiation Keep established with a local Dentist Periodic oral evaluation every 3 months for the first year after completion of radiation, then if compliant can be changed to every 6 months Indefinite fluoride therapy to prevent caries,preferred method: 0.4% stannous fluoride in custom made carriers Jaw opening exercises to maintain mouth opening Treatment/Procedures performed today: Adjustments to metal framework maxillary resection prosthesis Total time spent face to face with the patient today: 60 minutes, with over 50% of the face to facetime used for counseling or coordinating patient s care, not including the procedure. Disposition: Return for F/U in January 2024. 10/26/22 RADIOGRAPHIC EXAM: Post-op Thank you for allowing me to participate in the care of Mr. Argueta Please feel free to contact me if you have any questions or concerns. Nell Lucio DMD Cell Installer [facility] CenterShayna W [address] [place] [address], [address]th floor, [place], [address] Office / [phone] Fax [email or web address] documented in this encounterSelect [facility] [place]11-15-2023 Instructions* Patient Instructions* Nell Lucio DMD - 08/02/2023 4:00 PM EST Today you have seen Dr. Lucio for follow-up on maxillary resection prosthesis. She adjusted the metal on the premolar #12 and adjusted the bite on the mandibular canine #22. She also thinned out the palate as you requested. Next visit: Follow-up and adjustments in January 2024 in coordination with Rolanda jones. Ismael us if you feel like you need to be seen sooner. The prosthesis is stable. documented in this encounterOS[facility] History of Present illness Narrative* Rolanda Ignacio, PAC - 08/02/2023 3:00 PM EST HPI: Lilly Argueta is a 77 y.o. 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 Patient had an area of exposed hardware on his right cheek and is now s/p removal of R maxillary hardware and previous FFF, R neck exploration, L ALT on 05/27/22. He presents to clinic for scheduled post op visit. He is now s/p wedge excision and debulking of right cheek flap. Well healed and happy with cosmesis. Happy with obturator as well and following withDr. Lucio for adjustments. Nursing documentation has been reviewed. Past Medical History: Diagnosis Date History of head and neck radiation History of pulmonary embolism 11/2019 Post-operative DVT/PE in November 2019. Treated with Eliquis; discontinued by PCP in May 2020. 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 History of tracheostomy Past Surgical History: Procedure Laterality Date EXCISION LESION SOFT TISSUE FACE SCALP Right 02/24/2023 Laterality: Right; Surgeon: Bobo Davidson MD; Location[facility] REMOVAL HARDWARE Right 05/27/2022 Laterality: Right; Surgeon: Bobo Davidson MD; Location: [facility] EXPLORATION TRAUMATIC WOUND NECK N/A 05/27/2022 Laterality: N/A; Surgeon: Bobo Davidson MD; Location: [facility] OR LARYNGOSCOPY DIRECT DIAGNOSTIC N/A 05/27/2022 Laterality: N/A; Surgeon: Bobo Davidson MD; Location: [facility] OR ESOPHAGOSCOPY DIAGNOSTIC N/A 05/27/2022 Laterality: N/A; Surgeon: Bobo Davidson MD; Location: [facility] OR TRACHEOSTOMY N/A 05/27/2022 Laterality: N/A; Surgeon: Bobo Davidson MD; Location: [facility] OR FLAP FREE ANTEROLATERAL THIGH (ALT) SKIN N/A 05/27/2022 Laterality: N/A; Surgeon: Ifrah Cesar MD; Location: [facility] OR DEBRIDEMENT BONE N/A 06/08/2020 Laterality: N/A; Surgeon: Bobo Davidson MD; Location: [facility] OR PLACEMENT TUBE NASO-/LIANG-GASTRIC N/A 06/08/2020 Laterality: N/A; Surgeon: Bobo Davidson MD; Location: [facility] OR LARYNGOSCOPY DIRECT DIAGNOSTIC N/A 11/22/2019 Laterality: N/A; Surgeon: Bobo Davidson MD; Location: [facility] OR ESOPHAGOSCOPY DIAGNOSTIC N/A 11/22/2019 Laterality: N/A; Surgeon: Bobo Davidson MD; Location: [facility] OR MAXILLECTOMY W/O ORBITAL EXENTERATION Right 11/22/2019 Laterality: Right; Surgeon: Bobo Davidson MD; Location: [facility] OR LYMPHADENECTOMY CERVICAL (MODIFIED RADICAL NECK DISSECTION) Right 11/22/2019 Laterality: Right; Surgeon: Bobo Davidson MD; Location: [facility] OR TRACHEOSTOMY N/A 11/22/2019 Laterality: N/A; Surgeon: Bobo Davidson MD; Location: [facility] OR EXTRACTION TOOTH N/A 11/22/2019 Laterality: N/A; Surgeon: Bobo Davidson MD; Location: [facility] OR PLACEMENT TUBE NASO-/LIANG-GASTRIC N/A 11/22/2019 Laterality: N/A; Surgeon: Bobo Davidson MD; Location: [facility] OR FLAP FREE BONE W/ MICROVASCULAR ANASTOMOSIS FIBULA N/A 11/22/2019 Laterality: N/A; Surgeon: Joao Burch MD; Location: [facility] OR FLAP FREE RADIAL FOREARM FASCIAL Left 11/22/2019 Laterality: Left; Surgeon: Joao Burch MD; Location: [facility] OR APPENDECTOMY LIGATION OR 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 Current Outpatient Medications Medication Sig Dispense Refill Artificial Tear Ointment (DRY EYES OP) Apply to eye as needed. aspirin 81 MG Chew Tab chewable tablet Chew 1 tablet at bedtime. Calcium Acetate-Magnesium Carb 450-200 MG tablet Take 1 tablet by mouth at bedtime. Cascara [place]rada 450 MG capsule Take by mouth daily every morning. cholecalciferol 25 MCG (1000 UNIT) tablet Take 1 tablet by mouth daily every morning. STOPPED TAKING ON 02/18/23 FOR SURGERY. Chromium Picolinate (CHROMIUM PICOLATE PO) Take by mouth daily every morning. Ibuprofen 200 MG tablet Take 1 tablet by mouth as needed for Mild Pain. Multiple Vitamin (multivitamin) capsule Take 1 capsule by mouth 2 times daily. SODIUM FLUORIDE, DENTAL GEL, 1.1 % Gel Apply 3-4 drops of gel directly to teeth. Do Not eat or drink for 30min. Once daily at bedtime. Fruit flavor 56 g 12 oxycodone 5 MG capsule Take 1 capsule by mouth every 4 hours as needed for moderate or severe pain for up to 3 days. 10 capsule 0 petrolatum Ointment ophthalmic ointment Apply 1 Application to right eye at bedtime. (Patient not taking: Reported on 03/08/2023) 3.5 g 0 Polyvinyl Alcohol-Povidone PF 1.4-0.6 % Solution ophthalmic solution Place 2 drops in right eye 4 times daily. (Patient not taking: Reported on 08/02/2023) 30 Each 1 vitamin E 400 units capsule Take 1 capsule by mouth 2 times daily. (Patient not taking: Reported on03/08/2023) 60 capsule 0 No current facility-administered medications for this visit. No Known Allergies Exam: BP 146/82 (BP Location: Right arm, BP Position: Sitting) Pulse 77 Temp 97.1 F (36.2 C) (Temporal) Resp 16 Wt 81.8 kg (180 lb 6.4 oz) SpO2 99% BMI 23.80 kg/m Smoking Status Never Documented vital signs from today's visit reviewed. Physical exam including head and neck examination of the oral cavity, oropharynx, larynx, and hypopharynx including indirect mirror exam as well asinspection and palpation of the face, parotid and neck is remarkable for findings consistent with posttreatment postoperative changes and negative for new lesions, masses or lymphadenopathy. Oral cavity exam reveals Flap viable and healing well. Less bulky in appearance. Well healed intraorally. Impression/Plan: Mr. Argueta has a history of T4a N0 SCC Right maxilla s/p maxillectomy, neck dissection, fibula flap, and adjuvant radiation 2020 now s/p surgery and flap for exposed hardware. S/p wedge excision anddebulking of right cheek flap 02/24/23. GURMEET on exam today, will plan to see him back in 6 month for surveillance visit or sooner if needed. * Bobo Davidson MD - 08/02/2023 3:00 PM EST Attending Physician Note I independently interviewed, examined and formulated the medical decision making. Details of my interview, examination findings, and medical decision- making confirmed the findings above. I have personally amended the below documentation where appropriate. I saw this patient with Rolanda Ignacio and pe rsonally wrote the impression and plan. Impression/Plan: Doing well, no evidence of disease. Continue tumor surveillance. documented in this encounterOS[facility] Instructions* Patient Instructions* Lorena Duran RN - 08/02/2023 3:00 PM EST Please call Dr. Davidson's nurse, Lorena, at [phone] if you notice any new lumps in head or neck, new onset of difficulty with swallowing, persistent ear pain, hoarseness or new pain in head and neckthat does not go away for 2 weeks. For covid vaccine call [phone] ([phone]). documented in this encounterOSU [facility]10-06-[facility] History of Present illness Narrative* Issa Trevizo - 06/23/2023 10:30 AM EDT Patient check-in for Dr. Lucio. Vital signs completed see vitals tab. No Falls as reported by patient. No pain as reported by patient. No changes in medications or allergies as reported by patient. No changes to pharmacy location as reported by patient. Patient in company with: jerson All patient information reviewed & discussed with Dr. Lucio. EVANGELISTA Jaimes III * Nell Lucio, DMD - 06/23/2023 10:30 AM EDT Images from the original note were not included. [facility] Lilly Argueta is 78 y.o. 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 Most recently he is s/p debridement and A-cell placement on 06/08/20. Completed RT locally and developed ORN with exposed fibula and exposed hardware in the right cheek, now s/p R maxillary hardware and previous FFF, R neck exploration, L ALT on 05/27/22. He presents for FOLLOW-UP: Adjustments to metal framework maxillary resection prosthesis Chief Complaint Patient presents in company of his Jerson. Overall, he is doing well. He complains of feeling the prosthesis is still bulky. Medical History Past Medical History: Diagnosis Date History of head and neck radiation History of pulmonary embolism 11/2019 Post-operative DVT/PE in November 2019. Treated with Eliquis; discontinued by PCP in May 2020. 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 History of tracheostomy Surgical History Past Surgical History: Procedure Laterality Date EXCISION LESION SOFT TISSUE FACE SCALP Right 02/24/2023 Laterality: Right; Surgeon: Bobo Davidson MD; Location: [facility] REMOVAL HARDWARE Right 05/27/2022 Laterality: Right; Surgeon: Bobo Davidson MD; Location: [facility] EXPLORATION TRAUMATIC WOUND NECK N/A 05/27/2022 Laterality: N/A; Surgeon: Bobo Davidson MD; Location: [facility] OR LARYNGOSCOPY DIRECT DIAGNOSTIC N/A 05/27/2022 Laterality: N/A; Surgeon: Bobo Davidson MD; Location: [facility] OR ESOPHAGOSCOPY DIAGNOSTIC N/A 05/27/2022 Laterality: N/A; Surgeon: Bobo Davidson MD; Location: [facility] TRACHEOSTOMY N/A 05/27/2022 Laterality: N/A; Surgeon: Bobo Davidson MD; Location: [facility] OR FLAP FREE ANTEROLATERAL THIGH (ALT) SKIN N/A 05/27/2022 Laterality: N/A; Surgeon: Ifrah Cesar MD; Location: [facility] DEBRIDEMENT BONE N/A 06/08/2020 Laterality: N/A; Surgeon: Bobo Davidson MD; Location: [facility] OR PLACEMENT TUBE NASO-/LIANG-GASTRIC N/A 06/08/2020 Laterality: N/A; Surgeon: Bobo Davidson MD; Location: [facility] OR LARYNGOSCOPY DIRECT DIAGNOSTIC N/A 11/22/2019 Laterality: N/A; Surgeon: Bobo Davidson MD; Location: [facility] OR ESOPHAGOSCOPY DIAGNOSTIC N/A 11/22/2019 Laterality: N/A; Surgeon: Bobo Davidson MD; Location: [facility] OR MAXILLECTOMY W/O ORBITAL EXENTERATION Right 11/22/2019 Laterality: Right; Surgeon: Bobo Davidson MD; Location: [facility] OR LYMPHADENECTOMY CERVICAL (MODIFIED RADICAL NECK DISSECTION) Right 11/22/2019 Laterality: Right; Surgeon: Bobo Davidson MD; Location: [facility] OR TRACHEOSTOMY N/A 11/22/2019 Laterality: N/A; Surgeon: Bobo Davidson MD; Location: [facility] OR EXTRACTION TOOTH N/A 11/22/2019 Laterality: N/A; Surgeon: Bobo Davidson MD; Location: [facility] OR PLACEMENT TUBE NASO-/LIANG-GASTRIC N/A 11/22/2019 Laterality: N/A; Surgeon: Bobo Davidson MD; Location: [facility] OR FLAP FREE BONE W/ MICROVASCULAR ANASTOMOSIS FIBULA N/A 11/22/2019 Laterality: N/A; Surgeon: Joao Burch MD; Location: [facility] OR FLAP FREE RADIAL FOREARM FASCIAL Left 11/22/2019 Laterality: Left; Surgeon: Joao Burch MD; Location: [facility] OR APPENDECTOMY LIGATION OR 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 Social History Social History Socioeconomic History Marital status: Spouse name: Not on file Number of children: Not on file Years of education: Not on file Highest education level: Not on file Occupational History Not on file Tobacco Use Smoking status: Never Smokeless tobacco: Never Vaping Use Vaping status: Never Used Substance and Sexual Activity Alcohol use: Not Currently Drug use: Not Currently Sexual activity: Not on file Other Topics Concern Not on file Social History Narrative Not on file Social Determinants of Health Financial Resource Strain: Not on file Food Insecurity: Not on file Transportation Needs: Not on file Physical Activity: Not on file Stress: Not on file Social Connections: Not on file Intimate Partner Violence: Not on file Housing Stability: Not on file Current Medications Current Outpatient Medications Medication Sig Artificial Tear Ointment (DRY EYES OP) Apply to eye as needed. aspirin 81 MG Chew Tab chewable tablet Chew 1 tablet at bedtime. Calcium Acetate-Magnesium Carb 450-200 MG tablet Take 1 tablet by mouth at bedtime. Cascara Sagrada 450 MG capsule Take by mouth daily every morning. cholecalciferol 25 MCG (1000 UNIT) tablet Take 1 tablet by mouth daily every morning. STOPPED TAKING ON 02/18/23 FOR SURGERY. Chromium Picolinate (CHROMIUM PICOLATE PO) Take by mouth daily every morning. Ibuprofen 200 MG tablet Take 1 tablet by mouth as needed for Mild Pain. Multiple Vitamin (multivitamin) capsule Take 1 capsule by mouth 2 times daily. oxycodone 5 MG capsule Take 1 capsule by mouth every 4 hours as needed for moderate or severe pain for up to 3 days. petrolatum Ointment ophthalmic ointment Apply 1 Application to right eye at bedtime. Polyvinyl Alcohol-Povidone PF 1.4-0.6 % Solution ophthalmic solution Place 2 drops in right eye 4 times daily. SODIUM FLUORIDE, DENTAL GEL, 1.1 % Gel Apply 3-4 drops of gel directly to teeth. Do Not eat or drink for 30min. Once daily at bedtime. Fruit flavor vitamin E 400 units capsule Take 1 capsule by mouth 2 times daily. 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 No systemic therapy. Radiation Oncologist: Galo Domínguez MD in [facility] which [facility] of [facility]. CT simulation was done 12/26/19 and a custom MOTD radiation stent was used. Examination Vitals Blood pressure 135/76, pulse 65, temperature 97.7 F (36.5 C), temperature source Temporal, resp. rate 16, weight 81.2 kg (179 lb), SpO2 99%. Documented vital signs above from today's visit reviewed. Reviewed medications. Evaluation includedthe face, lip and oral cavity, lip, tongue, floor of mouth, hard palate, soft palate and revealed well healed ALT free flap in the right face and right maxilla. Assessment Lilly Argueta presents for adjustments to metal framework maxillary resection prosthesis. He had a take down of the failed right FFF and now is s/p ALT free flap. He is feeling well and is eating by mouth but is esthetically concerned about his missing teeth and the appearance of the flapon his right cheek. Clinical exam reveals a well healed ALT free flap and limited prosthetic space.Recommended to make him a removable resection prosthesis. On 03/08/23, I delivered an all acrylic prosthesis. On 05/16/23, I delivered a metal framework prosthesis. Today I am doing adjustments. He complains of prosthesis still too bulky. He likes the metal framework prosthesis better than the all acrylic. PIP paste used to check the pressure over the flap tissues. Adjusted the areas of excess pressure. The palatal contours in the dre surface was adjusted toprovide more room to his tongue. I also removed the back molar #3 per his request to reduce the bulkiness. I also made the palate thinner. Also adjusted the back premolar #4 buccal cusp to make it straight. He felt it much better. Denture teeth shade A4 matches his natural maxillary teeth very well. He needs to return for follow- up i Plan of Care Pre-radiation Fabrication of MOTD stent (DONE) Fabrication of fluoride trays (DONE) Jaw opening exercises to prevent trismus Post-radiation Keep established with a local Dentist Periodic oral evaluation every 3 months for the first year after completion of radiation, then if compliant can be changed to every 6 months Indefinite fluoride therapy to prevent caries,preferred method: 0.4% stannous fluoride in custom made carriers Jaw opening exercises to maintain mouth opening Treatment/Procedures performed today: Adjustments to metal framework maxillary resection prosthesis Total time spent face to face with the patient today: 60 minutes, with over 50% of the face to facetime used for counseling or coordinating patient s care, not including the procedure. Disposition: Return for F/U on maxillary prosthesis. 10/26/22 RADIOGRAPHIC EXAM: Post-op Thank you for allowing me to participate in the care of Mr. Argueta Please feel free to contact me if you have any questions or concerns. Nell Lucio DMD Cell Installer Shayna Grimaldo [address] [place] [address], 5th floor, [place], [address] Office / [phone] Fax [email or web address] documented in this [facility] Instructions* Patient Instructions* Nell Lucio DMD - 06/23/2023 10:30 AM EDT Today you have seen for follow-up on maxillary resection prosthesis. She removed the back molar #3 per your request to reduce the bulkiness. She also made the palate thinner. She also adjusted the back premolar #4 buccal cusp to make it straight. Now you feel it better. Try it out for amonth Next visit: Follow-up on maxillary removable prosthesis documented in this encounterU [facility] History of Present illness Narrative* JEANIE Diamond - 05/26/2023 11:00 AM EDT BP:131 /71 P:64 R:18 T:97.1 SpO2: 98% W: 179.2 lbs Patient reports the following: Falls-no Pain -no Pharmacy, medications, and allergies verified. Pt in company with -. Jerson All data collected, documented, and reported to Dr. Lucio. Munye Kriss, DA II * Nell Lucio DMD - 05/26/2023 11:00 AM EDT Images from the original note were not included. [facility] Lilly Argueta is 78 y.o. 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 Most recently he is s/p debridement and A-cell placement on 06/08/20. Completed RT locally and developed ORN with exposed fibula and exposed hardware in the right cheek, now s/p R maxillary hardware and previous FFF, R neck exploration, L ALT on 05/27/22. He presents for FOLLOW-UP: Post-insertion adjustments to metal framework maxillary resection prosthesis Chief Complaint Patient presents in company of his Jerson. Overall, he is doing well. He complains of difficulty swallowing. He is requesting to trim it more. Medical History Past Medical History: Diagnosis Date History of head and neck radiation History of pulmonary embolism 11/2019 Post-operative DVT/PE in November 2019. Treated with Eliquis; discontinued by PCP in May 2020. 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 History of tracheostomy Surgical History Past Surgical History: Procedure Laterality Date EXCISION LESION SOFT TISSUE FACE SCALP Right 02/24/2023 Laterality: Right; Surgeon: Bobo Davidson MD; Location: [facility] MA[facility] OR REMOVAL HARDWARE Right 05/27/2022 Laterality: Right; Surgeon: Bobo Davidson MD; Location: [facility] OR EXPLORATION TRAUMATIC WOUND NECK N/A 05/27/2022 Laterality: N/A; Surgeon: Bobo Davidson MD; Location: [facility] MA[facility] OR LARYNGOSCOPY DIRECT DIAGNOSTIC N/A 05/27/2022 Laterality: N/A; Surgeon: Bobo Davidson MD; Location: [facility] OR ESOPHAGOSCOPY DIAGNOSTIC N/A 05/27/2022 Laterality: N/A; Surgeon: Bobo Davidson MD; Location: [facility] OR TRACHEOSTOMY N/A 05/27/2022 Laterality: N/A; Surgeon: Bobo Davidson MD; Location: [facility] OR FLAP FREE ANTEROLATERAL THIGH (ALT) SKIN N/A 05/27/2022 Laterality: N/A; Surgeon: Ifrah Cesar MD; Location: [facility] OR DEBRIDEMENT BONE N/A 06/08/2020 Laterality: N/A; Surgeon: Bobo Davidson MD; Location: [facility] OR PLACEMENT TUBE NASO-/LIANG-GASTRIC N/A 06/08/2020 Laterality: N/A; Surgeon: Bobo Davidson MD; Location: [facility] OR LARYNGOSCOPY DIRECT DIAGNOSTIC N/A 11/22/2019 Laterality: N/A; Surgeon: Bobo Davidson MD; Location: [facility] OR ESOPHAGOSCOPY DIAGNOSTIC N/A 11/22/2019 Laterality: N/A; Surgeon: Bobo Davidson MD; Location: [facility] OR MAXILLECTOMY W/O ORBITAL EXENTERATION Right 11/22/2019 Laterality: Right; Surgeon: Bobo Davidson MD; Location: [facility] OR LYMPHADENECTOMY CERVICAL (MODIFIED RADICAL NECK DISSECTION) Right 11/22/2019 Laterality: Right; Surgeon: Bobo Davidson MD; Location: [facility] OR TRACHEOSTOMY N/A 11/22/2019 Laterality: N/A; Surgeon: Bobo Davidson MD; Location: [facility] OR EXTRACTION TOOTH N/A 11/22/2019 Laterality: N/A; Surgeon: Bobo Davidson MD; Location: [facility] OR PLACEMENT TUBE NASO-/LIANG-GASTRIC N/A 11/22/2019 Laterality: N/A; Surgeon: Bobo Davidson MD; Location: [facility] OR FLAP FREE BONE W/ MICROVASCULAR ANASTOMOSIS FIBULA N/A 11/22/2019 Laterality: N/A; Surgeon: Joao Burch MD; Location: [facility] OR FLAP FREE RADIAL FOREARM FASCIAL Left 11/22/2019 Laterality: Left; Surgeon: Joao Burch MD; Location: [facility] MA[facility] OR APPENDECTOMY LIGATION OR 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 Social History Social History Socioeconomic History Marital status: Spouse name: Not on file Number of children: Not on file Years of education: Not on file Highest education level: Not on file Occupational History Not on file Tobacco Use Smoking status: Never Smokeless tobacco: Never Vaping Use Vaping status: Never Used Substance and Sexual Activity Alcohol use: Not Currently Drug use: Not Currently Sexual activity: Not on file Other Topics Concern Not on file Social History Narrative Not on file Social Determinants of Health Financial Resource Strain: Not on file Food Insecurity: Not on file Transportation Needs: Not on file Physical Activity: Not on file Stress: Not on file Social Connections: Not on file Intimate Partner Violence: Not on file Housing Stability: Not on file Current Medications Current Outpatient Medications Medication Sig Artificial Tear Ointment (DRY EYES OP) Apply to eye as needed. aspirin 81 MG Chew Tab chewable tablet Chew 1 tablet at bedtime. Calcium Acetate-Magnesium Carb 450-200 MG tablet Take 1 tablet by mouth at bedtime. Cascara Sagrada 450 MG capsule Take by mouth daily every morning. cholecalciferol 25 MCG (1000 UNIT) tablet Take 1 tablet by mouth daily every morning. STOPPED TAKING ON 02/18/23 FOR SURGERY. Chromium Picolinate (CHROMIUM PICOLATE PO) Take by mouth daily every morning. Ibuprofen 200 MG tablet Take 1 tablet by mouth as needed for Mild Pain. Multiple Vitamin (multivitamin) capsule Take 1 capsule by mouth 2 times daily. oxycodone 5 MG capsule Take 1 capsule by mouth every 4 hours as needed for moderate or severe pain for up to 3 days. petrolatum Ointment ophthalmic ointment Apply 1 Application to right eye at bedtime. Polyvinyl Alcohol-Povidone PF 1.4-0.6 % Solution ophthalmic solution Place 2 drops in right eye 4 times daily. SODIUM FLUORIDE, DENTAL GEL, 1.1 % Gel Apply 3-4 drops of gel directly to teeth. Do Not eat or drink for 30min. Once daily at bedtime. Fruit flavor vitamin E 400 units capsule Take 1 capsule by mouth 2 times daily. 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 No systemic therapy. Radiation Oncologist: Galo Domínguez MD in [facility] which [facility]. CT simulation was done 12/26/19 and a custom MOTD radiation stent was used. Examination Vitals Blood pressure 131/71, pulse 64, temperature 97.1 F (36.2 C), temperature source Temporal, resp. rate 18, weight 81.3 kg (179 lb 3.2 oz), SpO2 98%. Documented vital signs above from today's visit reviewed. Reviewed medications. Evaluation includedthe face, lip and oral cavity, lip, tongue, floor of mouth, hard palate, soft palate and revealed well healed ALT free flap in the right face and right maxilla. Assessment Lilly Argueta presents for post-insertion adjustments to metal framework maxillary resection prosthesis. He had a take down of the failed right FFF and now is s/p ALT free flap. He is feeling well and is eating by mouth but is esthetically concerned about his missing teeth and the appearance of the flapon his right cheek. Clinical exam reveals a well healed ALT free flap and limited prosthetic space.Recommended to make him a removable resection prosthesis. On 03/08/23, I delivered an all acrylic prosthesis. On 05/16/23, I delivered a metal framework prosthesis. Today I am doing the post-insertion adjustments. He complains of difficulty swallowing, requesting to trim it. He likes the metal framework prosthesis better than the all acrylic. PIP paste used to check the pressure over the flap tissues. Adjusted the areas of excess pressure. The palatal contoursin the dre surface was adjusted to provide more room to his tongue. The occlusion was lightly adjusted until normal. Denture teeth shade A4 matches his natural maxillary teeth very well. He needs to return for follow-up in 1 month. Plan of Care Pre-radiation Fabrication of MOTD stent (DONE) Fabrication of fluoride trays (DONE) Jaw opening exercises to prevent trismus Post-radiation Keep established with a local Dentist Periodic oral evaluation every 3 months for the first year after completion of radiation, then if compliant can be changed to every 6 months Indefinite fluoride therapy to prevent caries,preferred method: 0.4% stannous fluoride in custom made carriers Jaw opening exercises to maintain mouth opening Treatment/Procedures performed today: Post-insertion adjustments to metal framework maxillary resection prosthesis Total time spent face to face with the patient today: 60 minutes, with over 50% of the face to facetime used for counseling or coordinating patient s care, not including the procedure. Disposition: Return for F/U in 1 month. 10/26/22 RADIOGRAPHIC EXAM: Post-op Thank you for allowing me to participate in the care of Mr. Argueta Please feel free to contact me if you have any questions or concerns. Nell Lucio DMD Cell Installer Shayna Grimaldo [address] [place] [address], 5[address] floor, [place], [address] Office / [phone] Fax [email or web address] documented in this encounterOSFayette [facility] Instructions* Patient Instructions* Nell Lucio DMD - 05/26/2023 11:00 AM EDT Today you have seen Dr. Lucio for follow-up on maxillary resection prosthesis. She has found that you could swallow due to excess acrylic in th back portion of the prosthesis. She trimmed it and now it is fine. Next appointment: Follow-up in 1 month documented in this encounterOSU [facility] History of Present illness Narrative* Issa Trevizo - 05/16/2023 11:00 AM EDT Patient check-in for Dr. Lucio. Vital signs completed see vitals tab. No Falls as reported by patient. No pain as reported by patient. No changes in medications or allergies as reported by patient. No changes to pharmacy location as reported by patient. Patient in company with: Jerson All patient information reviewed & discussed with Dr. Lucio. EVANGELISTA Jaimse III * Nell Lucio DMD - 05/16/2023 11:00 AM EDT Images from the original note were not included. [facility] Lilly Argueta is 78 y.o. 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 Most recently he is s/p debridement and A-cell placement on 06/08/20. Completed RT locally and developed ORN with exposed fibula and exposed hardware in the right cheek, now s/p R maxillary hardware and previous FFF, R neck exploration, L ALT on 05/27/22. He presents for FOLLOW-UP: Delivery of metal framework maxillary resection prosthesis Chief Complaint Patient presents in company of his Jerson. Overall, he is doing well. He has no complains. Medical History Past Medical History: Diagnosis Date History of head and neck radiation History of pulmonary embolism 11/2019 Post-operative DVT/PE in November 2019. Treated with Eliquis; discontinued by PCP in May 2020. 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 History of tracheostomy Surgical History Past Surgical History: Procedure Laterality Date EXCISION LESION SOFT TISSUE FACE SCALP Right 02/24/2023 Laterality: Right; Surgeon: Bobo Davidson MD; Location: [facility] REMOVAL HARDWARE Right 05/27/2022 Laterality: Right; Surgeon: Bobo Davidson MD; Location: [facility] OR EXPLORATION TRAUMATIC WOUND NECK N/A 05/27/2022 Laterality: N/A; Surgeon: Bobo Davidson MD; Location: [facility] OR LARYNGOSCOPY DIRECT DIAGNOSTIC N/A 05/27/2022 Laterality: N/A; Surgeon: Bobo Davidson MD; Location: [facility] OR ESOPHAGOSCOPY DIAGNOSTIC N/A 05/27/2022 Laterality: N/A; Surgeon: Bobo Davidson MD; Location: [facility] OR TRACHEOSTOMY N/A 05/27/2022 Laterality: N/A; Surgeon: Bobo Davidson MD; Location: [facility] OR FLAP FREE ANTEROLATERAL THIGH (ALT) SKIN N/A 05/27/2022 Laterality: N/A; Surgeon: Ifrah Cesar MD; Location: [facility] OR DEBRIDEMENT BONE N/A 06/08/2020 Laterality: N/A; Surgeon: Bobo Davidson MD; Location: [facility] OR PLACEMENT TUBE NASO-/LIANG-GASTRIC N/A 06/08/2020 Laterality: N/A; Surgeon: Bobo Davidson MD; Location: [facility] OR LARYNGOSCOPY DIRECT DIAGNOSTIC N/A 11/22/2019 Laterality: N/A; Surgeon: Bobo Davidson MD; Location: [facility] OR ESOPHAGOSCOPY DIAGNOSTIC N/A 11/22/2019 Laterality: N/A; Surgeon: Bobo Davidson MD; Location: [facility] OR MAXILLECTOMY W/O ORBITAL EXENTERATION Right 11/22/2019 Laterality: Right; Surgeon: Bobo Davidson MD; Location: [facility] OR LYMPHADENECTOMY CERVICAL (MODIFIED RADICAL NECK DISSECTION) Right 11/22/2019 Laterality: Right; Surgeon: Bobo Davidson MD; Location: [facility] OR TRACHEOSTOMY N/A 11/22/2019 Laterality: N/A; Surgeon: Bobo Davidson MD; Location: [facility] OR EXTRACTION TOOTH N/A 11/22/2019 Laterality: N/A; Surgeon: Bobo Davidson MD; Location: [facility] OR PLACEMENT TUBE NASO-/LIANG-GASTRIC N/A 11/22/2019 Laterality: N/A; Surgeon: Bobo Davidson MD; Location: [facility] OR FLAP FREE BONE W/ MICROVASCULAR ANASTOMOSIS FIBULA N/A 11/22/2019 Laterality: N/A; Surgeon: Joao Burch MD; Location: [facility] OR FLAP FREE RADIAL FOREARM FASCIAL Left 11/22/2019 Laterality: Left; Surgeon: Joao Burch MD; Location: [facility] MA[facility] OR APPENDECTOMY LIGATION OR 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 Social History Social History Socioeconomic History Marital status: Spouse name: Not on file Number of children: Not on file Years of education: Not on file Highest education level: Not on file Occupational History Not on file Tobacco Use Smoking status: Never Smokeless tobacco: Never Vaping Use Vaping status: Never Used Substance and Sexual Activity Alcohol use: Not Currently Drug use: Not Currently Sexual activity: Not on file Other Topics Concern Not on file Social History Narrative Not on file Social Determinants of Health Financial Resource Strain: Not on file Food Insecurity: Not on file Transportation Needs: Not on file Physical Activity: Not on file Stress: Not on file Social Connections: Not on file Intimate Partner Violence: Not on file Housing Stability: Not on file Current Medications Current Outpatient Medications Medication Sig Artificial Tear Ointment (DRY EYES OP) Apply to eye as needed. aspirin 81 MG Chew Tab chewable tablet Chew 1 tablet at bedtime. Calcium Acetate-Magnesium Carb 450-200 MG tablet Take 1 tablet by mouth at bedtime. Cascara Sagrada 450 MG capsule Take by mouth daily every morning. cholecalciferol 25 MCG (1000 UNIT) tablet Take 1 tablet by mouth daily every morning. STOPPED TAKING ON 02/18/23 FOR SURGERY. Chromium Picolinate (CHROMIUM PICOLATE PO) Take by mouth daily every morning. Ibuprofen 200 MG tablet Take 1 tablet by mouth as needed for Mild Pain. Multiple Vitamin (multivitamin) capsule Take 1 capsule by mouth 2 times daily. oxycodone 5 MG capsule Take 1 capsule by mouth every 4 hours as needed for moderate or severe pain for up to 3 days. petrolatum Ointment ophthalmic ointment Apply 1 Application to right eye at bedtime. Polyvinyl Alcohol-Povidone PF 1.4-0.6 % Solution ophthalmic solution Place 2 drops in right eye 4 times daily. SODIUM FLUORIDE, DENTAL GEL, 1.1 % Gel Apply 3-4 drops of gel directly to teeth. Do Not eat or drink for 30min. Once daily at bedtime. Fruit flavor vitamin E 400 units capsule Take 1 capsule by mouth 2 times daily. 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 No systemic therapy. Radiation Oncologist: Galo Domígnuez MD in [facility] which [facility]. CT simulation was done 12/26/19 and a custom MOTD radiation stent was used. Examination Vitals Blood pressure 141/79, pulse 57, temperature 98.1 F (36.7 C), temperature source Temporal, resp. rate 16, weight 81.2 kg (179 lb), SpO2 97%. Documented vital signs above from today's visit reviewed. Reviewed medications. Evaluation includedthe face, lip and oral cavity, lip, tongue, floor of mouth, hard palate, soft palate and revealed well healed ALT free flap in the right face and right maxilla. Assessment Lilly Argueta presents for delivery of metal framework maxillary resection prosthesis. He had a take down of the failed right FFF and now is s/p ALT free flap. He is feeling well and is eating by mouth but is esthetically concerned about his missing teeth and the appearance of the flapon his right cheek. Clinical exam reveals a well healed ALT free flap and limited prosthetic space.Recommended to make him a removable resection prosthesis. On 03/08/23, I delivered an all acrylic prosthesis. Today I am delivering the metal framework prosthesis. PIP paste used to check the pressure over theflap tissues. Adjusted the areas of excess pressure. The clasp were adjusted to make them tighter. The occlusion was adjusted until normal. Denture teeth shade A4 matches his natural maxillary teeth very well. He needs to return for post-insertion adjustments. Plan of Care Pre-radiation Fabrication of MOTD stent (DONE) Fabrication of fluoride trays (DONE) Jaw opening exercises to prevent trismus Post-radiation Keep established with a local Dentist Periodic oral evaluation every 3 months for the first year after completion of radiation, then if compliant can be changed to every 6 months Indefinite fluoride therapy to prevent caries,preferred method: 0.4% stannous fluoride in custom made carriers Jaw opening exercises to maintain mouth opening Treatment/Procedures performed today: Delivery metal framework maxillary resection prosthesis Total time spent face to face with the patient today: 60 minutes, with over 50% of the face to facetime used for counseling or coordinating patient s care, not including the procedure. Disposition: Return for Post-insertion adjustments. 10/26/22 RADIOGRAPHIC EXAM: Post-op Thank you for allowing me to participate in the care of Mr. Argueta Please feel free to contact me if you have any questions or concerns. Nell Lucio DMD Cell Installer [employer] [facility] [address], [address] floor, [place], [address] Office / [phone] Fax [email or web address] documented in this encounter[facility] Instructions* Patient Instructions* Nell Lucio DMD - 05/16/2023 11:00 AM EDT Today you have seen Dr. Lucio for delivery of metal framework maxillary resection prosthesis. She adjusted the acrylic on the left side to minimize the flap displacement. She also adjusted the metal. She also tightened the clasps a little more. Next visit: Adjust the bite documented in this encounter[facility] History of Present illness Narrative* JEANIE Diamond - 05/03/2023 1:00 PM EDT BP: 132 /80 P:66 R:18 T:97.6 SpO2: 98% W: 179.9lbs Patient reports the following: Falls-no Pain-no Pharmacy, medications, and allergies verified. Pt in company with -. Jerson All data collected, documented, and reported to Dr. Lucio. EVANGELISTA Shah II * Nell Lucio DMD - 05/03/2023 1:00 PM EDT Images from the original note were not included. [facility] Lilly Argueta is 78 y.o. 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 Most recently he is s/p debridement and A-cell placement on 06/08/20. Completed RT locally and developed ORN with exposed fibula and exposed hardware in the right cheek, now s/p R maxillary hardware and previous FFF, R neck exploration, L ALT on 05/27/22. He presents for FOLLOW-UP: Maxillary Teeth try-in for maxillary resection prosthesis Chief Complaint Patient presents in company of his Jerson. Overall, he is doing well. He has no complains. Medical History Past Medical History: Diagnosis Date History of head and neck radiation History of pulmonary embolism 11/2019 Post-operative DVT/PE in November 2019. Treated with Eliquis; discontinued by PCP in May 2020. 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 History of tracheostomy Surgical History Past Surgical History: Procedure Laterality Date EXCISION LESION SOFT TISSUE FACE SCALP Right 02/24/2023 Laterality: Right; Surgeon: Bobo Davidson MD; Location[facility] REMOVAL HARDWARE Right 05/27/2022 Laterality: Right; Surgeon: Bobo Davidson MD; Location: [facility] EXPLORATION TRAUMATIC WOUND NECK N/A 05/27/2022 Laterality: N/A; Surgeon: Bobo Davidson MD; Location: [facility] OR LARYNGOSCOPY DIRECT DIAGNOSTIC N/A 05/27/2022 Laterality: N/A; Surgeon: Bobo Davidson MD; Location: [facility] OR ESOPHAGOSCOPY DIAGNOSTIC N/A 05/27/2022 Laterality: N/A; Surgeon: Bobo Davidson MD; Location: [facility] TRACHEOSTOMY N/A 05/27/2022 Laterality: N/A; Surgeon: Bobo Davidson MD; Location: [facility] OR FLAP FREE ANTEROLATERAL THIGH (ALT) SKIN N/A 05/27/2022 Laterality: N/A; Surgeon: Ifrah Cesar MD; Location: [facility] DEBRIDEMENT BONE N/A 06/08/2020 Laterality: N/A; Surgeon: Bobo Davidson MD; Location: [facility] PLACEMENT TUBE NASO-/LIANG-GASTRIC N/A 06/08/2020 Laterality: N/A; Surgeon: Bobo Davidson MD; Location: [facility] OR LARYNGOSCOPY DIRECT DIAGNOSTIC N/A 11/22/2019 Laterality: N/A; Surgeon: Bobo Davidson MD; Location: [facility] OR ESOPHAGOSCOPY DIAGNOSTIC N/A 11/22/2019 Laterality: N/A; Surgeon: Bobo Davidson MD; Location: [facility] MAXILLECTOMY W/O ORBITAL EXENTERATION Right 11/22/2019 Laterality: Right; Surgeon: Bobo Davidson MD; Location: [facility] OR LYMPHADENECTOMY CERVICAL (MODIFIED RADICAL NECK DISSECTION) Right 11/22/2019 Laterality: Right; Surgeon: Bobo Davidson MD; Location: [facility] TRACHEOSTOMY N/A 11/22/2019 Laterality: N/A; Surgeon: Bobo Davidson MD; Location: [facility] EXTRACTION TOOTH N/A 11/22/2019 Laterality: N/A; Surgeon: Bobo Davidson MD; Location: [facility] OR PLACEMENT TUBE NASO-/LIANG-GASTRIC N/A 11/22/2019 Laterality: N/A; Surgeon: Bobo Davidson MD; Location: [facility] OR FLAP FREE BONE W/ MICROVASCULAR ANASTOMOSIS FIBULA N/A 11/22/2019 Laterality: N/A; Surgeon: Joao Burch MD; Location: [facility] FLAP FREE RADIAL FOREARM FASCIAL Left 11/22/2019 Laterality: Left; Surgeon: Joao Burch MD; Location: [facility] MA[facility] OR APPENDECTOMY LIGATION OR 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 Social History Social History Socioeconomic History Marital status: Spouse name: Not on file Number of children: Not on file Years of education: Not on file Highest education level: Not on file Occupational History Not on file Tobacco Use Smoking status: Never Smokeless tobacco: Never Vaping Use Vaping status: Never Used Substance and Sexual Activity Alcohol use: Not Currently Drug use: Not Currently Sexual activity: Not on file Other Topics Concern Not on file Social History Narrative Not on file Social Determinants of Health Financial Resource Strain: Not on file Food Insecurity: Not on file Transportation Needs: Not on file Physical Activity: Not on file Stress: Not on file Social Connections: Not on file Intimate Partner Violence: Not on file Housing Stability: Not on file Current Medications Current Outpatient Medications Medication Sig Artificial Tear Ointment (DRY EYES OP) Apply to eye as needed. aspirin 81 MG Chew Tab chewable tablet Chew 1 tablet at bedtime. Calcium Acetate-Magnesium Carb 450-200 MG tablet Take 1 tablet by mouth at bedtime. Cascara Sagrada 450 MG capsule Take by mouth daily every morning. cholecalciferol 25 MCG (1000 UNIT) tablet Take 1 tablet by mouth daily every morning. STOPPED TAKING ON 02/18/23 FOR SURGERY. Chromium Picolinate (CHROMIUM PICOLATE PO) Take by mouth daily every morning. Ibuprofen 200 MG tablet Take 1 tablet by mouth as needed for Mild Pain. Multiple Vitamin (multivitamin) capsule Take 1 capsule by mouth 2 times daily. oxycodone 5 MG capsule Take 1 capsule by mouth every 4 hours as needed for moderate or severe pain for up to 3 days. petrolatum Ointment ophthalmic ointment Apply 1 Application to right eye at bedtime. Polyvinyl Alcohol-Povidone PF 1.4-0.6 % Solution ophthalmic solution Place 2 drops in right eye 4 times daily. SODIUM FLUORIDE, DENTAL GEL, 1.1 % Gel Apply 3-4 drops of gel directly to teeth. Do Not eat or drink for 30min. Once daily at bedtime. Fruit flavor vitamin E 400 units capsule Take 1 capsule by mouth 2 times daily. 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 No systemic therapy. Radiation Oncologist: Galo Domínguez MD in [facility] which [facility]. CT simulation was done 12/26/19 and a custom MOTD radiation stent was used. Examination Vitals Blood pressure 132/80, pulse 66, temperature 97.6 F (36.4 C), temperature source Temporal, resp. rate 18, weight 81.6 kg (179 lb 14.4 oz), SpO2 98%. Documented vital signs above from today's visit reviewed. Reviewed medications. Evaluation includedthe face, lip and oral cavity, lip, tongue, floor of mouth, hard palate, soft palate and revealed well healed ALT free flap in the right face and right maxilla. Assessment Lilly Argueta presents for denture teeth try-in for maxillary resection prosthesis. He had a take down of the failed right FFF and now is s/p ALT free flap. He is feeling well and is eating by mouth but is esthetically concerned about his missing teeth and the appearance of the flapon his right cheek. Clinical exam reveals a well healed ALT free flap and limited prosthetic space.Recommended to make him a removable resection prosthesis. On 03/08/23, I delivered an all acrylic prosthesis. Today I am doing a denture teeth try-in for a metal framework prosthesis. The maxillary teeth #2-8 were found out of occlusion in th posterior. A bite record was made and the teeth were reset until good occlusion. Denture teeth shade A4 matches his natural maxillary teeth very well. He needs to return for delivery. Plan of Care Pre-radiation Fabrication of MOTD stent (DONE) Fabrication of fluoride trays (DONE) Jaw opening exercises to prevent trismus Post-radiation Keep established with a local Dentist Periodic oral evaluation every 3 months for the first year after completion of radiation, then if compliant can be changed to every 6 months Indefinite fluoride therapy to prevent caries,preferred method: 0.4% stannous fluoride in custom made carriers Jaw opening exercises to maintain mouth opening Treatment/Procedures performed today: Denture teeth try-in for maxillary resection prosthesis Total time spent face to face with the patient today: 30 minutes, with over 50% of the face to facetime used for counseling or coordinating patient s care, not including the procedure. Disposition: Return for Delivery metal framework partial. 10/26/22 RADIOGRAPHIC EXAM: Post-op Thank you for allowing me to participate in the care of Mr. Argueta Please feel free to contact me if you have any questions or concerns. Nell Lucio DMD Cell Installer [facility] [address] [place] [address], 5th floor, [place], [address] Office / [phone] Fax [email or web address] documented in this encounterOSU [facility] Instructions* Patient Instructions* Nell Lucio DMD - 05/03/2023 1:00 PM EDT Today you have seen Dr. Lucio for final teeth try-in Brand: Blueline Ivoclar Mx Anterior teeth: P12 Next appointment: Delivery of maxillary resection prosthesis [facility] History of Present illness Narrative* JEANIE Diamond - 04/21/2023 1:00 PM EDT BP: 145 /70 P:68 R:18 T:98.4 SpO2:98% W:178.3 lbs Patient reports the following: Falls-no Pain-no Pharmacy, medications, and allergies verified. Pt in company with -. Jerson All data collected, documented, and reported to Dr. Lucio. EVANGELISTA Shah II * Nell Lucio DMD - 04/21/2023 1:00 PM EDT Images from the original note were not included. [facility] Lilly Argueta is 78 y.o. 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 Most recently he is s/p debridement and A-cell placement on 06/08/20. Completed RT locally and developed ORN with exposed fibula and exposed hardware in the right cheek, now s/p R maxillary hardware and previous FFF, R neck exploration, L ALT on 05/27/22. He presents for FOLLOW-UP: Metal framework for maxillary resection prosthesis Chief Complaint Patient presents in company of his Jerson. Overall, he is doing well. He complains of right cheek tightness and missing right maxillary teeth. Medical History Past Medical History: Diagnosis Date History of head and neck radiation History of pulmonary embolism 11/2019 Post-operative DVT/PE in November 2019. Treated with Eliquis; discontinued by PCP in May 2020. 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 History of tracheostomy Surgical History Past Surgical History: Procedure Laterality Date EXCISION LESION SOFT TISSUE FACE SCALP Right 02/24/2023 Laterality: Right; Surgeon: Bobo Davidson MD; Location[facility] REMOVAL HARDWARE Right 05/27/2022 Laterality: Right; Surgeon: Bobo Davidson MD; Location: [facility] OR EXPLORATION TRAUMATIC WOUND NECK N/A 05/27/2022 Laterality: N/A; Surgeon: Bobo Davidson MD; Location: [facility] OR LARYNGOSCOPY DIRECT DIAGNOSTIC N/A 05/27/2022 Laterality: N/A; Surgeon: Bobo Davidson MD; Location: [facility] OR ESOPHAGOSCOPY DIAGNOSTIC N/A 05/27/2022 Laterality: N/A; Surgeon: Bobo Davidson MD; Location: [facility] OR TRACHEOSTOMY N/A 05/27/2022 Laterality: N/A; Surgeon: Bobo Davidson MD; Location: [facility] OR FLAP FREE ANTEROLATERAL THIGH (ALT) SKIN N/A 05/27/2022 Laterality: N/A; Surgeon: Ifrah Cesar MD; Location: [facility] OR DEBRIDEMENT BONE N/A 06/08/2020 Laterality: N/A; Surgeon: Bobo Davidson MD; Location: [facility] OR PLACEMENT TUBE NASO-/LIANG-GASTRIC N/A 06/08/2020 Laterality: N/A; Surgeon: Bobo Davidson MD; Location: [facility] OR LARYNGOSCOPY DIRECT DIAGNOSTIC N/A 11/22/2019 Laterality: N/A; Surgeon: Bobo Davidson MD; Location: [facility] OR ESOPHAGOSCOPY DIAGNOSTIC N/A 11/22/2019 Laterality: N/A; Surgeon: Bobo Davidson MD; Location: [facility] OR MAXILLECTOMY W/O ORBITAL EXENTERATION Right 11/22/2019 Laterality: Right; Surgeon: Bobo Davidson MD; Location: [facility] OR LYMPHADENECTOMY CERVICAL (MODIFIED RADICAL NECK DISSECTION) Right 11/22/2019 Laterality: Right; Surgeon: Bobo Davidson MD; Location: [facility] OR TRACHEOSTOMY N/A 11/22/2019 Laterality: N/A; Surgeon: Bobo Davidson MD; Location: [facility] OR EXTRACTION TOOTH N/A 11/22/2019 Laterality: N/A; Surgeon: Bobo Davidson MD; Location: [facility] OR PLACEMENT TUBE NASO-/LIANG-GASTRIC N/A 11/22/2019 Laterality: N/A; Surgeon: Bobo Davidson MD; Location: [facility] OR FLAP FREE BONE W/ MICROVASCULAR ANASTOMOSIS FIBULA N/A 11/22/2019 Laterality: N/A; Surgeon: Joao Burch MD; Location: [facility] FLAP FREE RADIAL FOREARM FASCIAL Left 11/22/2019 Laterality: Left; Surgeon: Joao Burch MD; Location: [facility] MA[facility] OR APPENDECTOMY LIGATION OR 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 Social History Social History Socioeconomic History Marital status: Spouse name: Not on file Number of children: Not on file Years of education: Not on file Highest education level: Not on file Occupational History Not on file Tobacco Use Smoking status: Never Smokeless tobacco: Never Vaping Use Vaping status: Never Used Substance and Sexual Activity Alcohol use: Not Currently Drug use: Not Currently Sexual activity: Not on file Other Topics Concern Not on file Social History Narrative Not on file Social Determinants of Health Financial Resource Strain: Not on file Food Insecurity: Not on file Transportation Needs: Not on file Physical Activity: Not on file Stress: Not on file Social Connections: Not on file Intimate Partner Violence: Not on file Housing Stability: Not on file Current Medications Current Outpatient Medications Medication Sig Artificial Tear Ointment (DRY EYES OP) Apply to eye as needed. aspirin 81 MG Chew Tab chewable tablet Chew 1 tablet at bedtime. Calcium Acetate-Magnesium Carb 450-200 MG tablet Take 1 tablet by mouth at bedtime. Cascara Sagrada 450 MG capsule Take by mouth daily every morning. cholecalciferol 25 MCG (1000 UNIT) tablet Take 1 tablet by mouth daily every morning. STOPPED TAKING ON 02/18/23 FOR SURGERY. Chromium Picolinate (CHROMIUM PICOLATE PO) Take by mouth daily every morning. Ibuprofen 200 MG tablet Take 1 tablet by mouth as needed for Mild Pain. Multiple Vitamin (multivitamin) capsule Take 1 capsule by mouth 2 times daily. oxycodone 5 MG capsule Take 1 capsule by mouth every 4 hours as needed for moderate or severe pain for up to 3 days. petrolatum Ointment ophthalmic ointment Apply 1 Application to right eye at bedtime. (Patient not taking: Reported on 03/08/2023) Polyvinyl Alcohol-Povidone PF 1.4-0.6 % Solution ophthalmic solution Place 2 drops in right eye 4 times daily. (Patient not taking: Reported on 08/02/2023) SODIUM FLUORIDE, DENTAL GEL, 1.1 % Gel Apply 3-4 drops of gel directly to teeth. Do Not eat or drink for 30min. Once daily at bedtime. Fruit flavor vitamin E 400 units capsule Take 1 capsule by mouth 2 times daily. 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 No systemic therapy. Radiation Oncologist: Galo Domínguez MD in [facility] which [facility]. CT simulation was done 12/26/19 and a custom MOTD radiation stent was used. Examination Vitals Blood pressure 145/70, pulse 68, temperature 98.4 F (36.9 C), temperature source Temporal, resp. rate 18, weight 80.9 kg (178 lb 4.8 oz), SpO2 98%. Documented vital signs above from today's visit reviewed. Reviewed medications. Evaluation includedthe face, lip and oral cavity, lip, tongue, floor of mouth, hard palate, soft palate and revealed well healed ALT free flap in the right face and right maxilla. Assessment Lilly Argueta presents for metal framework try-in for maxillary resection prosthesis. He had a take down of the failed right FFF and now is s/p ALT free flap. He is feeling well and is eating by mouth but is esthetically concerned about his missing teeth and the appearance of the flapon his right cheek. Clinical exam reveals a well healed ALT free flap and limited prosthetic space.Recommended to make him a removable resection prosthesis. In our last dental appt, I delivered an all acrylic prosthesis. Today I am checking the metal framework. The metal framework seated very well but the rest seats were high. I adjusted the metal until the bite was fine. An interocclusal record was made for mounting. He needs to return denture teeth try-in. Denture teeth shade A4 matches his natural maxillary teeth very well. This all acrylic prosthesis will help him in the mean time we get his metal framework. Plan of Care Pre-radiation Fabrication of MOTD stent (DONE) Fabrication of fluoride trays (DONE) Jaw opening exercises to prevent trismus Post-radiation Keep established with a local Dentist Periodic oral evaluation every 3 months for the first year after completion of radiation, then if compliant can be changed to every 6 months Indefinite fluoride therapy to prevent caries,preferred method: 0.4% stannous fluoride in custom made carriers Jaw opening exercises to maintain mouth opening Treatment/Procedures performed today: Metal framework for maxillary resection prosthesis Total time spent face to face with the patient today: 60 minutes, with over 50% of the face to facetime used for counseling or coordinating patient s care, not including the procedure. Disposition: Teeth try-in 10/26/22 RADIOGRAPHIC EXAM: Post-op Thank you for allowing me to participate in the care of Mr. Argueta Please feel free to contact me if you have any questions or concerns. Nell Lucio DMD Cell Installer [facility] [address] [place] [address], 5[address] floor, [place], [address] Office / [phone] Fax [email or web address] documented in this encounterOSU [facility] Instructions* Patient Instructions* Nell Lucio DMD - 04/21/2023 1:00 PM EDT Today you have seen Dr. Lucio for metal framework try-in. She adjusted the metal until the bite was fine. She did a bite records and will place teeth on it. Next appointment: Teeth try-in 05/03/23 documented in this [facility] [place] History of Present illness Narrative* Tamanna Wilson MD - 03/08/2023 2:45 PM EDT HPI: Lilly Argueta is a 77 y.o. 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 Patient had an area of exposed hardware on his right cheek and is now s/p removal of R maxillary hardware and previous FFF, R neck exploration, L ALT on 05/27/22. He presents to clinic for scheduled post op visit. He is now s/p wedge excision and debulking of right cheek flap. He is recovering well. Denies pain and is happy with the appearance. Has some swelling adjacent to the flap. Happy with obturator fitting with Dr. Lucio today. Nursing documentation has been reviewed. Past Medical History: Diagnosis Date History of head and neck radiation History of pulmonary embolism 11/2019 Post-operative DVT/PE in November 2019. Treated with Eliquis; discontinued by PCP in May 2020. 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 History of tracheostomy Past Surgical History: Procedure Laterality Date EXCISION LESION SOFT TISSUE FACE SCALP Right 02/24/2023 Laterality: Right; Surgeon: Bobo Davidson MD; Location[facility] REMOVAL HARDWARE Right 05/27/2022 Laterality: Right; Surgeon: Bobo Davidson MD; Location: [facility] OR EXPLORATION TRAUMATIC WOUND NECK N/A 05/27/2022 Laterality: N/A; Surgeon: Bobo Davidson MD; Location: [facility] OR LARYNGOSCOPY DIRECT DIAGNOSTIC N/A 05/27/2022 Laterality: N/A; Surgeon: Bobo Davidson MD; Location: [facility] OR ESOPHAGOSCOPY DIAGNOSTIC N/A 05/27/2022 Laterality: N/A; Surgeon: Bobo Davidson MD; Location: [facility] OR TRACHEOSTOMY N/A 05/27/2022 Laterality: N/A; Surgeon: Bobo Davidson MD; Location: [facility] OR FLAP FREE ANTEROLATERAL THIGH (ALT) SKIN N/A 05/27/2022 Laterality: N/A; Surgeon: Ifrah Cesar MD; Location: [facility] OR DEBRIDEMENT BONE N/A 06/08/2020 Laterality: N/A; Surgeon: Bobo Davidson MD; Location: [facility] OR PLACEMENT TUBE NASO-/LIANG-GASTRIC N/A 06/08/2020 Laterality: N/A; Surgeon: Bobo Davidson MD; Location: [facility] OR LARYNGOSCOPY DIRECT DIAGNOSTIC N/A 11/22/2019 Laterality: N/A; Surgeon: Bobo Davidson MD; Location: [facility] OR ESOPHAGOSCOPY DIAGNOSTIC N/A 11/22/2019 Laterality: N/A; Surgeon: Bobo Davidson MD; Location: [facility] OR MAXILLECTOMY W/O ORBITAL EXENTERATION Right 11/22/2019 Laterality: Right; Surgeon: Bobo Davidson MD; Location: [facility] OR LYMPHADENECTOMY CERVICAL (MODIFIED RADICAL NECK DISSECTION) Right 11/22/2019 Laterality: Right; Surgeon: Bobo Davidson MD; Location: [facility] OR TRACHEOSTOMY N/A 11/22/2019 Laterality: N/A; Surgeon: Bobo Davidson MD; Location: [facility] OR EXTRACTION TOOTH N/A 11/22/2019 Laterality: N/A; Surgeon: Bobo Davidson MD; Location[facility] OR PLACEMENT TUBE NASO-/LIANG-GASTRIC N/A 11/22/2019 Laterality: N/A; Surgeon: Bobo Davidson MD; Location[facility] FLAP FREE BONE W/ MICROVASCULAR ANASTOMOSIS FIBULA N/A 11/22/2019 Laterality: N/A; Surgeon: Joao Burch MD; Location: [facility] FLAP FREE RADIAL FOREARM FASCIAL Left 11/22/2019 Laterality: Left; Surgeon: Joao Burch MD; Location: [facility] MA[facility] OR APPENDECTOMY LIGATION OR 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 Current Outpatient Medications Medication Sig Dispense Refill Artificial Tear Ointment (DRY EYES OP) Apply to eye as needed. aspirin 81 MG Chew Tab chewable tablet Chew 1 tablet at bedtime. Calcium Acetate-Magnesium Carb 450-200 MG tablet Take 1 tablet by mouth at bedtime. Cascara Sagrada 450 MG capsule Take by mouth daily every morning. cholecalciferol 25 MCG (1000 UNIT) tablet Take 1 tablet by mouth daily every morning. STOPPED TAKING ON 02/18/23 FOR SURGERY. Chromium Picolinate (CHROMIUM PICOLATE PO) Take by mouth daily every morning. Ibuprofen 200 MG tablet Take 1 tablet by mouth as needed for Mild Pain. Multiple Vitamin (multivitamin) capsule Take 1 capsule by mouth 2 times daily. Polyvinyl Alcohol-Povidone PF 1.4-0.6 % Solution ophthalmic solution Place 2 drops in right eye 4 times daily. 30 Each 1 oxycodone 5 MG capsule Take 1 capsule by mouth every 4 hours as needed for moderate or severe pain for up to 3 days. 10 capsule 0 petrolatum Ointment ophthalmic ointment Apply 1 Application to right eye at bedtime. (Patient not taking: Reported on 03/08/2023) 3.5 g 0 vitamin E 400 units capsule Take 1 capsule by mouth 2 times daily. (Patient not taking: Reported on03/08/2023) 60 capsule 0 No current facility-administered medications for this visit. No Known Allergies Exam: BP 122/70 (BP Location: Left arm, BP Position: Sitting) Pulse 58 Temp 96.1 F (35.6 C) (Temporal) Resp 18 Wt 81.6 kg (179 lb 12.8 oz) SpO2 99% BMI 23.72 kg/m Smoking Status Never Documented vital signs from today's visit reviewed. Physical exam including head and neck examination of the oral cavity, oropharynx, larynx, and hypopharynx including indirect mirror exam as well asinspection and palpation of the face, parotid and neck is remarkable for findings consistent with posttreatment postoperative changes and negative for new lesions, masses or lymphadenopathy. Oral cavity exam reveals Flap viable and healing well. Less bulky in appearance. Well healed intraorally. Impression/Plan: Mr. Argueta has a history of T4a N0 SCC Right maxilla s/p maxillectomy, neck dissection, fibula flap, and adjuvant radiation, now s/p surgery and flap for exposed hardware. S/p wedge excision and debulking of right cheek flap 02/24/23. He is healing well. Attending Physician Note I independently interviewed, examined and formulated the medical decision making. Details of my interview, examination findings, and medical decision- making confirmed the findings below. I have personally amended the below documentation where appropriate. [facility] Instructions* Patient Instructions* Lorena Duran RN - 03/08/2023 2:45 PM EDT Please call Dr. Davidson's nurse at [phone] if you notice any new lumps in head or neck, new onsetof difficulty with swallowing, persistent ear pain, hoarseness or new pain in head and neck that does not go away for 2 weeks. For covid vaccine call [phone] ([phone]). documented in this encounter[facility] History of Present illness Narrative* JEANIE Diamond - 03/08/2023 11:30 AM EDT BP: 120 /73 P:67 R:16 T:97.8 SpO2:98 % W: 180 lbs Falls-no Pain-no Pharmacy, medications, and allergies verified. Pt in company with -[employer] All data collected, documented, and reported to Dr. Lucio. EVANGELISTA Shah II * Nell Lucio DMD - 03/08/2023 11:30 AM EDT Images from the original note were not included. [facility] Lilly Argueta is 77 y.o. 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 Most recently he is s/p debridement and A-cell placement on 06/08/20. Completed RT locally and developed ORN with exposed fibula and exposed hardware in the right cheek, now s/p R maxillary hardware and previous FFF, R neck exploration, L ALT on 05/27/22. He presents for FOLLOW-UP: Delivery of all acrylic maxillary resection prosthesis Chief Complaint Patient presents in company of his Jerson. Overall, he is doing well. He complains of right cheek tightness and missing right maxillary teeth. Medical History Past Medical History: Diagnosis Date History of head and neck radiation History of pulmonary embolism 11/2019 Post-operative DVT/PE in November 2019. Treated with Eliquis; discontinued by PCP in May 2020. 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 History of tracheostomy Surgical History Past Surgical History: Procedure Laterality Date EXCISION LESION SOFT TISSUE FACE SCALP Right 02/24/2023 Laterality: Right; Surgeon: Bobo Davidson MD; Location[facility] REMOVAL HARDWARE Right 05/27/2022 Laterality: Right; Surgeon: Bobo Davidson MD; Location: [facility] EXPLORATION TRAUMATIC WOUND NECK N/A 05/27/2022 Laterality: N/A; Surgeon: Bobo Davidson MD; Location: [facility] OR LARYNGOSCOPY DIRECT DIAGNOSTIC N/A 05/27/2022 Laterality: N/A; Surgeon: Bobo Davidson MD; Location: [facility] OR ESOPHAGOSCOPY DIAGNOSTIC N/A 05/27/2022 Laterality: N/A; Surgeon: Bobo Davidson MD; Location: [facility] TRACHEOSTOMY N/A 05/27/2022 Laterality: N/A; Surgeon: Bobo Davidson MD; Location: [facility] OR FLAP FREE ANTEROLATERAL THIGH (ALT) SKIN N/A 05/27/2022 Laterality: N/A; Surgeon: Ifrah Cesar MD; Location: [facility] OR DEBRIDEMENT BONE N/A 06/08/2020 Laterality: N/A; Surgeon: Bobo Davidson MD; Location: [facility] OR PLACEMENT TUBE NASO-/LIANG-GASTRIC N/A 06/08/2020 Laterality: N/A; Surgeon: Bobo Davidson MD; Location: [facility] OR LARYNGOSCOPY DIRECT DIAGNOSTIC N/A 11/22/2019 Laterality: N/A; Surgeon: Bobo Davidson MD; Location: [facility] OR ESOPHAGOSCOPY DIAGNOSTIC N/A 11/22/2019 Laterality: N/A; Surgeon: Bobo Davidson MD; Location: [facility] OR MAXILLECTOMY W/O ORBITAL EXENTERATION Right 11/22/2019 Laterality: Right; Surgeon: Bobo Davidson MD; Location: [facility] OR LYMPHADENECTOMY CERVICAL (MODIFIED RADICAL NECK DISSECTION) Right 11/22/2019 Laterality: Right; Surgeon: Bobo Davidson MD; Location: [facility] OR TRACHEOSTOMY N/A 11/22/2019 Laterality: N/A; Surgeon: Bobo Davidson MD; Location: [facility] OR EXTRACTION TOOTH N/A 11/22/2019 Laterality: N/A; Surgeon: Bobo Davidson MD; Location: [facility] OR PLACEMENT TUBE NASO-/LIANG-GASTRIC N/A 11/22/2019 Laterality: N/A; Surgeon: Bobo Davidson MD; Location: [facility] OR FLAP FREE BONE W/ MICROVASCULAR ANASTOMOSIS FIBULA N/A 11/22/2019 Laterality: N/A; Surgeon: Joao Burch MD; Location: [facility] FLAP FREE RADIAL FOREARM FASCIAL Left 11/22/2019 Laterality: Left; Surgeon: Joao Burch MD; Location: [facility] OR APPENDECTOMY LIGATION OR 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 Social History Social History Socioeconomic History Marital status: Spouse name: Not on file Number of children: Not on file Years of education: Not on file Highest education level: Not on file Occupational History Not on file Tobacco Use Smoking status: Never Smokeless tobacco: Never Vaping Use Vaping Use: Never used Substance and Sexual Activity Alcohol use: Not Currently Drug use: Not Currently Sexual activity: Not on file Other Topics Concern Not on file Social History Narrative Not on file Social Determinants of Health Financial Resource Strain: Not on file Food Insecurity: Not on file Transportation Needs: Not on file Physical Activity: Not on file Stress: Not on file Social Connections: Not on file Intimate Partner Violence: Not on file Housing Stability: Not on file Current Medications Current Outpatient Medications Medication Sig Artificial Tear Ointment (DRY EYES OP) Apply to eye as needed. aspirin 81 MG Chew Tab chewable tablet Chew 1 tablet at bedtime. Calcium Acetate-Magnesium Carb 450-200 MG tablet Take 1 tablet by mouth at bedtime. Cascara Sagrada 450 MG capsule Take by mouth daily every morning. cholecalciferol 25 MCG (1000 UNIT) tablet Take 1 tablet by mouth daily every morning. STOPPED TAKING ON 02/18/23 FOR SURGERY. Chromium Picolinate (CHROMIUM PICOLATE PO) Take by mouth daily every morning. Ibuprofen 200 MG tablet Take 1 tablet by mouth as needed for Mild Pain. Multiple Vitamin (multivitamin) capsule Take 1 capsule by mouth 2 times daily. oxycodone 5 MG capsule Take 1 capsule by mouth every 4 hours as needed for moderate or severe pain for up to 3 days. petrolatum Ointment ophthalmic ointment Apply 1 Application to right eye at bedtime. (Patient not taking: Reported on 03/08/2023) Polyvinyl Alcohol-Povidone PF 1.4-0.6 % Solution ophthalmic solution Place 2 drops in right eye 4 times daily. vitamin E 400 units capsule Take 1 capsule by mouth 2 times daily. 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 No systemic therapy. Radiation Oncologist: Galo Domínguez MD in [facility] which [facility]. CT simulation was done 12/26/19 and a custom MOTD radiation stent was used. Examination Vitals Blood pressure 155/88, pulse 60, temperature 98.4 F (36.9 C), temperature source Temporal, resp. rate 16, weight 83.3 kg (183 lb 9.6 oz), SpO2 99 %. Documented vital signs above from today's visit reviewed. Reviewed medications. Evaluation includedthe face, lip and oral cavity, lip, tongue, floor of mouth, hard palate, soft palate and revealed well healed ALT free flap in the right face and right maxilla. Assessment Lilly Argueta presents for delivery of all acrylic denture teeth try-in for maxillary resection prosthesis. He recently had a take down of the failed right FFF and now is s/p ALT free flap. He is feeling well and is eating by mouth but is esthetically concerned about his missing teeth and the appearance ofthe flap on his right cheek. Clinical exam reveals a well healed ALT free flap and limited prosthetic space. Recommended to make him a removable resection prosthesis. Esthetic denture teeth try-in was done in our prior dental appointment. Today I am delivering the an all acrylic denture teeth. Denture teeth shade A4 matches his natural maxillary teeth very well and the position of the teeth looks good. PIP paste used to check for excess pressure. Occlusion adjusted and the right contours of the acrylic adjusted. This all acrylic prosthesis will help him in themean time we get his metal framework. He needs to reutrn for adjustments. Plan of Care Pre-radiation Fabrication of MOTD stent (DONE) Fabrication of fluoride trays (DONE) Jaw opening exercises to prevent trismus Post-radiation Keep established with a local Dentist Periodic oral evaluation every 3 months for the first year after completion of radiation, then if compliant can be changed to every 6 months Indefinite fluoride therapy to prevent caries,preferred method: 0.4% stannous fluoride in custom made carriers Jaw opening exercises to maintain mouth opening Treatment/Procedures performed today: Delivery of all acrylic maxillary resection prosthesis Total time spent face to face with the patient today: 60 minutes, with over 50% of the face to facetime used for counseling or coordinating patient s care, not including the procedure. Disposition: Delivery 10/26/22 RADIOGRAPHIC EXAM: Post-op Thank you for allowing me to participate in the care of Mr. Argueta Please feel free to contact me if you have any questions or concerns. Nell Lucio,JAZ Cell Installer [facility] Shayna Leon [address] [place] [address], 5th floor, [place], [address] Office / [phone] Fax [email or web address] documented in this encounterOSU [facility] Instructions* Patient Instructions* Nell Lucio DMD - 03/08/2023 11:30 AM EDT Today you have seen Dr. Lucio for follow-up on the flap and adjustments to your obturator. She has found that you are healing well and there mild swelling and that should go down within the next 2weeks. She adjusted the bite and the contour of the obturator. Next appointment: Metal framework try-in on Monday04/21/23 documented in this encounterU [facility] History and physical note* Cecilia Mejias APRN-KHURRAM - 02/21/2023 7:30 AM EDT Images from the original note were not included. History of Present Illness Mr. Argueat is a 77 y.o. male is being evaluated in [facility] due to his medical condition(s) as outlined below, which increases his risk for perioperative complications. History of pulmonary embolism Gastroesophageal reflux disease without esophagitis PONV (postoperative nausea and vomiting) History of tracheostomy The status of the above medical conditions are relatively stable and details are further outlined below Name: Lilly Argueta Date of Surgery: 02/21/2023 Surgeon: Dr. 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 Yes stopped for surgery a few days ago Do you take OAC/Antiplatelet therapy? No Blood pressure 136/86, pulse 74, temperature 98.2 F (36.8 C), resp. rate 20, height 1.854 m (6' 1 ), weight 81.2 kg (179 lb), SpO2 97 %. ANESTHESIA/AIRWAY Anesthesia alerts - PONV Hx of head and neck cancer with radiation therapy, hx of tracheostomy s/p decannulation Personal history of problems related to anesthesia: See above Family History of problems related to anesthesia (ex.Malignant Hyperthermia: no Pacer/AICD: no Glaucoma: no Beta Autumn: no Diabetic Mellitus: no RAGHAVENDRA: no Mediport: no STOP-BANG Risk Assessment (3 or more YES responses is high risk) Do you snore - No Are you frequently tired during the day? - No Have you been observed gasping or choking while asleep? - No Do you have high blood pressure? - No Age more than 50? - Yes Gender assignment at male? - Yes Neck circumference greater than 40 cm? - No Neck Circumference (cm): 37.5 BMI more then 35? - No Body mass index is 23.62 kg/m . Scoring Criteria: LOW RISK: yes to 0-2 questions INTERMEDIATE RISK: yes to 3-4 questions HIGH RISK: yes to 5-8 questions Mallampati class - 4 TM Distance - 3 FB Oral Opening - 2 FB Teeth - Top right teeth surgically removed 2/2 cancer Cervical range of motion - within normal limits Neck circumference - Neck Circumference (cm): 37.5 Allergies and adverse drug reactions No Known Allergies Anesthesia/Airway A/P - Does pt meet criteria for liberalized NPO? no. If no, why? Potential or known difficult airway Patient denies any past complications with anesthesia. CARDIOVASCULAR Cardiovascular History: Denies HTN, HLD, CAD, MS, CHF, CVA/TIA, chest pain/pressure, palpitations/arrhythmias, AICD/PPM/stent placement, orthopnea, VANG. Functional status - : Moderate functional capacity. Patient is able to walk 2 city blocks and 2 flights of stairs without CV symptoms. Gardening and walking a couple miles a few times a week. METS >4 Yes BP Readings from Last 3 Encounters: 02/21/23 136/86 02/08/23 141/80 01/25/23 155/88 CARDIAC TESTING: -personally reviewed EXAM: CT ANGIO NECK, 04/30/2022 11:00 AM ECHO, 12/06/2019 (in setting of acute PE) EKG due to Major surgery, hx of PE ECG: Normal Sinus Rhythm, normal axis, no blocks, no ST & T wave abnormalities, non-acute personally reviewed Cardiology A/P: This patient is in a low risk category as the patient meets the following RCRI Criteria (RCRI): None: 0 criteria suggesting a 3.9% risk of major cardiac events No further cardiac follow up or testing required at this time PULMONARY Pulmonary history: Social History Tobacco Use Smoking Status Never Smokeless Tobacco Never E-cigarette/Vaping: No Denies SOB, asthma, COPD, recent fevers/chills. Pulmonary Testing: -personally reviewed EXAM: XR CHEST PA AND LATERAL, 04/27/2022 12:30 PM Pulmonary A/P - Denies history of lung disease or recent respiratory infections. No further pulmonary testing necessary. SUBSTANCE ABUSE Social History Substance and Sexual Activity Alcohol Use Not Currently Social History Substance and Sexual Activity Drug Use Not Currently Substance Abuse A/P - Denies regular/DAILY consumption of alcohol. Encouraged to avoid ETOH 5 days prior to surgery. Denies history of llicit drug use. CLOTTING/BLEEDING History of DVT/PE - yes Are you a Jehovah Witness? - no In case of surgeons plan or unforseen emergency, are you okay with receiving blood products? - yes Hx of PE: postop 11/2019, treated with eliquis, no longer on ac Clotting Bleeding A/P - Denies history of clotting or bleeding disorders. Recommend standard DVT/PE prophylaxis postoperatively. DIABETES Diabetes A/P - Denies DM Lab Results Component Value Date HGBA1C 5.5 08/11/2021 ADDITIONAL DIAGNOSES OF CONCERN GERD- no pharmacotherapy, diet controlled, denies nocturnal symptoms MEDICATIONS Current Outpatient Medications Medication Sig Artificial Tear Ointment (DRY EYES OP) Apply to eye as needed. cholecalciferol 25 MCG (1000 UNIT) tablet Take 1 tablet by mouth daily every morning. STOPPED TAKING ON 02/18/23 FOR SURGERY. Ibuprofen 200 MG tablet Take 1 tablet by mouth as needed for Mild Pain. aspirin 81 MG Chew Tab chewable tablet Chew 1 tablet at bedtime. (Patient not taking: Reported on 02/21/2023) Calcium Acetate-Magnesium Carb 450-200 MG tablet Take 1 tablet by mouth at bedtime. (Patient not taking: Reported on 02/21/2023) Cascara Sagrada 450 MG capsule Take by mouth daily every morning. (Patient not taking: Reported on 02/21/2023) Chromium Picolinate (CHROMIUM PICOLATE PO) Take by mouth daily every morning. (Patient not taking: Reported on 02/21/2023) Multiple Vitamin (multivitamin) capsule Take 1 capsule by mouth 2 times daily. (Patient not taking:Reported on 02/21/2023) oxyCODONE 5 MG tablet Take 1-2 tablets by mouth every 6 hours as needed for up to 7 days. petrolatum Ointment ophthalmic ointment Apply 1 Application to right eye at bedtime. Polyvinyl Alcohol-Povidone PF 1.4-0.6 % Solution ophthalmic solution Place 2 drops in right eye 4 times daily. vitamin E 400 units capsule Take 1 capsule by mouth 2 times daily. (Patient not taking: Reported on02/21/2023) Medication A/P - Instructions for preoperative medications given to the patient in AVS. LABS Orders Placed This Encounter CBC, EDIF, PLATELET CHEM 6 (LYTES, BUN CREA) CBC AND ELECTRONIC DIFF KS ECG, CLINIC PERFORMED Lab A/P - Labs ordered per surgeon preference Lab results from 02/21/2023 reviewed and acceptable for scheduled procedure. Anesthesia/Medical Assessment/plan: Reviewed patient's history, assessment & ECG findings with Anesthesiologist Dr. Burris. OPTIMIZED Cecilia Mejias, FROG SHAKER-CONTAINER CRANE OPERATOR [facility] [address] Review of Systems Constitutional: Negative for chills and fever. HENT: Negative for dental problem, rhinorrhea, sore throat and trouble swallowing. Respiratory: Negative for cough and shortness of breath. Cardiovascular: Negative for chest pain, palpitations and leg swelling. Gastrointestinal: Negative for abdominal pain, blood in stool, constipation, diarrhea, nausea and vomiting. Genitourinary: Negative for difficulty urinating, dysuria and hematuria. Skin: Negative for rash and wound. Neurological: Negative for dizziness, light-headedness and headaches. Hematological: Does not bruise/bleed easily. Physical Exam Vitals reviewed. Constitutional: General: He is not in acute distress. HENT: Head: Comments: Flap on right side of lower cheek Mouth/Throat: Mouth: Mucous membranes are moist. Pharynx: Oropharynx is clear. No posterior oropharyngeal erythema. Eyes: Extraocular Movements: Extraocular movements intact. Conjunctiva/sclera: Conjunctivae normal. Pupils: Pupils are equal, round, and reactive to light. Neck: Vascular: No carotid bruit. Cardiovascular: Rate and Rhythm: Normal rate and regular rhythm. Pulses: Normal pulses. Heart sounds: Normal heart sounds. Pulmonary: Effort: Pulmonary effort is normal. Breath sounds: Normal breath sounds. No wheezing or rhonchi. Abdominal: General: Bowel sounds are normal. Palpations: Abdomen is soft. Tenderness: There is no abdominal tenderness. Musculoskeletal: Cervical back: Normal range of motion and neck supple. No tenderness. Right lower leg: No edema. Left lower leg: No edema. Lymphadenopathy: Cervical: No cervical adenopathy. Skin: General: Skin is warm and dry. Findings: No erythema or rash. Neurological: General: No focal deficit present. Mental Status: He is alert and oriented to person, place, and time. Cranial Nerves: No cranial nerve deficit. Past Medical History: Diagnosis Date History of head and neck radiation History of pulmonary embolism 11/2019 Post-operative DVT/PE in November 2019. Treated with Eliquis; discontinued by PCP in May 2020. 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 History of tracheostomy Past Surgical History: Procedure Laterality Date REMOVAL HARDWARE Right 05/27/2022 Laterality: Right; Surgeon: Bobo Davidson MD; Location[facility] EXPLORATION TRAUMATIC WOUND NECK N/A 05/27/2022 Laterality: N/A; Surgeon: Bobo Davidson MD; Location: [facility] OR LARYNGOSCOPY DIRECT DIAGNOSTIC N/A 05/27/2022 Laterality: N/A; Surgeon: Bobo Davidson MD; Location: [facility] OR ESOPHAGOSCOPY DIAGNOSTIC N/A 05/27/2022 Laterality: N/A; Surgeon: Bobo Davidson MD; Location: [facility] OR TRACHEOSTOMY N/A 05/27/2022 Laterality: N/A; Surgeon: Bobo Davidson MD; Location: [facility] OR FLAP FREE ANTEROLATERAL THIGH (ALT) SKIN N/A 05/27/2022 Laterality: N/A; Surgeon: Ifrah Cesar MD; Location: [facility] OR DEBRIDEMENT BONE N/A 06/08/2020 Laterality: N/A; Surgeon: Bobo Davidson MD; Location: [facility] OR PLACEMENT TUBE NASO-/LIANG-GASTRIC N/A 06/08/2020 Laterality: N/A; Surgeon: Bobo Davidson MD; Location: [facility] OR LARYNGOSCOPY DIRECT DIAGNOSTIC N/A 11/22/2019 Laterality: N/A; Surgeon: Bobo Davidson MD; Location: [facility] OR ESOPHAGOSCOPY DIAGNOSTIC N/A 11/22/2019 Laterality: N/A; Surgeon: Bobo Davidson MD; Location: [facility] OR MAXILLECTOMY W/O ORBITAL EXENTERATION Right 11/22/2019 Laterality: Right; Surgeon: Bobo Davidson MD; Location: [facility] OR LYMPHADENECTOMY CERVICAL (MODIFIED RADICAL NECK DISSECTION) Right 11/22/2019 Laterality: Right; Surgeon: Bobo Davidson MD; Location: [facility] OR TRACHEOSTOMY N/A 11/22/2019 Laterality: N/A; Surgeon: Bobo Davidson MD; Location: [facility] OR EXTRACTION TOOTH N/A 11/22/2019 Laterality: N/A; Surgeon: Bobo Davidson MD; Location: [facility] OR PLACEMENT TUBE NASO-/LIANG-GASTRIC N/A 11/22/2019 Laterality: N/A; Surgeon: Bobo Davidson MD; Location: [facility] OR FLAP FREE BONE W/ MICROVASCULAR ANASTOMOSIS FIBULA N/A 11/22/2019 Laterality: N/A; Surgeon: Joao Burch MD; Location: [facility] FLAP FREE RADIAL FOREARM FASCIAL Left 11/22/2019 Laterality: Left; Surgeon: Joao Burch MD; Location: [facility] OR APPENDECTOMY LIGATION OR 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 Patient Care Team: Cliff Fitzgerald MD as PCP - General (Family Medicine) Branden Goddard DDS as Referring Provider (Dentistry) Galo Domínguez MD (Radiation Oncology) Family History Problem Relation Age of Onset Diabetes Father Diabetes Paternal Grandmother Social History Socioeconomic History Marital status: Tobacco Use Smoking status: Never Smokeless tobacco: Never Vaping Use Vaping Use: Never used Substance and Sexual Activity Alcohol use: Not Currently Drug use: Not Currently [facility] History and physical note* MELCHOR Au - 02/21/2023 7:30 AM EDT Images from the original note were not included. History of Present Illness Mr. Argueta is a 77 y.o. male is being evaluated in [facility] due to his medical condition(s) as outlined below, which increases his risk for perioperative complications. History of pulmonary embolism Gastroesophageal reflux disease without esophagitis PONV (postoperative nausea and vomiting) History of tracheostomy The status of the above medical conditions are relatively stable and details are further outlined below Name: Lilly Argueta Date of Surgery: 02/21/2023 Surgeon: Dr. 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 Yes stopped for surgery a few days ago Do you take OAC/Antiplatelet therapy? No Blood pressure 136/86, pulse 74, temperature 98.2 F (36.8 C), resp. rate 20, height 1.854 m (6' 1 ), weight 81.2 kg (179 lb), SpO2 97 %. ANESTHESIA/AIRWAY Anesthesia alerts - PONV Hx of head and neck cancer with radiation therapy, hx of tracheostomy s/p decannulation Personal history of problems related to anesthesia: See above Family History of problems related to anesthesia (ex.Malignant Hyperthermia: no Pacer/AICD: no Glaucoma: no Beta Autumn: no Diabetic Mellitus: no RAGHAVENDRA: no Mediport: no STOP-BANG Risk Assessment (3 or more YES responses is high risk) Do you snore - No Are you frequently tired during the day? - No Have you been observed gasping or choking while asleep? - No Do you have high blood pressure? - No Age more than 50? - Yes Gender assignment at male? - Yes Neck circumference greater than 40 cm? - No Neck Circumference (cm): 37.5 BMI more then 35? - No Body mass index is 23.62 kg/m . Scoring Criteria: LOW RISK: yes to 0-2 questions INTERMEDIATE RISK: yes to 3-4 questions HIGH RISK: yes to 5-8 questions Mallampati class - 4 TM Distance - 3 FB Oral Opening - 2 FB Teeth - Top right teeth surgically removed 2/2 cancer Cervical range of motion - within normal limits Neck circumference - Neck Circumference (cm): 37.5 Allergies and adverse drug reactions No Known Allergies Anesthesia/Airway A/P - Does pt meet criteria for liberalized NPO? no. If no, why? Potential or known difficult airway Patient denies any past complications with anesthesia. CARDIOVASCULAR Cardiovascular History: Denies HTN, HLD, CAD, MS, CHF, CVA/TIA, chest pain/pressure, palpitations/arrhythmias, AICD/PPM/stent placement, orthopnea, VANG. Functional status - : Moderate functional capacity. Patient is able to walk 2 city blocks and 2 flights of stairs without CV symptoms. Gardening and walking a couple miles a few times a week. METS >4 Yes BP Readings from Last 3 Encounters: 02/21/23 136/86 02/08/23 141/80 01/25/23 155/88 CARDIAC TESTING: -personally reviewed EXAM: CT ANGIO NECK, 04/30/2022 11:00 AM ECHO, 12/06/2019 (in setting of acute PE) EKG due to Major surgery, hx of PE ECG: Normal Sinus Rhythm, normal axis, no blocks, no ST & T wave abnormalities, non-acute personally reviewed Cardiology A/P: This patient is in a low risk category as the patient meets the following RCRI Criteria (RCRI): None: 0 criteria suggesting a 3.9% risk of major cardiac events No further cardiac follow up or testing required at this time PULMONARY Pulmonary history: Social History Tobacco Use Smoking Status Never Smokeless Tobacco Never E-cigarette/Vaping: No Denies SOB, asthma, COPD, recent fevers/chills. Pulmonary Testing: -personally reviewed EXAM: XR CHEST PA AND LATERAL, 04/27/2022 12:30 PM Pulmonary A/P - Denies history of lung disease or recent respiratory infections. No further pulmonary testing necessary. SUBSTANCE ABUSE Social History Substance and Sexual Activity Alcohol Use Not Currently Social History Substance and Sexual Activity Drug Use Not Currently Substance Abuse A/P - Denies regular/DAILY consumption of alcohol. Encouraged to avoid ETOH 5 days prior to surgery. Denies history of llicit drug use. CLOTTING/BLEEDING History of DVT/PE - yes Are you a Jehovah Witness? - no In case of surgeons plan or unforseen emergency, are you okay with receiving blood products? - yes Hx of PE: postop 11/2019, treated with eliquis, no longer on ac Clotting Bleeding A/P - Denies history of clotting or bleeding disorders. Recommend standard DVT/PE prophylaxis postoperatively. DIABETES Diabetes A/P - Denies DM Lab Results Component Value Date HGBA1C 5.5 08/11/2021 ADDITIONAL DIAGNOSES OF CONCERN GERD- no pharmacotherapy, diet controlled, denies nocturnal symptoms MEDICATIONS Current Outpatient Medications Medication Sig Artificial Tear Ointment (DRY EYES OP) Apply to eye as needed. cholecalciferol 25 MCG (1000 UNIT) tablet Take 1 tablet by mouth daily every morning. STOPPED TAKING ON 02/18/23 FOR SURGERY. Ibuprofen 200 MG tablet Take 1 tablet by mouth as needed for Mild Pain. aspirin 81 MG Chew Tab chewable tablet Chew 1 tablet at bedtime. (Patient not taking: Reported on 02/21/2023) Calcium Acetate-Magnesium Carb 450-200 MG tablet Take 1 tablet by mouth at bedtime. (Patient not taking: Reported on 02/21/2023) Cascara Sagrada 450 MG capsule Take by mouth daily every morning. (Patient not taking: Reported on 02/21/2023) Chromium Picolinate (CHROMIUM PICOLATE PO) Take by mouth daily every morning. (Patient not taking: Reported on 02/21/2023) Multiple Vitamin (multivitamin) capsule Take 1 capsule by mouth 2 times daily. (Patient not taking:Reported on 02/21/2023) oxyCODONE 5 MG tablet Take 1-2 tablets by mouth every 6 hours as needed for up to 7 days. petrolatum Ointment ophthalmic ointment Apply 1 Application to right eye at bedtime. Polyvinyl Alcohol-Povidone PF 1.4-0.6 % Solution ophthalmic solution Place 2 drops in right eye 4 times daily. vitamin E 400 units capsule Take 1 capsule by mouth 2 times daily. (Patient not taking: Reported on02/21/2023) Medication A/P - Instructions for preoperative medications given to the patient in AVS. LABS Orders Placed This Encounter CBC, EDIF, PLATELET CHEM 6 (LYTES, BUN CREA) CBC AND ELECTRONIC DIFF KS ECG, CLINIC PERFORMED Lab A/P - Labs ordered per surgeon preference Lab results from 02/21/2023 reviewed and acceptable for scheduled procedure. Anesthesia/Medical Assessment/plan: Reviewed patient's history, assessment & ECG findings with Anesthesiologist Dr. Burris. OPTIMIZED Cecilia Mejias, FROG SHAKER-CONTAINER CRANE OPERATOR [facility] [address] Review of Systems Constitutional: Negative for chills and fever. HENT: Negative for dental problem, rhinorrhea, sore throat and trouble swallowing. Respiratory: Negative for cough and shortness of breath. Cardiovascular: Negative for chest pain, palpitations and leg swelling. Gastrointestinal: Negative for abdominal pain, blood in stool, constipation, diarrhea, nausea and vomiting. Genitourinary: Negative for difficulty urinating, dysuria and hematuria. Skin: Negative for rash and wound. Neurological: Negative for dizziness, light-headedness and headaches. Hematological: Does not bruise/bleed easily. Physical Exam Vitals reviewed. Constitutional: General: He is not in acute distress. HENT: Head: Comments: Flap on right side of lower cheek Mouth/Throat: Mouth: Mucous membranes are moist. Pharynx: Oropharynx is clear. No posterior oropharyngeal erythema. Eyes: Extraocular Movements: Extraocular movements intact. Conjunctiva/sclera: Conjunctivae normal. Pupils: Pupils are equal, round, and reactive to light. Neck: Vascular: No carotid bruit. Cardiovascular: Rate and Rhythm: Normal rate and regular rhythm. Pulses: Normal pulses. Heart sounds: Normal heart sounds. Pulmonary: Effort: Pulmonary effort is normal. Breath sounds: Normal breath sounds. No wheezing or rhonchi. Abdominal: General: Bowel sounds are normal. Palpations: Abdomen is soft. Tenderness: There is no abdominal tenderness. Musculoskeletal: Cervical back: Normal range of motion and neck supple. No tenderness. Right lower leg: No edema. Left lower leg: No edema. Lymphadenopathy: Cervical: No cervical adenopathy. Skin: General: Skin is warm and dry. Findings: No erythema or rash. Neurological: General: No focal deficit present. Mental Status: He is alert and oriented to person, place, and time. Cranial Nerves: No cranial nerve deficit. Past Medical History: Diagnosis Date History of head and neck radiation History of pulmonary embolism 11/2019 Post-operative DVT/PE in November 2019. Treated with Eliquis; discontinued by PCP in May 2020. 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 History of tracheostomy Past Surgical History: Procedure Laterality Date REMOVAL HARDWARE Right 05/27/2022 Laterality: Right; Surgeon: Bobo Davidson MD; [facility] EXPLORATION TRAUMATIC WOUND NECK N/A 05/27/2022 Laterality: N/A; Surgeon: Bobo Davidson MD; Location: [facility] MAIN OR LARYNGOSCOPY DIRECT DIAGNOSTIC N/A 05/27/2022 Laterality: N/A; Surgeon: Bobo Davidson MD; Location: [facility] MAIN OR ESOPHAGOSCOPY DIAGNOSTIC N/A 05/27/2022 Laterality: N/A; Surgeon: Bobo Davidson MD; Location: [facility] MA[facility] OR TRACHEOSTOMY N/A 05/27/2022 Laterality: N/A; Surgeon: Bobo Davidson MD; Location: [facility] MAIN OR FLAP FREE ANTEROLATERAL THIGH (ALT) SKIN N/A 05/27/2022 Laterality: N/A; Surgeon: Ifrah Cesar MD; Location: [facility] MAIN OR DEBRIDEMENT BONE N/A 06/08/2020 Laterality: N/A; Surgeon: Bobo Davidson MD; Location: [facility] MA[facility] OR PLACEMENT TUBE NASO-/LIANG-GASTRIC N/A 06/08/2020 Laterality: N/A; Surgeon: Bobo Davidson MD; Location: [facility] MAIN OR LARYNGOSCOPY DIRECT DIAGNOSTIC N/A 11/22/2019 Laterality: N/A; Surgeon: Bobo Davidson MD; Location: [facility] MA[facility] OR ESOPHAGOSCOPY DIAGNOSTIC N/A 11/22/2019 Laterality: N/A; Surgeon: Bobo Davidson MD; Location: [facility] MAIN OR MAXILLECTOMY W/O ORBITAL EXENTERATION Right 11/22/2019 Laterality: Right; Surgeon: Bobo Davidson MD; Location: [facility] MAIN OR LYMPHADENECTOMY CERVICAL (MODIFIED RADICAL NECK DISSECTION) Right 11/22/2019 Laterality: Right; Surgeon: Bobo Davidson MD; Location: [facility] OR TRACHEOSTOMY N/A 11/22/2019 Laterality: N/A; Surgeon: Bobo Davidson MD; Location: [facility] OR EXTRACTION TOOTH N/A 11/22/2019 Laterality: N/A; Surgeon: Bobo Davidson MD; Location: [facility] MA[facility] OR PLACEMENT TUBE NASO-/LIANG-GASTRIC N/A 11/22/2019 Laterality: N/A; Surgeon: Bobo Davidson MD; Location: [facility] MA[facility] OR FLAP FREE BONE W/ MICROVASCULAR ANASTOMOSIS FIBULA N/A 11/22/2019 Laterality: N/A; Surgeon: Joao Burch MD; Location: [facility] MA[facility] OR FLAP FREE RADIAL FOREARM FASCIAL Left 11/22/2019 Laterality: Left; Surgeon: Joao Burch MD; Location: [facility] MAIN OR APPENDECTOMY LIGATION OR 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 Patient Care Team: Cliff Fitzgerald MD as PCP - General (Family Medicine) Branden Goddard DDS as Referring Provider (Dentistry) Galo Domínguez MD (Radiation Oncology) Family History Problem Relation Age of Onset Diabetes Father Diabetes Paternal Grandmother Social History Socioeconomic History Marital status: Tobacco Use Smoking status: Never Smokeless tobacco: Never Vaping Use Vaping Use: Never used Substance and Sexual Activity Alcohol use: Not Currently Drug use: Not Currently [facility] History of Present illness Narrative* Angélica Burris MD - 02/21/2023 7:30 AM EDT The patient has been evaluated and discussed with Cecilia Mejias CNP. EXCISION AND FLAP DEBULKING OF RIGHT CHEEK Concerns/Comments: 1. Airway--history of head and neck CA s/p resection, chemoradiation. History of tracheostomy in 2019. Intubation Date/Time: 05/27/2022 7:59 AM Airway not difficult General Information and Staff Patient location during procedure: OR Room: [place] [id number] Attending: Issa Richmond MD Performed by: Bassam Hernandez DDS Indications and Patient Condition Indications for airway management: general anesthesia Spontaneous Ventilation: absent Sedation level: general anesthesia Preoxygenated: yes Patient position: sniffing and supine Mask difficulty assessment: 1 - vent by mask Final Airway Details Final airway type: endotracheal airway Successful airway: ETT ETT size: 7.0 mm Cuffed: yes Endotracheal tube insertion site: oral Successful intubation technique: video laryngoscopy Video Laryngoscope: glidescope Blade: Cecilio Blade size: #4 Facilitating devices/methods: intubating stylet Cormack-Lehane Classification: grade I - full view of glottis Placement verified by: auscultation, CO2 detection and visualization through the cords Tube secured: 24 CM at the lips Tube Secured with: tape Number of attempts at approach: 1 Ventilation between attempts: none Number of other approaches attempted: 0 Additional Comments Atraumatic intubation. Hard/soft tissue unchanged from preop 2. Anesthesia--PONV 3. CV--History of PE in 11/2019 after surgery. He is no longer on anticoagulation. Patient denies CP, VANG, orthopnea, and palpitations. Has moderate functional capacity. 11/2019 CONCLUSIONS Summary Left ventricle is normal in size. Global left ventricular systolic function is mildly reduced. Estimated ejection fraction is 45 % . Calculated EF via heart model is 45 %. Normal left ventricular wall thickness. No significant valvular regurgitation or stenosis seen. Mildly dilated right ventricular cavity. Right ventricular function appears normal . No significant pericardial effusion is seen. 4. GI--has GERD, diet-controlled. Rarely has symptoms. Anesthesia Assessment:No contraindications to planned surgery. Pending review of the patient's labs.ECG reviewed. Angélica Burris MD [facility] Instructions* Patient Instructions* Rios Beavers - 02/21/2023 7:30 AM EDT Patient Medication Instructions: - Only take listed medications on the morning of surgery with a sip of water. Do not take any of your other medications on the morning of surgery. Current Outpatient Medications Medication Sig Instructions Artificial Tear Ointment (DRY EYES OP) Ophthalmic, NEEDED Take morning of surgery if needed cholecalciferol 25 MCG (1000 UNIT) tablet 1,000 Units, Oral, DAILY EVERY MORNING, STOPPED TAKING ON02/18/23 FOR SURGERY. Do not take morning of surgery Ibuprofen 200 MG tablet 200 mg, Oral, NEEDED Do not take 7 days prior to surgery If you use an Inhaler/Inhalers on a daily basis, then use your inhaler on the morning of surgery. Do NOT take herbal medications and supplements (including multi-vitamin, Fish Oil, garlic, Glucosamine - Chondroitin, gingko, ginseng, Vitamin E, Vitamin A, probiotics) 2 weeks before surgery, unlessotherwise instructed above. Do NOT take Excedrin, ibuprofen, Advil, Voltaren (Diclofenac), Motrin, naproxen, or Aleve, Mobic (Meloxicam) for the 7-14 days before surgery. Acetaminophen (Tylenol) is ok to take up until the day of surgery. Patient Pre-Operative Instructions: Diet Instructions: -NO food or drink after 11 pm the night before surgery except for enough water to take your medications. (No Candy, Mints and/or Gum) Follow all instructions from your surgeons office regarding nutritional drinks the morning of surgery, if applicable. -NO Candy, Mints and/or Gum - Do NOT wear any hearing aids, jewelry, watches, rings, hairpieces, makeup, glasses or contact lenses with you into your surgery. - Shower the night before and the morning of surgery. - Do NOT shave, or pluck hair from anywhere near the surgical site one week prior to surgery. - Diagonal your teeth and rinse your mouth the morning of surgery. - Do NOT bring your dentures or partials with you into surgery. They may be lost. Give them to someone to bring to you after surgery. If you become ill, develop a fever, cough, or any type of infection within 14 days of your scheduled surgery, please call the surgeon's office. You may need to have your surgery moved, as we would not want to put you at risk for complications due to an illness. If you are placed on Antibiotics within 1 week of surgery, please notify our team immediately. Your anesthesia team request you avoid smoking, vaping and/or use of E cigarettes 24 hours prior tosurgery unless otherwise instructed by your surgeons office Please complete LABS today If you are unable to complete your scheduled testing or appointments made by [facility] please contact [facility] at [phone]. Failure to do so could delay or cancel your surgery. To lessen your chance of getting an infection after your surgery, you will need to wash your skin with a special soap called 4% Chlorhexidine Gluconate (CHG) before your surgery. Your nurse has givenyou CHG soap today and written instructions; Getting Your Skin Ready for Surgery . Please review the instructions carefully prior to your surgery. documented in this [facility] [place] History of Present illness Narrative* JEANIE Diamond - 01/25/2023 1:30 PM EDT BP: 155 /88 P:60 R:16 T:98.4 SpO2: 99 % W: 183.6lbs Falls-no Pain in upper right mouth level -3 Pharmacy, medications, and allergies verified. Pt in company with -. Radha All data collected, documented, and reported to Dr. Lucio. EVANGELISTA Shah II * Nell Lucio, JAZ - 01/25/2023 1:30 PM EDT Images from the original note were not included. [facility] Lilly Argueta is 77 y.o. 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 Most recently he is s/p debridement and A-cell placement on 06/08/20. Completed RT locally and developed ORN with exposed fibula and exposed hardware in the right cheek, now s/p R maxillary hardware and previous FFF, R neck exploration, L ALT on 05/27/22. He presents for FOLLOW-UP: Denture teeth try-in for maxillary resection prosthesis Chief Complaint Patient presents in company of his Jerson. Overall, he is doing well. He complains of right cheek tightness and missing right maxillary teeth. Medical History Past Medical History: Diagnosis Date History of head and neck radiation History of pulmonary embolism 11/2019 Post-operative DVT/PE in November 2019. Treated with Eliquis; discontinued by PCP in May 2020. 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 History of tracheostomy Surgical History Past Surgical History: Procedure Laterality Date EXCISION LESION SOFT TISSUE FACE SCALP Right 02/24/2023 Laterality: Right; Surgeon: Bobo Davidson MD; Location[facility] OR REMOVAL HARDWARE Right 05/27/2022 Laterality: Right; Surgeon: Bobo Davidson MD; Location: [facility] MAIN OR EXPLORATION TRAUMATIC WOUND NECK N/A 05/27/2022 Laterality: N/A; Surgeon: Bobo Davidson MD; Location: [facility] MAIN OR LARYNGOSCOPY DIRECT DIAGNOSTIC N/A 05/27/2022 Laterality: N/A; Surgeon: Bobo Davidson MD; Location: [facility] MAIN OR ESOPHAGOSCOPY DIAGNOSTIC N/A 05/27/2022 Laterality: N/A; Surgeon: Bobo Davidson MD; Location: [facility] OR TRACHEOSTOMY N/A 05/27/2022 Laterality: N/A; Surgeon: Bobo Davidson MD; Location: [facility] MA[facility] OR FLAP FREE ANTEROLATERAL THIGH (ALT) SKIN N/A 05/27/2022 Laterality: N/A; Surgeon: Ifrah Cesar MD; Location: [facility] OR DEBRIDEMENT BONE N/A 06/08/2020 Laterality: N/A; Surgeon: Bobo Davidson MD; Location: [facility] MA[facility] OR PLACEMENT TUBE NASO-/LIANG-GASTRIC N/A 06/08/2020 Laterality: N/A; Surgeon: Bobo Davidson MD; Location: [facility] MAIN OR LARYNGOSCOPY DIRECT DIAGNOSTIC N/A 11/22/2019 Laterality: N/A; Surgeon: Bobo Davidson MD; Location: [facility] OR ESOPHAGOSCOPY DIAGNOSTIC N/A 11/22/2019 Laterality: N/A; Surgeon: Bobo Davidson MD; Location: [facility] OR MAXILLECTOMY W/O ORBITAL EXENTERATION Right 11/22/2019 Laterality: Right; Surgeon: Bobo Davidson MD; Location: [facility] MAIN OR LYMPHADENECTOMY CERVICAL (MODIFIED RADICAL NECK DISSECTION) Right 11/22/2019 Laterality: Right; Surgeon: Bobo Davidson MD; Location: [facility] OR TRACHEOSTOMY N/A 11/22/2019 Laterality: N/A; Surgeon: Bobo Davidson MD; Location: [facility] OR EXTRACTION TOOTH N/A 11/22/2019 Laterality: N/A; Surgeon: Bobo Davidson MD; Location: [facility] OR PLACEMENT TUBE NASO-/LIANG-GASTRIC N/A 11/22/2019 Laterality: N/A; Surgeon: Bobo Davidson MD; Location: [facility] OR FLAP FREE BONE W/ MICROVASCULAR ANASTOMOSIS FIBULA N/A 11/22/2019 Laterality: N/A; Surgeon: Joao Burch MD; Location: [facility] OR FLAP FREE RADIAL FOREARM FASCIAL Left 11/22/2019 Laterality: Left; Surgeon: Joao Burch MD; Location: [facility] MAIN OR APPENDECTOMY LIGATION OR 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 Social History Social History Socioeconomic History Marital status: Spouse name: Not on file Number of children: Not on file Years of education: Not on file Highest education level: Not on file Occupational History Not on file Tobacco Use Smoking status: Never Smokeless tobacco: Never Vaping Use Vaping Use: Never used Substance and Sexual Activity Alcohol use: Not Currently Drug use: Not Currently Sexual activity: Not on file Other Topics Concern Not on file Social History Narrative Not on file Social Determinants of Health Financial Resource Strain: Not on file Food Insecurity: Not on file Transportation Needs: Not on file Physical Activity: Not on file Stress: Not on file Social Connections: Not on file Intimate Partner Violence: Not on file Housing Stability: Not on file Current Medications Current Outpatient Medications Medication Sig Artificial Tear Ointment (DRY EYES OP) Apply to eye as needed. aspirin 81 MG Chew Tab chewable tablet Chew 1 tablet at bedtime. Calcium Acetate-Magnesium Carb 450-200 MG tablet Take 1 tablet by mouth at bedtime. Cascara Sagrada 450 MG capsule Take by mouth daily every morning. cholecalciferol 25 MCG (1000 UNIT) tablet Take 1 tablet by mouth daily every morning. STOPPED TAKING ON 02/18/23 FOR SURGERY. Chromium Picolinate (CHROMIUM PICOLATE PO) Take by mouth daily every morning. Ibuprofen 200 MG tablet Take 1 tablet by mouth as needed for Mild Pain. Multiple Vitamin (multivitamin) capsule Take 1 capsule by mouth 2 times daily. oxycodone 5 MG capsule Take 1 capsule by mouth every 4 hours as needed for moderate or severe pain for up to 3 days. petrolatum Ointment ophthalmic ointment Apply 1 Application to right eye at bedtime. (Patient not taking: Reported on 03/08/2023) Polyvinyl Alcohol-Povidone PF 1.4-0.6 % Solution ophthalmic solution Place 2 drops in right eye 4 times daily. vitamin E 400 units capsule Take 1 capsule by mouth 2 times daily. 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 No systemic therapy. Radiation Oncologist: Galo Domínguez MD in [facility]. CT simulation was done 12/26/19 and a custom MOTD radiation stent was used. Examination Vitals Blood pressure 155/88, pulse 60, temperature 98.4 F (36.9 C), temperature source Temporal, resp. rate 16, weight 83.3 kg (183 lb 9.6 oz), SpO2 99 %. Documented vital signs above from today's visit reviewed. Reviewed medications. Evaluation includedthe face, lip and oral cavity, lip, tongue, floor of mouth, hard palate, soft palate and revealed well healed ALT free flap in the right face and right maxilla. Assessment Lilly Argueta presents for denture teeth try-in for maxillary resection prosthesis. He recently had a take down of the failed right FFF and now is s/p ALT free flap. He is feeling well and is eating by mouth but is esthetically concerned about his missing teeth and the appearance of the flap on his right cheek. Clinical exam reveals a well healed ALT free flap and limited prosthetic space. Recommended to make him a removable resection prosthesis. Jaw records were made in our prior dental appointment. Today I am doing the denture teeth try-in. Denture teeth shade A4 matches his natural maxillary teeth very well and the position of the teeth looks good. He needs to reutrn for delivery. Plan of Care Pre-radiation Fabrication of MOTD stent (DONE) Fabrication of fluoride trays (DONE) Jaw opening exercises to prevent trismus Post-radiation Keep established with a local Dentist Periodic oral evaluation every 3 months for the first year after completion of radiation, then if compliant can be changed to every 6 months Indefinite fluoride therapy to prevent caries,preferred method: 0.4% stannous fluoride in custom made carriers Jaw opening exercises to maintain mouth opening Treatment/Procedures performed today: 1. Denture teeth try-in for resection prosthesis Total time spent face to face with the patient today: 30 minutes, with over 50% of the face to facetime used for counseling or coordinating patient s care, not including the procedure. Disposition: Delivery 10/26/22 RADIOGRAPHIC EXAM: Post-op Thank you for allowing me to participate in the care of Mr. Argueta Please feel free to contact me if you have any questions or concerns. Nell Lucio DMD Cell Installer [employer] [facility], [address], [address] floor, [place], [address] Office / [phone] Fax [email or web address] documented in this encounterU [facility] Instructions* Patient Instructions* Nell Lucio DMD - 01/25/2023 1:30 PM EDT Today you have seen Dr. Lucio for Esthetic try in. She found that the teeth color blend in very well. Next visit: Delivery documented in this encounterOSU [facility] History of Present illness Narrative* Janell Hood - 12/22/2022 11:30 AM EDT BP: 156/71 P: 66 R: 18 T: 98.0 SpO2: 98% W: 181.2 lbs Depression screening needs completion for future Head and Neck appointments. Patient reports the following: NO Falls NO Pain Pt in company with , Jerson. Pharmacy, medications, and allergies verified. All data collected, documented, and reported to Dr. Lucio. EVANGELISTA Marquez * Nell Lucio DMD - 12/22/2022 11:30 AM EDT Images from the original note were not included. [facility] Lilly Argueta is 77 y.o. 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 Most recently he is s/p debridement and A-cell placement on 06/08/20. Completed RT locally and developed ORN with exposed fibula and exposed hardware in the right cheek, now s/p R maxillary hardware and previous FFF, R neck exploration, L ALT on 05/27/22. He presents for FOLLOW-UP: Final impression for maxillary resection prosthesis Chief Complaint Patient presents in company of his Jerson. Overall, he is doing well. He complains of right cheek tightness and missing right maxillary teeth. Medical History Past Medical History: Diagnosis Date History of head and neck radiation History of pulmonary embolism 11/2019 Post-operative DVT/PE in November 2019. Treated with Eliquis; discontinued by PCP in May 2020. 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 History of tracheostomy Surgical History Past Surgical History: Procedure Laterality Date EXCISION LESION SOFT TISSUE FACE SCALP Right 02/24/2023 Laterality: Right; Surgeon: Bobo Davidson MD; Location: [facility] MA[facility] OR REMOVAL HARDWARE Right 05/27/2022 Laterality: Right; Surgeon: Bobo Davidson MD; Location: [facility] OR EXPLORATION TRAUMATIC WOUND NECK N/A 05/27/2022 Laterality: N/A; Surgeon: Bobo Davidson MD; Location: [facility] MA[facility] OR LARYNGOSCOPY DIRECT DIAGNOSTIC N/A 05/27/2022 Laterality: N/A; Surgeon: Bobo Davidson MD; Location: [facility] OR ESOPHAGOSCOPY DIAGNOSTIC N/A 05/27/2022 Laterality: N/A; Surgeon: Bobo Davidson MD; Location: [facility] OR TRACHEOSTOMY N/A 05/27/2022 Laterality: N/A; Surgeon: Bobo Davidson MD; Location: [facility] OR FLAP FREE ANTEROLATERAL THIGH (ALT) SKIN N/A 05/27/2022 Laterality: N/A; Surgeon: Ifrah Cesar MD; Location: [facility] OR DEBRIDEMENT BONE N/A 06/08/2020 Laterality: N/A; Surgeon: Bobo Davidson MD; Location: [facility] OR PLACEMENT TUBE NASO-/LIANG-GASTRIC N/A 06/08/2020 Laterality: N/A; Surgeon: Bobo Davidson MD; Location: [facility] OR LARYNGOSCOPY DIRECT DIAGNOSTIC N/A 11/22/2019 Laterality: N/A; Surgeon: Bobo Davidson MD; Location: [facility] OR ESOPHAGOSCOPY DIAGNOSTIC N/A 11/22/2019 Laterality: N/A; Surgeon: Bobo Davidson MD; Location: [facility] OR MAXILLECTOMY W/O ORBITAL EXENTERATION Right 11/22/2019 Laterality: Right; Surgeon: Bobo Davidson MD; Location: [facility] OR LYMPHADENECTOMY CERVICAL (MODIFIED RADICAL NECK DISSECTION) Right 11/22/2019 Laterality: Right; Surgeon: Bobo Davidson MD; Location: [facility] OR TRACHEOSTOMY N/A 11/22/2019 Laterality: N/A; Surgeon: Bobo Davidson MD; Location: [facility] EXTRACTION TOOTH N/A 11/22/2019 Laterality: N/A; Surgeon: Bobo Davidson MD; Location: [facility] OR PLACEMENT TUBE NASO-/LIANG-GASTRIC N/A 11/22/2019 Laterality: N/A; Surgeon: Bobo Davidson MD; Location: [facility] OR FLAP FREE BONE W/ MICROVASCULAR ANASTOMOSIS FIBULA N/A 11/22/2019 Laterality: N/A; Surgeon: Joao Burch MD; Location: [facility] OR FLAP FREE RADIAL FOREARM FASCIAL Left 11/22/2019 Laterality: Left; Surgeon: Joao Burch MD; Location: [facility] MA[facility] OR APPENDECTOMY LIGATION OR 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 Social History Social History Socioeconomic History Marital status: Spouse name: Not on file Number of children: Not on file Years of education: Not on file Highest education level: Not on file Occupational History Not on file Tobacco Use Smoking status: Never Smokeless tobacco: Never Vaping Use Vaping Use: Never used Substance and Sexual Activity Alcohol use: Not Currently Drug use: Not Currently Sexual activity: Not on file Other Topics Concern Not on file Social History Narrative Not on file Social Determinants of Health Financial Resource Strain: Not on file Food Insecurity: Not on file Transportation Needs: Not on file Physical Activity: Not on file Stress: Not on file Social Connections: Not on file Intimate Partner Violence: Not on file Housing Stability: Not on file Current Medications Current Outpatient Medications Medication Sig Artificial Tear Ointment (DRY EYES OP) Apply to eye as needed. aspirin 81 MG Chew Tab chewable tablet Chew 1 tablet at bedtime. (Patient not taking: Reported on 02/21/2023) Calcium Acetate-Magnesium Carb 450-200 MG tablet Take 1 tablet by mouth at bedtime. (Patient not taking: Reported on 02/21/2023) Cascara Sagrada 450 MG capsule Take by mouth daily every morning. (Patient not taking: Reported on 02/21/2023) cholecalciferol 25 MCG (1000 UNIT) tablet Take 1 tablet by mouth daily every morning. STOPPED TAKING ON 02/18/23 FOR SURGERY. (Patient not taking: Reported on 02/22/2023) Chromium Picolinate (CHROMIUM PICOLATE PO) Take by mouth daily every morning. Ibuprofen 200 MG tablet Take 1 tablet by mouth as needed for Mild Pain. (Patient not taking: Reported on 02/22/2023) Multiple Vitamin (multivitamin) capsule Take 1 capsule by mouth 2 times daily. (Patient not taking:Reported on 02/21/2023) oxycodone 5 MG capsule Take 1 capsule by mouth every 4 hours as needed for moderate or severe pain for up to 3 days. petrolatum Ointment ophthalmic ointment Apply 1 Application to right eye at bedtime. Polyvinyl Alcohol-Povidone PF 1.4-0.6 % Solution ophthalmic solution Place 2 drops in right eye 4 times daily. vitamin E 400 units capsule Take 1 capsule by mouth 2 times daily. 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 No systemic therapy. Radiation Oncologist: Galo Domínguez MD in [facility] which [facility]. CT simulation was done 12/26/19 and a custom MOTD radiation stent was used. Examination Vitals Blood pressure 156/71, pulse 66, temperature 98 F (36.7 C), temperature source Temporal, resp. rate18, weight 82.2 kg (181 lb 3.2 oz), SpO2 98 %. Documented vital signs above from today's visit reviewed. Reviewed medications. Evaluation includedthe face, lip and oral cavity, lip, tongue, floor of mouth, hard palate, soft palate and revealed well healed ALT free flap in the right face and right maxilla. Assessment Lilly Argueta presents for maxillary final impressions for resection prosthesis. He recently hadtake down of failed FFF and now is s/p ALT flap. He is feeling well and is eating by mouth but is esthetically concerned about his misisng teeth and the appearance of the flap on his right cheek. Clinical exam reveals a well healed ALT free flap and limited prosthetic space. Recommended to try to make him a removable resection prosthesis. A cutom tray was trimmed and border molded. Final impression made using light and medium PVS impression material and poured in type IV dnetal stone. Plan of Care Pre-radiation Fabrication of MOTD stent (DONE) Fabrication of fluoride trays (DONE) Jaw opening exercises to prevent trismus Post-radiation Keep established with a local Dentist Periodic oral evaluation every 3 months for the first year after completion of radiation, then if compliant can be changed to every 6 months Indefinite fluoride therapy to prevent caries,preferred method: 0.4% stannous fluoride in custom made carriers Jaw opening exercises to maintain mouth opening Treatment/Procedures performed today: 1. Maxillary final impression for resection prosthesis Total time spent face to face with the patient today: 60 minutes, with over 50% of the face to facetime used for counseling or coordinating patient s care, not including the procedure. Disposition: Metal framework or jaw records 10/26/22 RADIOGRAPHIC EXAM: Post-op Thank you for allowing me to participate in the care of Mr. Argueta Please feel free to contact me if you have any questions or concerns. Nell Lucio,JAZ Cell Installer [employer] [address], [address] floor, [place], [address] [phone] Office / [phone] Fax [email or web address] documented in this encounterOSU [facility] Instructions* Patient Instructions* Nell Lucio DMD - 12/22/2022 11:30 AM EDT Today you have seen Dr. Lucio for final impression for maxillary resection prosthesis. 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 These patients have a disruption in mastication, swallowing and can experience altered speech. This prosthesis is medically necessary and must be worn for the remainder of the patient s life. Lilly Argueta was prescribed a maxillary resection prosthesis. He is s/p maxillary resection andfree flap christianity to close the site. Fabrication of the prosthesis should provide prosthetic reshaping of the maxilla and palatal contours to improve speech and tongue function. It will allow thetongue to articulate against the palate during speech and forcefully move the food bolus toward thethroat during deglutition. Impressions were made today for its fabrication. A custom tray was used and border molded in the right side. A final impression was made using PVS light and medium body. The impression was poured in type IV dnetal stone. He tolerated the procedures very well. 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 These patients have a disruption in mastication, swallowing and can experience altered speech. This prosthesis is medically necessary and must be worn for the remainder of the patient s life. Lilly Argueta was prescribed a maxillary resection prosthesis. He is s/p maxillary resection andfree flap christianity to close the site. Fabrication of the prosthesis should provide prosthetic reshaping of the maxilla and palatal contours to improve speech and tongue function. It will allow thetongue to articulate against the palate during speech and forcefully move the food bolus toward thethroat during deglutition. Impressions were made today for its fabrication. A custom tray was used and border molded in the right side. A final impression was made using PVS light and medium body. The impression was poured in type IV dnetal stone. He tolerated the procedures very well. documented in this encounterOSU [facility] History of Present illness Narrative* Janell Hood - 10/26/2022 2:30 PM EST All vitals transferred from Dr. Davidson appointment. BP: 141/78 P: 87 R: 16 T: 96.5 SpO2: 100% W: 177.8 lbs Depression screening needs completion for future Head and Neck appointments. Patient reports the following: NO Falls NO Pain Pharmacy, medications, and allergies verified. All data collected, documented, and reported to Dr. Lucio. Janell Hood DA * Nell Lucio DMD - 10/26/2022 2:30 PM EST Images from the original note were not included. [facility] Lilly Argueta is 77 y.o. 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 Most recently he is s/p debridement and A-cell placement on 06/08/20. Completed RT locally and developed ORN with exposed fibula and exposed hardware in the right cheek, now s/p R maxillary hardware and previous FFF, R neck exploration, L ALT on 05/27/22. Lilly Argueta presents for FOLLOW-UP: Post-surgical Oral Cavity Exam Chief Complaint Patient presents in company of his Jerson. Overall, he is doing well. He complains of right cheek tightness and missing right maxillary teeth. Medical History Past Medical History: Diagnosis Date History of head and neck radiation History of pulmonary embolism 11/2019 Post-operative DVT/PE in November 2019. Treated with Eliquis; discontinued by PCP in May 2020. 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 History of tracheostomy Surgical History Past Surgical History: Procedure Laterality Date REMOVAL HARDWARE Right 05/27/2022 Laterality: Right; Surgeon: Bobo Davidson MD; Location: [facility] OR EXPLORATION TRAUMATIC WOUND NECK N/A 05/27/2022 Laterality: N/A; Surgeon: Bobo Davidson MD; Location: [facility] MA[facility] OR LARYNGOSCOPY DIRECT DIAGNOSTIC N/A 05/27/2022 Laterality: N/A; Surgeon: Bobo Davidson MD; Location: [facility] OR ESOPHAGOSCOPY DIAGNOSTIC N/A 05/27/2022 Laterality: N/A; Surgeon: Bobo Davidson MD; Location: [facility] OR TRACHEOSTOMY N/A 05/27/2022 Laterality: N/A; Surgeon: Bobo Davidson MD; Location: [facility] OR FLAP FREE ANTEROLATERAL THIGH (ALT) SKIN N/A 05/27/2022 Laterality: N/A; Surgeon: Ifrah Cesar MD; Location: [facility] OR DEBRIDEMENT BONE N/A 06/08/2020 Laterality: N/A; Surgeon: Bobo Davidson MD; Location: [facility] OR PLACEMENT TUBE NASO-/LIANG-GASTRIC N/A 06/08/2020 Laterality: N/A; Surgeon: Bobo Davidson MD; Location: [facility] OR LARYNGOSCOPY DIRECT DIAGNOSTIC N/A 11/22/2019 Laterality: N/A; Surgeon: Bobo Davidson MD; Location: [facility] OR ESOPHAGOSCOPY DIAGNOSTIC N/A 11/22/2019 Laterality: N/A; Surgeon: Bobo Davidson MD; Location: [facility] OR MAXILLECTOMY W/O ORBITAL EXENTERATION Right 11/22/2019 Laterality: Right; Surgeon: Bobo Davidson MD; Location: [facility] OR LYMPHADENECTOMY CERVICAL (MODIFIED RADICAL NECK DISSECTION) Right 11/22/2019 Laterality: Right; Surgeon: Bobo Davidson MD; Location: [facility] OR TRACHEOSTOMY N/A 11/22/2019 Laterality: N/A; Surgeon: Bobo Davidson MD; Location: [facility] OR EXTRACTION TOOTH N/A 11/22/2019 Laterality: N/A; Surgeon: Bobo Davidson MD; Location: [facility] OR PLACEMENT TUBE NASO-/LIANG-GASTRIC N/A 11/22/2019 Laterality: N/A; Surgeon: Bobo Davidson MD; Location: [facility] OR FLAP FREE BONE W/ MICROVASCULAR ANASTOMOSIS FIBULA N/A 11/22/2019 Laterality: N/A; Surgeon: Joao Burch MD; Location: [facility] OR FLAP FREE RADIAL FOREARM FASCIAL Left 11/22/2019 Laterality: Left; Surgeon: Joao Burch MD; Location: [facility] MA[facility] OR APPENDECTOMY LIGATION OR 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 Social History Social History Socioeconomic History Marital status: Spouse name: Not on file Number of children: Not on file Years of education: Not on file Highest education level: Not on file Occupational History Not on file Tobacco Use Smoking status: Never Smokeless tobacco: Never Vaping Use Vaping Use: Never used Substance and Sexual Activity Alcohol use: Not Currently Drug use: Not Currently Sexual activity: Not on file Other Topics Concern Not on file Social History Narrative Not on file Social Determinants of Health Financial Resource Strain: Not on file Food Insecurity: Not on file Transportation Needs: Not on file Physical Activity: Not on file Stress: Not on file Social Connections: Not on file Intimate Partner Violence: Not on file Housing Stability: Not on file Current Medications Current Outpatient Medications Medication Sig aspirin 81 MG Chew Tab chewable tablet Chew 1 tablet at bedtime. Calcium Acetate-Magnesium Carb 450-200 MG tablet Take 1 tablet by mouth at bedtime. Cascara Sagrada 450 MG capsule Take by mouth daily every morning. Chromium Picolinate (CHROMIUM PICOLATE PO) Take by mouth daily every morning. COLLAGEN PO Take 1 Scoop by mouth daily. Collagen Powder [employer] D3 25 MCG (1000 UT) capsule Take 25 capsules by mouth 2 times daily. Multiple Vitamin (multivitamin) capsule Take 1 capsule by mouth 2 times daily. oxyCODONE 5 MG tablet Take 1-2 tablets by mouth every 6 hours as needed for up to 7 days. petrolatum Ointment ophthalmic ointment Apply 1 Application to right eye at bedtime. (Patient not taking: Reported on 10/26/2022) Polyvinyl Alcohol-Povidone PF 1.4-0.6 % Solution ophthalmic solution Place 2 drops in right eye 4 times daily. (Patient not taking: Reported on 10/26/2022) TURMERIC PO Take by mouth 3 times daily. vitamin E 400 units capsule Take 1 capsule by mouth 2 times daily. 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 No systemic therapy. Radiation Oncologist: Galo Domínguez MD in [facility] which [facility]. CT simulation was done 12/26/19 and a custom MOTD radiation stent was used. Examination Vitals Blood pressure 141/78, pulse 87, temperature 96.5 F (35.8 C), temperature source Temporal, resp. rate 16, weight 80.6 kg (177 lb 12.8 oz), SpO2 100 %. Documented vital signs above from today's visit reviewed. Reviewed medications. Evaluation includedthe face, lip and oral cavity, lip, tongue, floor of mouth, hard palate, soft palate and revealed well healed ALT free flap. Assessment Lilly Argueta presents for follow-up oral cavity exam. He recently had take down of failed FFF and now is s/p ALT flap. He is feeling well and is eating by mouth but is esthetically concerned about his misisng teeth and the appearance of the flap on his right cheek. Clinical exam reveals a well healed ALT free flap and limited prosthetic space. Recommended to try to make him a removable resection prosthesis. Alginate impressions made today for custom tray. He will need to return for final impression. Plan of Care Pre-radiation Fabrication of MOTD stent (DONE) Fabrication of fluoride trays (DONE) Jaw opening exercises to prevent trismus Post-radiation Keep established with a local Dentist Periodic oral evaluation every 3 months for the first year after completion of radiation, then if compliant can be changed to every 6 months Indefinite fluoride therapy to prevent caries,preferred method: 0.4% stannous fluoride in custom made carriers Jaw opening exercises to maintain mouth opening Treatment/Procedures performed today: 1. Follow-up oral cavity 2. Panorex and CBCT scans 3. Evaluation of radiographs Total time spent face to face with the patient today: 60 minutes, with over 50% of the face to facetime used for counseling or coordinating patient s care, not including the procedure. Disposition: Return post-radiation for follow-up or earlier if problems arise 10/26/22 RADIOGRAPHIC EXAM: Post-op Thank you for allowing me to participate in the care of Mr. Argueta Please feel free to contact me if you have any questions or concerns. Nell Lucio DMD Cell Installer [employer] [facility], Shayna [address] [facility] [address], [address] floor, [place], [address] Office / [phone] Fax [email or web address] documented in this [facility] Instructions* Patient Instructions* Nell Lucio DMD - 10/26/2022 2:30 PM EST Today you have seen Dr. Lucio for an obturator consultation. She has found that you have heal well from the second flap surgery. The space is limited in the right but we have room for a few teeth. Next appointment: Maxillary final impressions documented in this [facility] History of Present illness Narrative* Rolanda Ingacio PA-C - 10/26/2022 11:45 AM EST Images from the original note were not included. HPI: Lilly Argueta is a 76 y.o. 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 Patient had an area of exposed hardware on his right cheek and is now s/p removal of R maxillary hardware and previous FFF, R neck exploration, L ALT on 05/27/22. He presents to clinic for scheduled surveillance visit. He is scheduled to see Bassam Cunha today for eval today. Patient is self conscious of the bulk and color of the flap, but reports that he is feeling well and has no new pain or lumps or bumps. He denies neck mass. Nursing documentation has been reviewed. Past Medical History: Diagnosis Date History of head and neck radiation History of pulmonary embolism 11/2019 Post-operative DVT/PE in November 2019. Treated with Eliquis; discontinued by PCP in May 2020. 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 History of tracheostomy Past Surgical History: Procedure Laterality Date REMOVAL HARDWARE Right 05/27/2022 Laterality: Right; Surgeon: Bobo Davidson MD; Location[facility] OR EXPLORATION TRAUMATIC WOUND NECK N/A 05/27/2022 Laterality: N/A; Surgeon: Bobo Davidson MD; Location[facility] OR LARYNGOSCOPY DIRECT DIAGNOSTIC N/A 05/27/2022 Laterality: N/A; Surgeon: Bobo Davidson MD; Location: [facility] OR ESOPHAGOSCOPY DIAGNOSTIC N/A 05/27/2022 Laterality: N/A; Surgeon: Bobo Davidson MD; Location: [facility] OR TRACHEOSTOMY N/A 05/27/2022 Laterality: N/A; Surgeon: Bobo Davidson MD; Location[facility] OR FLAP FREE ANTEROLATERAL THIGH (ALT) SKIN N/A 05/27/2022 Laterality: N/A; Surgeon: Ifrah Cesar MD; Location: [facility] OR DEBRIDEMENT BONE N/A 06/08/2020 Laterality: N/A; Surgeon: Bobo Davidson MD; Location[facility] OR PLACEMENT TUBE NASO-/LIANG-GASTRIC N/A 06/08/2020 Laterality: N/A; Surgeon: Bobo Davidson MD; Location: [facility] OR LARYNGOSCOPY DIRECT DIAGNOSTIC N/A 11/22/2019 Laterality: N/A; Surgeon: Bobo Davidson MD; Location: [facility] OR ESOPHAGOSCOPY DIAGNOSTIC N/A 11/22/2019 Laterality: N/A; Surgeon: Bobo Davidson MD; Location[facility] OR MAXILLECTOMY W/O ORBITAL EXENTERATION Right 11/22/2019 Laterality: Right; Surgeon: Bobo Davidson MD; Location[facility] OR LYMPHADENECTOMY CERVICAL (MODIFIED RADICAL NECK DISSECTION) Right 11/22/2019 Laterality: Right; Surgeon: Bobo Davidson MD; [facility] OR TRACHEOSTOMY N/A 11/22/2019 Laterality: N/A; Surgeon: Bobo Davidson MD; Location[facility] EXTRACTION TOOTH N/A 11/22/2019 Laterality: N/A; Surgeon: Bobo Davidson MD; Location: [facility] OR PLACEMENT TUBE NASO-/LIANG-GASTRIC N/A 11/22/2019 Laterality: N/A; Surgeon: Bobo Davidson MD; Location[facility] OR FLAP FREE BONE W/ MICROVASCULAR ANASTOMOSIS FIBULA N/A 11/22/2019 Laterality: N/A; Surgeon: Joao Burch MD; Location[facility] FLAP FREE RADIAL FOREARM FASCIAL Left 11/22/2019 Laterality: Left; Surgeon: Joao Burch MD; Location: [facility] OR APPENDECTOMY LIGATION OR 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 Current Outpatient Medications Medication Sig Dispense Refill aspirin 81 MG Chew Tab chewable tablet Chew 81 mg at bedtime. Calcium Acetate-Magnesium Carb 450-200 MG tablet Take 1 tablet by mouth at bedtime. Cascara Sagrada 450 MG capsule Take by mouth daily every morning. Chromium Picolinate (CHROMIUM PICOLATE PO) Take by mouth daily every morning. COLLAGEN PO Take 1 Scoop by mouth daily. Collagen Powder [facility] D3 25 MCG (1000 UT) capsule Take 25 capsules by mouth 2 times daily. Multiple Vitamin (multivitamin) capsule Take 1 capsule by mouth 2 times daily. oxyCODONE 5 MG tablet Take 1-2 tablets by mouth every 6 hours as needed for up to 7 days. 20 tablet0 petrolatum Ointment ophthalmic ointment Apply 1 Application to right eye at bedtime. 3.5 g 0 Polyvinyl Alcohol-Povidone PF 1.4-0.6 % Solution ophthalmic solution Place 2 drops in right eye 4 times daily. 30 Each 1 TURMERIC PO Take by mouth 3 times daily. (Patient not taking: No sig reported) vitamin E 400 units capsule Take 1 capsule by mouth 2 times daily. (Patient not taking: No sig reported) 60 capsule 0 No current facility-administered medications for this visit. No Known Allergies Exam: BP 141/78 (BP Location: Right arm, BP Position: Sitting) Pulse 87 Temp 96.5 F (35.8 C) (Temporal) Resp 16 Wt 80.6 kg (177 lb 12.8 oz) SpO2 100% BMI 23.46 kg/m Smoking Status Never Documented vital signs from today's visit reviewed. Physical exam including head and neck examination of the oral cavity, oropharynx, larynx, and hypopharynx including indirect mirror exam as well asinspection and palpation of the face, parotid and neck is remarkable for findings consistent with posttreatment postoperative changes and negative for new lesions, masses or lymphadenopathy. Oral cavity exam reveals Flap viable and healing well. Well healed intraorally. Impression/Plan: Mr. Argueta has a history of T4a N0 SCC Right maxilla s/p maxillectomy, neck dissection, fibula flap, and adjuvant radiation, now s/p surgery and flap for exposed hardware. -Again discussed further revision in the future with excision of a portion of the skin paddle pending his healing process given that he had radiation. I discussed Dr. Davidson to evaluate at next visit and discuss his recs on timing for revision or if possible referral to facial plastic surgery -Follow up today with Dr. Lucio as scheduled -RTC 4 months or sooner if needed documented [facility]02-08[facility] Instructions* Patient Instructions* Lorena Duran RN - 10/26/2022 11:45 AM EST Please call Dr. Davidson's nurse at [phone] if you notice any new lumps in head or neck, new onsetof difficulty with swallowing, persistent ear pain, hoarseness or new pain in head and neck that does not go away for 2 weeks. For covid vaccine call [phone] ([phone]). documented in this [facility] History of Present illness Narrative* Melina Oconnor PA-C - 06/15/2022 2:45 PM EDT HPI: Lilly Argueta is a 76 y.o. 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 Patient had an area of exposed hardware on his right cheek and is now s/p removal of R maxillary hardware and previous FFF, R neck exploration, L ALT on 05/27/22. He presents to clinic for his post op visit. Using Dobbhoff feeding tube. Nursing documentation has been reviewed. Past Medical History: Diagnosis Date History of head and neck radiation History of pulmonary embolism 11/2019 Post-operative DVT/PE in November 2019. Treated with Eliquis; discontinued by PCP in May 2020. 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 History of tracheostomy Past Surgical History: Procedure Laterality Date REMOVAL HARDWARE Right 05/27/2022 Laterality: Right; Surgeon: Bobo Davidson MD; [facility] EXPLORATION TRAUMATIC WOUND NECK N/A 05/27/2022 Laterality: N/A; Surgeon: Bobo Davidson MD; Location[facility] OR LARYNGOSCOPY DIRECT DIAGNOSTIC N/A 05/27/2022 Laterality: N/A; Surgeon: Bobo Davidson MD; Location[facility] OR ESOPHAGOSCOPY DIAGNOSTIC N/A 05/27/2022 Laterality: N/A; Surgeon: Bobo Davidson MD; Location[facility] TRACHEOSTOMY N/A 05/27/2022 Laterality: N/A; Surgeon: Bobo Davidson MD; Location[facility] FLAP FREE ANTEROLATERAL THIGH (ALT) SKIN N/A 05/27/2022 Laterality: N/A; Surgeon: Ifrah Cesar MD; Location[facility] DEBRIDEMENT BONE N/A 06/08/2020 Laterality: N/A; Surgeon: Bobo Davidson MD; Location[facility] OR PLACEMENT TUBE NASO-/LIANG-GASTRIC N/A 06/08/2020 Laterality: N/A; Surgeon: Bobo Davidson MD; Location: [facility] OR LARYNGOSCOPY DIRECT DIAGNOSTIC N/A 11/22/2019 Laterality: N/A; Surgeon: Bobo Davidson MD; Location: [facility] OR ESOPHAGOSCOPY DIAGNOSTIC N/A 11/22/2019 Laterality: N/A; Surgeon: Bobo Davidson MD; Location[facility] OR MAXILLECTOMY W/O ORBITAL EXENTERATION Right 11/22/2019 Laterality: Right; Surgeon: Bobo Davidson MD; Location: [facility] OR LYMPHADENECTOMY CERVICAL (MODIFIED RADICAL NECK DISSECTION) Right 11/22/2019 Laterality: Right; Surgeon: Bobo Davidson MD; Location[facility] OR TRACHEOSTOMY N/A 11/22/2019 Laterality: N/A; Surgeon: Bobo Davidson MD; Location[facility] EXTRACTION TOOTH N/A 11/22/2019 Laterality: N/A; Surgeon: Bobo Davidson MD; Location: [facility] OR PLACEMENT TUBE NASO-/LIANG-GASTRIC N/A 11/22/2019 Laterality: N/A; Surgeon: Bobo Davidson MD; Location[facility] FLAP FREE BONE W/ MICROVASCULAR ANASTOMOSIS FIBULA N/A 11/22/2019 Laterality: N/A; Surgeon: Joao Burch MD; Location[facility] FLAP FREE RADIAL FOREARM FASCIAL Left 11/22/2019 Laterality: Left; Surgeon: Joao Burch MD; Location[facility] OR APPENDECTOMY LIGATION OR 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 Current Outpatient Medications Medication Sig Dispense Refill Ampicillin-Sulbactam Sodium injection 6 mg per dose, IV infusion every 12 hours continuous infusion. *diluent and final concentration at discretion of receiving pharmacy* 72 Each 0 aspirin 81 MG Chew Tab chewable tablet Chew 81 mg at bedtime. Cascara Sagrada 450 MG capsule Take by mouth daily every morning. caspofungin injection 50 mg per dose, IV infusion every 24 hours. *diluent and final concentration at discretion of receiving pharmacy* 36 Each 0 petrolatum Ointment ophthalmic ointment Apply 1 Application to right eye at bedtime. 3.5 g 0 Polyvinyl Alcohol-Povidone PF 1.4-0.6 % Solution ophthalmic solution Place 2 drops in right eye 4 times daily. 30 Each 1 traMADol 50 MG tablet Take 50 mg by mouth 2 times daily as needed. acetaminophen (Tylenol) 325 MG tablet Take 3 tablets by mouth every 8 hours. (Patient not taking: Reported on 06/15/2022) 0 Calcium Acetate-Magnesium Carb 450-200 MG tablet Take 1 tablet by mouth at bedtime. (Patient not taking: Reported on 06/15/2022) chlorhexidine 0.12 % Solution oral solution Swish and spit 15 mL 2 times daily for 7 days. 473 mL 0 Chromium Picolinate (CHROMIUM PICOLATE PO) Take by mouth daily every morning. (Patient not taking: Reported on 06/15/2022) [facility]S D3 25 MCG (1000 UT) capsule Take 25 capsules by mouth 2 times daily. (Patient not taking: Reported on 06/15/2022) Multiple Vitamin (multivitamin) capsule Take 1 capsule by mouth 2 times daily. (Patient not taking:Reported on 06/15/2022) oxyCODONE HCl 10 MG tablet Take 1 tablet by mouth every 6 hours as needed for Moderate Pain or Severe Pain for up to 7 days. 28 tablet 0 TURMERIC PO Take by mouth 3 times daily. (Patient not taking: Reported on 06/15/2022) vitamin E 400 units capsule Take 1 capsule by mouth 2 times daily. (Patient not taking: Reported on06/15/2022) 60 capsule 0 No current facility-administered medications for this visit. No Known Allergies Exam: BP 124/71 (BP Location: Right arm, BP Position: Sitting) Pulse 63 Temp 96.8 F (36 C) (Temporal) Resp 16 Wt 81.2 kg (179 lb) SpO2 99% BMI 23.62 kg/m Smoking Status Never Smoker Documented vital signs from today's visit reviewed. Physical exam including head and neck examination of the oral cavity, oropharynx, larynx, and hypopharynx including indirect mirror exam as well asinspection and palpation of the face, parotid and neck is remarkable for findings consistent with posttreatment postoperative changes and negative for new lesions, masses or lymphadenopathy. Oral cavity exam reveals Flap viable and healing well. Mucosalizing intraorally. External suture removed. Left thigh with drain in place, removed. Dobbhoff removed. Right lower leg donor site well healed. Impression/Plan: Mr. Argueta has a history of T4a N0 SCC Right maxilla s/p maxillectomy, neck dissection, fibula flap, and adjuvant radiation, now s/p surgery and flap for exposed hardware. -Dobbhoff removed. Tolerated sips PO water well. Advance to soft diet. -Thigh drain removed; instructions given. -Continue IV abx as per ID recommendations. -RTC the week after seen by ID. * Bobo Davidson MD - 06/15/2022 2:45 PM EDT Attending Physician Note I independently interviewed, examined and formulated the medical decision making. Details of my interview, examination findings, and medical decision- making confirmed the findings above. I have personally amended the below documentation where appropriate. I saw this patient with Melina Oconnor and p jose raulonally wrote the impression and plan. Impression/Plan: Flap well healed. Edema decreased significantly Donor site well healed RTC 1 year or sooner if issues arise documented in this encounterOSU [facility] Instructions* Patient Instructions* Melina Oconnor PA-C - 06/15/2022 2:45 PM EDT You may advance to a soft diet. Change the thigh band-aid twice daily for 2 days and then leave open. Apply lotion of choice to thethigh incision and face and neck incisions. Apply MO to thigh daily for 1 more week and then discontinue. Please call the clinic for an appointment if any sutures erupt and cause redness. Please call Dr. Davidson's nurse at [phone] if you notice any new lumps in head or neck, new onsetof difficulty with swallowing, persistent ear pain, hoarseness or new pain in head and neck that does not go away for 2 weeks. For covid vaccine call [phone] ([phone]). documented in this encounterOSU [facility] Note* Nursing Notes - Anita Lau RN - 06/02/2022 4:27 PM EDT 1627: pt discharged home with [facility] with spouse. Meds delivered to bedside. AVS reviewed with patient. AVS and FRANCES faxed to [facility] agency by RON Rowley. Report also called to agency by RON Rowley. [facility] Miscellaneous Notes* Nursing Notes - Anita Lau RN - 06/02/2022 4:27 PM EDT 1627: pt discharged home with [facility] with spouse. Meds delivered to bedside. AVS reviewed with patient. AVS and FRANCES faxed to [facility] agency by RON Rowley. Report also called to agency by RON Rowley. * Nursing Notes - Halley Arguelles RN - 06/02/2022 3:19 PM EDT AVS reviewed with patient and spouse at bedside, incision care education completed, PICC line beingconnected by literature professor at this time, aware of weekly Monday labs to be drawn and faxed, emanuel drain education completed. Halley Arguelles RN * Nursing Notes - Halley Arguelles RN - 06/02/2022 3:03 PM EDT Report called to [facility]. All questions answered. Caspofungin currently infusing-will discharge after infusion completed and literature professor connects patient to home antibiotic. Halley Arguelles RN * Nursing Notes - Halley Arguelles RN - 06/02/2022 2:55 PM EDT AVS/FRANCES faxed. Halley Arguelles RN * Nursing Notes - Halley Arguelles RN - 06/02/2022 2:43 PM EDT TF/medication administration through D[facility]-education completed. feels confident she can perform tasks at home. Supplies given, supplemental tube feeding also given. Halley Arguelles RN * Nursing Notes - Elis Mcnulty RN - 06/02/2022 12:49 PM EDT 06/02/22 1225 Final Discharge Planning Discharge Disposition Home with Infusion Services at Discharge Detention CM/SW AVS Portion Completed Yes Community [facility]) [facility] For [facility] (S) Fax For Handoff (S) Additional Community Agency Name(s) yes Community Agency Community Agency Name For Handoff [facility] infusion center Phone For Handoff [phone] Plan Plan discharge home with IV antibiotics. patient will self pay iv unasyn at home (not able to get at infusion center-continuous on a pump) and will go to his local hospital for daily Daptomycin infusion/weekly lab draws and weekly picc line dressing changes Patient/Family In Agreement With Plan yes Transport Request Mode of Transfer private vehicle [facility] Inpatient PCR Discharge Note Patient discussed in medical rounds for discharge to home with iv antibiotics. PCRM met with the patient/family/spouse to discuss final discharge plan. Services for Discharge Outpatient IV therapy at [facility] Consults with Final Discharge Recommendations ID-assisted with discharge medications. Lines/Tubes/Drains/Wounds/Supplies PICC line TOMASA in Leg NG Medications No barriers anticipated in obtaining discharge medications. No prior authorizations anticipated. Reconciliation of medications to be completed by the medical team. peridex and oxycodone were filled at the [facility] outpatient pharmacy with vouchers provided by Pharmacy assistance. Refresh eye drops and ointments are over the counter so pharmacy assistance couldn't cover. Bedside nurse will send with a few days supply and will send with paper Rx in case he needs more. He will use goodrx as able. IV caspo to be provided at [facility] infusion center. They will also do weekly dressing changes and lab draws. All orders/rx have been faxed. [employer] will provide home IV unasyn. They will set patient up at the hospital prior to discharge today. Patient will purchase Ensure plus. Durable Medical Equipment na Choice Was Patient Choice Provided: Yes Transportation Transportation will be provided by . Education Discharge education provided by the medical team and updated in the After Visit Summary. Drain care NG tube feeds PICC line care/flushes Follow Up(s) Any follow up requested by the medical team arranged. Appointments in the After Visit Summary. Bobo Davidson MD [address] [facility] [id number] Follow up on 06/15/2022 follow up @ 2:45pm with Dr. Davidson, you will also see speech therapy and have your drain removed Yung Zapata DO [address] [facility] [id number] Follow up on 07/14/2022 at 8:15am for infectious disease follow up The PCRM has updated the patient's nurse Halley regarding the final discharge plan. Risk of Readmission: 6.7 Category Reference: Low: 0% - 5% Medium - Low: 5.1% - 10% Medium - High: 10.1% - 16% High: 16.1% - 100% No other discharge needs have been identified at this time. This plan was developed in collaboration with the patient and caregiver/preferred decision maker. Patient and family are in agreement with final discharge plan. Please refer to AVS and medical record for additional information. Patient instructed to call with questions. PCRM will continue to follow with medical team for any additional discharge planning needs. If any changes to this individualized plan of care during evening and weekend hours and assistance is needed, please page the pharmacy operations specialist PCRM at [phone]. * Plan of Care - Kristina Narvaez, CONI - 06/01/2022 11:15 AM EDT Nutrition Recommendations and Plan of Care: 1. TF modification: Jevity 1.5, 340 ml x 5/d + 210 ml water flush x 5 per day. Provides 2550 kcal (32 kcal/kg admit wt), 108 g pro (1.4 g/kg admit wt) and 2342 1292 ml free water/d (29 ml/kg admit wt) *equivalent to 7 cans/d- at discharge suggest Ensure Plus or equivalent, 7 cartons/d 2. Diet: NPO. Advance as able per team. 3. RD to follow. * Plan of Care - Iraida Barrios PT - 05/31/2022 9:30 AM EDT Problem: PT - Mobility Goal: Ambulation Description: Pt will ambulate 500 feet with out an assistive device with standby assistance to improve ability to navigate home environment. Outcome: Met This Shift Goal: Stairs Description: Pt will ascend/descend 5 stairs with unilateral railings with standby assistance with out an assistive device to improve ability to perform functional mobility necessary in recommended discharge environment. Outcome: Ongoing Problem: PT - Transfers Goal: Supine <-> Sit Description: Pt will perform bed mobility with flat bed & no rail with independence in order toimprove functional mobility and safety. Outcome: Ongoing Goal: Sit <-> Stand Description: Pt will perform sit to/from stand transfers with independence with out an assistive device in order to improve functional mobility and safety. Outcome: Ongoing Iraiad Barrios PT, DPT License #: [id number] Pager #: [phone] * Nursing Notes - Lore Parker RN - 05/30/2022 12:05 PM EDT 05/30/22 1205 Referral Information Arrived From operating room Readmission Information Was patient readmitted within 30 Days? No Information Source Information Source patient Information Source Name Lilly Information Source Number [phone] Outpatient Providers Outpatient Providers Updated In IHIS Yes Contact Information Rn Imaging/SW Added to Care Team Yes This Analytical Strategist is Primary Rn Imaging/SW Yes Rn Imaging Name Yesy Parker Rn Imaging's Social Work Contact Name Yvette Oscar Surveyor Helper's Phone Number see care team Living Environment Lives With spouse Living Arrangements house (2 story) Provides Primary Care For no one Caregiving Concerns none Primary Care Provided By self;spouse/significant other Support System Immediate family Able to Return to Prior Arrangements yes Functional Status Patient's Functional Status Prior To This Admission? Independent Are There Status Changes This Admisson? No Changes Observed Since Admission? No Changes Observed Concerns With Patient Being Able To Care For Themselves At Discharge? No Who Is Patient's Primary Contact For Discharge Planning, Education And Care For Discharge? self Can Support Person Meet The Care Needs Of The Patient? Yes Employment/Financial Employed? 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 Employment/Financial Concerns no Employment/Financial Comments none Source Of Income social security Financial Concerns none Insurance Medical Insurance Verified Yes Prescription Coverage No (uses Good Rx coupons.) Pharmacy updated in IS Yes Initial Discharge Planning Home Care Services (POLICE MANAGER) No Home Therapies (POLICE MANAGER) None DME (POLICE MANAGER) None Medical Supplies (POLICE MANAGER) None Patient Goal for Discharge pt to [facility] medically stable. Anticipated discharge disposition Home Anticipated Services at Discharge Outpatient clinical services (ie: lab draws, transfusions, injectables) Anticipated Changes Related to Illness none Current Discharge Risk chronically ill;high risk diagnoses (i.e., CHF, Stroke, DM, chronic pain, abdominal pain, nausea and vomiting);>65 years of age Transportation Available car Discharge Planning Comments pt to DC to home independently when medically stable. Home Care Services (POLICE MANAGER) Additional Home Care Services (POLICE MANAGER) yes Assessment/Concerns to be Addressed Concerns To Be Addressed no discharge needs identified;denies needs/concerns at this time Concerns Comments see note PCRM Initial Assessment Met with the pt to complete the initial assessment. Explained role and function of PCRM in multidisciplinary team. Contact number provided for questions. Demographic information reviewed with patient/family and confirmed as correct. The pt is alert and oriented and able to answer questions. [facility] whenmedically [facility]. He lives in his home with his spouse, who he states is an RN. He is very active, still drive, walks a mile a day and is an avid chain person. He declines HHC or DME, and has none currently. He states that he and his will be able to care for any drain or NG needs at home. He is agreeable to pay OOP for short term TF. He has NO prescription coverage, PCR notified the team. He states he has good family suport, and family will transport to home. He follows with Dr. Davidson- follow up scheduled. Reason for Admission: POD 3 s/p DL, R maxilla debridement, removal of R maxillary hardware and previous fibula FF, R neck exploration, L ALT. Procedure: DL, R maxilla debridement, removal of R maxillary hardware and previous fibula FF, R neck exploration, L ALT. Diagnosis: Chronic wound/plate exposure. Estimated length of stay: TBD. Advanced directives Patient does not have Advanced Directives on File Lines/Drains/Tubes PIV, NG, drains. Initial PCRM Discharge Planning DC to home. Final plan will be determined closer to discharge, pending therapy and medical team recommendations. Patient/family verbalized understanding and agreement with the plan of care. Patient/family have no questions at this time. PCRM will continue to follow patient with multidisciplinary team for ongoing assessment of needs and for discharge planning. Medical team updated. PCR to continue to follow and provide support. Yesy Parker RN PCRM [phone] For evening and weekend discharge assistance please page the pharmacy operations specialist PCRM at [phone]. * Nursing Notes - Amanda Arias RN - 05/28/2022 5:45 PM EDT MD Talavera with ENT messaged about increased swelling of pt's right jaw line moving up to under pt's right eye with taught skin and increased firmness of area. Flap assessment remains normal/ unchanged.MD to come to bedside to assess. * Plan of Care - Rolanda Fallon PT - 05/28/2022 9:36 AM EDT Problem: PT - Mobility Goal: Ambulation Description: Pt will ambulate 500 feet with out an assistive device with standby assistance to improve ability to navigate home environment. Outcome: Ongoing Goal: Stairs Description: Pt will ascend/descend 5 stairs with unilateral railings with standby assistance with out an assistive device to improve ability to perform functional mobility necessary in recommended discharge environment. Outcome: Ongoing Problem: PT - Transfers Goal: Supine <-> Sit Description: Pt will perform bed mobility with flat bed & no rail with independence in order toimprove functional mobility and safety. Outcome: Ongoing Goal: Sit <-> Stand Description: Pt will perform sit to/from stand transfers with independence with out an assistive device in order to improve functional mobility and safety. Outcome: Ongoing Goal: Strength/ROM Description: Pt will perform 3 sets of 10 repetitions of left lower extremity exercises with independence in order to improve strength, maintain ROM, necessary for functional mobility. Outcome: Ongoing * Plan of Care - Jovita Chang OT - 05/28/2022 9:35 AM EDT Problem: OT - Dressing Goal: Lower Body Dressing Description: Pt will complete LE dressing tasks with supervision for improved ability to complete self-care activities. Outcome: Ongoing Problem: OT - ADLs Goal: Toileting Description: Pt will complete toileting task with supervision for improved ability to safely complete self-care activities. Outcome: Ongoing Goal: Bathing Description: Pt will perform full body bathing routine with supervision while seated for improved ability to complete self-care activities. Outcome: Ongoing Problem: OT - Balance Goal: Balance - Standing Description: Pt will perform 12+ minutes of functional ADL task in standing with supervision and good balance to promote safety and improved balance required for self-care activities. Outcome: Ongoing Problem: OT - Endurance Goal: Endurance Functional Mobilty Around Home Description: Pt will complete distance needed for common household mobility with supervision to increase participation in meaningful occupations in the home and within the community. Outcome: Ongoing Problem: OT - Transfers Goal: Transfers Toilet/Bedside Commode Description: Pt will transfer to/from toilet/BSC with supervision for improved ability to safely complete ADLs. Outcome: Ongoing * Plan of Care - Gris Capellan RN - 05/28/2022 6:30 AM EDT Don is A&O x4. Q1 flap checks remain WNL (intraoral flap is mottled, ok per MD). Hedrick remains in place (low UOP overnight, bolus ordered). VSS on RA (BP trending down, fluid bolus ordered). Painhas been managed with scheduled Tylenol and PRN oxycodone (breakthrough dilaudid given 1x). Medications given via DHT; TF to start during the day. Anticipate discharge to home vs SNF in approximately one week. Problem: Surgery Nonspecified (Adult) Goal: Signs and Symptoms of Listed Potential Problems Will be Absent, Minimized or Managed (SurgeryNonspecified) Description: Signs and symptoms of listed potential problems related to ALT FF surgery will be absent, minimized or managed for Don by discharge to home vs SNF. Potential problems include: 1. bleeding/anemia 2. bowel motility decreased 3. infection 4. pain 5. postoperative nausea and vomiting 6. postoperative urinary retention 7. respiratory compromise 8. situational response 9. VTE (venous thromboembolism) 10. wound healing impaired Outcome: Ongoing Problem: Nutrition, Enteral (Adult) Goal: Signs and Symptoms of Listed Potential Problems Will be Absent, Minimized or Managed (Nutrition, Enteral) Description: Signs and symptoms of listed potential problems related to TF via DHT will be absent, minimized or managed for Don by discharge to home vs SNF. Potential problems include: 1. adverse events 2. aspiration 3. fluid/electrolyte imbalance 4. gastrointestinal complications 5. malnutrition 6. mechanical complications 7. skin/mucosal integrity impairment Outcome: Ongoing * Nursing Notes - Gris Capellan RN - 05/28/2022 5:[address] Conrado Montano of the following: Low urine output from hedrick (150 mL). BP trending down (most recent 95/54), HR remaining stable. Would you like a fluid bolus? * Nursing Notes - Gris Capellan RN - 05/27/2022 9:30 PM EDT On admission to , from OR a dual RN initial assessment of skin condition was performed by RON Flores and Lorena Coppola RN. Skin Assessment: Skin not within defined limits. Skin intact over bony prominences. Surgical incisions present. Patient encouraged to change positions frequently while in bed. Fortino Score: 19 LDA Added: Surgical incisions - LDAs added in OR Gris Capellan RN * Certification - Sharif Reyes MD - 05/27/2022 4:42 PM EDT I certify that this patient requires inpatient services at this time. I anticipate the expected length of stay will include at least two midnights. Inpatient services are due to the following medicalconcerns post operative free flap care . Plans for post hospitalization care will be discharge to home, home with home health, fci facility and senior living acute care hospital. * Plan of Care - Tamanna Munoz MD - 05/27/2022 12:22 PM EDT ENT Plan of Care Day of Surgery Surgeon: Bobo Davidson MD Procedure: DL, R maxilla debridement, removal of R maxillary hardware and previous fibula FF, R neck exploration, L ALT Diagnosis: Chronic wound/plate exposure Plan Airway: [place] Diet: NPO w/ TFs via NGT, outpt PO Drains: 2 leg-remove 1 WR, 1 neck-keep until dc, 1 rosalie neck secured with prolene/steristrips-keep until POD4 (tues) Wound: 5-0 fast leg-island down POD2, 5-0 fast neck Antibiotics: Unasyn while inpatient-->augmentin, change based on cx results, no ID consult Consults: PRN PT/OT/ACCOUNTANT BUDGET: PT/OT, ACCOUNTANT BUDGET for pre-PO Anticoagulation: Lvx ppx starting POD1 Relevant PMHx: 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, GERD, postop DVT/PE in 12/05 (previously on eliquis, stopped by PCP 05/2020) Other: - No late night lab draws Dispo: Anticipate dispo on POD# 7-8 to home vs facility FU: [facility] 3 weeks Tamanna Munoz MD Otolaryngology-Head & Neck Surgery Pager: [phone] * Brief Op Note - Tamanna Munoz MD - 05/27/2022 12:20 PM EDT Lilly Argueta ([id number]) PRE OPERATIVE DIAGNOSIS 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 Lipoma encountered when harvesting flap, which was removed, carefully protecting the skin perforators SURGEON Surgeon(s) and Role: Panel 1: * Bobo Davidson MD - Primary * Loraine Montgomery MD - Fellow Panel 2: * Ifrah Cesar MD - Primary ANESTHESIOLOGIST Anesthesiologist: Issa Richmond MD Assignment Desk Editor Assisting: Bassam Hernandez DDS SURGICAL STAFF Designer And Patternmaker: Mike Antunez RN Relief Designer And Patternmaker: Ree Doyle RN Scrub Person: Kelsea Sanchez RN; Rangel Moses Resident Assisting: Tamanna Munoz MD Administrative Director: Maria D Marti COMPLICATIONS None ESTIMATED BLOOD LOSS 200 ml SPECIMENS Cytology specimen sent Microbiology specimen sent ID Type Source Tests Collected by Time Destination 1 : Hardware removal (10 screws) for gross only Other YARN WEIGHER SURG PATH REQUEST Bobo Davidson MD 05/27/2022 0954 2 : Hardware removal (plate) for gross only Other YARN WEIGHER SURG PATH REQUEST Bobo Davidson MD 05/27/2022 1033 3 : Left leg lipoma Permanent SURG PATH SURG PATH REQUEST Bobo Davidson MD 05/27/2022 1047 A : Right maxilla Other TISSUE FUNGUS CULTURE, ACID FAST CULTURE, ANAEROBE CULTURE, BACTERIAL CULTURE AND DIRECT SMEAR, LESION, TISSUE, DEVICE Bobo Davidson MD 05/27/2022 0951 Tamanna Munoz MD May 27, 2022 12:20 PM * Brief Op Note - Tamanna Munoz MD - 05/27/2022 12:19 PM EDT Lilly Argueta ([id number]) PRE OPERATIVE DIAGNOSIS 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] POST OPERATIVE DIAGNOSIS Post-Op Diagnosis Codes: * 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] PROCEDURE PERFORMED Procedure(s) (LRB): REMOVAL HARDWARE (Right) EXPLORATION TRAUMATIC WOUND NECK (N/A) LARYNGOSCOPY DIRECT DIAGNOSTIC (N/A) ESOPHAGOSCOPY DIAGNOSTIC (N/A) TRACHEOSTOMY (N/A) FLAP FREE ANTEROLATERAL THIGH (ALT) SKIN (N/A) PRIMARY CLOSURE No INTRAOPERATIVE FINDINGS Right maxillary plate exposure, plate and fibula removed, wound debrided SURGEON Surgeon(s) and Role: Panel 1: * Bobo Davidson MD - Primary * Loraine Montgomery MD - Fellow Panel 2: * Ifrah Cesar MD - Primary ANESTHESIOLOGIST Anesthesiologist: Issa Richmond MD Assignment Desk Editor Assisting: Bassam Hernandez DDS SURGICAL STAFF Designer And Patternmaker: Mike Antunez RN Relief Designer And Patternmaker: Ree Doyle RN Scrub Person: Kelsea Sanchez RN; Rangel Moses Resident Assisting: Tamanna Munoz MD Administrative Director: Maria D Marti COMPLICATIONS None ESTIMATED BLOOD LOSS 200 ml SPECIMENS Cytology specimen sent Microbiology specimen sent ID Type Source Tests Collected by Time Destination 1 : Hardware removal (10 screws) for gross only Other YARN WEIGHER SURG PATH REQUEST Bobo Davidson MD 05/27/2022 0954 2 : Hardware removal (plate) for gross only Other YARN WEIGHER SURG PATH REQUEST Bobo Davidson MD 05/27/2022 1033 3 : Left leg lipoma Permanent SURG PATH SURG PATH REQUEST Bobo Davidson MD 05/27/2022 1047 A : Right maxilla Other TISSUE FUNGUS CULTURE, ACID FAST CULTURE, ANAEROBE CULTURE, BACTERIAL CULTURE AND DIRECT SMEAR, LESION, TISSUE, DEVICE Bobo Davidson MD 05/27/2022 0951 Tamanna Munoz MD May 27, 2022 12:19 PM documented in this encounterU [facility]09[facility]15[facility]2022 History of Present illness Narrative* Fadi Vazquez II - 06/02/2022 4:09 PM EDT Images from the original note were not included. [facility] Delivery Note: The following medications were delivered to the patient's bedside: Fadi Leon Bedside Delivery: [phone] Jefry Bedside Delivery: [phone] East: [phone] * Sea Gonzalez RPH - 06/02/2022 3:45 PM EDT Images from the original note were not included. [facility] Note: [facility] received the following discharge prescription(s): Total cost is $0. I have reviewed the Discharge Rx Reconciliation Report. Discharge date will be confirmed with team prior to delivery. The discharge prescription(s) will be delivered to the patient on 06/02/2022. DC Bro [phone] Jefry [phone] [facility] [phone] Bedside delivery [phone] * Madelin Li RN - 06/02/2022 3:41 PM EDT Home Health Referral Educated Patient on Home Care and services available. [facility] Current Home DME: Unknown at this time Patient Demographics Name: Lilly Argueta Patient Demographics [address] [facility] [address] PCP Cliff Fitzgerald Language Cameroonian Wheel Alignment Technician Needed No (home) Cell Phone Telephone Information: Emergency Contacts Extended Emergency Contact Information Primary Emergency Contact: Jerson Argueta Mobile Relation: Spouse Secondary Emergency Contact: julianne dawn Mobile Relation: Relative Ordering Physician: Lore Atkinson PA-C Following Physician:Bobo davidson MD Physician Service: Surgery Agreeable to Follow: Yes Spoke with: verified with pcrm Communication Barrier: none Primary Diagnosis & Reason for Services: Postoperative state [Z98.890] - Primary [employer] (Labs, Wounds, Infusions etc.): Teachable Caregiver: Name: Jerson Relation to patient: Spouse Contact #: [phone] Is teachable available for SOC visit? Yes IV/TPN/Tube Feed: Infusion Company: [facility] Infectious Disease Physician:Dr. Yung Zapata or Dr. Rosette Cotton Infusion/TF Orders: Ampicillin/Sulbactam 6 gm every 12 hour as a continuous infusion ; Caspofungin 50 mg every 24 hour as an intermittent infusion Next Dose Due:06/03 Line Type: PICC Labs: Type: Chem-6 (Including serum creatinine) without Glucose and CBC w/diff Frequency: Every Monday Source Site: PICC Send Results To: fax to [phone], attention Dr. Yung Zapata or Dr. 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 Patient will need 6 weeks ofIV antibiotics. OPAT note, lab order and caspofungin rx faxed to [facility] pharmacy and scheduling. Pharmacy [phone] Scheduling fax [phone] Scheduling phone [phone], ext [phone] message to get appointment time for tomorrow. Medications sent to [facility] pharmacy-pharmacy assistance will cover oxycodone and peridex, theywill not cover eye drops since they are over the counter. Patient will self pay IV Unasyn at home as this can not be done at outpatient setting. Pt/ agreeable to cost of drugs/supplies at home. [employer] with meet with pt for weekly payment amount and for teaching/set up prior to discharge. Patient will also need to purchase ensure plus over the counter.- he purchases it through [facility]. Follow up appointment for post op and ACCOUNTANT BUDGET moved up to 06/15 to hopefully get NG out. Will continue to follow and assist. * Madelin Li RN - 06/02/2022 8:08 AM EDT [facility] Home Health Following Physician Confirmation Following Physician:Bobo davidson MD Physician Service: Surgery Agreeable to Follow: Yes Spoke with: verified with pcrm * Madelin Li RN - 06/02/2022 8:08 AM EDT [facility] Coordination Note Patient received in handoff from nurse outreach case manager for potential homecare services. Will continue to follow with nurse outreach case manager for plan of care. Madelin HOPE, RN Post Acute Ceramics Engineer * lEis Mcnulty RN - 06/02/2022 6:48 AM EDT Discharge Planning for Home Health Options for discharge have been discussed with patient and family. Patient and family agree the post hospital care needs will best met at home with home care services. Background Information/ Hospital Overview: Patient is a 76 year old male who is s/p , R maxilla debridement, removal of R maxillary hardware and previous fibula FF, R neck exploration, L thigh tissue free flap reconstruction for R maxillary bone osteomyelitis Will discharge home on IV antibiotics Services needed: Detention Detention Needs PICC line care/iv antibiotic teaching Line / tube / drain type and care needed PICC line Wound Care PICC line care Lab work: type and frequency weekly Chem-6 (Including serum creatinine) without Glucose and CBC w/diff every Monday and fax to [phone], attention Dr. Yung Zapata or Dr. Rosette Cotton-may have done at local hospital Specialty Medications: (chemotherapy / IV antibiotics / Hydration) IV Caspo IV unasyn Teachable Caregiver / Family Support: is a teachable caregiver and will be willing to work with [facility] to obtain education if there arecomplex teaching services needed for the patient. Physician following for home care orders / phone: Bobo davidson MD-[phone] COVID-19 Vaccination Record: Has patient been vaccinated? Yes Brand: Pfizer Dates Given: 0.3 ML 09/06/2021 , 12/08/2020 , 11/17/2020 * Maria D Bro MD - 06/02/2022 6:06 AM EDT Head & Neck Surgery Daily Progress Note Last 24 Hours No acute events overnight. Cultures sensitive to capso AFVSS, RA Neck TOMASA drain removed today PICC placed Anticipate dispo to home today Has had bowel movement Last Bowel Movement: 05/31/22 Physical Exam BP 161/78 (BP Location: Right arm, BP Position: Lying) Pulse 76 Temp 98.3 F (36.8 C) (Oral) Resp 16 Ht 1.854 m (6' 1 ) Wt 79.8 kg (176 lb) SpO2 97% BMI 23.22 kg/m Smoking Status NeverSmoker Alert, oriented, NAD Facial swelling, improved Non-labored breathing, in no respiratory distress or no stridor Neck flat, incisions C/D/I Neck drain removed No evidence of fluid collection, dehiscence, or necrosis Tongue midline, shoulder shrug intact Flap: Strong doppler present - skin Cap refill ~ 3 sec Flap well seated; soft, no dehiscence evident Warm and appears well perfused Donor site: LLE motor/sensation intact Donor site dressed, no drainage Drains holding suction with ssg output SCDs in place Laboratory Studies & Objective Data Temp: [97.4 F (36.3 C)-98.5 F (36.9 C)] 98.3 F (36.8 C) Pulse (Heart Rate): [55-79] 76 Resp Rate: [16-18] 16 BP: (110-185)/(61-88) 161/78 O2 Sat (%): [97 %-100 %] 97 % Oxygen Therapy O2 Sat (%): 97 % O2 Device: room air Fluid Management (24hrs): Intake/Output last 3 shifts: I/O last 3 completed shifts: In: 2460.7 [NG/GT:2055; IV Piggyback:405.7] Out: 2515 [Urine:2450; Other:65] WBC/Hgb/Hct/Plts: 5.67/10.6/33.0/305 (06/01 1856) Na/K+/Phos/Mg/Ca: 139/4.1/3.1/2.0/8.7 (06/01 1856) Bun/Creat/Cl/CO2/Glucose: 19/0.92/104/26/131 (06/01 1856) Assessment & Plan 76 y.o. male POD 6 s/p DL, R maxilla debridement, removal of R maxillary hardware and previous fibula FF, R neck exploration, L ALT Procedure: DL, R maxilla debridement, removal of R maxillary hardware and previous fibula FF, R neck exploration, L ALT Diagnosis: Chronic wound/plate exposure Plan Airway: [place] Diet: NPO w/ TFs via NGT, outpt PO Drains: 2 leg-remove 1 WR, 1 neck-keep until dc, 1 rosalie neck secured with prolene/steristrips-keep until POD4 (tu) Wound: 5-0 fast leg-island down POD2, 5-0 fast neck Antibiotics: Unasyn while inpatient-->augmentin, change based on cx results, no ID consult Consults: PRN PT/OT/ACCOUNTANT BUDGET: PT/OT, ACCOUNTANT BUDGET for pre-PO Anticoagulation: Lvx ppx starting POD1 Relevant PMHx: 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, GERD, postop DVT/PE in 12/05 (previously on eliquis, stopped by PCP 05/2020) Other: - No late night lab draws Dispo: Anticipate dispo on POD# 7-8 to home vs facility FU: [facility] 3 weeks Today: - Refresh eye drops four times daily - Lacrilube daily at bedtime - On unasyn and caspo - Monitor facial swelling - Prick and and doppler flap skin paddle - Drain management - OOB TID or more Maria D Bro MD Otolaryngology - Head & Neck Surgery ENT [facility] (First Call) Pager [phone] Personal Pager [phone] * Elis Mcnulty RN - 06/01/2022 3:35 PM EDT Met with patient and to continue discharge planning. Spoke with patient and to discuss cost of IV antibiotic therapy. ID did not give any other options for IV unasyn. For now, the plan is patient will do to their local hospital for daily Caspofungin and self pay for the IV Unasyn at home. Spoke with Deena in pharmacy at [facility]. She states they can get the Caspo in and patient can get infusions there 7 days a week. [facility] -[facility] hospital number Spoke with Taisha in Infusion. She states patient can come to the Infusion center - and they would set him up either on the Med/Surg floor or ICU to get infusion on the weekend. Will fax orders/OPAT note/lab orders and dressing change orders to scheduling at fax [phone] Will confirm plan tomorrow with pharmacist at the local hospital. Deena (pharmacist) [phone] ext [phone] Will also arrange home health (if able) tomorrow for home IV unasyn. * Yung Zapata DO - 06/01/2022 3:32 PM EDT Outpatient Parenteral Antibiotic Therapy (OPAT): For patients who will be discharged on parenteral (IV) antibiotic therapy, please utilize the OPAT discharge orderset. For patients who are on oral antibiotic therapy, utilization of this orderset isnot necessary. Diagnosis: R maxillary bone osteomyelitis s/p maxillary plate removal and thigh free flap --- bone culture with staph aureus, staph epi, strep constellatus, strep viridans, natasha krusei Antibiotic(s) with dose: The dosing of these antibiotics is based on today's PK/PD calculations and is subject to change. Please evaluate the patient's medication list and carefully verify their dosing, and infusion rate prior to discharge. Do not hesitate to call the on-call ID Team with any questions. - Ampicillin/Sulbactam 6 gm every 12 hour as a continuous infusion - Caspofungin 50 mg every 24 hour as an intermittent infusion Duration of Therapy: Total Duration of therapy: 6 weeks Ampicillin/Sulbactam - Start Date: 05/27/2022; Stop Date: 07/08/2022 Caspofungin - Start Date: 05/27/2022; Stop Date: 07/08/2022 Does Patient Need Oral Antibiotic Therapy at the End of Parenteral Therapy: No OPAT ID Providers: Dr. Yung Zapata or Dr. Rosette Cotton Labs: Please have the Home Care Company or Extended Care Facility obtain weekly Chem-6 (Including serum creatinine) without Glucose and CBC w/diff every Monday and fax to [phone], attention Dr. Paredes or Dr. Rosette Cotton Imaging: No Follow-up: Yes - patient should follow-up in the ID Clinic (Please ensure patient is enrolled in [facility] priorto discharge) Please schedule patient with Dr Zapata on 07/14/2022 If the patient is being discharged to a Long[facility] Acute [facility] Hospital (LT[facility]), we will defer ID Care [facility]. Please instruct the facility that if the patient requires ID Follow-up after discharge, then they should call our office to arrange for an appointment. Central Access: Can Central Access be removed at the end of therapy: Yes Additional notes Caspofungin LUIS pending ([email or web address]) Yung Zapata, DO ID Fellow * Elis Mcnulty RN - 06/01/2022 12:57 PM EDT Per medical team, patient will need iv antibiotics at home. Checked benefits to double check that patient does not have Rx coverage. Pt does NOT have prescription coverage so self pay pricing is estimated to be $199.92 per week for Ampicillin/Sulbactam, $699.30 per week for Caspofungin 50mg and $280 per week for Clinical Services.Total $1179.22 Will investigate other options for patient if he cannot afford it. He may need to go to a local clinic daily for infusions. Can also check with ID team to see if there are any other options. * Kristina Narvaez RD - 06/01/2022 10:04 AM EDT Nutrition Follow Up Nutrition Recommendations and Plan of Care: 1. TF modification: Jevity 1.5, 340 ml x 5/d + 210 ml water flush x 5 per day. Provides 2550 kcal (32 kcal/kg admit wt), 108 g pro (1.4 g/kg admit wt) and 2342 1292 ml free water/d (29 ml/kg admit wt) *equivalent to 7 cans/d- at discharge suggest Ensure Plus or equivalent, 7 cartons/d 2. Diet: NPO. Advance as able per team. 3. RD to follow. 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 Nutrition Assessment: Pt was started on continuous feeds via NG on POD#1 and he has been toleratingwell. Plan to transition to gravity/intermittent feeds today. He will require TF at discharge and purchase formula from out of pocket. Of note, pt had an NG at home for TF in 2019 following surgery and he purchased cases of Ensure Plus/Boost Plus from local hospital at a discounted arteaga. See recs above in plan of care. Current Diet Orders Procedures DIET NPO AND TUBE FEEDING WITHOUT meds Advance per Protocol NO ORAL MEDICATION PER MOUTH. Oral medication to be administered via enteral tube. Standing Status: Standing Number of Occurrences: 1 Order Specific Question: NPO Meds: Answer: WITHOUT meds Current TF: Jevity 1.5 @ 65 ml/hr + 100 ml water flush x 5 per day Ht: 6'1 Admit wt: 176#/80 kg Current wt: 176#/80 kg IBW: 184#/84 kg BMI: 23.2 meds: Miralax, zosyn, senna Labs: Na: 141 Osm: 299 BUN: 23 Cr: 1.01 K: 4.3 Phos: 3.1 M.2 Prealbumin: 20 CRP: not available Recent glucose: 96 GI: Small-bore nasoenteric tube (tip in stomach per imaging 05/27) Last BM 05/31 Skin: Fortino 20 R neck incision, L thigh incision, R upper cheek incision, R cheek flap, oral flap Edema: - Estimated Nutrition Needs Wt used: 80 kg, admit wt Estimated Kcal Needs: 9518-9221 (30-35 kcal/kg admit wt) Estimated Pro Needs: 120-160 (1.5-2 g/kg admit wt) Estimated fluid needs: 2603-4506 (30-35 ml/kg admit wt) Malnutrition Statement Indications of Malnutrition: No malnutrition based on the AND/ASPEN Malnutrition Criteria [address],LD, [facility] #[id number] * Sharif Reyes MD - 06/01/2022 6:34 AM EDT Head & Neck Surgery Daily Progress Note Last 24 Hours No acute events overnight. Cultures sensitive to capso AFVSS, TOMASA drain removed today Last Bowel Movement: 05/31/22 Physical Exam BP (!) 136/95 (BP Location: Left arm, BP Position: Lying) Pulse 108 Temp 97.4 F (36.3 C) (Axillary) Resp 16 Ht 1.854 m (6' 1 ) Wt 79.8 kg (176 lb) SpO2 97% BMI 23.22 kg/m Smoking Status Never Smoker Alert, oriented, NAD Facial swelling, improved Non-labored breathing, in no respiratory distress or no stridor Neck flat, incisions C/D/I, rosalie removed, prolene stitched over rosalie site TOMASA drain ssg with minimal output No evidence of fluid collection, dehiscence, or necrosis Tongue midline, shoulder shrug intact Flap: Strong doppler present - intraoral and skin Cap refill ~ 3 sec Flap well seated; soft, no dehiscence evident Warm and appears well perfused Prick brb 4 seconds Donor site: motor/sensation intact Donor site dressed, no drainage Drains holding suction with ssg output SCDs in place Laboratory Studies & Objective Data Temp: [97.1 F (36.2 C)-98.2 F (36.8 C)] 97.4 F (36.3 C) Pulse (Heart Rate): [57-108] 108 Resp Rate: [15-18] 16 BP: (102-136)/(61-95) 136/95 O2 Sat (%): [96 %-100 %] 97 % Oxygen Therapy O2 Sat (%): 97 % O2 Device: room air Fluid Management (24hrs): Intake/Output last 3 shifts: I/O last 3 completed shifts: In: 2447.3 [NG/GT:1959; IV Piggyback:488.3] Out: 934 [Urine:850; Other:84] WBC/Hgb/Hct/Plts: 7.38/10.6/32.4/322 (05/31 1118) Na/K+/Phos/Mg/Ca: 141/4.3/3.1/2.2/8.9 (05/31 1118) Bun/Creat/Cl/CO2/Glucose: 23/1.01/105/29/96 (05/31 1118) Assessment & Plan 76 y.o. male POD 5 s/p DL, R maxilla debridement, removal of R maxillary hardware and previous fibula FF, R neck exploration, L ALT Procedure: DL, R maxilla debridement, removal of R maxillary hardware and previous fibula FF, R neck exploration, L ALT Diagnosis: Chronic wound/plate exposure Plan Airway: [place] Diet: NPO w/ TFs via NGT, outpt PO Drains: 2 leg-remove 1 WR, 1 neck-keep until dc, 1 rosalie neck secured with prolene/steristrips-keep until POD4 (tues) Wound: 5-0 fast leg-island down POD2, 5-0 fast neck Antibiotics: Unasyn while inpatient-->augmentin, change based on cx results, no ID consult Consults: PRN PT/OT/ACCOUNTANT BUDGET: PT/OT, ACCOUNTANT BUDGET for pre-PO Anticoagulation: Lvx ppx starting POD1 Relevant PMHx: 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, GERD, postop DVT/PE in 12/05 (previously on eliquis, stopped by PCP 05/2020) Other: - No late night lab draws Dispo: Anticipate dispo on POD# 7-8 to home vs facility FU: [facility] 3 weeks Today: - Fu natasha susceptibilities - lacrilube - Monitor facial swelling - monitor blood sugars - Rosalie removed - Continue vanc/zosyn and fluc and narrow as able - Prick and and doppler flap skin paddle - Wean from supplemental oxygen to room air - Drain management - OOB TID or more Sharif Reyes MD Otolaryngology - Head & Neck Surgery ENT [facility] (First Call) Pager [phone] Personal Pager [phone] * Clem Neal, [facility] - 05/31/2022 12:59 PM EDT Department of Pharmacy Pharmacokinetics Progress Note Patient: Lilly Argueta Room/Bed: [facility] Assessment and Plan: Based upon drug level assessment and interpretation (steady state), no changes to vancomycin dose or dosing interval are indicated at this time. A pharmacist will continue to follow and order drug levels and adjust dosing as clinically appropriate. Vancomycin regimen at time of level: Vancomycin 1250 mg IV every 12 hours Last Dose Administered: Dose: Date: Time: 1250 mg 05/30/2022 2354 Levels: 16.1 mcg/mL drawn at 1118 on 05/31/2022. Level was a trough. Most Recent Labs: WBC Count Date Value Ref Range Status 05/31/2022 7.38 3.73 - 10.10 K/uL Final BUN Date Value Ref Range Status 05/31/2022 23 7 - 25 mg/dL Final Creatinine Date Value Ref Range Status 05/31/2022 1.01 0.70 - 1.30 mg/dL Final I/O last 3 completed shifts: In: 3358.9 [NG/GT:1985; IV Piggyback:1373.9] Out: 815 [Urine:750; Other:65] Estimated Creatinine Clearance: 72 mL/min (by C-G formula based on SCr of 1.01 mg/dL). Ongoing Vancomycin Monitoring: The following trough goal is recommended for ongoing therapy (and if the patient is discharged) based on the suspected/confirmed source of infection and today s calculations: Goal trough range: 10-20 mcg/mL For further recommendations at discharge, please contact the rounding pharmacist or central pharmacy. Please feel free to contact me with any further questions. Name: Clem Neal RPH Phone: [phone] Date/Time: 05/31/2022 12:59 PM * Iraida Barrios, PT - 05/31/2022 9:30 AM EDT Acute Physical Therapy Treatment Prior to Admission [facility] score(s): PRIOR LEVEL AM-PAC Mobility Raw Score: 24 PRIOR LEVEL AM-PAC Activity Raw Score: 24 Current AM-PAC score(s): CURRENT AM-PAC Mobility Raw Score: 19 Based on the above AM-PAC score(s) and PT clinical judgment, patient is a good candidate for discharge to Home Barriers to discharge home: None Mobility equipment available at home: straight cane, 2 wheeled walker ADL equipment available at home: shower chair Equipment needed for discharge: none Current therapy frequency recommendation in acute: Therapy Frequency: 2 times a week Precautions and Weightbearing Status: Existing Precautions/Restrictions: fall, weight bearing (WBAT LLE) Tube feed (drains x3; dobhoff) Patient Safety Communication Prior to Visit: Nursing Left Lower Extremity: weight bearing as tolerated Respiratory Status O2 Device: room air Subjective: Pt supine with HOB elevated on arrival. Agreeable to Physical Therapy. Pain: General Pain Documentation (Adult, OB, Peds) Presence of Pain: denies pain/discomfort DVPRS (Defense and Veterans Pain Rating Scale) DVPRS: Rest: 0- no pain DVPRS: Activity: 0- no pain Objective/Observation: Vitals/Vitals Responses to Treatment: Stable Cognition Overall Cognitive Status: Within Functional Limits Extremity Assessments: See PT Evaluation flowsheet for Extremity Measurement updates. Balance: Sitting Balance Static Sitting-Level of Assistance: Independent Dynamic Sitting-Level of Assistance: Supervision Skilled Rationale: Verbal cues, Full extension to upright positioning/posture Sitting Balance Skilled Intervention/Details: Forward flexed posture while seated EOB. No postural sway or LOB. Standing Balance Static Standing-Level of Assistance: Supervision Dynamic Standing-Level of Assistance: Stand-by assist Standing-Balance Support: Gait belt (pushes IV pole for convenience) Skilled Rationale: Verbal cues, Full extension to upright positioning/posture Standing Balance Skilled Intervention/Details: Forward flexed posture and mild increased postural sway. No LOB. Mobility Assessment/Intervention: Supine to Sit Mobility [place] Level: Supine->Sit: supervision Bed Features/Set-up: Supine->Sit: Head of bed elevated Skilled Intervention/Details: Supine->Sit: Increased time Transfer Assessment/Intervention: Sit to Stand Transfer [place] Level: Sit->Stand: stand-by assist Assistive Device: Sit->Stand: gait belt Skilled Rationale: Verbal cues, Full extension to upright positioning/posture, Cues for increased safety Skilled Intervention/Details: Sit->Stand: x1 from EOB with use of hands. Gait/Functional Mobility Assessment/Intervention: Gait Assessment [place] Level: Gait: stand-by assist Assistive Device: Gait: gait belt Gait Distance (feet): 500 Gait Deviations Identified: decreased gait speed, flexed posture Gait Skilled Rationale: verbal, upright posture Skilled Intervention/Details - Gait: Pushes IV pole with bilat UE support for convenience, not for balance purposes. Flexed posture. At end of session, pt continued to mobilize with supervision from his . Stairs Assessment/Intervention: Stairs Assessment [place] Level: Stair Negotiation: stand-by assist Assistive Device: Stair Negotiation: gait belt, right rail (ascending), left rail (ascending) Number of stairs: 4 Stairs Skilled Rationale: verbal, general safety, nonreciprocal pattern Skilled Intervention/Details - Stairs: Increased time for safety Outcome Score(s): CURRENT AM-PAC Basic Mobility Inpatient Short Form Turning over in bed: 4 - No Assistance Sitting/standing from chair: 3 - A Little Assistance Moving from lying on back to sittin - A Little Assistance Moving to and from bed to chair: 3 - A Little Assistance Walk in hospital room: 3 - A Little Assistance Climbing 3-5 steps with a railin - A Little Assistance [facility] Mobility Raw Score: 19 [facility]RENT [facility] Mobility Functional Limitation/Modifier: 41.77% Currently Impaired in Basic Mobility- CK Interventions: Assessment & Plan: Pt demo's progress toward PT goals. Ambulated 500 feet with SBA and pushing IV pole for convenience. Navigated 4 stairs with SBA and use of rails without concerns for balance. Denies concerns with mobility upon discharge to home. Pt continues to benefit from skilled PT services to address high-level standing balance activities as they relate to overall performance of functional mobility. Patient Instruction/Education this session: OOBTC and ambulate TID Plan for next session: Progress stair navigation, high-level standing balance. Acute PT Goals Plan of Care by Iraida Barrios PT at 05/31/2022 9:30 AM Version 1 of 1 Problem: PT - Mobility Goal: Ambulation Description: Pt will ambulate 500 feet with out an assistive device with standby assistance to improve ability to navigate home environment. Outcome: Met This Shift Goal: Stairs Description: Pt will ascend/descend 5 stairs with unilateral railings with standby assistance with out an assistive device to improve ability to perform functional mobility necessary in recommended discharge environment. Outcome: Ongoing Problem: PT - Transfers Goal: Supine <-> Sit Description: Pt will perform bed mobility with flat bed & no rail with independence in order toimprove functional mobility and safety. Outcome: Ongoing Goal: Sit <-> Stand Description: Pt will perform sit to/from stand transfers with independence with out an assistive device in order to improve functional mobility and safety. Outcome: Ongoing Iraida Barrios PT, DPT License #: [id number] Pager #: [phone] PT treatment consisted of Gait/Stair Training to work and progress towards above goal(s). Treating Therapist: Iraida Barrios PT Additional Details: Co-evaluation/co-treatment performed?: No simultaneous skilled care performed I used facemask, protective eye shield, and gloves in today's patient interaction. Patient location at end of session: continuing to ambulate with supervision from Alarms on at end of session: none Needs in reach. Time In: 914 Time Out: 929 Total Visit Time: 15 minutes Total Treatment Time (skilled, billable minutes): 15 minutes Upon discontinuation of Acute Care Physical Therapy Services or patient discharge from the hospitalthis note represents the current Physical Therapy Discharge Summary. * Armaan Marino MD - 05/31/2022 6:26 AM EDT Head & Neck Surgery Daily Progress Note Last 24 Hours No acute events overnight. Eye drops improving symptoms Cultures sensitive to clinda AFVSS RA Last Bowel Movement: 05/27/22 Physical Exam BP 126/66 (BP Location: Right arm, BP Position: Lying) Pulse 82 Temp 97.5 F (36.4 C) (Axillary) Resp 16 Ht 1.854 m (6' 1 ) Wt 79.8 kg (176 lb) SpO2 98% BMI 23.22 kg/m Smoking Status Never Smoker Alert, oriented, NAD Facial swelling, improved Non-labored breathing, in no respiratory distress or no stridor Neck flat, incisions C/D/I, rosalie removed, prolene stitched over rosalie site No evidence of fluid collection, dehiscence, or necrosis Tongue midline, shoulder shrug intact Flap: Strong doppler present - intraoral and skin Cap refill ~ 3 sec Flap well seated; soft, no dehiscence evident Warm and appears well perfused Prick brb 4 seconds Donor site: motor/sensation intact Donor site dressed, no drainage Drains holding suction with ssg output SCDs in place Laboratory Studies & Objective Data Temp: [97.3 F (36.3 C)-98.1 F (36.7 C)] 97.5 F (36.4 C) Pulse (Heart Rate): [74-84] 82 Resp Rate: [14-18] 16 BP: (105-139)/(66-78) 126/66 O2 Sat (%): [94 %-98 %] 98 % Oxygen Therapy O2 Sat (%): 98 % O2 Device: room air Fluid Management (24hrs): Intake/Output last 3 shifts: I/O last 3 completed shifts: In: 2884.6 [NG/GT:1911; IV Piggyback:973.6] Out: 1158 [Urine:1100; Other:58] WBC/Hgb/Hct/Plts: 10.46/11.0/34.7/306 (05/30 1600) Na/K+/Phos/Mg/Ca: 139/4.2/2.4/2.3/8.9 (05/30 1600) Bun/Creat/Cl/CO2/Glucose: 19/0.98/104/28/172 (05/30 1600) Assessment & Plan 76 y.o. male POD 4 s/p DL, R maxilla debridement, removal of R maxillary hardware and previous fibula FF, R neck exploration, L ALT Procedure: DL, R maxilla debridement, removal of R maxillary hardware and previous fibula FF, R neck exploration, L ALT Diagnosis: Chronic wound/plate exposure Plan Airway: [place] Diet: NPO w/ TFs via NGT, outpt PO Drains: 2 leg-remove 1 WR, 1 neck-keep until dc, 1 rosalie neck secured with prolene/steristrips-keep until POD4 (tues) Wound: 5-0 fast leg-island down POD2, 5-0 fast neck Antibiotics: Unasyn while inpatient-->augmentin, change based on cx results, no ID consult Consults: PRN PT/OT/ACCOUNTANT BUDGET: PT/OT, ACCOUNTANT BUDGET for pre-PO Anticoagulation: Lvx ppx starting POD1 Relevant PMHx: 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, GERD, postop DVT/PE in 12/05 (previously on eliquis, stopped by PCP 05/2020) Other: - No late night lab draws Dispo: Anticipate dispo on POD# 7-8 to home vs facility FU: [facility] 3 weeks Today: - Fu natasha susceptibilities - Monitor facial swelling - monitor blood sugars - Rosalie removed - Continue vanc/zosyn and fluc and narrow as able - Prick and and doppler flap skin paddle - Wean from supplemental oxygen to room air - Drain management - OOB TID or more Armaan Marnio MD Otolaryngology - Head & Neck Surgery ENT [facility] (First Call) Pager [phone] Personal Pager [phone] * Yvette CEM Oscar - 05/30/2022 2:02 PM EDTSummary: Psychosocial Assessment Psychosocial Assessment Per chart review, patient is a 76 y.o. male POD 3 s/p DL, R maxilla debridement, removal of R maxillary hardware and previous fibula FF, R neck exploration, L ALT SW met with patient to introduce self, explain social service coordinator role during inpatient stay, and answerpatient questions. Patient was alert and oriented x4 and agreeable to SW visit. 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 Despair Emotional/Psychological Affect: no deficits noted Mood: congruent to situation Verbal Skills: no deficits noted Current Interpersonal Conduct/Behavior: appropriate to situation Mental Health Conditions/Symptoms: none Thought Process Alterations: no deficits noted Previous Mental Health Treatment: none Values/Beliefs (F) [place] Importance: Zoroastrian - sw made family aware of program support assistant services Patient Coping/Stress Concerns Major Change/Loss/Stressor: medical condition/diagnosis, hospitalization, surgery/procedure Patient Personal Strengths: able to adapt, positive attitude, resilient, resourceful, strong support system, chelsea/spirituality, future/goal oriented, motivated Sources Of Support: adult child(aide), spouse, gnosticism/cheondoism organization Reaction To Health Status: accepting, adjusting Understanding Of Condition And Treatment: adequate understanding of medical condition Caregiver Coping/Stress Concerns Caregiver Coping/Stress Concerns: No Primary Caregiver Strengths: able to adapt, positive attitude, expressive of emotions, strong support system, future/goal oriented, motivated, chelsea/spirituality, resilient Sources Of Support: adult child(aide), spouse, gnosticism/cheondoism organization Reaction To Health Status: adjusting, accepting Understanding Of Condition And Treatment: adequate understanding of medical condition Coping Interventions (Adult) Plan Of Care Reviewed With: patient, spouse Anxiety Management: age appropriate communication techniques utilized, family presence promoted, emotional support provided Emotional Support: family presence promoted Therapeutic Relationship Promotion: emotional support provided Major Change/Loss/Stressor: medical condition/diagnosis, hospitalization, surgery/procedure Advance Directives: Patient does not have any advance directives on file. SW inquired whether or not patient is interested in completing health care power of divorce attorney and/or living will paperwork during this visit. SW briefly reviewed the documents, discussed the benefits of completing them, and provided education re: Legal NOK (LNOK). Patient declined interest in completing the documents at this time. Legal NOK: Jerson (spouse) Substance Use: Tobacco: patient denies use Alcohol: patient denies use Recreational Drugs: patient denies use Community Resources: none Home Health / DME: none / none Health Insurance / Rx: Medicare A&B Anticipated Discharge Plan: final plan will be determined closer to discharge, pending therapy and medical team recommendations. Medical Team Considerations: none SW Interventions/Recommendations: Service SW name and contact information placed on white board in patient's room to contact as needed. SW will continue to remain available to provide assistance and support as needed during inpatient stay. Yvette PRIEST-S Clinical Surveyor Helper Pager: [phone] For Evening (4:30pm-8am) and Weekend SW needs please call [phone] or page [phone] * Lore Parker RN - 05/30/2022 11:05 AM EDT Lilly GUPTA discussed this am in multidisciplinary rounds. The pt remained inpt over the weekend. NG/TF, and drains continue. team to monitor BS. Dispo TBD. PCRM to continue to follow, and provide support. Yesy Parker RN PCRM [phone] For evening and weekend discharge assistance please page the pharmacy operations specialist PCRM at [phone]. * Sharif Reyes MD - 05/30/2022 6:19 AM EDT Head & Neck Surgery Daily Progress Note Last 24 Hours No acute events overnight. Eye drops improving symptoms Cultures growing S. Aureus, coag. Neg. Staph, Strep constellatus, and Streptococcus viridans and yeast AFVSS RA Last Bowel Movement: 05/27/22 (per report) Physical Exam BP 130/82 (BP Location: Right arm, BP Position: Lying) Pulse 80 Temp 97.7 F (36.5 C) (Axillary) Resp 18 Ht 1.854 m (6' 1 ) Wt 79.8 kg (176 lb) SpO2 96% BMI 23.22 kg/m Smoking Status Never Smoker Alert, oriented, NAD Facial swelling, improved Non-labored breathing, in no respiratory distress or no stridor Neck flat, incisions C/D/I No evidence of fluid collection, dehiscence, or necrosis Tongue midline, shoulder shrug intact Flap: Strong doppler present - intraoral and skin Cap refill ~ 3 sec Flap well seated; soft, no dehiscence evident Warm and appears well perfused Prick brb 4 seconds Donor site: motor/sensation intact Donor site dressed, no drainage Drains holding suction with ssg output SCDs in place Laboratory Studies & Objective Data Temp: [96.6 F (35.9 C)-98.8 F (37.1 C)] 97.7 F (36.5 C) Pulse (Heart Rate): [77-93] 80 Resp Rate: [16-18] 18 BP: (124-144)/(67-85) 130/82 O2 Sat (%): [95 %-97 %] 96 % Oxygen Therapy O2 Sat (%): 96 % O2 Device: room air Fluid Management (24hrs): Intake/Output last 3 shifts: I/O last 3 completed shifts: In: 1814 [I.V.:521.9; NG/GT:1232; IV Piggyback:61.1] Out: 2022 [Urine:1950; Other:73] WBC/Hgb/Hct/Plts: 10.04/11.2/34.4/272 (05/29 1749) Na/K+/Phos/Mg/Ca: 137/4.2/1.7/2.4/8.7 (05/29 1749) Bun/Creat/Cl/CO2/Glucose: 13/0.93/105/25/220 (05/29 1749) Assessment & Plan 76 y.o. male POD 3 s/p DL, R maxilla debridement, removal of R maxillary hardware and previous fibula FF, R neck exploration, L ALT Procedure: DL, R maxilla debridement, removal of R maxillary hardware and previous fibula FF, R neck exploration, L ALT Diagnosis: Chronic wound/plate exposure Plan Airway: [place] Diet: NPO w/ TFs via NGT, outpt PO Drains: 2 leg-remove 1 WR, 1 neck-keep until dc, 1 rosalie neck secured with prolene/steristrips-keep until POD4 (tues) Wound: 5-0 fast leg-island down POD2, 5-0 fast neck Antibiotics: Unasyn while inpatient-->augmentin, change based on cx results, no ID consult Consults: PRN PT/OT/ACCOUNTANT BUDGET: PT/OT, ACCOUNTANT BUDGET for pre-PO Anticoagulation: Lvx ppx starting POD1 Relevant PMHx: 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, GERD, postop DVT/PE in 12/05 (previously on eliquis, stopped by PCP 05/2020) Other: - No late night lab draws Dispo: Anticipate dispo on POD# 7-8 to home vs facility FU: [facility] 3 weeks Today: - Susceptibilities - Monitor facial swelling - monitor blood sugars - Broaden to vanc/zosyn and fluc and narrow as able - Prick and and doppler flap skin paddle - Wean from supplemental oxygen to room air - Drain management - OOB TID or more Sharif Reyes MD Otolaryngology - Head & Neck Surgery ENT [facility] (First Call) Pager [phone] Personal Pager [phone] * Truman Montano MD - 05/29/2022 6:42 PM EDT Flap Check: Lilly Argueta is a 76 y.o. male who is POD#2 s/p DL, R maxilla debridement, removal of R maxillary hardware and previous fibula FF, R neck exploration, L ALT BP 144/85 (BP Location: Right arm, BP Position: Sitting) Pulse 88 Temp 97.9 F (36.6 C) (Axillary) Resp 16 Ht 1.854 m (6' 1 ) Wt 79.8 kg (176 lb) SpO2 95% BMI 23.22 kg/m Smoking StatusNever Smoker Resting comfortably in bed. Alert, oriented, NAD Non-labored breathing, in no respiratory distress or no stridor Neck flat, incisions C/D/I No evidence of fluid collection, dehiscence, or necrosis Tongue midline, shoulder shrug intact Drains holding suction with ssg output SCDs in place Right facial swelling extending to lower eyelid, firm near mandible, soft superiorly. Flap: Strong doppler present - intraoral and skin BRB with prick ~ 12s Cap refill ~ 4 sec Flap well seated; soft, no dehiscence evident Warm, slightly pale but well perfused. Intraoral portion slightly mottled but good doppler and cap refill. Donor site: Left leg motor/sensation intact Donor site dressed, no drainage Drains holding suction with ssg output Plan: - flap checks per protocol - Increased right facial swelling consistent with postop swelling. Will continue to monitor. Truman Montano MD Otolaryngology-Head and Neck Surgery, PGY-2 *[phone] * Armaan Marino MD - 05/29/2022 12:53 PM EDT Flap Check: Lilly Argueta is a 76 y.o. male who is POD#2 s/p DL, R maxilla debridement, removal of R maxillary hardware and previous fibula FF, R neck exploration, L ALT BP 130/67 (BP Location: Right arm, BP Position: Lying) Pulse 93 Temp 98.5 F (36.9 C) (Axillary) Resp 16 Ht 1.854 m (6' 1 ) Wt 79.8 kg (176 lb) SpO2 96% BMI 23.22 kg/m Smoking Status Never Smoker Resting comfortably in bed. Alert, oriented, NAD Non-labored breathing, in no respiratory distress or no stridor Neck flat, incisions C/D/I No evidence of fluid collection, dehiscence, or necrosis Tongue midline, shoulder shrug intact Drains holding suction with ssg output SCDs in place Right facial swelling extending to lower eyelid, firm near mandible, soft superiorly. Flap: Strong doppler present - intraoral and skin BRB with prick ~ 20 sec Cap refill ~ 4 sec Flap well seated; soft, no dehiscence evident Warm, slightly pale but well perfused. Intraoral portion slightly mottled but good doppler and cap refill. Donor site: Left leg motor/sensation intact Donor site dressed, no drainage Drains holding suction with ssg output Plan: - flap checks per protocol - Increased right facial swelling consistent with postop swelling. Will continue to monitor. Armaan Marino MD PGY-1, Otolaryngology-Head & Neck Surgery Pager #[phone] * Armaan Marino MD - 05/29/2022 9:44 AM EDT Head & Neck Surgery Daily Progress Note Last 24 Hours No acute events overnight. Reports of right facial swelling yesterday, improved this AM Cultures growing S. Aureus, coag. Neg. Staph, Strep constellatus, and Streptococcus viridans and yeast AFVSS RA Last Bowel Movement: 05/26/22 Physical Exam BP 124/72 (BP Location: Right arm, BP Position: Lying) Pulse 88 Temp 98.8 F (37.1 C) (Axillary) Resp 16 Ht 1.854 m (6' 1 ) Wt 79.8 kg (176 lb) SpO2 97% BMI 23.22 kg/m Smoking Status Never Smoker Alert, oriented, NAD Facial swelling, improved from PM yesterday Non-labored breathing, in no respiratory distress or no stridor Neck flat, incisions C/D/I No evidence of fluid collection, dehiscence, or necrosis Tongue midline, shoulder shrug intact Flap: Strong doppler present - intraoral and skin Cap refill ~ 3 sec Flap well seated; soft, no dehiscence evident Warm and appears well perfused Prick brb 4 seconds Donor site: motor/sensation intact Donor site dressed, no drainage Drains holding suction with ssg output SCDs in place Laboratory Studies & Objective Data Temp: [97.6 F (36.4 C)-99.5 F (37.5 C)] 98.8 F (37.1 C) Pulse (Heart Rate): [73-88] 88 Resp Rate: [16-18] 16 BP: (97-136)/(60-73) 124/72 O2 Sat (%): [96 %-98 %] 97 % Oxygen Therapy O2 Sat (%): 97 % O2 Device: room air Fluid Management (24hrs): Intake/Output last 3 shifts: I/O last 3 completed shifts: In: 3192.3 [I.V.:1962.2; NG/GT:1119; IV Piggyback:111.1] Out: 2184 [Urine:2100; Other:84] WBC/Hgb/Hct/Plts: 9.01/11.0/33.3/254 (05/28 1717) Na/K+/Phos/Mg/Ca: 139/4.1/2.5/1.8/8.8 (05/28 1717) Bun/Creat/Cl/CO2/Glucose: 13/1.02/105/25/122 (05/28 1717) Assessment & Plan 76 y.o. male POD 2 s/p DL, R maxilla debridement, removal of R maxillary hardware and previous fibula FF, R neck exploration, L ALT Procedure: DL, R maxilla debridement, removal of R maxillary hardware and previous fibula FF, R neck exploration, L ALT Diagnosis: Chronic wound/plate exposure Plan Airway: [place] Diet: NPO w/ TFs via NGT, outpt PO Drains: 2 leg-remove 1 WR, 1 neck-keep until dc, 1 rosalie neck secured with prolene/steristrips-keep until POD4 () Wound: 5-0 fast leg-island down POD2, 5-0 fast neck Antibiotics: Unasyn while inpatient-->augmentin, change based on cx results, no ID consult Consults: PRN PT/OT/ACCOUNTANT BUDGET: PT/OT, ACCOUNTANT BUDGET for pre-PO Anticoagulation: Lvx ppx starting POD1 Relevant PMHx: 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, GERD, postop DVT/PE in 12/05 (previously on eliquis, stopped by PCP 05/2020) Other: - No late night lab draws Dispo: Anticipate dispo on POD# 7-8 to home vs facility FU: [facility] 3 weeks Today: - Susceptibilities - Monitor facial swelling - Broaden to vanc/zosyn and fluc and narrow as able - Island dressing down today - Fu PM labs - Prick and and doppler flap skin paddle - D/C IV fluids - Wean from supplemental oxygen to room air - Drain management - OOB TID or more Armaan Marino MD Otolaryngology - Head & Neck Surgery ENT [facility] (First Call) Pager [phone] Personal Pager [phone] * Truman Talavera MD - 05/29/2022 12:08 AM EDT Flap Check: Lilly Argueta is a 76 y.o. male who is POD#0 s/p DL, R maxilla debridement, removal of R maxillary hardware and previous fibula FF, R neck exploration, L ALT BP 127/71 (BP Location: Right arm, BP Position: Lying) Pulse 80 Temp 98.7 F (37.1 C) (Axillary) Resp 18 Ht 1.854 m (6' 1 ) Wt 79.8 kg (176 lb) SpO2 98% BMI 23.22 kg/m Smoking Status Never Smoker Resting comfortably in bed. Alert, oriented, NAD Non-labored breathing, in no respiratory distress or no stridor Neck flat, incisions C/D/I No evidence of fluid collection, dehiscence, or necrosis Tongue midline, shoulder shrug intact Drains holding suction with ssg output SCDs in place Right facial swelling extending to lower eyelid, soft. Flap: Strong doppler present - intraoral and skin BRB with prick ~ 15-20 sec Cap refill ~ 3 sec Flap well seated; soft, no dehiscence evident Warm, slightly pale but well perfused. Intraoral portion slightly mottled but good doppler and cap refill. Donor site: Left leg motor/sensation intact Donor site dressed, no drainage Drains holding suction with ssg output Plan: - flap checks per protocol - Increased right facial swelling consistent with postop swelling. Will continue to monitor. Truman Talavera MD PGY-2, Otolaryngology-Head & Neck Surgery Pager #[phone] * Truman Talavera MD - 05/28/2022 7:36 PM EDT Flap Check: Lilly Argueta is a 76 y.o. male who is POD#0 s/p DL, R maxilla debridement, removal of R maxillary hardware and previous fibula FF, R neck exploration, L ALT BP 110/63 (BP Location: Right arm, BP Position: Lying) Pulse 73 Temp 97.7 F (36.5 C) (Axillary) Resp 16 Ht 1.854 m (6' 1 ) Wt 79.8 kg (176 lb) SpO2 97% BMI 23.22 kg/m Smoking Status Never Smoker Resting comfortably in bed. Alert, oriented, NAD Non-labored breathing, in no respiratory distress or no stridor Neck flat, incisions C/D/I No evidence of fluid collection, dehiscence, or necrosis Tongue midline, shoulder shrug intact Drains holding suction with ssg output SCDs in place Right facial swelling extending to lower eyelid, soft. Flap: Strong doppler present - intraoral and skin BRB with prick ~ 15-20 sec Cap refill ~ 3 sec Flap well seated; soft, no dehiscence evident Warm, slightly pale but well perfused. Intraoral portion slightly mottled but good doppler and cap refill. Donor site: Left leg motor/sensation intact Donor site dressed, no drainage Drains holding suction with ssg output Plan: - flap checks per protocol - Increased right facial swelling consistent with postop swelling. Will continue to monitor. Truman Talavera MD PGY-2, Otolaryngology-Head & Neck Surgery Pager #[phone] * Truman Talavera MD - 05/28/2022 12:00 PM EDT Flap Check: Lilly Argueta is a 76 y.o. male who is POD#0 s/p DL, R maxilla debridement, removal of R maxillary hardware and previous fibula FF, R neck exploration, L ALT BP 97/60 (BP Location: Right arm, BP Position: Lying) Pulse 78 Temp 97.6 F (36.4 C) (Axillary) Resp 16 Ht 1.854 m (6' 1 ) Wt 79.8 kg (176 lb) SpO2 97% BMI 23.22 kg/m Smoking Status Never Smoker Resting comfortably in bed. Alert, oriented, NAD Non-labored breathing, in no respiratory distress or no stridor Neck flat, incisions C/D/I No evidence of fluid collection, dehiscence, or necrosis Tongue midline, shoulder shrug intact Drains holding suction with ssg output SCDs in place Flap: Strong doppler present - intraoral and skin BRB with prick ~ 15-20 sec Cap refill ~ 3 sec Flap well seated; soft, no dehiscence evident Warm, slightly pale but well perfused. Intraoral portion slightly mottled but good doppler and cap refill. Donor site: Left leg motor/sensation intact Donor site dressed, no drainage Drains holding suction with ssg output Plan: - flap checks per protocol Truman Talavera MD PGY-2, Otolaryngology-Head & Neck Surgery Pager #[phone] * Armaan Marino MD - 05/28/2022 10:02 AM EDT Head & Neck Surgery Daily Progress Note Last 24 Hours No acute events overnight. AFVSS RA Last Bowel Movement: 05/26/22 Physical Exam BP 117/57 (BP Location: Right arm, BP Position: Lying) Pulse 63 Temp 97.8 F (36.6 C) (Axillary) Resp 16 Ht 1.854 m (6' 1 ) Wt 79.8 kg (176 lb) SpO2 98% BMI 23.22 kg/m Smoking Status Never Smoker Alert, oriented, NAD Non-labored breathing, in no respiratory distress or no stridor Neck flat, incisions C/D/I No evidence of fluid collection, dehiscence, or necrosis Tongue midline, shoulder shrug intact Flap: Strong doppler present - intraoral and skin Cap refill ~ 3 sec Flap well seated; soft, no dehiscence evident Warm and appears well perfused Prick brb 10 seconds Donor site: motor/sensation intact Donor site dressed, no drainage Drains holding suction with ssg output SCDs in place Laboratory Studies & Objective Data Temp: [97.4 F (36.3 C)-99.3 F (37.4 C)] 97.8 F (36.6 C) Pulse (Heart Rate): [63-92] 63 Resp Rate: [11-16] 16 BP: (95-154)/(54-86) 117/57 O2 Sat (%): [96 %-100 %] 98 % Oxygen Therapy O2 Sat (%): 98 % O2 Device: (P) room air Flow (L/min): 2 Fluid Management (24hrs): Intake/Output last 3 shifts: I/O last 3 completed shifts: In: 4340.4 [I.V.:4020.4; NG/GT:120; IV Piggyback:200] Out: 2376 [Urine:2350; Other:26] WBC/Hgb/Hct/Plts: --/--/33.0/-- (05/27 1110) Na/K+/Phos/Mg/Ca: 139/4.0/--/--/-- (05/27 1110) Bun/Creat/Cl/CO2/Glucose: --/--/--/--/142 (05/27 1110) Assessment & Plan 76 y.o. male POD 1 s/p DL, R maxilla debridement, removal of R maxillary hardware and previous fibula FF, R neck exploration, L ALT Procedure: DL, R maxilla debridement, removal of R maxillary hardware and previous fibula FF, R neck exploration, L ALT Diagnosis: Chronic wound/plate exposure Plan Airway: [place] Diet: NPO w/ TFs via NGT, outpt PO Drains: 2 leg-remove 1 WR, 1 neck-keep until dc, 1 rosalie neck secured with prolene/steristrips-keep until POD4 (tues) Wound: 5-0 fast leg-island down POD2, 5-0 fast neck Antibiotics: Unasyn while inpatient-->augmentin, change based on cx results, no ID consult Consults: PRN PT/OT/ACCOUNTANT BUDGET: PT/OT, ACCOUNTANT BUDGET for pre-PO Anticoagulation: Lvx ppx starting POD1 Relevant PMHx: 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, GERD, postop DVT/PE in 12/05 (previously on eliquis, stopped by PCP 05/2020) Other: - No late night lab draws Dispo: Anticipate dispo on POD# 7-8 to home vs facility FU: [facility] 3 weeks Today: - D/C [place] catheter, fu void - Fu PM labs - Prick and and doppler flap skin paddle - D/C IV fluids - Wean from supplemental oxygen to room air - Drain management - OOB TID or more Armaan Marino MD Otolaryngology - Head & Neck Surgery ENT [facility] (First Call) Pager [phone] Personal Pager [phone] * Rolanda Fallon, PT - 05/28/2022 9:36 AM EDT Acute Physical Therapy Evaluation Prior to Admission [facility] score(s): PRIOR LEVEL AM-PAC Mobility Raw Score: 24 Current AM-PAC score(s): CURRENT AM-PAC Mobility Raw Score: 18 Based on the above AM-PAC score(s) and PT clinical judgment, patient is a good candidate for discharge to Home with Home Health Barriers to discharge home: None Mobility equipment available at home: straight cane, 2 wheeled walker ADL equipment available at home: shower chair Equipment needed for discharge: none Current therapy frequency recommendation in acute: Therapy Frequency: 5 times a week Precautions and Weightbearing Status: Existing Precautions/Restrictions: weight bearing Urinary catheter, Telemetry (drains x3) Patient Safety Communication Prior to Visit: Nursing Left Lower Extremity: weight bearing as tolerated (ROMAT, ALT) Respiratory Status O2 Device: room air Subjective: Pt pleasant and agreeable to PT eval. Pain: General Pain Documentation (Adult, OB, Peds) Presence of Pain: complains of pain/discomfort Pain Location: face, incisional DVPRS (Defense and Veterans Pain Rating Scale) DVPRS: Rest: 7- severe pain DVPRS: Activity: 8- severe pain Home Setting Residence: House Lives With: spouse First floor setup: walk-in shower Second floor setup: bedroom, tub shower, grab bars Number of stairs to enter home: 4-5 Number of stairs in home: flight to second floor Stair Railings at Home: entry - with rail, interior - with rail Mobility Equipment Available: straight cane, 2 wheeled walker ADL Equipment Available: shower chair Home Environment Details: Spouse reports pt may sleep in recliner on first floor for awhile Previous Level of Function Prior level ADL Overview: Independent with all ADLs Bed Mobility/Transfers: independent Ambulation Skills: independent Assistive Device: none used Level of Ambulation: community Prior Level of Function Details: Denies recent falls. Walks ~1 mile every day. Had hip replacement surgery x2 about 6 months ago so owns walker/cane if needed. Objective/Observation: Vitals/Vitals Responses to Treatment: No adverse response noted during PT session Cognition Overall Cognitive Status: Within Functional Limits Arousal/Alertness: Appropriate responses to stimuli Orientation Level: Not assessed, Oriented X4 Following Commands: Follows all commands and directions without difficulty Safety Judgment: Good awareness of safety precautions Awareness of Errors: Good awareness of errors made Vision Screen Currently wearing corrective lenses: Yes Visual Impairments Observed?: No Speech Speech: (garbled speech 2/2 swelling) Successful Methods (Communication Strategies): verbal speech Hearing Hearing: hard of hearing Extremity Assessments: RLE Assessment RLE Assessment: Within Functional Limits Right LE Assessment Details: 5/5 LLE Assessment LLE Assessment: Within Functional Limits Left LE Assessment Details: grossly 4/5 due to pain at flap site Sensation Overall Sensation: Intact Sensation Comments: denies numbness /tingling Mobility Assessment: Supine to Sit Mobility [place] Level: Supine->Sit: stand-by assist Bed Features/Set-up: Supine->Sit: Head of bed elevated, Use of bed rail Skilled Rationale: Verbal cues Skilled Intervention/Details: Supine->Sit: x1 to pt's R, slow to perform though does not requireassist Sit to Supine Mobility [place] Level: Sit->Supine: not tested Balance: Sitting Balance Static Sitting-Level of Assistance: Supervision Dynamic Sitting-Level of Assistance: Standby Skilled Rationale: Verbal cues Standing Balance Static Standing-Level of Assistance: Contact guard Dynamic Standing-Level of Assistance: Contact guard Standing-Balance Support: Gait belt, 2 wheeled walker (IV pole) Skilled Rationale: Verbal cues Standing Balance Skilled Intervention/Details: IV pole use initially, provided with RW improved posture Transfer Assessment: Sit to Stand Transfer [place] Level: Sit->Stand: contact guard assist Assistive Device: Sit->Stand: gait belt, 2 wheeled walker Skilled Rationale: Verbal cues Skilled Intervention/Details: Sit->Stand: x1 from EOB without AD, x1 from toilet with RW Stand to Sit Transfer [place] Level: Stand->Sit: contact guard assist Assistive Device: Stand->Sit: gait belt, 2 wheeled walker Skilled Rationale: Verbal cues, Controlled descent for sitting Skilled Intervention/Details: Stand->Sit: x1 to toilet, x1 to chair Gait/Functional Mobility: Gait Assessment [place] Level: Gait: contact guard assist Assistive Device: Gait: gait belt, 2 wheeled walker (IV pole p) Gait Distance (feet): 250 Gait Deviations Identified: antalgic, decreased gait speed, decreased abhinav, decreased heel strike, left Gait Skilled Rationale: verbal, upright posture Skilled Intervention/Details - Gait: Initial use of IV pole, pt requiring BUEsupport. Provided withwalker and improved posture and overall stability. Pt reports increased comfort wiht use of walker,though would like to wean as able. Wheelchair Assessment Patient currently uses wheelchair?: No Stairs: Stairs Assessment [place] Level: Stair Negotiation: not tested Outcome Score(s): CURRENT -[facility] Basic Mobility Inpatient Short Form Turning over in bed: 3 - A Little Assistance Sitting/standing from chair: 3 - A Little Assistance Moving from lying on back to sittin - A Little Assistance Moving to and from bed to chair: 3 - A Little Assistance Walk in hospital room: 3 - A Little Assistance Climbing 3-5 steps with a railin - A Little Assistance CURRENT -[facility] Mobility Raw Score: 18 CURRENT -[facility] Mobility Functional Limitation/Modifier: 46.58% Currently Impaired in Basic Mobility- CK Interventions: Educated pt on LLE exercises to complete to decrease stiffness and promote strengthening. Pt verbalizes familiarity with LE exercises given recent hip replacement surgeries. Encouraged continuation of such exercises. Assessment & Plan: Patient is a 76 y.o. male who is POD#0 s/p DL, R maxilla debridement, removal of R maxillary hardware and previous fibula FF, R neck exploration, L ALT and seen for therapy evaluation related to postop mobility progression. Exam findings include impairments in: Strength, ROM (range of motion), Transfers, Aerobic capacity/endurance, Gait/Locomotion, Balance. These impairments contribute to functional limitations including Decreased ambulation distance/endurance, Difficulty stair climbing/descent, Increased fall risk, Li mited ability to complete subpoena server/maintenance, Limited standing tolerance, Difficulty withbed mobility, Difficulty with transfers. Current clinical presentation is Stable - unchanging or predictable (Low). Patient history factors impacting Plan Of Care include PMHx, age. Patient will benefit from skilled physical therapy to address these impairments, functional limitations, and participation restrictions and has good rehab potential to achieve therapy goals. Planned Therapy Interventions: balance training, bed mobility training, endurance, functional activity tolerance, gait training, transfer training, strengthening Plan for next session: Progress gait quality, stair training, review LE exercises Acute PT Goals Plan of Care by Rolanda Fallon PT at 05/28/2022 9:36 AM Version 1 of 1 Problem: PT - Mobility Goal: Ambulation Description: Pt will ambulate 500 feet with out an assistive device with standby assistance to improve ability to navigate home environment. Outcome: Ongoing Goal: Stairs Description: Pt will ascend/descend 5 stairs with unilateral railings with standby assistance with out an assistive device to improve ability to perform functional mobility necessary in recommended discharge environment. Outcome: Ongoing Problem: PT - Transfers Goal: Supine <-> Sit Description: Pt will perform bed mobility with flat bed & no rail with independence in order toimprove functional mobility and safety. Outcome: Ongoing Goal: Sit <-> Stand Description: Pt will perform sit to/from stand transfers with independence with out an assistive device in order to improve functional mobility and safety. Outcome: Ongoing Goal: Strength/ROM Description: Pt will perform 3 sets of 10 repetitions of left lower extremity exercises with independence in order to improve strength, maintain ROM, necessary for functional mobility. Outcome: Ongoing Evaluating Therapist: Rolanda Fallon PT Additional Details: Co-evaluation/co-treatment performed?: Yes, simultaneous billable skilled care This co-evaluation session performed between PT and OT was beneficial, necessary and provided distinct services in establishing this person's individual plan of care. Medical complexity with functional deficits necessitated two skilled therapy disciplines working concurrently to determine each discipline's goals. This co-treatment was medically necessary due to patient's: initial mobility assessment I used facemask, protective eye shield, and gloves in today's patient interaction. Evaluation Complexity Components History: High (3 personal factors and/or comorbidities) Body Systems Review: Moderate (Addressing a total of 3 or more elements) Clinical Presentation: Stable - unchanging or predictable (Low) Clinical Decision Making: Low Time In: 900 Time Out: 935 Total Visit Time: 35 minutes Total Treatment Time (skilled, billable minutes): 35 minutes Patient location at end of session: chair Alarms on at end of session: chair alarm and RN aware Needs in reach. Upon discontinuation of Acute Care Physical Therapy Services or patient discharge from the hospitalthis note represents the current Physical Therapy Discharge Summary. * Jovita Chang, OT - 05/28/2022 9:35 AM EDTSummary: OT Evaluation Acute Occupational Therapy Evaluation Prior to Admission AM-PAC Score: PRIOR LEVEL AM-PAC Activity Raw Score: 24 Current AM-PAC score(s): CURRENT AM-PAC Activity Raw Score: 14 Based on the above AM-PAC score(s) and OT clinical judgment, discharge destination recommendation is: Home with Home Health Barriers to discharge home: Patient needs assistance with ADLs, Patient needs assistance with IADLs(see note below), Patient needs assistance with functional mobility Mobility equipment available at home: straight cane, 2 wheeled walker ADL equipment available at home: shower chair Equipment recommendations for discharge: none (will continue to assess) Current therapy frequency recommendation(s) in acute: 5 times a week Precautions and Weightbearing Status: OT Existing Precautions/Restrictions: fall (ALT flap) Urinary catheter (TOMASA drains x3) Patient Safety Communication Prior to Visit: Nursing, Rehab team Left Lower Extremity: weight bearing as tolerated (ROMAT, ALT) Respiratory Status O2 Device: room air Per H&P: Lilly Argueta is a 76 y.o. male who is POD#0 s/p DL, R maxilla debridement, removal of R maxillary hardware and previous fibula FF, R neck exploration, L ALT Past Medical History: Diagnosis Date History of head and neck radiation History of pulmonary embolism 11/2019 Post-operative DVT/PE in November 2019. Treated with Eliquis; discontinued by PCP in May 2020. 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 History of tracheostomy Past Surgical History: Procedure Laterality Date DEBRIDEMENT BONE N/A 06/08/2020 Laterality: N/A; Surgeon: Bobo Davidson MD; Location: [facility] PLACEMENT TUBE NASO-/LIANG-GASTRIC N/A 06/08/2020 Laterality: N/A; Surgeon: Bobo Davidson MD; Location: [facility] LARYNGOSCOPY DIRECT DIAGNOSTIC N/A 11/22/2019 Laterality: N/A; Surgeon: Bobo Davidson MD; Location: [facility] ESOPHAGOSCOPY DIAGNOSTIC N/A 11/22/2019 Laterality: N/A; Surgeon: Bboo Davidson MD; Location: [facility] MAXILLECTOMY W/O ORBITAL EXENTERATION Right 11/22/2019 Laterality: Right; Surgeon: Bobo Davidson MD; Location: [facility] LYMPHADENECTOMY CERVICAL (MODIFIED RADICAL NECK DISSECTION) Right 11/22/2019 Laterality: Right; Surgeon: Bobo Davidson MD; Location: [facility] TRACHEOSTOMY N/A 11/22/2019 Laterality: N/A; Surgeon: Bobo Davidson MD; Location: [facility] EXTRACTION TOOTH N/A 11/22/2019 Laterality: N/A; Surgeon: Bobo Davidson MD; Location: [facility] PLACEMENT TUBE NASO-/LIANG-GASTRIC N/A 11/22/2019 Laterality: N/A; Surgeon: Bobo Davidson MD; Location: [facility] FLAP FREE BONE W/ MICROVASCULAR ANASTOMOSIS FIBULA N/A 11/22/2019 Laterality: N/A; Surgeon: Joao Burch MD; Location: [facility] FLAP FREE RADIAL FOREARM FASCIAL Left 11/22/2019 Laterality: Left; Surgeon: Joao Burch MD; Location: [facility] OR APPENDECTOMY LIGATION OR 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 Subjective: Pt agreeable to OT session this date. Pt's present and supportive throughout. Pain: General Pain Documentation (Adult, OB, Peds) Presence of Pain: complains of pain/discomfort Pain Location: face, incisional DVPRS (Defense and Veterans Pain Rating Scale) DVPRS: Rest: 4- mild pain DVPRS: Activity: 5- moderate pain Home Setting Residence: House Lives With: spouse (available 10/04) First floor setup: walk-in shower Second floor setup: bedroom, tub shower, grab bars Number of stairs to enter home: 4-5 Number of stairs in home: flight to second floor Stair Railings at Home: entry - with rail, interior - with rail Mobility Equipment Available: straight cane, 2 wheeled walker ADL Equipment Available: shower chair Home Environment Details: Spouse reports pt may sleep in recliner on first floor for awhile Previous Level of Function Prior level ADL Overview: Independent with all ADLs Bed Mobility/Transfers: independent Ambulation Skills: independent Assistive Device: none used Level of Ambulation: community Prior Level of Function Details: Denies recent falls. Walks ~1 mile every day. Had hip replacement surgery x2 about 6 months ago so owns walker/cane if needed. IADL History IADLs: independent Primary Language: Cameroonian Objective/Observation: Vitals/Vitals Responses to Treatment: Vitals stable throughout session, no significant changes werenoted with functional mobility/activity. Vision Screen Currently wearing corrective lenses: Yes Visual Impairments Observed?: No Speech Speech: (garbled speech) Successful Methods (Communication Strategies): verbal speech Hearing Hearing: hard of hearing Cognition Overall Cognitive Status: Within Functional Limits Arousal/Alertness: Appropriate responses to stimuli Orientation Level: Oriented X4 Following Commands: Follows all commands and directions without difficulty Safety Judgment: Good awareness of safety precautions Awareness of Errors: Good awareness of errors made Deficits: Fully aware of deficits Attention Span: Appears intact Memory: Appears intact Problem Solving: Able to problem solve independently Cognition Comments: Pt is cooperative and appropriate ADLs: ADL Assessment: Assessed All ADLs ADL Anticipated Performance (ADLs not directly observed this session): Eating, Grooming, Bathing, UE Dressing ADL Comments: Pt participated in LE dressing and Toileting, additional ADLs assessed per clinical judgement. Eating Assistance: Total Eating Intervention/Details: NPO and doboff tube Grooming Assistance: Contact guard assist Bathing Assistance: Minimal UE Dressing Assistance: Contact guard assist LE Dressing Assistance: Maximal LE Dressing Location: bed level LE Dressing Deficit: Don/doff R sock, Don/doff L sock, Activity tolerance, Generalized weakness, Pain, Balance LE Dressing Intervention/Details: completed at bed level 2/2 pain Toilet Assistance: Moderate Toileting Location: toilet Toileting Deficit: Increased time to complete, Activity tolerance, Generalized weakness, Balance, Grab bar use, Clothing management up, Clothing management down, Perineal hygiene Toileting Intervention/Details: Pt able to complete pericare in sitting with distant supervision, anticipate Max A for clothing management Extremity Assessments: RUE Assessment RUE Assessment: Within Functional Limits Right UE Assessment Details: per gross functional assessment LUE Assessment LUE Assessment: Within Functional Limits Left UE Assessment Details: per gross functional assessment Balance: Sitting Balance Static Sitting-Level of Assistance: Supervision Dynamic Sitting-Level of Assistance: Standby Sitting Balance Skilled Intervention/Details: No LOB with unsupported sitting Standing Balance Static Standing-Level of Assistance: Contact guard Dynamic Standing-Level of Assistance: Contact guard Standing-Balance Support: Gait belt, 2 wheeled walker (IV pole) Standing Balance Skilled Intervention/Details: No LOB with static and dynamic standing tasks. Initially utilizes IV pole with functional mobility, provided 2ww with improved balance Neuro: Sensation Overall Sensation: Intact Sensation Comments: denies n/t Proprioception Proprioception: intact Gross Coordination Gross Coordination: bilat UE intact Fine Motor Coordination Additional Documentation: (bilat UE intact) Skin and Edema: Skin Integrity Skin Integrity Description: Surgical incision, Swelling Edema Edema: none noted Mobility Assessment: Supine to Sit Mobility [place] Level: Supine->Sit: stand-by assist Bed Features/Set-up: Supine->Sit: Head of bed elevated, Use of bed rail Sit to Supine Mobility [place] Level: Sit->Supine: not tested Skilled Intervention/Details: Sit->Supine: pt ended session sitting in chair Transfer Assessment: Sit to Stand Transfer [place] Level: Sit->Stand: contact guard assist Assistive Device: Sit->Stand: gait belt, 2 wheeled walker, armed chair Skilled Intervention/Details: Sit->Stand: x1 from EOB, x1 from toilet Stand to Sit Transfer [place] Level: Stand->Sit: contact guard assist Assistive Device: Stand->Sit: gait belt, 2 wheeled walker, armed chair Toilet Transfer [place] Level: Toilet: contact guard assist Assistive Device: Toilet: gait belt, 2 wheeled walker, grab bars Skilled Intervention/Details: Toilet: extensive cues for safety with descent onto low surface Functional Mobility: Functional Mobility [place] Level: Functional Mobility/Gait: contact guard assist Assistive Device: Functional Mobility/Gait: 2 wheeled walker, gait belt Functional Mobility Distance: Distance needed for common household mobility Functional Mobility Deficits: Activity tolerance, Balance, Follow safety/precautions, Generalized weakness, Slowed gait speed Skilled Intervention/Details - Functional Mobility/Gait: Pt completed functional mobility to assessendurance, balance, functional activity tolerance, visual scanning of environment, and safety necessary for ADL completion. Wheelchair Assessment Patient currently uses wheelchair?: No Outcome Score(s): [facility] Daily Activity Inpatient Short Form Putting on/Taking Off Lower Body Clothin - A Lot of Assistance Bathin - A Little Assistance Toiletin - A Lot of Assistance Putting on/Taking Off Upper Body Clothin - A Little Assistance Groomin - A Little Assistance Eatin - Total Assistance [facility] Activity Raw Score: 14 [facility] Activity Functional Limitation/Modifier: 59.67% Currently Impaired in Daily Activity- CK Assessment & Plan: Patient was admitted for DL, R maxilla debridement, removal of R maxillary hardware and previous fibula FF, R neck exploration, L ALT and seen for therapy evaluation related to functional mobility and ADL participation post-op. Exam findings include impairments in: balance, endurance, pain, posture, strength, transfers. Theseimpairments contribute to occupational performance limitations including bathing, dressing, grooming, toileting, functional mobility, ADL transfers. The following factors impact the plan of care: none Psychosocial Factors Positive indicators for performance: Adequate support system, Positive interpersonal relationships Possible barriers for performance: None Patient will benefit from skilled occupational therapy to address these impairments, occupational performance limitations, and participation restrictions. Patient's rehab potential is: good, to achieve stated therapy goals. Planned Therapy Interventions (OT Eval): ADL retraining, IADL retraining, balance training, bed mobility training, functional activity tolerance, strengthening, transfer training Patient Instruction/Education this session: Patient Instruction: OT role and plan of care Plan for next session: challenge balance with toilet transfer, progress LE dressing and bathing Acute OT Goals Plan of Care by Jovita Chang OT at 05/28/2022 9:35 AM Version 1 of 1 Problem: OT - Dressing Goal: Lower Body Dressing Description: Pt will complete LE dressing tasks with supervision for improved ability to complete self-care activities. Outcome: Ongoing Problem: OT - ADLs Goal: Toileting Description: Pt will complete toileting task with supervision for improved ability to safely complete self-care activities. Outcome: Ongoing Goal: Bathing Description: Pt will perform full body bathing routine with supervision while seated for improved ability to complete self-care activities. Outcome: Ongoing Problem: OT - Balance Goal: Balance - Standing Description: Pt will perform 12+ minutes of functional ADL task in standing with supervision and good balance to promote safety and improved balance required for self-care activities. Outcome: Ongoing Problem: OT - Endurance Goal: Endurance Functional Mobilty Around Home Description: Pt will complete distance needed for common household mobility with supervision to increase participation in meaningful occupations in the home and within the community. Outcome: Ongoing Problem: OT - Transfers Goal: Transfers Toilet/Bedside Commode Description: Pt will transfer to/from toilet/BSC with supervision for improved ability to safely complete ADLs. Outcome: Ongoing Evaluating Therapist: Jovita Chang OT Additional Details: Co-evaluation/co-treatment performed?: Yes, simultaneous billable skilled care This co-evaluation session performed between OT and PT was beneficial, necessary and provided distinct services in establishing this person's individual plan of care. Medical complexity with functional deficits necessitated two skilled therapy disciplines working concurrently to determine each discipline's goals. This co-treatment was medically necessary due to patient's: post-op status I used gloves and facemask in today's patient interaction. OT Evaluation Complexity Occupational Profile and Client History: High - extensive history Assessment of Occupational Performance: High (5 or more performance deficits) Clinical Decision/Performance Deficits: High (comprehensive assessments w/multiple treatment options) Time In: 0900 Time Out: 934 Total Visit Time: 35 minutes Total Treatment Time (skilled, billable minutes): 35 minutes Patient location at end of session: chair Alarms on at end of session: chair alarm Needs in reach. Upon discontinuation of Acute Care Occupational Therapy Services or patient discharge from the hospital this note represents the current Occupational Therapy Discharge Summary. AMARILIS Holt, OTR/L License #: [id number] Pager #: [phone] * Tiffani Last, RD - 05/28/2022 6:41 AM EDT ENT Consult- Nutrition Assessment Nutrition Recommendations and Plan of Care: 1.Initiate enteral feeds per [facility] TF Guideline Jevity 1.5. Goal 310 q 4hr x 5 (0600,1000,1400,1800,2200) to provide 1550 ml*, 2325 KCal, 99 gmPro, 1176 ml Free Water *this is equivalent to 6.5 cans per day 2. If continuous TF preferred, recommend Jevity 1.5 at 65 ml/hr 3. Free water flush of 200 ml every 4 hours, 6 times per day 4. RD to follow Per HPI: Lilly Argueta is a 76 y.o. 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 Patient with area of exposed hardware on his right cheek has progressed. Patient was offered surgery on 08/27/21 for hardware exposure, but declined. He is now POD#1 DL, R maxilla debridement, removal of R maxillary hardware and previous fibula FF,R neck exploration, L ALT Past History Includes has a past medical history of History of head and neck radiation, History of pulmonary embolism (11/2019), History of squamous cell carcinoma (10/2019), and History of tracheostomy. Nutrition Hx: Pt seen at bedside this morning. He is awake and alert. Dobhoff in place. Currently NPO. He reports taking regular PO diet prior to admission with good appetite / PO intake. No weight changes. No known food allergies or intolerances. No abdominal pain or nausea. States he has had a feeding tube in the past. Current order is Jevity 1.5 at 50 ml/hr- was not running at time of visit Current Diet Orders Procedures DIET NPO AND TUBE FEEDING WITHOUT meds Advance per Protocol NO ORAL MEDICATION PER MOUTH. Oral medication to be administered via enteral tube. Standing Status: Standing Number of Occurrences: 1 Order Specific Question: NPO Meds: Answer: WITHOUT meds Ht: 6' 1 Wt: 176#/79.8kg IBW:184#/83.63kg %IBW96% BMI:23.22 Weight history: pt denies weight changes- stable x 1 month per medical record Wt Readings from Last 50 Encounters: 05/27/22 79.8 kg (176 lb) 04/27/22 79.6 kg (175 lb 8 oz) 11/24/21 83 kg (183 lb) 05/25/21 82.1 kg (181 lb 1.6 oz) 04/15/20 76.2 kg (167 lb 14.4 oz) Labs- Reviewed Medications-Reviewed Skin: [place]:21; R neck incision; L thigh incision; R upper cheek incision; R cheek flap; R other flap GI:nasogastric dobhoff in place, BS +, last BM unknown Estimated Nutrition Needs Est Kcal Needs: 25-30 Kcal/kg (5152-3838 kcal/d) Est Pro Needs: 1.2-1.5 g pro/kg (95-119 g pro/d) Malnutrition Statement Indications of Malnutrition: No malnutrition based on the AND/ASPEN Malnutrition Criteria 2012 Pt at nutrition risk due to TF dependence, increased nutrient needs s/p surgery Tiffani Last RD, LD, [facility] Pager: [phone] * Truman Montano MD - 05/28/2022 12:12 AM EDT Flap Check: Lilly Argueta is a 76 y.o. male who is POD#0 s/p DL, R maxilla debridement, removal of R maxillary hardware and previous fibula FF, R neck exploration, L ALT BP 101/57 (BP Location: Right arm, BP Position: Lying) Pulse 79 Temp 99.3 F (37.4 C) (Axillary) Resp 13 Ht 1.854 m (6' 1 ) Wt 79.8 kg (176 lb) SpO2 96% BMI 23.22 kg/m Smoking Status Never Smoker Resting comfortably in bed. Alert, oriented, NAD Non-labored breathing, in no respiratory distress or no stridor Neck flat, incisions C/D/I No evidence of fluid collection, dehiscence, or necrosis Tongue midline, shoulder shrug intact Drains holding suction with ssg output SCDs in place Flap: Strong doppler present - intraoral and skin BRB with prick ~ 4-5 sec Cap refill ~ 3 sec Flap well seated; soft, no dehiscence evident Warm, slightly pale but well perfused. Intraoral portion slightly mottled superiorly but good doppler and cap refill. Donor site: Left leg motor/sensation intact Donor site dressed, no drainage Drains holding suction with ssg output Plan: - flap checks per protocol Truman Montano MD Otolaryngology - Head & Neck Surgery Pager: [phone] * CEM Lombardo - 05/27/2022 3:49 PM EDT PCRM attempted to meet with patient for initial assessment, however patient is not available at this time due to patient still being in surgery. Will return on 05/30/22. Patient is having: DL, right maxilla debridement, removal of right maxillary hardware and previous fibula Free Flap, right neck exploration, left ALT free flap. Anticipate discharge POD 7. PCRM will continue to attempt as able. PCRM will continue to follow with multidisciplinary team for ongoing assessment of needs and dischargeplanning. [facility]* Nursing Notes - Halley Arguelles RN - 06/02/2022 3:19 PM EDT AVS reviewed with patient and spouse at bedside, incision care education completed, PICC line beingconnected by literature professor at this time, aware of weekly Monday labs to be drawn and faxed, emanuel drain education completed. Halley Arguelles RN [facility]-15-2022 Note* Nursing Notes - Halley Arguelles RN - 06/02/2022 3:03 PM EDT Report called to [facility]. All questions answered. Caspofungin currently infusing-will discharge after infusion completed and literature professor connects patient to home antibiotic. Halley Arguelles RN [facility]09-15-2022 Note* Nursing Notes - Halley Arguelles RN - 06/02/2022 2:55 PM EDT AVS/FRANCES faxed. Halley Arguelles RN [facility]09-15-2022 Note* Nursing Notes - Halley Arguelles RN - 06/02/2022 2:43 PM EDT TF/medication administration through [facility]-education completed. feels confident she can perform tasks at home. Supplies given, supplemental tube feeding also given. Halley Arguelles RN [facility]09-15-2022 Note* Nursing Notes - Elis Mcnulty RN - 06/02/2022 12:49 PM EDT 06/02/22 1225 Final Discharge Planning Discharge Disposition Home with Infusion Services at Discharge Detention CM/SW AVS Portion Completed Yes Community Agency Name(s) For Handoff (S) [facility] Phone For Handoff (S) Fax For Handoff (S) Additional Community Agency Name(s) yes Community Agency Community Agency Name For Handoff [facility] infusion center Phone For Handoff [phone] Plan Plan discharge home with IV antibiotics. patient will self pay iv unasyn at home (not able to get at infusion center-continuous on a pump) and will go to his local hospital for daily Daptomycin infusion/weekly lab draws and weekly picc line dressing changes Patient/Family In Agreement With Plan yes Transport Request Mode of Transfer private [facility] Discharge Note Patient discussed in medical rounds for discharge to home with iv antibiotics. PCRM met with the patient/family/spouse to discuss final discharge plan. Services for Discharge Outpatient IV therapy at local hospital Consults with Final Discharge Recommendations ID-assisted with discharge medications. Lines/Tubes/Drains/Wounds/Supplies PICC line TOMASA in Leg NG Medications No barriers anticipated in obtaining discharge medications. No prior authorizations anticipated. Reconciliation of medications to be completed by the medical team. peridex and oxycodone were filled at the [facility] pharmacy with vouchers provided by Pharmacy assistance. Refresh eye drops and ointments are over the counter so pharmacy assistance couldn't cover. Bedside nurse will send with a few days supply and will send with paper Rx in case he needs more. He will use goodrx as able. IV caspo to be provided at [facility] infusion center. They will also do weekly dressing changes and lab draws. All orders/rx have been faxed. [employer] will provide home IV unasyn. They will set patient up at the hospital prior to discharge today. Patient will purchase Vingle. Durable Medical Equipment na Choice Was Patient Choice Provided: Yes Transportation Transportation will be provided by . Education Discharge education provided by the medical team and updated in the After Visit Summary. Drain care NG tube feeds PICC line care/flushes Follow Up(s) Any follow up requested by the medical team arranged. Appointments in the After Visit Summary. Bobo Davidson MD [address] [facility] [id number] Follow up on 06/15/2022 follow up @ 2:45pm with Dr. Davidson, you will also see speech therapy and have your drain removed Yung Zapata DO [address] [facility] [id number] Follow up on 07/14/2022 at 8:15am for infectious disease follow up The PCRM has updated the patient's nurse Halley regarding the final discharge plan. Risk of Readmission: 6.7 Category Reference: Low: 0% - 5% Medium - Low: 5.1% - 10% Medium - High: 10.1% - 16% High: 16.1% - 100% No other discharge needs have been identified at this time. This plan was developed in collaboration with the patient and caregiver/preferred decision maker. Patient and family are in agreement with final discharge plan. Please refer to AVS and medical record for additional information. Patient instructed to call with questions. PCRM will continue to follow with medical team for any additional discharge planning needs. If any changes to this individualized plan of care during evening and weekend hours and assistance is needed, please page the pharmacy operations specialist PCRM at [phone]. [facility]09-14-2022 Consult note* Nola Rubi RN - 06/01/2022 6:36 PM EDT Images from the original note were not included. Report of PICC Consultation and Evaluation: Lilly Argueta seen and evaluated for PICC insertion using ultrasound guidance. ID band present, allergies and limb precautions verified with patient/nurse. Skin integrity assessed, no evidence of condition that would prevent safe insertion of a PICC with ultrasound. Allergies: No Known Allergies Labs Reviewed: Lab Results Component Value Date WBC 7.38 05/31/2022 HGB 10.6 (L) 05/31/2022 HCT 32.4 (L) 05/31/2022 PLATELET 322 05/31/2022 MCV 88.0 05/31/2022 Lab Results Component Value Date CREATSERUM 1.01 05/31/2022 Lab Results Component Value Date INR 1.0 04/27/2022 PT 13.5 04/27/2022 Lab Results Component Value Date PTT 30.3 04/27/2022 Temp Readings from Last 1 Encounters: 06/01/22 98.1 F (36.7 C) (Axillary) I have reviewed pertinent laboratory results and allergies. Labs, allergies, Consent Form, Order, Consult, H&P and/or Schedule is consistent with planned procedure Spoke with provider regarding concerns: [] N/A [x] Concerns: Orders from PA, Left UE only. Procedure explained to patient and consent obtained. [] Power of Labor Mediator or Next of Kin contacted for consent and obtained due to patient inability to make medical decisions. Consent obtained and given to unit to be scanned into pt records [] Left arm [x] Right arm - contains abnormality that would interfere with PICC placement: [x] Patient is alert, cooperative, no distress. [] Patient is not alert, cooperative and in no apparent distress. Patient verification: Patient's ID verified using patient's wrist band. Verified patient's name, MRN, and as well as procedure being done. PROCEDURE DETAILS: PICC Insertion Procedure Time Out completed: [place] Protocol/Time Out Completed under Procedure Documentation Step 1: Pre-Procedure Verification Includes Consent Form, Order, Consult, H&P and/or Schedule is consistent with planned procedure: yes Reviewed Medication List/Allergy List: yes Relevant radiology images & scans and pathology & biopsy reports properly displayed and labeled reviewed by practitioner: n/a Any required blood product, devices, implants, special equipment or supplies available: yes Consent obtained with laterality defined: no Relevant lab results available: Yes Step 2: Site Marking Includes Site Marking: yes Step 3: Time Out Includes Patient and Procedure (side/site marked when applicable),: yes Patient Positioning Correct?: Yes The need for antibiotics or fluids to be administered: n/a Relevant images displayed (if applicable): no Care of specimens (if applicable): N/A [place] Protocol Verification Name of Practitioner attesting all steps of the [place] Protocol have been completed: Junaid Granados/Papi Rubi Pager: [phone] Pre Procedure Relevant lab results available: Yes Patient positioned supine with selected arm extended. Preliminary ultrasound of selected arm was done and assessment of adequate sized vessel was determined without presence of tourniquet. The selected arm was prepped and patient draped using maximum sterile barrier which consisted of cap, mask, hand hygiene, sterile gown and gloves, 2% chlorhexidine solution for insertion site antisepsis x 2 andocclusive sterile draping of the field. 1% Lidocaine anesthetic given subcutaneous, access was gained into the left basilic vein using direct ultrasound guidance, and modified Seldinger technique. PICC was advanced easily with PICC tip in a downward deflection from images derived from [facility] to the pre-determined external measurement. Brisk aspiration of blood from lumen(s), flushed easily with 10 ml 0.9 NS. Stabilization device Statlock used to secure PICC. Inserting PICC RN: Cheryl Granados ,attempted first time(s) and assisted by PICC RN Nola Rubi . PICC Line - Double Lumen 06/01/22 0986 purple red basilic vein (medial side of arm), left 4 Fr (Active) 06/01/22 1834 Present On Admission : no Lumen 1: purple Lumen 2: red Lumen 3: Location: basilic vein (medial side of arm), left Device/Lot Number: pressure injectable catheter;open-ended catheter;valved catheter;does not require heparinized flush Head Paper Tester/Lot Number: [id number] Size/Length: 4 Fr Inserted Catheter Length (cm): 49 Total Length (cm): 50 Placement Verification: tip confirmation system utilized;ultrasound guided placement Tip Termination: superior vena cava Guiding Device: ultrasound Indication/Daily Review of Necessity: antibiotic therapy Inserted By: Registered Nurse Unsuccessful Insertion Attempts: 0 Unsuccessful Attempt Location/Site: Pain Prevention/Patient Tolerance: distraction;intradermal injection;tolerated well Removal: Placement Over Guidewire: yes Additional Comments: Lumen 4: Lumen 5: (Retired/Read Only) Side: (Retired/Read Only) Location: (Retired/Read Only) Device: Catheter Length Distal to Site (cm): (Retired/Read Only) Indication: (Retired/Read Only) Placement Method: (Retired/Read Only) Tip Termination (to be determined by practitioner ): Unsuccessful Insertion Attempts: (Retired/Read Only) Unsuccessful Insertion Attempt Location: (Retired/Read Only) Pain Prevention: Patient Tolerance: Insertion: (Retired/Read-only) Tip Termination : Removal Indication: Pain Prevention: Catheter Length Distal to Site (cm) 1 06/01/22 1835 Patient tolerated procedure well without any complications [x] Antimicrobial foam disc/dressing. [x] Curos antimicrobial cap placed on needless connector [] Surgicel applied to insertion site [] Circumferential pressure drsg applied outside of tegaderm, bedside RN notified to remove dressing within 2 hours [x] PICC tip location verified to be in the lower superior vena cava (cavo- atrial junction) using ECG Technology. No xray required (See imported image above) [] CXR released from sign and hold for PICC tip confirmation. 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 Provider to verify PICC tip location via chest xray released by PICC RN and will notify primary RN for PICC clearance for use. [x] PICC educational handout given to patient along with PICC lot number info card. [] Obtained labs. ( labeled labs, and left at bedside for RN ) Education: Patient/Family informed to notify nurse of any complications including pain, redness, swelling, or leakage post insertion. Pt safety room check completed prior to exiting room. [x]Call light. [x]Bed locked. [x]Bed low. [x]Tray table within reach. Central Venous Catheter Insertion Checklist I have completed the Central Venous Catheter Insertion Checklist. Extra insertion note if applicable: Thank you for allowing our team to participate in the care of this patient. Vascular Access Team [id number] [facility] Consult note* Nola Rubi RN - 06/01/2022 6:36 PM EDT Images from the original note were not included. Report of PICC Consultation and Evaluation: Lilly Argueta seen and evaluated for PICC insertion using ultrasound guidance. ID band present, allergies and limb precautions verified with patient/nurse. Skin integrity assessed, no evidence of condition that would prevent safe insertion of a PICC with ultrasound. Allergies: No Known Allergies Labs Reviewed: Lab Results Component Value Date WBC 7.38 05/31/2022 HGB 10.6 (L) 05/31/2022 HCT 32.4 (L) 05/31/2022 PLATELET 322 05/31/2022 MCV 88.0 05/31/2022 Lab Results Component Value Date CREATSERUM 1.01 05/31/2022 Lab Results Component Value Date INR 1.0 04/27/2022 PT 13.5 04/27/2022 Lab Results Component Value Date PTT 30.3 04/27/2022 Temp Readings from Last 1 Encounters: 06/01/22 98.1 F (36.7 C) (Axillary) I have reviewed pertinent laboratory results and allergies. Labs, allergies, Consent Form, Order, Consult, H&P and/or Schedule is consistent with planned procedure Spoke with provider regarding concerns: [] N/A [x] Concerns: Orders from PA, Left UE only. Procedure explained to patient and consent obtained. [] Power of Labor Mediator or Next of Kin contacted for consent and obtained due to patient inability to make medical decisions. Consent obtained and given to unit to be scanned into pt records [] Left arm [x] Right arm - contains abnormality that would interfere with PICC placement: [x] Patient is alert, cooperative, no distress. [] Patient is not alert, cooperative and in no apparent distress. Patient verification: Patient's ID verified using patient's wrist band. Verified patient's name, MRN, and as well as procedure being done. PROCEDURE DETAILS: PICC Insertion Procedure Time Out completed: [place] Protocol/Time Out Completed under Procedure Documentation Step 1: Pre-Procedure Verification Includes Consent Form, Order, Consult, H&P and/or Schedule is consistent with planned procedure: yes Reviewed Medication List/Allergy List: yes Relevant radiology images & scans and pathology & biopsy reports properly displayed and labeled reviewed by practitioner: n/a Any required blood product, devices, implants, special equipment or supplies available: yes Consent obtained with laterality defined: no Relevant lab results available: Yes Step 2: Site Marking Includes Site Marking: yes Step 3: Time Out Includes Patient and Procedure (side/site marked when applicable),: yes Patient Positioning Correct?: Yes The need for antibiotics or fluids to be administered: n/a Relevant images displayed (if applicable): no Care of specimens (if applicable): N/A [place] Protocol Verification Name of Practitioner attesting all steps of the [place] Protocol have been completed: Junaid Granados/Papi Rubi Pager: [phone] Pre Procedure Relevant lab results available: Yes Patient positioned supine with selected arm extended. Preliminary ultrasound of selected arm was done and assessment of adequate sized vessel was determined without presence of tourniquet. The selected arm was prepped and patient draped using maximum sterile barrier which consisted of cap, mask, hand hygiene, sterile gown and gloves, 2% chlorhexidine solution for insertion site antisepsis x 2 andocclusive sterile draping of the field. 1% Lidocaine anesthetic given subcutaneous, access was gained into the left basilic vein using direct ultrasound guidance, and modified Seldinger technique. PICC was advanced easily with PICC tip in a downward deflection from images derived from [place] to the pre-determined external measurement. Brisk aspiration of blood from lumen(s), flushed easily with 10 ml 0.9 NS. Stabilization device Statlock used to secure PICC. Inserting PICC RN: Cheryl Granados ,attempted first time(s) and assisted by PICC RN Nola Rubi . PICC Line - Double Lumen 06/01/221833 purple red basilic vein (medial side of arm), left 4 Fr (Active) 06/01/221833 Present On Admission : no Lumen 1: purple Lumen 2: red Lumen 3: Location: basilic vein (medial side of arm), left Device/Lot Number: pressure injectable catheter;open-ended catheter;valved catheter;does not require heparinized flush Head Paper Tester/Lot Number: [id number] Size/Length: 4 Fr Inserted Catheter Length (cm): 49 Total Length (cm): 50 Placement Verification: tip confirmation system utilized;ultrasound guided placement Tip Termination: superior vena cava Guiding Device: ultrasound Indication/Daily Review of Necessity: antibiotic therapy Inserted By: Registered Nurse Unsuccessful Insertion Attempts: 0 Unsuccessful Attempt Location/Site: Pain Prevention/Patient Tolerance: distraction;intradermal injection;tolerated well Removal: Placement Over Guidewire: yes Additional Comments: Lumen 4: Lumen 5: (Retired/Read Only) Side: (Retired/Read Only) Location: (Retired/Read Only) Device: Catheter Length Distal to Site (cm): (Retired/Read Only) Indication: (Retired/Read Only) Placement Method: (Retired/Read Only) Tip Termination (to be determined by practitioner ): Unsuccessful Insertion Attempts: (Retired/Read Only) Unsuccessful Insertion Attempt Location: (Retired/Read Only) Pain Prevention: Patient Tolerance: Insertion: (Retired/Read-only) Tip Termination : Removal Indication: Pain Prevention: Catheter Length Distal to Site (cm) 1 06/01/221834 Patient tolerated procedure well without any complications [x] Antimicrobial foam disc/dressing. [x] Curos antimicrobial cap placed on needless connector [] Surgicel applied to insertion site [] Circumferential pressure drsg applied outside of tegaderm, bedside RN notified to remove dressing within 2 hours [x] PICC tip location verified to be in the lower superior vena cava (cavo- atrial junction) using ECG Technology. No xray required (See imported image above) [] CXR released from sign and hold for PICC tip confirmation. 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 Provider to verify PICC tip location via chest xray released by PICC RN and will notify primary RN for PICC clearance for use. [x] PICC educational handout given to patient along with PICC lot number info card. [] Obtained labs. ( labeled labs, and left at bedside for RN ) Education: Patient/Family informed to notify nurse of any complications including pain, redness, swelling, or leakage post insertion. Pt safety room check completed prior to exiting room. [x]Call light. [x]Bed locked. [x]Bed low. [x]Tray table within reach. Central Venous Catheter Insertion Checklist I have completed the Central Venous Catheter Insertion Checklist. Extra insertion note if applicable: Thank you for allowing our team to participate in the care of this patient. Vascular Access Team [id number] * Agustingregaman Zapata, DO - 06/01/2022 3:22 PM EDTAssociated Order(s): IP CONSULT TO INFECTIOUS DISEASE INFECTIOUS DISEASE CONSULT NOTE Referring MD: Bobo Davidson MD Reason for Consult: Wound w/ bone/plate exposure s/p excision Chief Complaint: Wound w/ bone/plate exposure s/p excision HPI: Lilly Argueta is a 76 y.o. 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 Patient was admitted for elective surgery of exposed hardware, had removal of plate and fibular with wound debridement on 05/27 with reconstruction with L thigh free flap. Cultures from bone grew multiple staph and strep species and natasha. Patient was examined at bedside this AM, states he continues to have some pain but otherwise feeling well. at bedside Antibiotics Received: Caspo, vanc, and Zoysn 05/29- Unasyn 05/27-05/29 Review of Systems - GENERAL: Patient denies fever, chills, weight loss, fatigue, night sweats EYES: Patient denies blurry vision, eye pain HENT: Patient denies headache + facial pain CARDIO: Patient denies chest pain, palpitations, orthopnea PULM: Patient denies shortness of breath, wheezing, cough, sputum, hemoptysis GI: Patient denies nausea, vomiting, diarrhea, abdominal pain, blood in stool : Patient denies urinary frequency, urgency, dysuria, urethral discharge MSK: Patient denies joint pain, back pain, swelling SKIN: Patient denies rash, redness HEME: Patient denies easy bruising, bleeding Past Medical History Past Medical History: Diagnosis Date History of head and neck radiation History of pulmonary embolism 11/2019 Post-operative DVT/PE in November 2019. Treated with Eliquis; discontinued by PCP in May 2020. 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 History of tracheostomy Surgical History Past Surgical History: Procedure Laterality Date REMOVAL HARDWARE Right 05/27/2022 Laterality: Right; Surgeon: Bobo Davidson MD; Location: [facility] OR EXPLORATION TRAUMATIC WOUND NECK N/A 05/27/2022 Laterality: N/A; Surgeon: Bobo Davidson MD; Location: [facility] OR LARYNGOSCOPY DIRECT DIAGNOSTIC N/A 05/27/2022 Laterality: N/A; Surgeon: Bobo Davidson MD; Location: [facility] OR ESOPHAGOSCOPY DIAGNOSTIC N/A 05/27/2022 Laterality: N/A; Surgeon: Bobo Davidson MD; Location: [facility] OR TRACHEOSTOMY N/A 05/27/2022 Laterality: N/A; Surgeon: Bobo Davidson MD; Location: [facility] OR FLAP FREE ANTEROLATERAL THIGH (ALT) SKIN N/A 05/27/2022 Laterality: N/A; Surgeon: Ifrah Cesar MD; Location: [facility] OR DEBRIDEMENT BONE N/A 06/08/2020 Laterality: N/A; Surgeon: Bobo Davidson MD; Location: [facility] OR PLACEMENT TUBE NASO-/LIANG-GASTRIC N/A 06/08/2020 Laterality: N/A; Surgeon: Bobo Davidson MD; Location: [facility] OR LARYNGOSCOPY DIRECT DIAGNOSTIC N/A 11/22/2019 Laterality: N/A; Surgeon: Bobo Davidson MD; Location: [facility] OR ESOPHAGOSCOPY DIAGNOSTIC N/A 11/22/2019 Laterality: N/A; Surgeon: Bobo Davidson MD; Location: [facility] OR MAXILLECTOMY W/O ORBITAL EXENTERATION Right 11/22/2019 Laterality: Right; Surgeon: Bobo Davidson MD; Location: [facility] OR LYMPHADENECTOMY CERVICAL (MODIFIED RADICAL NECK DISSECTION) Right 11/22/2019 Laterality: Right; Surgeon: Bobo Davidson MD; Location: [facility] OR TRACHEOSTOMY N/A 11/22/2019 Laterality: N/A; Surgeon: Bobo Davidson MD; Location: [facility] OR EXTRACTION TOOTH N/A 11/22/2019 Laterality: N/A; Surgeon: Bobo Davidson MD; Location: [facility] OR PLACEMENT TUBE NASO-/LIANG-GASTRIC N/A 11/22/2019 Laterality: N/A; Surgeon: Bobo Davidson MD; Location: [facility] OR FLAP FREE BONE W/ MICROVASCULAR ANASTOMOSIS FIBULA N/A 11/22/2019 Laterality: N/A; Surgeon: Joao Burch MD; Location: [facility] OR FLAP FREE RADIAL FOREARM FASCIAL Left 11/22/2019 Laterality: Left; Surgeon: Joao Burch MD; Location: [facility] OR APPENDECTOMY LIGATION OR 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 Social History Social History Socioeconomic History Marital status: Tobacco Use Smoking status: Never Smoker Smokeless tobacco: Never Used Vaping Use Vaping Use: Never used Substance and Sexual Activity Alcohol use: Not Currently Drug use: Not Currently Family History Family History Problem Relation Age of Onset Diabetes Father Diabetes Paternal Grandmother Inpatient Medications: acetaminophen 975 mg Oral Q8HNS Or acetaminophen 975 mg Per NG tube Q8HNS Or acetaminophen 975 mg PEG Tube Q8HNS aspirin 81 mg Oral Daily Or aspirin 81 mg Per NG tube Daily Or aspirin 81 mg PEG Tube Daily caspofungin (CANCIDAS) IVPB 50 mg Intravenous QHS chlorhexidine 15 mL Swish & Spit 4x daily enoxaparin 40 mg Subcutaneous Q24H petrolatum 1 Application Right Eye QHS piperacillin-tazobactam (ZOSYN) IVPB 4.5 g Intravenous Q8HNS polyethylene glycol 17 g Oral Daily Or polyethylene glycol 17 g Per NG tube Daily Polyvinyl Alcohol-Povidone PF 2 drop Both Eyes 4x daily senna 8.6 mg Oral BID Or senna 8.6 mg Per NG tube BID sodium chloride 0.9% No Known Allergies OBJECTIVE FINDINGS: Vital Signs (24hrs): Temp: [97.1 F (36.2 C)-98.2 F (36.8 C)] 97.4 F (36.3 C) Pulse (Heart Rate): [55-108] 55 Resp Rate: [16-18] 16 BP: (110-136)/(61-95) 110/61 O2 Sat (%): [96 %-100 %] 98 % Physical Exam: GEN: Awake, resting comfortably EYES: EOMI, no scleral icterus HENT: Flap on R maxilla, well healing with some surrounding erythema, drain in place NECK: Supple, no cervical lymphadenopathy or meningismus. CARDIO: RRR, no murmur. PULM/CHEST: CTAB. No increased work of breathing ABD: Soft, not tender or distended MSK: no obvious effusion, swelling, increased warmth, or erythema of major joints. No pedal edema. SKIN: No rashes. Hands and fingers appear normal. No stigmata of endocarditis. NEURO: AOx3. Moves all four extremities. Diagnostic Data: CBC Lab Results Component Value Date WBC 7.38 05/31/2022 HGB 10.6 (L) 05/31/2022 HCT 32.4 (L) 05/31/2022 PLATELET 322 05/31/2022 MCV 88.0 05/31/2022 EDIF Lab Results Component Value Date RBCDISTRIBU 15.1 (H) 05/31/2022 GRNLOCYT 81.1 04/27/2022 LYMPHOCYT 8.6 04/27/2022 MONOCYTELEC 7.3 04/27/2022 EOSINOPHILS 2.0 04/27/2022 BASOPHILS 0.6 04/27/2022 LYMPHOCYTABS 0.44 (L) 04/27/2022 EOSINOPHLABS 0.10 04/27/2022 PLATELET 322 05/31/2022 MPV 10.7 05/31/2022 Lab Results Component Value Date SODIUM 141 05/31/2022 POTASSIUM 4.3 05/31/2022 CHLORIDE 105 05/31/2022 CO2 29 05/31/2022 BUN 23 05/31/2022 CREATSERUM 1.01 05/31/2022 GLUCOSE 96 05/31/2022 No results found for: ALT, TRANSFERASEA, AST, GGT, GAMMAGT, ALKPHOS, BILITOTAL, BILIDIRECT No results found for: SEDRATE No results found for: CRP Urinalysis Lab Results Component Value Date SPGRVTYUR 1.015 04/27/2022 GLUCOSEURINE Negative 04/27/2022 KETONESURINE Negative 04/27/2022 BLOODURINE Trace (A) 04/27/2022 NITRITESURIN Negative 04/27/2022 LEUKOCESTUR Negative 04/27/2022 WBCURINE 0-5 04/27/2022 RBCURINE 0-2 04/27/2022 BACTERIAURIN ABSENT 04/27/2022 Microbiology and Other Significant ID Labs: (personally reviewed) 1. Hardware removal (10 screws)- staph aureus, staph epi, strep constellatus, strep viridans, natasha krusei 2. Hardware removal (plate) - staph aureus, staph epi, strep constellatus, strep viridans, natasha krusei 3. L leg lipoma - staph aureus, staph epi, strep constellatus, strep viridans, natasha krusei A. R maxilla- staph aureus, staph epi, strep constellatus, strep viridans, natasha krusei Susceptibility Staphylococcus aureus Staphylococcus epidermidis Streptococcus constellatus Streptococcus viridans group Ampicillin <=0.25 ug/mL S <=0.25 ug/mL S Ceftriaxone 0.25 ug/mL S <=0.12 ug/mL S Clindamycin <=0.12 ug/mL S 0.25 ug/mL S 0.5 ug/mL I <=0.25 ug/mL S Levofloxacin 1 ug/mL S 2 ug/mL S Oxacillin <=0.25 ug/mL S <=0.25 ug/mL S Penicillin <=0.06 ug/mL S <=0.06 ug/mL S Rifampin <=0.5 ug/mL S 1 Tetracycline <=1 ug/mL S 2 <=1 ug/mL S Trimethoprim/Sulf. <=10 ug/mL S <=10 ug/mL S Vancomycin Susc 1 ug/mL S 0.5 ug/mL S 0.5 ug/mL S Susceptibility Natasha krusei Caspofungin 0.12 ug/mL S Fluconazole R Imaging: (personally reviewed) none ASSESSMENT: Lilly Argueta is a 76 y.o. 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 RECOMMENDATIONS: Therapeutics: Recommend IV caspofungin 50mg q24h and IV Unasyn 3g q6hr for a total 6 week therapy. Okay for picc line, patient and made aware of prolonged therapy He will need follow up in ID clinic after finishing therapy ID team 1 will sign off. Please call with questions. Yung Zapata DO Infectious Diseases Fellow Associated attestation - Rosette Cotton MD - 06/02/2022 3:06 PM EDT ID Attending Attestation I independently saw and evaluated patient today 06/01/22 and agree with the medical decision making and documentation as outlined by Dr. Zapata. Rosette Cotton MD [facility] Division of Infectious Diseases * Sarita Garibay RN - 05/31/2022 3:31 PM EDT Vascular Access Consult Note Consult received for Lilly Argueta regarding: PIV Current access: PIV Assessment: Patient does not want a second piv placed at this time. Recommendation: Will wait until patient needs the piv and is agreeable. Thank you for allowing our team to participate in the care of this patient. Vascular Access Team [id number] [facility] Consult note* Yung Zapata DO - 06/01/2022 3:22 PM EDTAssociated Order(s): IP CONSULT TO INFECTIOUS DISEASE INFECTIOUS DISEASE CONSULT NOTE Referring MD: Bobo Davidson MD Reason for Consult: Wound w/ bone/plate exposure s/p excision Chief Complaint: Wound w/ bone/plate exposure s/p excision HPI: Lilly Argueta is a 76 y.o. 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 Patient was admitted for elective surgery of exposed hardware, had removal of plate and fibular with wound debridement on 05/27 with reconstruction with L thigh free flap. Cultures from bone grew multiple staph and strep species and natasha. Patient was examined at bedside this AM, states he continues to have some pain but otherwise feeling well. at bedside Antibiotics Received: Caspo, vanc, and Zoysn 05/29- Unasyn 05/27-05/29 Review of Systems - GENERAL: Patient denies fever, chills, weight loss, fatigue, night sweats EYES: Patient denies blurry vision, eye pain HENT: Patient denies headache + facial pain CARDIO: Patient denies chest pain, palpitations, orthopnea PULM: Patient denies shortness of breath, wheezing, cough, sputum, hemoptysis GI: Patient denies nausea, vomiting, diarrhea, abdominal pain, blood in stool : Patient denies urinary frequency, urgency, dysuria, urethral discharge MSK: Patient denies joint pain, back pain, swelling SKIN: Patient denies rash, redness HEME: Patient denies easy bruising, bleeding Past Medical History Past Medical History: Diagnosis Date History of head and neck radiation History of pulmonary embolism 11/2019 Post-operative DVT/PE in November 2019. Treated with Eliquis; discontinued by PCP in May 2020. 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 History of tracheostomy Surgical History Past Surgical History: Procedure Laterality Date REMOVAL HARDWARE Right 05/27/2022 Laterality: Right; Surgeon: Bobo Davidson MD; Location: [facility] OR EXPLORATION TRAUMATIC WOUND NECK N/A 05/27/2022 Laterality: N/A; Surgeon: Bobo Davidson MD; Location: [facility] MA[facility] OR LARYNGOSCOPY DIRECT DIAGNOSTIC N/A 05/27/2022 Laterality: N/A; Surgeon: Bobo Davidson MD; Location: [facility] OR ESOPHAGOSCOPY DIAGNOSTIC N/A 05/27/2022 Laterality: N/A; Surgeon: Bobo Davidson MD; Location: [facility] OR TRACHEOSTOMY N/A 05/27/2022 Laterality: N/A; Surgeon: Bobo Davidson MD; Location: [facility] OR FLAP FREE ANTEROLATERAL THIGH (ALT) SKIN N/A 05/27/2022 Laterality: N/A; Surgeon: Ifrah Cesar MD; Location: [facility] OR DEBRIDEMENT BONE N/A 06/08/2020 Laterality: N/A; Surgeon: Bobo Davidson MD; Location: [facility] OR PLACEMENT TUBE NASO-/LIANG-GASTRIC N/A 06/08/2020 Laterality: N/A; Surgeon: Bobo Davidson MD; Location: [facility] OR LARYNGOSCOPY DIRECT DIAGNOSTIC N/A 11/22/2019 Laterality: N/A; Surgeon: Bobo Davidson MD; Location: [facility] OR ESOPHAGOSCOPY DIAGNOSTIC N/A 11/22/2019 Laterality: N/A; Surgeon: Bobo Davidson MD; Location: [facility] OR MAXILLECTOMY W/O ORBITAL EXENTERATION Right 11/22/2019 Laterality: Right; Surgeon: Bobo Davidson MD; Location: [facility] MA[facility] OR LYMPHADENECTOMY CERVICAL (MODIFIED RADICAL NECK DISSECTION) Right 11/22/2019 Laterality: Right; Surgeon: Bobo Davidson MD; Location: [facility] MAIN OR TRACHEOSTOMY N/A 11/22/2019 Laterality: N/A; Surgeon: Bobo Davidson MD; Location: [facility] OR EXTRACTION TOOTH N/A 11/22/2019 Laterality: N/A; Surgeon: Bobo Davidson MD; Location: [facility] MAIN OR PLACEMENT TUBE NASO-/LIANG-GASTRIC N/A 11/22/2019 Laterality: N/A; Surgeon: Bobo Davidson MD; Location: [facility] MAIN OR FLAP FREE BONE W/ MICROVASCULAR ANASTOMOSIS FIBULA N/A 11/22/2019 Laterality: N/A; Surgeon: Joao Burch MD; Location: [facility] MA[facility] OR FLAP FREE RADIAL FOREARM FASCIAL Left 11/22/2019 Laterality: Left; Surgeon: Joao Burch MD; Location: [facility] MAIN OR APPENDECTOMY LIGATION OR 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 Social History Social History Socioeconomic History Marital status: Tobacco Use Smoking status: Never Smoker Smokeless tobacco: Never Used Vaping Use Vaping Use: Never used Substance and Sexual Activity Alcohol use: Not Currently Drug use: Not Currently Family History Family History Problem Relation Age of Onset Diabetes Father Diabetes Paternal Grandmother Inpatient Medications: acetaminophen 975 mg Oral Q8HNS Or acetaminophen 975 mg Per NG tube Q8HNS Or acetaminophen 975 mg PEG Tube Q8HNS aspirin 81 mg Oral Daily Or aspirin 81 mg Per NG tube Daily Or aspirin 81 mg PEG Tube Daily caspofungin (CANCIDAS) IVPB 50 mg Intravenous QHS chlorhexidine 15 mL Swish & Spit 4x daily enoxaparin 40 mg Subcutaneous Q24H petrolatum 1 Application Right Eye QHS piperacillin-tazobactam (ZOSYN) IVPB 4.5 g Intravenous Q8HNS polyethylene glycol 17 g Oral Daily Or polyethylene glycol 17 g Per NG tube Daily Polyvinyl Alcohol-Povidone PF 2 drop Both Eyes 4x daily senna 8.6 mg Oral BID Or senna 8.6 mg Per NG tube BID sodium chloride 0.9% No Known Allergies OBJECTIVE FINDINGS: Vital Signs (24hrs): Temp: [97.1 F (36.2 C)-98.2 F (36.8 C)] 97.4 F (36.3 C) Pulse (Heart Rate): [55-108] 55 Resp Rate: [16-18] 16 BP: (110-136)/(61-95) 110/61 O2 Sat (%): [96 %-100 %] 98 % Physical Exam: GEN: Awake, resting comfortably EYES: EOMI, no scleral icterus HENT: Flap on R maxilla, well healing with some surrounding erythema, drain in place NECK: Supple, no cervical lymphadenopathy or meningismus. CARDIO: RRR, no murmur. PULM/CHEST: CTAB. No increased work of breathing ABD: Soft, not tender or distended MSK: no obvious effusion, swelling, increased warmth, or erythema of major joints. No pedal edema. SKIN: No rashes. Hands and fingers appear normal. No stigmata of endocarditis. NEURO: AOx3. Moves all four extremities. Diagnostic Data: CBC Lab Results Component Value Date WBC 7.38 05/31/2022 HGB 10.6 (L) 05/31/2022 HCT 32.4 (L) 05/31/2022 PLATELET 322 05/31/2022 MCV 88.0 05/31/2022 EDIF Lab Results Component Value Date RBCDISTRIBU 15.1 (H) 05/31/2022 GRNLOCYT 81.1 04/27/2022 LYMPHOCYT 8.6 04/27/2022 MONOCYTELEC 7.3 04/27/2022 EOSINOPHILS 2.0 04/27/2022 BASOPHILS 0.6 04/27/2022 LYMPHOCYTABS 0.44 (L) 04/27/2022 EOSINOPHLABS 0.10 04/27/2022 PLATELET 322 05/31/2022 MPV 10.7 05/31/2022 Lab Results Component Value Date SODIUM 141 05/31/2022 POTASSIUM 4.3 05/31/2022 CHLORIDE 105 05/31/2022 CO2 29 05/31/2022 BUN 23 05/31/2022 CREATSERUM 1.01 05/31/2022 GLUCOSE 96 05/31/2022 No results found for: ALT, TRANSFERASEA, AST, GGT, GAMMAGT, ALKPHOS, BILITOTAL, BILIDIRECT No results found for: SEDRATE No results found for: CRP Urinalysis Lab Results Component Value Date SPGRVTYUR 1.015 04/27/2022 GLUCOSEURINE Negative 04/27/2022 KETONESURINE Negative 04/27/2022 BLOODURINE Trace (A) 04/27/2022 NITRITESURIN Negative 04/27/2022 LEUKOCESTUR Negative 04/27/2022 WBCURINE 0-5 04/27/2022 RBCURINE 0-2 04/27/2022 BACTERIAURIN ABSENT 04/27/2022 Microbiology and Other Significant ID Labs: (personally reviewed) 1. Hardware removal (10 screws)- staph aureus, staph epi, strep constellatus, strep viridans, natasha krusei 2. Hardware removal (plate) - staph aureus, staph epi, strep constellatus, strep viridans, natasha krusei 3. L leg lipoma - staph aureus, staph epi, strep constellatus, strep viridans, natasha krusei A. R maxilla- staph aureus, staph epi, strep constellatus, strep viridans, natasha krusei Susceptibility Staphylococcus aureus Staphylococcus epidermidis Streptococcus constellatus Streptococcus viridans group Ampicillin <=0.25 ug/mL S <=0.25 ug/mL S Ceftriaxone 0.25 ug/mL S <=0.12 ug/mL S Clindamycin <=0.12 ug/mL S 0.25 ug/mL S 0.5 ug/mL I <=0.25 ug/mL S Levofloxacin 1 ug/mL S 2 ug/mL S Oxacillin <=0.25 ug/mL S <=0.25 ug/mL S Penicillin <=0.06 ug/mL S <=0.06 ug/mL S Rifampin <=0.5 ug/mL S 1 Tetracycline <=1 ug/mL S 2 <=1 ug/mL S Trimethoprim/Sulf. <=10 ug/mL S <=10 ug/mL S Vancomycin Susc 1 ug/mL S 0.5 ug/mL S 0.5 ug/mL S Susceptibility Natasha krusei Caspofungin 0.12 ug/mL S Fluconazole R Imaging: (personally reviewed) none ASSESSMENT: Lilly Argueta is a 76 y.o. 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 RECOMMENDATIONS: Therapeutics: Recommend IV caspofungin 50mg q24h and IV Unasyn 3g q6hr for a total 6 week therapy. Okay for picc line, patient and made aware of prolonged therapy He will need follow up in ID clinic after finishing therapy ID team 1 will sign off. Please call with questions. Dhatri Kotekal, DO Infectious Diseases Fellow Associated attestation - Rosette Cotton MD - 06/02/2022 3:06 PM EDT ID Attending Attestation I independently saw and evaluated patient today 06/01/22 and agree with the medical decision making and documentation as outlined by Dr. Zapata. Rosette Cotton MD [facility]- Division of Infectious Diseases [facility]09-14-2022 Note* Plan of Care - Kristina Narvaez RD - 06/01/2022 11:15 AM EDT Nutrition Recommendations and Plan of Care: 1. TF modification: Jevity 1.5, 340 ml x 5/d + 210 ml water flush x 5 per day. Provides 2550 kcal (32 kcal/kg admit wt), 108 g pro (1.4 g/kg admit wt) and 2342 1292 ml free water/d (29 ml/kg admit wt) *equivalent to 7 cans/d- at discharge suggest Ensure Plus or equivalent, 7 cartons/d 2. Diet: NPO. Advance as able per team. 3. RD to follow. [facility]09-13-2022 Consult note* Sarita Garibay RN - 05/31/2022 3:31 PM EDT Vascular Access Consult Note Consult received for Lilly Argueta regarding: PIV Current access: PIV Assessment: Patient does not want a second piv placed at this time. Recommendation: Will wait until patient needs the piv and is agreeable. Thank you for allowing our team to participate in the care of this patient. Vascular Access Team [id number] [facility]09-13-2022 Note* Plan of Care - Iraida Barrios PT - 05/31/2022 9:30 AM EDT Problem: PT - Mobility Goal: Ambulation Description: Pt will ambulate 500 feet with out an assistive device with standby assistance to improve ability to navigate home environment. Outcome: Met This Shift Goal: Stairs Description: Pt will ascend/descend 5 stairs with unilateral railings with standby assistance with out an assistive device to improve ability to perform functional mobility necessary in recommended discharge environment. Outcome: Ongoing Problem: PT - Transfers Goal: Supine <-> Sit Description: Pt will perform bed mobility with flat bed & no rail with independence in order toimprove functional mobility and safety. Outcome: Ongoing Goal: Sit <-> Stand Description: Pt will perform sit to/from stand transfers with independence with out an assistive device in order to improve functional mobility and safety. Outcome: Ongoing Iraida Barrios PT, DPT License #: [id number] Pager #: [phone] [facility]09-12-2022 Note* Nursing Notes - Lore Parker, RN - 05/30/2022 12:05 PM EDT 05/30/22 1205 Referral Information Arrived From operating room Readmission Information Was patient readmitted within 30 Days? No Information Source Information Source patient Information Source Name Lilly Information Source Number [phone] Outpatient Providers Outpatient Providers Updated In IHIS Yes Contact Information Rn Imaging/SW Added to Care Team Yes This Analytical Strategist is Primary Rn Imaging/SW Yes Rn Imaging Name Yesy Parker Rn Imaging's Social Work Contact Name Yvette Oscar Surveyor Helper's Phone Number see care team Living Environment Lives With spouse Living Arrangements house (2 story) Provides Primary Care For no one Caregiving Concerns none Primary Care Provided By self;spouse/significant other Support System Immediate family Able to Return to Prior Arrangements yes Functional Status Patient's Functional Status Prior To This Admission? Independent Are There Status Changes This Admisson? No Changes Observed Since Admission? No Changes Observed Concerns With Patient Being Able To Care For Themselves At Discharge? No Who Is Patient's Primary Contact For Discharge Planning, Education And Care For Discharge? self Can Support Person Meet The Care Needs Of The Patient? Yes Employment/Financial Employed? 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 Employment/Financial Concerns no Employment/Financial Comments none Source Of Income social security Financial Concerns none Insurance Medical Insurance Verified Yes Prescription Coverage No (uses Good Rx coupons.) Pharmacy updated in IHIS Yes Initial Discharge Planning Home Care Services (POLICE MANAGER) No Home Therapies (POLICE MANAGER) None DME (POLICE MANAGER) None Medical Supplies (POLICE MANAGER) None Patient Goal for Discharge pt to [facility] medically stable. Anticipated discharge disposition Home Anticipated Services at Discharge Outpatient clinical services (ie: lab draws, transfusions, injectables) Anticipated Changes Related to Illness none Current Discharge Risk chronically ill;high risk diagnoses (i.e., CHF, Stroke, DM, chronic pain, abdominal pain, nausea and vomiting);>65 years of age Transportation Available car Discharge Planning Comments pt to DC to home independently when medically stable. Home Care Services (POLICE MANAGER) Additional Home Care Services (POLICE MANAGER) yes Assessment/Concerns to be Addressed Concerns To Be Addressed no discharge needs identified;denies needs/concerns at this time Concerns Comments see note PCRM Initial Assessment Met with the pt to complete the initial assessment. Explained role and function of PCRM in multidisciplinary team. Contact number provided for questions. Demographic information reviewed with patient/family and confirmed as correct. The pt is alert and oriented and able to answer questions. [facility]. He lives in his home with his spouse, who he states is an RN. He is very active, still drive, walks a mile a day and is an avid chain person. He declines HHC or DME, and has none currently. He states that he and his will be able to care for any drain or NG needs at home. He is agr eeable to pay OOP for short term TF. He has NO prescription coverage, PCRM notified the team. He states he has good family suport, and family will transport to home. He follows with Dr. Davidson- follow up scheduled. Reason for Admission: POD 3 s/p DL, R maxilla debridement, removal of R maxillary hardware and previous fibula FF, R neck exploration, L ALT. Procedure: DL, R maxilla debridement, removal of R maxillary hardware and previous fibula FF, R neck exploration, L ALT. Diagnosis: Chronic wound/plate exposure. Estimated length of stay: TBD. Advanced directives Patient does not have Advanced Directives on File Lines/Drains/Tubes PIV, NG, drains. Initial PCRM Discharge Planning DC to home. Final plan will be determined closer to discharge, pending therapy and medical team recommendations. Patient/family verbalized understanding and agreement with the plan of care. Patient/family have no questions at this time. PCRM will continue to follow patient with multidisciplinary team for ongoing assessment of needs and for discharge planning. Medical team updated. PCRM to continue to follow and provide support. Yesy Parker RN PCRM [phone] For evening and weekend discharge assistance please page the pharmacy operations specialist PCRM at [phone]. [facility]09-12-2022 Hospital Discharge instructions* Discharge Instructions* CEM Lombardo - 05/30/2022 10:44 AM EDT Images from the original note were not included. IMPORTANT: Automated Post Discharge Call Patient Information As part of your care, we will call you at the primary number we have on file, the day after you aredischarged at 10 a.m. to check on you. Please expect a two- minute automated telephone call from [facility]. This call will come from [phone]. If you are unable to answer or do not receive the automated call, please call [phone] to complete this important evaluation. By answering the phone evaluation, a [facility] nurse will be notified if you have any questions or concerns and call you back. If you have an immediate medical need call your doctor s office, or if you have a medical emergencycall 911. Evening and Weekend Contacts If you have questions or concerns during evening, weekend, or holiday hours, please call: -[facility] and The [facility] blender conveyor operator at [phone]. Ask the blender conveyor operator to page the on-call doctor for Ear, Nose and Throat, the service that was responsible for your care while you were in the hospital. If you having an emergency, call [phone]. Medical Issues: For clinical questions or medical concerns during regular business hours, please call [phone] and you will be routed to your physician's team. For discharge planning questions/concerns, please contact: CEM Brewster, BRY (Patient Care Building And Grounds Supervisor) [phone] RON Hall, SYL (Patient Care Building And Grounds Supervisor) [phone] CEM Crawford (Surveyor Helper) [phone] Your Rn Imaging (PCRM) has arranged your appointments for follow up based on your preference of where you would like to continue your care. If you are unable to attend appointments that have been arranged for you, it is your responsibilityto call to reschedule at least 48 hours prior to the appointment date. Your After Visit Summary (AVS) has provided you with instructions for your discharge. It is your responsibility to ask questions if you have any. Please contact your medical care team at the numbers listed if you should have any additional questions. * Discharge Instr - Activity* CEM Lombardo - 05/30/2022 10:43 AM EDT Activity: Please follow these instructions: You may perform the following activities: - Exercise as you are able. - Take rest periods during the day as needed. - Get 8 to 10 hours of sleep at night. - You may shower, unless you have specifically been told NOT to shower. Let the soapy water run offof skin and wounds. Gently pat dry. Do not scrub wounds at all. Do not do the following: - subpoena server such as vacuuming, or heavy cleaning - Strenuous physical sports or exercise - Lift, pull or move objects greater than 5 pounds until your follow up appointment and/or cleared by physician. - High impact actvities such as jumping jacks or running - No driving for 10 days or as instructed. Bathing: Bathing Restrictions: You may shower. Do not allow the stream of water to flow directly on your incision. Pat dry when done. DO NOT TAKE A BATH UNTIL CLEARED BY YOUR PHYSICIAN. * Discharge Instr - Diet* Elis Mcnulty RN - 05/30/2022 10:43 AM EDT Diet: Your doctor has recommended that you follow these diet instructions at home. Refer to the patient education materials you received during your hospital stay. If you would like more nutrition counseling, ask your doctor about making an appointment with an outpatient dietitian. Ensure Plus (or any plus product) take 340 ml x 5/d + 210 ml water flush x 5 per day (7 cartons/d) Ensure plus (or any plus product) take 340 mls every four hours five times a day. Flush with 210 mls water after each feed. The schedule in the hospital was 6:00AM, 10:00AM, 2:00PM, 6:00PM and 10:00PM. You may adjust the schedule at home as needed. * Discharge Instr - Notify* CEM Lombardo - 05/30/2022 10:43 AM EDT Notify Your Doctor or Nurse if you have any of the following: Bleeding or bruising If you have bleeding, apply pressure to the site and hold the pressure firmly for 5 minutes. If thebleeding continues, apply pressure again and call 911. If the bleeding stopped, call your doctor toreport it. Call your doctor or nurse right away if you have increased bleeding from your site and increased bruising or a lump forms or gets larger under your skin at the site. Respiratory Changes Call your doctor or nurse if you have shortness of breath Unrelieved Pain Call your doctor or nurse if your pain gets worse or is not eased 1 hour after taking your pain medicine. Wound Infection Symptoms Call your doctor or nurse right away if you have signs of infection of your wound such as: -More pain around the wound -Change in the amount , color and odor of drainage -The skin around the wound feels warm or has red streaks -The wound separates or opens up -You have a temperature greater than 101 * Discharge Instr - Wound Care* Elis Mcnulty RN - 05/30/2022 10:43 AM EDT Images from the original note were not included. Wound Care: Incision Care You do not need to cover your incision. Clean it each day with mild soap and water. Do not let the water from the shower hit the incision directly until it is healed. You may cover the incision with Vaseline to keep from drying out. Drain Care: Your drain will be removed when the output is LESS than 30 cc over a 24-hour period. You have been scheduled for a drain removal appointment. If your drain output is MORE than 30 cc over 24-hours, please call to reschedule this appointment. Your drain can not be removed until the output is LESS than 30 cc over a 24-hour period. CAYETANO MENDOZA DRAIN: - Empty, measure and record drainage twice daily, or more often, if Needed (see below). Call if drainage becomes foul-smelling. - If two drains are present, remember to lori drainage amounts in ml's for each drain, drain A or drain B. - Gently strip tubing(s) twice daily to keep clots loosened. Call if leakage of fluid persists from drainage tube exit site(s), and if unable to identify area of clog or unable to milk clots down tube. - Call if drain will not hold suction. - HINT: Wear an old belt and pin your drainage tube receptacle to it. Follow these steps to empty the TOMASA drain: Wash your hands with soap and water. Dry your hands and put on clean gloves. Place a waterproof pad or towel under the TOMASA drain to soak up any spills. Check the bulb for any holes or cracks. Remove the plug at one side of the bulb and pour the fluid into a measuring container. Do not touch the tip of the spout with the mouth of the collection cup or anything else. This keepsgerms from getting inside the bulb and tubing. Clean the plug with a cotton ball dipped in alcohol,or an alcohol swab. Squeeze the bulb tightly while the plug is still off. Do not squeeze the bulb if the plug is in place. While the bulb is being squeezed, put the plug back to seal the bulb. Measure the amount of fluid that came out of the TOMASA drain bulb. Write down the amount, color, and odor of the fluid, and the date and time that you collected it. Use a piece of paper, a notebook, or drainage chart to keep track of this information. Flush the fluid down the toilet. Throw all used supplies in the trash bag along with your gloves. Wash your hands after you are finished. Please record your drain output below and take to your follow-up appointments. Date Drain # Drain# Comments AM PM AM PM ml Color: ml Color: ml Color: ml Color: ml Color: ml Color: ml Color: ml Color: ml Color: ml Color: ml Color: ml Color: ml Color: ml Color: ml Color: ml Color: ml Color: ml Color: ml Color: ml Color: ml Color: ml Color: ml Color: ml Color: ml Color: ml Color: ml Color: ml Color: ml Color: ml Color: ml Color: ml Color: ml Color: ml Color: ml Color: ml Color: ml Color: ml Color: ml Color: ml Color: ml Color: ml Color: ml Color: ml Color: ml Color: ml Color: ml Color: ml Color: ml Color: ml Color: ml Color: ml Color: ml Color: ml Color: ml Color: ml Color: ml Color: ml Color: ml Color: ml Color: Please record your drain output below and take to your follow-up appointments. Date Drain # Drain# Comments AM PM AM PM ml Color: ml Color: ml Color: ml Color: ml Color: ml Color: ml Color: ml Color: ml Color: ml Color: ml Color: ml Color: PICC Referral for Patient Continuity of Care PICC Line - Double Lumen 06/01/221833 purple red basilic vein (medial side of arm), left 4 Fr (Active) 06/01/221833 Present On Admission : no Lumen 1: purple Lumen 2: red Lumen 3: Location: basilic vein (medial side of arm), left Device/Lot Number: pressure injectable catheter;open-ended catheter;valved catheter;does not require heparinized flush Head Paper Tester/Lot Number: [id number] Size/Length: 4 Fr Inserted Catheter Length (cm): 49 Total Length (cm): 50 Placement Verification: tip confirmation system utilized;ultrasound guided placement Tip Termination: superior vena cava Guiding Device: ultrasound Indication/Daily Review of Necessity: antibiotic therapy Inserted By: Registered Nurse Unsuccessful Insertion Attempts: 0 Unsuccessful Attempt Location/Site: Pain Prevention/Patient Tolerance: distraction;intradermal injection;tolerated well Removal: Placement Over Guidewire: yes Additional Comments: Lumen 4: Lumen 5: (Retired/Read Only) Side: (Retired/Read Only) Location: (Retired/Read Only) Device: Catheter Length Distal to Site (cm): (Retired/Read Only) Indication: (Retired/Read Only) Placement Method: (Retired/Read Only) Tip Termination (to be determined by practitioner ): Unsuccessful Insertion Attempts: (Retired/Read Only) Unsuccessful Insertion Attempt Location: (Retired/Read Only) Pain Prevention: Patient Tolerance: Insertion: (Retired/Read-only) Tip Termination : Removal Indication: Pain Prevention: Catheter Length Distal to Site (cm) 1 06/01/22 1835 PICC/Midline Care and Maintenance Refer to patient education instructions for maintenance, care and supplies. Please instruct patient/significant other as follows: *Dressing change-if dressing is gauze, change within 48 hours and attempt to replace with sterile, transparent dressing with an antimicrobial product. *Dressing change-if dressing is sterile, transparent, change once each week unless it becomes loose, damp or soiled. *Cover completely when bathing or showering. *The secondary catheter securement device should be changed weekly with the dressing or as needed. -Injection Cap: Change per education instructions at least once a week. PICCS require positive or neutral pressure caps. -Flushing: Flush a dwell PICC with saline only unless otherwise specified by the physician. Only use 10ml syringes or larger when flushing, drawing from or injecting into a PICC. -Blood Draws: Blood may be drawn from a PICC. Flush with 10ml of saline before and 20ml after each blood draw. *Post PICC insertion, apply a warm compress to the shoulder for 15 to 20 minutes to help relax the vein. This may be done for the first 24 to 48 hours and then as needed. *Encourage normal use and light exercise of the arm with the PICC in it. Nasogastric Tube (NG Tube) You have been discharged with a nasogastric tube, or NG tube. The NG tube was inserted through yournose and into your stomach to provide you with food, fluids, and medicine. Follow-up care Follow up with your healthcare provider, or as directed. When to call your provider Call your healthcare provider right away if you have any of the following: A tube that is dislodged from the nose Coughing or trouble breathing Clogged tube A tube that is breaking down or cracked Dizziness or lightheadedness Vomiting Fever above 100.4 F (38 C) Diarrhea that lasts more than 2 days [facility]* Nursing Notes - Amanda Arias RN - 05/28/2022 5:45 PM EDT MD Talavera with ENT messaged about increased swelling of pt's right jaw line moving up to under pt's right eye with taught skin and increased firmness of area. Flap assessment remains normal/ unchanged.MD to come to bedside to assess. [facility]09-10-2022 Note* Plan of Care - Rolanda Fallon PT - 05/28/2022 9:36 AM EDT Problem: PT - Mobility Goal: Ambulation Description: Pt will ambulate 500 feet with out an assistive device with standby assistance to improve ability to navigate home environment. Outcome: Ongoing Goal: Stairs Description: Pt will ascend/descend 5 stairs with unilateral railings with standby assistance with out an assistive device to improve ability to perform functional mobility necessary in recommended discharge environment. Outcome: Ongoing Problem: PT - Transfers Goal: Supine <-> Sit Description: Pt will perform bed mobility with flat bed & no rail with independence in order toimprove functional mobility and safety. Outcome: Ongoing Goal: Sit <-> Stand Description: Pt will perform sit to/from stand transfers with independence with out an assistive device in order to improve functional mobility and safety. Outcome: Ongoing Goal: Strength/ROM Description: Pt will perform 3 sets of 10 repetitions of left lower extremity exercises with independence in order to improve strength, maintain ROM, necessary for functional mobility. Outcome: Ongoing [facility]10-20[facility] Note* Plan of Care - Jovita Chang OT - 05/28/2022 9:35 AM EDT Problem: OT - Dressing Goal: Lower Body Dressing Description: Pt will complete LE dressing tasks with supervision for improved ability to complete self-care activities. Outcome: Ongoing Problem: OT - ADLs Goal: Toileting Description: Pt will complete toileting task with supervision for improved ability to safely complete self-care activities. Outcome: Ongoing Goal: Bathing Description: Pt will perform full body bathing routine with supervision while seated for improved ability to complete self-care activities. Outcome: Ongoing Problem: OT - Balance Goal: Balance - Standing Description: Pt will perform 12+ minutes of functional ADL task in standing with supervision and good balance to promote safety and improved balance required for self-care activities. Outcome: Ongoing Problem: OT - Endurance Goal: Endurance Functional Mobilty Around Home Description: Pt will complete distance needed for common household mobility with supervision to increase participation in meaningful occupations in the home and within the community. Outcome: Ongoing Problem: OT - Transfers Goal: Transfers Toilet/Bedside Commode Description: Pt will transfer to/from toilet/BSC with supervision for improved ability to safely complete ADLs. Outcome: Ongoing [facility]* Plan of Care - Gris Capellan RN - 05/28/2022 6:30 AM EDT Don is A&O x4. Q1 flap checks remain WNL (intraoral flap is mottled, ok per MD). Hedrick remains in place (low UOP overnight, bolus ordered). VSS on RA (BP trending down, fluid bolus ordered). Painhas been managed with scheduled Tylenol and PRN oxycodone (breakthrough dilaudid given 1x). Medications given via DHT; TF to start during the day. Anticipate discharge to home vs SNF in approximately one week. Problem: Surgery Nonspecified (Adult) Goal: Signs and Symptoms of Listed Potential Problems Will be Absent, Minimized or Managed (SurgeryNonspecified) Description: Signs and symptoms of listed potential problems related to ALT FF surgery will be absent, minimized or managed for Don by discharge to home vs SNF. Potential problems include: 1. bleeding/anemia 2. bowel motility decreased 3. infection 4. pain 5. postoperative nausea and vomiting 6. postoperative urinary retention 7. respiratory compromise 8. situational response 9. VTE (venous thromboembolism) 10. wound healing impaired Outcome: Ongoing Problem: Nutrition, Enteral (Adult) Goal: Signs and Symptoms of Listed Potential Problems Will be Absent, Minimized or Managed (Nutrition, Enteral) Description: Signs and symptoms of listed potential problems related to TF via DHT will be absent, minimized or managed for Don by discharge to home vs SNF. Potential problems include: 1. adverse events 2. aspiration 3. fluid/electrolyte imbalance 4. gastrointestinal complications 5. malnutrition 6. mechanical complications 7. skin/mucosal integrity impairment Outcome: Ongoing [facility] Note* Nursing Notes - Gris Capellan RN - 05/28/2022 5:[address] Conrado Montano of the following: Low urine output from hedrick (150 mL). BP trending down (most recent 95/54), HR remaining stable. Would you like a fluid bolus? [facility]09-09-2022 Note* Nursing Notes - Gris Capellan RN - 05/27/2022 9:30 PM EDT On admission to [facility], from OR a dual RN initial assessment of skin condition was performed by RON Flores and Lorena Coppola RN. Skin Assessment: Skin not within defined limits. Skin intact over bony prominences. Surgical incisions present. Patient encouraged to change positions frequently while in bed. Fortino Score: 19 LDA Added: Surgical incisions - LDAs added in OR Gris Capellan RN [facility]09-09-2022 Note* Certification - Sharif Reyes MD - 05/27/2022 4:42 PM EDT I certify that this patient requires inpatient services at this time. I anticipate the expected length of stay will include at least two midnights. Inpatient services are due to the following medicalconcerns post operative free flap care . Plans for post hospitalization care will be discharge to home, home with home health, [facility] facility and [facility] operation note* Ree Doyle RN - 05/27/2022 1:03 PM EDT Ischemia Start: 11:29 Ischemia Stop: 13:01 [facility]* Ree Doyle RN - 05/27/2022 1:03 PM EDT Ischemia Start: 11:29 Ischemia Stop: 13:01 * Mike Antunez RN - 05/27/2022 9:56 AM EDT 0900 Family notified case started. 1107 Family Updated. 1348 Family Updated. 1542 Family waiting called for Dr. Davidson. Ischemia start time 1129 Ischemia end time 1301 1601 Patient transferred to PACU via cart and oxygen therapy. Accompanied by anesthesia personnel. Condition stable. * Talita Echevarria RN - 05/27/2022 6:06 AM EDT Pt does have h/o metal/implants - bilat hip Pt denies h/o strokes/seizure Pt does have h/o radiation 2020 Pt denies chemotherapy documented [facility]* Plan of Care - Tamanna Munoz MD - 05/27/2022 12:22 PM EDT ENT Plan of Care Day of Surgery Surgeon: Bobo Davidson MD Procedure: DL, R maxilla debridement, removal of R maxillary hardware and previous fibula FF, R neck exploration, L ALT Diagnosis: Chronic wound/plate exposure Plan Airway: [place] Diet: NPO w/ TFs via NGT, outpt PO Drains: 2 leg-remove 1 WR, 1 neck-keep until dc, 1 rosalie neck secured with prolene/steristrips-keep until POD4 (tues) Wound: 5-0 fast leg-island down POD2, 5-0 fast neck Antibiotics: Unasyn while inpatient-->augmentin, change based on cx results, no ID consult Consults: PRN PT/OT/ACCOUNTANT BUDGET: PT/OT, ACCOUNTANT BUDGET for pre-PO Anticoagulation: Lvx ppx starting POD1 Relevant PMHx: 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, GERD, postop DVT/PE in 12/05 (previously on eliquis, stopped by PCP 05/2020) Other: - No late night lab draws Dispo: Anticipate dispo on POD# 7-8 to home vs facility FU: Davidson 3 weeks Tamanna Munoz MD Otolaryngology-Head & Neck Surgery Pager: [phone] [facility]* Brief Op Note - Tamanna Munoz MD - 05/27/2022 12:20 PM EDT Lilly Argueta ([id number]) PRE OPERATIVE DIAGNOSIS 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 Lipoma encountered when harvesting flap, which was removed, carefully protecting the skin perforators SURGEON Surgeon(s) and Role: Panel 1: * Bobo Davidson MD - Primary * Loraine Montgomery MD - Fellow Panel 2: * Ifrah Cesar MD - Primary ANESTHESIOLOGIST Anesthesiologist: Issa Richmond MD Assignment Desk Editor Assisting: Bassam Hernandez DDS SURGICAL STAFF Designer And Patternmaker: Mike Antunez RN Relief Designer And Patternmaker: Ree Doyle RN Scrub Person: Kelsea Sanchez RN; Rangel Moses Resident Assisting: Tamanna Munoz MD Administrative Director: Maria D Marti COMPLICATIONS None ESTIMATED BLOOD LOSS 200 ml SPECIMENS Cytology specimen sent Microbiology specimen sent ID Type Source Tests Collected by Time Destination 1 : Hardware removal (10 screws) for gross only Other YARN WEIGHER SURG PATH REQUEST Bobo Davidson MD 05/27/2022 0954 2 : Hardware removal (plate) for gross only Other YARN WEIGHER SURG PATH REQUEST Bobo Davidson MD 05/27/2022 1033 3 : Left leg lipoma Permanent SURG PATH SURG PATH REQUEST Bobo Davidson MD 05/27/2022 1047 A : Right maxilla Other TISSUE FUNGUS CULTURE, ACID FAST CULTURE, ANAEROBE CULTURE, BACTERIAL CULTURE AND DIRECT SMEAR, LESION, TISSUE, DEVICE Bobo Davidson MD 05/27/2022 0951 Tamanna Munoz MD May 27, 2022 12:20 PM [facility] Note* Brief Op Note - Tamanna Munoz MD - 05/27/2022 12:19 PM EDT Lilly Argueta ([id number]) PRE OPERATIVE DIAGNOSIS 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] POST OPERATIVE DIAGNOSIS Post-Op Diagnosis Codes: * 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] PROCEDURE PERFORMED Procedure(s) (LRB): REMOVAL HARDWARE (Right) EXPLORATION TRAUMATIC WOUND NECK (N/A) LARYNGOSCOPY DIRECT DIAGNOSTIC (N/A) ESOPHAGOSCOPY DIAGNOSTIC (N/A) TRACHEOSTOMY (N/A) FLAP FREE ANTEROLATERAL THIGH (ALT) SKIN (N/A) PRIMARY CLOSURE No INTRAOPERATIVE FINDINGS Right maxillary plate exposure, plate and fibula removed, wound debrided SURGEON Surgeon(s) and Role: Panel 1: * Bobo Davidson MD - Primary * Loraine Montgomery MD - Fellow Panel 2: * Ifrah Cesar MD - Primary ANESTHESIOLOGIST Anesthesiologist: Issa Richmond MD Assignment Desk Editor Assisting: Bassam Hernandez DDS SURGICAL STAFF Designer And Patternmaker: Mike Antunez RN Relief Designer And Patternmaker: Ree Doyle RN Scrub Person: Kelsea Sanchez RN; Rangel Moses Resident Assisting: Tamanna Munoz MD Administrative Director: Maria D Marti COMPLICATIONS None ESTIMATED BLOOD LOSS 200 ml SPECIMENS Cytology specimen sent Microbiology specimen sent ID Type Source Tests Collected by Time Destination 1 : Hardware removal (10 screws) for gross only Other YARN WEIGHER SURG PATH REQUEST Bobo Davidson MD 05/27/2022 0954 2 : Hardware removal (plate) for gross only Other YARN WEIGHER SURG PATH REQUEST Bobo Davidson MD 05/27/2022 1033 3 : Left leg lipoma Permanent SURG PATH SURG PATH REQUEST Bobo Davidson MD 05/27/2022 1047 A : Right maxilla Other TISSUE FUNGUS CULTURE, ACID FAST CULTURE, ANAEROBE CULTURE, BACTERIAL CULTURE AND DIRECT SMEAR, LESION, TISSUE, DEVICE Bobo Davidson MD 05/27/2022 0951 Tamanna Munoz MD May 27, 2022 12:19 PM [facility]09-09-2022 Nurse Surgical operation note* Mike Antunez RN - 05/27/2022 9:56 AM EDT 0900 Family notified case started. 1107 Family Updated. 1348 Family Updated. 1542 Family waiting called for Dr. Davidson. Ischemia start time 1129 Ischemia end time 1301 1601 Patient transferred to PACU via cart and oxygen therapy. Accompanied by anesthesia personnel. Condition stable. 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 rate 16, height 1.854 m (6' 1 ), weight 79.8 kg (176 lb), SpO2 99 %. I have reviewed Lilly Argueta's medical, surgical and other pertinent history, and I have updated the medication and allergy information in the computerized patient record. I have examined the patient, reviewed the previous H&P completed on date (04/27/22) and there are no changes. Today's surgical history and physical update was completed by Tamanna Munoz MD, 05/27/2022, 6:19 AM. 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 rate 16, height 1.854 m (6' 1 ), weight 79.8 kg (176 lb), SpO2 99 %. I have reviewed Lilly Argueta's medical, surgical and other pertinent history, and I have updated the medication and allergy information in the computerized patient record. I have examined the patient, reviewed the previous H&P completed on date (04/27/22) and there are no changes. Today's surgical history and physical update was completed by Tamanna Munoz MD, 05/27/2022, 6:19 AM. [facility] Surgical operation note* Talita Echevarria RN - 05/27/2022 6:06 AM EDT Pt does have h/o metal/implants - bilat hip Pt denies h/o strokes/seizure Pt does have h/o radiation 2020 Pt denies chemotherapy [facility]-10[facility]2022 History of Present illness Narrative* Armaan Marino MD - 04/27/2022 1:45 PM EDT HPI: Lilly Argueta is a 76 y.o. 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 Patient with area of exposed hardware on his right cheek has progressed. Patient was offered surgery on 08/27/21 for hardware exposure, but declined. Patient states the plate exposure has been relatively stable. Not interested in surgery at this time. Having hip surgery next week. Able to eat a regular diet. Nursing documentation has been reviewed. Past Medical History: Diagnosis Date History of head and neck radiation History of pulmonary embolism 11/2019 Post-operative DVT/PE in November 2019. Treated with Eliquis; discontinued by PCP in May 2020. 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 History of tracheostomy Past Surgical History: Procedure Laterality Date DEBRIDEMENT BONE N/A 06/08/2020 Laterality: N/A; Surgeon: Bobo Davidson MD; Location: [facility] PLACEMENT TUBE NASO-/LIANG-GASTRIC N/A 06/08/2020 Laterality: N/A; Surgeon: Bobo Davidson MD; Location: [facility] LARYNGOSCOPY DIRECT DIAGNOSTIC N/A 11/22/2019 Laterality: N/A; Surgeon: Bobo Davidson MD; Location: [facility] ESOPHAGOSCOPY DIAGNOSTIC N/A 11/22/2019 Laterality: N/A; Surgeon: Bobo Davidson MD; Location: [facility] MAXILLECTOMY W/O ORBITAL EXENTERATION Right 11/22/2019 Laterality: Right; Surgeon: oBbo Davidson MD; Location: [facility] LYMPHADENECTOMY CERVICAL (MODIFIED RADICAL NECK DISSECTION) Right 11/22/2019 Laterality: Right; Surgeon: Bobo Davidson MD; Location: [facility] TRACHEOSTOMY N/A 11/22/2019 Laterality: N/A; Surgeon: Bobo Davidson MD; Location: [facility] EXTRACTION TOOTH N/A 11/22/2019 Laterality: N/A; Surgeon: Bobo Davidson MD; Location: [facility] PLACEMENT TUBE NASO-/LIANG-GASTRIC N/A 11/22/2019 Laterality: N/A; Surgeon: Bobo Davidson MD; Location: [facility] FLAP FREE BONE W/ MICROVASCULAR ANASTOMOSIS FIBULA N/A 11/22/2019 Laterality: N/A; Surgeon: Joao Burch MD; Location: [facility] FLAP FREE RADIAL FOREARM FASCIAL Left 11/22/2019 Laterality: Left; Surgeon: Joao Burch MD; Location: [facility] APPENDECTOMY LIGATION OR 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 Current Outpatient Medications Medication Sig Dispense Refill ASHWAGANDHA PO Take by mouth daily every morning. aspirin 81 MG Chew Tab chewable tablet Chew 81 mg at bedtime. Calcium Acetate-Magnesium Carb 450-200 MG tablet Take 1 tablet by mouth at bedtime. Cascara [place] 450 MG capsule Take by mouth daily every morning. chlorhexidine 0.12 % Solution oral solution Swish 15-20mL of liquid for 20 seconds and spit. Twice daily until finished. (Patient not taking: No sig reported) 473 mL 3 Chromium Picolinate (CHROMIUM PICOLATE PO) Take by mouth daily every morning. Coenzyme Q10 (Co Q 10) 100 MG capsule Take 200 mg by mouth daily every morning. [employer]S D3 25 MCG (1000 UT) capsule Take 25 capsules by mouth 2 times daily. gabapentin 100 MG capsule Take 100 mg by mouth 3 times daily. ibuprofen 200 MG tablet Take 200 mg by mouth every 6 hours as needed. Multiple Vitamin (multivitamin) capsule Take 1 capsule by mouth 2 times daily. omega-3 acid ethyl esters 1 g capsule Take 2 g by mouth 2 times daily. (Patient not taking: No sig reported) pentoxifylline 400 MG Tab CR tablet ER Take 1 tablet by mouth 3 times daily with meals. (Patient not taking: No sig reported) 90 tablet 3 SODIUM FLUORIDE, DENTAL GEL, 1.1 % Gel Apply 3-4 drops of gel directly to teeth. Do Not eat or drink for 30min. Once daily at bedtime. 1 Tube 12 TURMERIC PO Take by mouth 3 times daily. vitamin E 400 units capsule Take 1 capsule by mouth 2 times daily. (Patient not taking: No sig reported) 60 capsule 0 zinc sulfate 220 MG capsule Take 220 mg by mouth daily every morning. (Patient not taking: No sig reported) No current facility-administered medications for this visit. No Known Allergies Exam: Smoking Status Never Smoker Documented vital signs from today's visit reviewed. Physical exam including head and neck examination of the oral cavity, oropharynx, larynx, and hypopharynx including indirect mirror exam as well asinspection and palpation of the face, parotid and neck is remarkable for findings consistent with posttreatment postoperative changes and negative for new lesions, masses or lymphadenopathy. Oral cavity exam reveals the implant post x 2 with surrounding exposed bone. There is granulation tissue developing medial to the exposed bone. 1 x 1 cm lesion of right cheek within radiation field with central area of exposed hardware, slightly increased in size from prior. Right lower leg donor site well healed. Positive Tian's test on the left. CT Neck 07/21/2021 [facility] IMPRESSION: 1. Postsurgical changes following right maxillectomy and oral cavity resection with soft tissue flap reconstruction. No evidence of residual/recurrent disease. 2. Osseous composite graft reconstruction of the right maxilla with apparent exposure of the external fixation plate to the outside environment. No suspicious changes in the underlying graft cortex to suggest superimposed infection. 3. No adenopathy in the neck. CT Chest 07/21/2021 [facility] IMPRESSION: 1. Stable 7 mm right middle lobe nodule. No new suspicious nodules. 2. No intrathoracic lymphadenopathy. Impression/Plan: Mr. Argueta has a history of T4a N0 SCC Right maxilla s/p maxillectomy, neck dissection, fibula flap, and adjuvant radiation. Small area of exposed fibula now s/p debridement and application of A-cell powder on 06/08/20. Now with area of exposed fibula that has progressed to external hardware exposure noted along the right cheek. He is now interested in surgery. Surgical options, including removalof hardware and placement of obturator or free flap reconstruction, were discussed. - [facility] for obturator [facility] -Case request for hardware and fibular free flap removal, radial forearm free flap, possible rectusabdominis flap, possible left fibular free flap. -CT neck with contrast - Return to clinic in 5 months or sooner as needed Attending Physician Note I independently interviewed, examined and formulated the medical decision making. Details of my interview, examination findings, and medical decision- making confirmed the findings below. I have personally amended the below documentation where appropriate. S/p maxillectomy, fibula reconstruction, adjuvant XRT. ORN of midface/fibula with exposed plate. Pt has exposed midface plating and bone after fibula free tissue, immediate implantation Discussed removal of plate w/soft tissue reconstruction Discussed donor sites including L forearm vs rectus, possible ALT Pt has varicose veins, if vein graft necessary would likely need cephalic CTA for recipient vessels documented [facility] Instructions* Patient Instructions* Luz Marina Santiago MA - 04/27/2022 11:24 AM EDT Patient Medication Instructions: - Only take on the morning of surgery with a sip of water. Do not take any of your other medications on the morning of surgery. Current Outpatient Medications Medication Sig INSTRUCTIONS ASHWAGANDHA PO Oral, DAILY EVERY MORNING STOP taking 2 weeks prior to surgery aspirin 81 MG Chew Tab chewable tablet 81 mg, Oral, DAILY AT BEDTIME HOLD 7 days prior to surgery Calcium Acetate-Magnesium Carb 450-200 MG tablet 1 tablet, Oral, DAILY AT BEDTIME DO NOT take morning of surgery Cascben [place]rada 450 MG capsule Oral, DAILY EVERY MORNING STOP taking 2 weeks prior to surgery Chromium Picolinate (CHROMIUM PICOLATE PO) Oral, DAILY EVERY MORNING STOP taking 2 weeks prior to surgery Coenzyme Q10 (Co Q 10) 100 MG capsule 200 mg, Oral, DAILY EVERY MORNING STOP taking 2 weeks prior to surgery CVS D3 25 MCG (1000 UT) capsule 25 capsules, Oral, 2 TIMES DAILY STOP taking 2 weeks prior to surgery gabapentin 100 MG capsule 100 mg, Oral, 3 TIMES DAILY Take morning of surgery ibuprofen 200 MG tablet 200 mg, Oral, EVERY 6 HOURS NEEDED STOP taking 7-14 days prior to surgery Multiple Vitamin (multivitamin) capsule 1 capsule, Oral, 2 TIMES DAILY STOP taking 2 weeks prior tosurgery TURMERIC PO Oral, 3 TIMES DAILY STOP taking 2 weeks prior to surgery If you use an Inhaler/Inhalers on a daily basis, then use your inhaler on the morning of surgery. - DO NOT take herbal medications and supplements (including multi-vitamin, garlic, Glucosamine - Chondroitin, gingko, ginseng, Vitamin E, Vitamin A, probiotics) 2 weeks before surgery, unless otherwise instructed above. - DO NOT take Excedrin, ibuprofen, Advil, Voltaren (Diclofenac), Motrin, naproxen, or Aleve, Mobic (Meloxicam) for the 7-14 days before surgery. Acetaminophen (Tylenol) is ok to take up until the dayof surgery. Refrain from smoking and vaping at least 24 hrs prior to surgery. Patient Pre-Operative Instructions: Diet Instructions: -NO food or drink after 11 pm the night before surgery except for enough water to take your medications. (No Candy, Mints and/or Gum) - Do NOT wear any hearing aids, jewelry, watches, rings, hairpieces, makeup, glasses or contact lenses with you into your surgery. - Shower the night before and the morning of surgery. - Do NOT shave, or pluck hair from anywhere near the surgical site one week prior to surgery. - Diagonal your teeth and rinse your mouth the morning of surgery. - Do NOT bring your dentures or partials with you into surgery. They may be lost. Give them to someone to bring to you after surgery. If you are unable to complete your scheduled testing or appointments made by [facility] please contact [facility] at [phone]. Failure to do so could delay or cancel your surgery. If you become ill, develop a fever, cough, or any type of infection within 14 days of your scheduled surgery, please call the surgeon's office. You may need to have your surgery moved, as we would not want to put you at risk for complications due to an illness. If you are placed on Antibiotics within 1 week of surgery, please notify our team immediately. - If you have Sleep apnea and have a CPAP or BIPAP, then bring your CPAP mask and machine with you to the hospital. To lessen your chance of getting an infection after your surgery, you will need to wash your skin with a special soap called 4% Chlorhexidine Gluconate (CHG) before your surgery. Your nurse has givenyou CHG soap today and written instructions; Getting Your Skin Ready for Surgery . Please review the instructions carefully prior to your surgery. Please contact Medical Information Management Department for all records requests. [phone] AVS-MG [facility] History and physical note* Cathie Ruiz APRN-CONTAINER CRANE OPERATOR - 04/27/2022 10:30 AM EDT Images from the original note were not included. History of Present Illness Mr. Argueta is a 76 y.o. male is being evaluated in [facility] due to his medical condition(s) which increases his risk for perioperative complications. 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 Planned Procedure: REMOVAL HARDWARE - Right EXPLORATION TRAUMATIC WOUND NECK LARYNGOSCOPY DIRECT DIAGNOSTIC ESOPHAGOSCOPY DIAGNOSTIC TRACHEOSTOMY(psb) FLAP FREE RADIAL FOREARM FASCIAL(psb) - Left FLAP FREE RECTUS ABDOMINIS MUSCLE/VRAM/TRAM(psb) FLAP FREE ANTEROLATERAL THIGH (ALT) SKIN(psb) Do you take Aspirin: Yes - ASA 81mg, preventative, will hold 7 days prior to surgery Is the patient on AC: No ANESTHESIA/AIRWAY Anesthesia alerts - RAGHAVENDRA risk, Hx radiation head/neck, Hx trach, PONV, GERD Personal history of problems related to anesthesia (ex.Malignant Hyperthermia): No Family History of problems related to anesthesia (ex.Malignant Hyperthermia): No Pacer/AICD/DBS: No Do you have any cardiac stents: No Do you have a MediPort/Central line: No Last accessed: n/a Glaucoma: No Beta Autumn: No Diabetic Mellitus: No RAGHAVENDRA: High risk STOP-BANG Risk Assessment (3 or more YES responses is high risk) Do you snore - Yes Are you frequently tired during the day? - No Have you been observed gasping or choking while asleep? - No Do you have high blood pressure? - No Age more than 50? - Yes Gender male? - Yes Neck circumference greater than 40 cm: No Neck Circumference (cm): 38 BMI more then 35: No Body mass index is 23.19 kg/m . Airway Assessment Mallampati class - 3 TM Distance - 3 FB Oral Opening - 2 FB Teeth - tejon dentition, missing teeth Cervical range of motion - within normal limits Allergies and adverse drug reactions: No Known Allergies Anesthesia/Airway A/P - Denies history of lung disease or recent respiratory infections. Patient denies historical issues with anesthesia. No further pulmonary testing currently recommended. Does pt meet criteria for liberalized NPO? No. If no, why? uncontrolled gastroesophageal reflux disease Anesthesia Record personally reviewed: CARDIOVASCULAR History: Denies HTN, HLD, CAD, MS, CHF, CVA/TIA, chest pain/pressure, palpitations/arrhythmias, AICD/PPM/stent placement, orthopnea, VANG. Blood pressure 132/80, pulse 78, temperature 97.8 F (36.6 C), resp. rate 16, height 1.854 m (6' 1 ), weight 79.7 kg (175 lb 12.8 oz), SpO2 97 %. FUNCTIONAL STATUS: Moderate - reports able to climb 1 flight of stairs, can walk >250ft without chest pain/pressure or VANG Current blood pressure reading is within an acceptable range for surgery BP Readings from Last 3 Encounters: 04/30/22 157/77 04/27/22 137/77 04/27/22 132/80 1. Pulmonary embolism: Post-operative DVT/PE in November 2019. Treated with Eliquis; discontinued by PCP in May 2020. CARDIAC TESTING: EKG due to nature of procedure, age ECG: personally reviewed w/Dr Jones ECHOCARDIOGRAM 12/06/2019 Cardiovascular A/P: no further testing is indicated This patient is in a low risk category as calculated using the RCRI. RCRI score is 0 points placingthe patient at a Class I Risk, 3.9% cardiac risk in the perioperative setting PULMONARY Social History Tobacco Use Smoking Status Never Smoker Smokeless Tobacco Never Used Denies COPD, Asthma, SOB, frequent lung infections. Denies any ill symptoms today on exam. Denies history prolonged ventilation/extubation. Lungs CTA. Pulmonary Testing: XR CHEST PA AND LATERAL, 04/27/2022 Pulmonary A/P - Patient denies history of lung disease, active pulmonary complaints or concerns during this encounter. Patient denies recent respiratory infections. No further pulmonary further testing currently recommended. SUBSTANCE ABUSE Social History Substance and Sexual Activity Alcohol Use Not Currently Social History Substance and Sexual Activity Drug Use Not Currently Social History Socioeconomic History Marital status: Tobacco Use Smoking status: Never Smoker Smokeless tobacco: Never Used Vaping Use Vaping Use: Never used Substance and Sexual Activity Alcohol use: Not Currently Drug use: Not Currently Substance Abuse A/P - Denies regular/DAILY consumption of alcohol and/ no llicit drug use. CLOTTING/BLEEDING Clotting Bleeding A/P - Denies history of clotting or bleeding disorders. Recommend standard DVT/PE prophylaxis postoperatively. History of DVT/PE - Yes - Post-operative DVT/PE in November 2019. Treated with Eliquis; discontinued by PCP in May 2020. Are you a Jehovah Witness? - No In case of surgeons plan or unforseen emergency, are you okay with receiving blood products? - Yes Estimated Creatinine Clearance: 71 mL/min (by C-G formula based on SCr of 1.03 mg/dL). ENDOCRINE Diabetes A/P - Denies Hx of Diabetes Lab Results Component Value Date HGBA1C 5.5 08/11/2021 Lab Results Component Value Date GLUCOSE 103 (H) 04/27/2022 ADDITIONAL DIAGNOSES OF CONCERN GERD: Not currently taking medication. Patient denies symptoms MEDICATIONS Current Outpatient Medications Medication Sig ASHWAGANDHA PO Take by mouth daily every morning. aspirin 81 MG Chew Tab chewable tablet Chew 81 mg at bedtime. Calcium Acetate-Magnesium Carb 450-200 MG tablet Take 1 tablet by mouth at bedtime. Casc[place] 450 MG capsule Take by mouth daily every morning. Chromium Picolinate (CHROMIUM PICOLATE PO) Take by mouth daily every morning. Coenzyme Q10 (Co Q 10) 100 MG capsule Take 200 mg by mouth daily every morning. CVS D3 25 MCG (1000 UT) capsule Take 25 capsules by mouth 2 times daily. gabapentin 100 MG capsule Take 100 mg by mouth 3 times daily. ibuprofen 200 MG tablet Take 200 mg by mouth every 6 hours as needed. Multiple Vitamin (multivitamin) capsule Take 1 capsule by mouth 2 times daily. TURMERIC PO Take by mouth 3 times daily. chlorhexidine 0.12 % Solution oral solution Swish 15-20mL of liquid for 20 seconds and spit. Twice daily until finished. (Patient not taking: No sig reported) mupirocin 2 % ointment Apply a small amount in each nostril twice daily for 5 days prior to surgery. pentoxifylline 400 MG Tab CR tablet ER Take 1 tablet by mouth 3 times daily with meals. (Patient not taking: No sig reported) SODIUM FLUORIDE, DENTAL GEL, 1.1 % Gel Apply 3-4 drops of gel directly to teeth. Do Not eat or drink for 30min. Once daily at bedtime. vitamin E 400 units capsule Take 1 capsule by mouth 2 times daily. Medication A/P - Instructions for preoperative medications given to the patient in AVS. LABS Orders Placed This Encounter SCREEN: MRSA/MSSA XR CHEST PA AND LATERAL CBC, EDIF, PLATELET CHEM 7 (LYTES,BUN,CREA,GLUC) PROTIME-INR PTT WITH MIXING STUDY PTT W/MIXING STUDY PERF ONLY EXTRA LIGHT BLUE TOP DOUBLE SPIN CBC AND ELECTRONIC DIFF Type and Cross -Preadmission CVS D3 25 MCG (1000 UT) capsule ASHWAGANDHA PO Cascara [place] 450 MG capsule mupirocin 2 % ointment URINALYSIS REFLEX TO CULTURE URINALYSIS REFLEX TO CULTURE PERFORMABLE EXTRA MICRO KS ECG, CLINIC PERFORMED Lab Results Component Value Date ABORHDTYPE A POS 04/27/2022 Lab Results Component Value Date SODIUM 139 04/27/2022 POTASSIUM 4.6 04/27/2022 CHLORIDE 104 04/27/2022 CO2 29 04/27/2022 BUN 16 04/27/2022 CREATSERUM 1.03 04/27/2022 Lab Results Component Value Date WBC 5.10 04/27/2022 HGB 12.6 (L) 04/27/2022 HCT 39.7 04/27/2022 PLATELET 323 04/27/2022 MCV 89.0 04/27/2022 Lab Results Component Value Date TSH 1.441 11/28/2019 T4FREE 1.32 11/28/2019 Lab Results Component Value Date GLUCOSE 103 (H) 04/27/2022 MRSA: Negative MSSA: Positive - mupirocin ordered UA: Unremarkable; did not reflex to culture Lab A/P - Labs ordered per surgeon preference. Lab results dated 04/27/22 were reviewed; the resultswere within an acceptable range Anesthesia/Medical Assessment/plan: Reviewed patient's history, assessment & ECG findings with Anesthesiologist Dr Jones Patient is medically optimized at this time Cathie Ruiz APRN-CONTAINER CRANE OPERATOR [facility] Perioperative Clinic [facility] [address] [facility] Review of Systems Review of Systems Constitutional: Negative for chills, fatigue and fever. HENT: Negative for congestion, dental problem, ear pain, hearing loss, sore throat and trouble swallowing. Eyes: Negative for pain, redness and visual disturbance. Respiratory: Negative for apnea, cough, choking, chest tightness and shortness of breath. Cardiovascular: Negative for chest pain, palpitations and leg swelling. Gastrointestinal: Negative for abdominal pain, constipation, diarrhea, nausea and vomiting. Endocrine: Negative. Genitourinary: Negative for difficulty urinating and dysuria. Musculoskeletal: Negative for back pain, neck pain and neck stiffness. Skin: Negative for rash and wound. Allergic/Immunologic: Negative for food allergies. Neurological: Negative for seizures. Hematological: Does not bruise/bleed easily. Psychiatric/Behavioral: Negative for sleep disturbance. Physical Examination (PHYSEXAM)Physical Exam Constitutional: General: He is not in acute distress. Appearance: Normal appearance. He is not ill-appearing. HENT: Head: Normocephalic. Right Ear: External ear normal. Left Ear: External ear normal. Nose: Nose normal. Mouth/Throat: Mouth: Mucous membranes are moist. Eyes: Pupils: Pupils are equal, round, and reactive to light. Neck: Vascular: No carotid bruit. Cardiovascular: Rate and Rhythm: Normal rate and regular rhythm. Pulses: Normal pulses. Heart sounds: Normal heart sounds. No murmur heard. Pulmonary: Effort: Pulmonary effort is normal. No respiratory distress. Breath sounds: Normal breath sounds. Abdominal: General: Abdomen is flat. Bowel sounds are normal. Palpations: Abdomen is soft. Tenderness: There is no abdominal tenderness. Musculoskeletal: General: No swelling. Normal range of motion. Cervical back: Normal range of motion and neck supple. No rigidity. Right lower leg: No edema. Left lower leg: No edema. Skin: General: Skin is warm and dry. Capillary Refill: Capillary refill takes less than 2 seconds. Findings: No bruising, lesion or rash. Comments: Exposed hardware right maxilla, no drainage or erythema Neurological: General: No focal deficit present. Mental Status: He is alert and oriented to person, place, and time. Psychiatric: Mood and Affect: Mood normal. Behavior: Behavior normal. Past Medical History: Diagnosis Date History of head and neck radiation History of pulmonary embolism 11/2019 Post-operative DVT/PE in November 2019. Treated with Eliquis; discontinued by PCP in May 2020. 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 History of tracheostomy Past Surgical History: Procedure Laterality Date DEBRIDEMENT BONE N/A 06/08/2020 Laterality: N/A; Surgeon: Bobo Davidson MD; Location: [facility] MAIN OR PLACEMENT TUBE NASO-/LIANG-GASTRIC N/A 06/08/2020 Laterality: N/A; Surgeon: Bobo Davidson MD; Location: [facility] MA[facility] OR LARYNGOSCOPY DIRECT DIAGNOSTIC N/A 11/22/2019 Laterality: N/A; Surgeon: Bobo Davidson MD; Location: [facility] MA[facility] OR ESOPHAGOSCOPY DIAGNOSTIC N/A 11/22/2019 Laterality: N/A; Surgeon: Bobo Davidson MD; Location: [facility] MAIN OR MAXILLECTOMY W/O ORBITAL EXENTERATION Right 11/22/2019 Laterality: Right; Surgeon: Bobo Davidson MD; Location: [facility] MAIN OR LYMPHADENECTOMY CERVICAL (MODIFIED RADICAL NECK DISSECTION) Right 11/22/2019 Laterality: Right; Surgeon: Bobo Davidson MD; Location: [facility] OR TRACHEOSTOMY N/A 11/22/2019 Laterality: N/A; Surgeon: Bobo Davidson MD; Location: [facility] MA[facility] OR EXTRACTION TOOTH N/A 11/22/2019 Laterality: N/A; Surgeon: Bobo Davidson MD; Location: [facility] MA[facility] OR PLACEMENT TUBE NASO-/LIANG-GASTRIC N/A 11/22/2019 Laterality: N/A; Surgeon: Bobo Davidson MD; Location: [facility] MAIN OR FLAP FREE BONE W/ MICROVASCULAR ANASTOMOSIS FIBULA N/A 11/22/2019 Laterality: N/A; Surgeon: Joao Burch MD; Location: [facility] MA[facility] OR FLAP FREE RADIAL FOREARM FASCIAL Left 11/22/2019 Laterality: Left; Surgeon: Joao Burch MD; Location: [facility] MAIN OR APPENDECTOMY LIGATION OR 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 Patient Care Team: Cliff Fitzgerald MD as PCP - General (Family Medicine) Branden Goddard DDS as Referring Provider (Dentistry) Galo Domínguez MD (Radiation Oncology) Family History Problem Relation Age of Onset Diabetes Father Diabetes Paternal Grandmother Social History Socioeconomic History Marital status: Tobacco Use Smoking status: Never Smoker Smokeless tobacco: Never Used Vaping Use Vaping Use: Never used Substance and Sexual Activity Alcohol use: Not Currently Drug use: Not Currently [facility] and physical note* MELCOHR Jaffe - 04/27/2022 10:30 AM EDT Images from the original note were not included. History of Present Illness Mr. Argueta is a 76 y.o. male is being evaluated in [facility] due to his medical condition(s) which increases his risk for perioperative complications. 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 Planned Procedure: REMOVAL HARDWARE - Right EXPLORATION TRAUMATIC WOUND NECK LARYNGOSCOPY DIRECT DIAGNOSTIC ESOPHAGOSCOPY DIAGNOSTIC TRACHEOSTOMY(psb) FLAP FREE RADIAL FOREARM FASCIAL(psb) - Left FLAP FREE RECTUS ABDOMINIS MUSCLE/VRAM/TRAM(psb) FLAP FREE ANTEROLATERAL THIGH (ALT) SKIN(psb) Do you take Aspirin: Yes - ASA 81mg, preventative, will hold 7 days prior to surgery Is the patient on AC: No ANESTHESIA/AIRWAY Anesthesia alerts - RAGHAVENDRA risk, Hx radiation head/neck, Hx trach, PONV, GERD Personal history of problems related to anesthesia (ex.Malignant Hyperthermia): No Family History of problems related to anesthesia (ex.Malignant Hyperthermia): No Pacer/AICD/DBS: No Do you have any cardiac stents: No Do you have a MediPort/Central line: No Last accessed: n/a Glaucoma: No Beta Autumn: No Diabetic Mellitus: No RAGHAVENDRA: High risk STOP-BANG Risk Assessment (3 or more YES responses is high risk) Do you snore - Yes Are you frequently tired during the day? - No Have you been observed gasping or choking while asleep? - No Do you have high blood pressure? - No Age more than 50? - Yes Gender male? - Yes Neck circumference greater than 40 cm: No Neck Circumference (cm): 38 BMI more then 35: No Body mass index is 23.19 kg/m . Airway Assessment Mallampati class - 3 TM Distance - 3 FB Oral Opening - 2 FB Teeth - tejon dentition, missing teeth Cervical range of motion - within normal limits Allergies and adverse drug reactions: No Known Allergies Anesthesia/Airway A/P - Denies history of lung disease or recent respiratory infections. Patient denies historical issues with anesthesia. No further pulmonary testing currently recommended. Does pt meet criteria for liberalized NPO? No. If no, why? uncontrolled gastroesophageal reflux disease Anesthesia Record personally reviewed: CARDIOVASCULAR History: Denies HTN, HLD, CAD, MS, CHF, CVA/TIA, chest pain/pressure, palpitations/arrhythmias, AICD/PPM/stent placement, orthopnea, VANG. Blood pressure 132/80, pulse 78, temperature 97.8 F (36.6 C), resp. rate 16, height 1.854 m (6' 1 ), weight 79.7 kg (175 lb 12.8 oz), SpO2 97 %. FUNCTIONAL STATUS: Moderate - reports able to climb 1 flight of stairs, can walk >250ft without chest pain/pressure or VANG Current blood pressure reading is within an acceptable range for surgery BP Readings from Last 3 Encounters: 04/30/22 157/77 04/27/22 137/77 04/27/22 132/80 1. Pulmonary embolism: Post-operative DVT/PE in November 2019. Treated with Eliquis; discontinued by PCP in May 2020. CARDIAC TESTING: EKG due to nature of procedure, age ECG: personally reviewed w/Dr Jones ECHOCARDIOGRAM 12/06/2019 Cardiovascular A/P: no further testing is indicated This patient is in a low risk category as calculated using the RCRI. RCRI score is 0 points placingthe patient at a Class I Risk, 3.9% cardiac risk in the perioperative setting PULMONARY Social History Tobacco Use Smoking Status Never Smoker Smokeless Tobacco Never Used Denies COPD, Asthma, SOB, frequent lung infections. Denies any ill symptoms today on exam. Denies history prolonged ventilation/extubation. Lungs CTA. Pulmonary Testing: XR CHEST PA AND LATERAL, 04/27/2022 Pulmonary A/P - Patient denies history of lung disease, active pulmonary complaints or concerns during this encounter. Patient denies recent respiratory infections. No further pulmonary further testing currently recommended. SUBSTANCE ABUSE Social History Substance and Sexual Activity Alcohol Use Not Currently Social History Substance and Sexual Activity Drug Use Not Currently Social History Socioeconomic History Marital status: Tobacco Use Smoking status: Never Smoker Smokeless tobacco: Never Used Vaping Use Vaping Use: Never used Substance and Sexual Activity Alcohol use: Not Currently Drug use: Not Currently Substance Abuse A/P - Denies regular/DAILY consumption of alcohol and/ no llicit drug use. CLOTTING/BLEEDING Clotting Bleeding A/P - Denies history of clotting or bleeding disorders. Recommend standard DVT/PE prophylaxis postoperatively. History of DVT/PE - Yes - Post-operative DVT/PE in November 2019. Treated with Eliquis; discontinued by PCP in May 2020. Are you a Jehovah Witness? - No In case of surgeons plan or unforseen emergency, are you okay with receiving blood products? - Yes Estimated Creatinine Clearance: 71 mL/min (by C-G formula based on SCr of 1.03 mg/dL). ENDOCRINE Diabetes A/P - Denies Hx of Diabetes Lab Results Component Value Date HGBA1C 5.5 08/11/2021 Lab Results Component Value Date GLUCOSE 103 (H) 04/27/2022 ADDITIONAL DIAGNOSES OF CONCERN GERD: Not currently taking medication. Patient denies symptoms MEDICATIONS Current Outpatient Medications Medication Sig ASHWAGANDHA PO Take by mouth daily every morning. aspirin 81 MG Chew Tab chewable tablet Chew 81 mg at bedtime. Calcium Acetate-Magnesium Carb 450-200 MG tablet Take 1 tablet by mouth at bedtime. Cascara [place] 450 MG capsule Take by mouth daily every morning. Chromium Picolinate (CHROMIUM PICOLATE PO) Take by mouth daily every morning. Coenzyme Q10 (Co Q 10) 100 MG capsule Take 200 mg by mouth daily every morning. CVS D3 25 MCG (1000 UT) capsule Take 25 capsules by mouth 2 times daily. gabapentin 100 MG capsule Take 100 mg by mouth 3 times daily. ibuprofen 200 MG tablet Take 200 mg by mouth every 6 hours as needed. Multiple Vitamin (multivitamin) capsule Take 1 capsule by mouth 2 times daily. TURMERIC PO Take by mouth 3 times daily. chlorhexidine 0.12 % Solution oral solution Swish 15-20mL of liquid for 20 seconds and spit. Twice daily until finished. (Patient not taking: No sig reported) mupirocin 2 % ointment Apply a small amount in each nostril twice daily for 5 days prior to surgery. pentoxifylline 400 MG Tab CR tablet ER Take 1 tablet by mouth 3 times daily with meals. (Patient not taking: No sig reported) SODIUM FLUORIDE, DENTAL GEL, 1.1 % Gel Apply 3-4 drops of gel directly to teeth. Do Not eat or drink for 30min. Once daily at bedtime. vitamin E 400 units capsule Take 1 capsule by mouth 2 times daily. Medication A/P - Instructions for preoperative medications given to the patient in AVS. LABS Orders Placed This Encounter SCREEN: MRSA/MSSA XR CHEST PA AND LATERAL CBC, EDIF, PLATELET CHEM 7 (LYTES,BUN,CREA,GLUC) PROTIME-INR PTT WITH MIXING STUDY PTT W/MIXING STUDY PERF ONLY EXTRA LIGHT BLUE TOP DOUBLE SPIN CBC AND ELECTRONIC DIFF Type and Cross -Preadmission CVS D3 25 MCG (1000 UT) capsule ASHWAGANDHA PO Cascara [place] 450 MG capsule mupirocin 2 % ointment URINALYSIS REFLEX TO CULTURE URINALYSIS REFLEX TO CULTURE PERFORMABLE EXTRA MICRO KS ECG, CLINIC PERFORMED Lab Results Component Value Date ABORHDTYPE A POS 04/27/2022 Lab Results Component Value Date SODIUM 139 04/27/2022 POTASSIUM 4.6 04/27/2022 CHLORIDE 104 04/27/2022 CO2 29 04/27/2022 BUN 16 04/27/2022 CREATSERUM 1.03 04/27/2022 Lab Results Component Value Date WBC 5.10 04/27/2022 HGB 12.6 (L) 04/27/2022 HCT 39.7 04/27/2022 PLATELET 323 04/27/2022 MCV 89.0 04/27/2022 Lab Results Component Value Date TSH 1.441 11/28/2019 T4FREE 1.32 11/28/2019 Lab Results Component Value Date GLUCOSE 103 (H) 04/27/2022 MRSA: Negative MSSA: Positive - mupirocin ordered UA: Unremarkable; did not reflex to culture Lab A/P - Labs ordered per surgeon preference. Lab results dated 04/27/22 were reviewed; the resultswere within an acceptable range Anesthesia/Medical Assessment/plan: Reviewed patient's history, assessment & ECG findings with Anesthesiologist Dr Jones Patient is medically optimized at this time Cathie Ruiz APRN-KHURRAM [facility] Perioperative Clinic [facility] [address] [facility] Review of Systems Review of Systems Constitutional: Negative for chills, fatigue and fever. HENT: Negative for congestion, dental problem, ear pain, hearing loss, sore throat and trouble swallowing. Eyes: Negative for pain, redness and visual disturbance. Respiratory: Negative for apnea, cough, choking, chest tightness and shortness of breath. Cardiovascular: Negative for chest pain, palpitations and leg swelling. Gastrointestinal: Negative for abdominal pain, constipation, diarrhea, nausea and vomiting. Endocrine: Negative. Genitourinary: Negative for difficulty urinating and dysuria. Musculoskeletal: Negative for back pain, neck pain and neck stiffness. Skin: Negative for rash and wound. Allergic/Immunologic: Negative for food allergies. Neurological: Negative for seizures. Hematological: Does not bruise/bleed easily. Psychiatric/Behavioral: Negative for sleep disturbance. Physical Examination (PHYSEXAM)Physical Exam Constitutional: General: He is not in acute distress. Appearance: Normal appearance. He is not ill-appearing. HENT: Head: Normocephalic. Right Ear: External ear normal. Left Ear: External ear normal. Nose: Nose normal. Mouth/Throat: Mouth: Mucous membranes are moist. Eyes: Pupils: Pupils are equal, round, and reactive to light. Neck: Vascular: No carotid bruit. Cardiovascular: Rate and Rhythm: Normal rate and regular rhythm. Pulses: Normal pulses. Heart sounds: Normal heart sounds. No murmur heard. Pulmonary: Effort: Pulmonary effort is normal. No respiratory distress. Breath sounds: Normal breath sounds. Abdominal: General: Abdomen is flat. Bowel sounds are normal. Palpations: Abdomen is soft. Tenderness: There is no abdominal tenderness. Musculoskeletal: General: No swelling. Normal range of motion. Cervical back: Normal range of motion and neck supple. No rigidity. Right lower leg: No edema. Left lower leg: No edema. Skin: General: Skin is warm and dry. Capillary Refill: Capillary refill takes less than 2 seconds. Findings: No bruising, lesion or rash. Comments: Exposed hardware right maxilla, no drainage or erythema Neurological: General: No focal deficit present. Mental Status: He is alert and oriented to person, place, and time. Psychiatric: Mood and Affect: Mood normal. Behavior: Behavior normal. Past Medical History: Diagnosis Date History of head and neck radiation History of pulmonary embolism 11/2019 Post-operative DVT/PE in November 2019. Treated with Eliquis; discontinued by PCP in May 2020. 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 History of tracheostomy Past Surgical History: Procedure Laterality Date DEBRIDEMENT BONE N/A 06/08/2020 Laterality: N/A; Surgeon: Bobo Davidson MD; Location: [facility] MA[facility] OR PLACEMENT TUBE NASO-/LIANG-GASTRIC N/A 06/08/2020 Laterality: N/A; Surgeon: Bobo Davidson MD; Location: [facility] MAIN OR LARYNGOSCOPY DIRECT DIAGNOSTIC N/A 11/22/2019 Laterality: N/A; Surgeon: Bobo Davidson MD; Location: [facility] MAIN OR ESOPHAGOSCOPY DIAGNOSTIC N/A 11/22/2019 Laterality: N/A; Surgeon: Bobo Davidson MD; Location: [facility] MAIN OR MAXILLECTOMY W/O ORBITAL EXENTERATION Right 11/22/2019 Laterality: Right; Surgeon: Bobo Davidson MD; Location: [facility] MAIN OR LYMPHADENECTOMY CERVICAL (MODIFIED RADICAL NECK DISSECTION) Right 11/22/2019 Laterality: Right; Surgeon: Bobo Davidson MD; Location: [facility] MAIN OR TRACHEOSTOMY N/A 11/22/2019 Laterality: N/A; Surgeon: Bobo Davidson MD; Location: [facility] MAIN OR EXTRACTION TOOTH N/A 11/22/2019 Laterality: N/A; Surgeon: Boob Davidson MD; Location: [facility] MAIN OR PLACEMENT TUBE NASO-/LIANG-GASTRIC N/A 11/22/2019 Laterality: N/A; Surgeon: Bobo Davidson MD; Location: [facility] MAIN OR FLAP FREE BONE W/ MICROVASCULAR ANASTOMOSIS FIBULA N/A 11/22/2019 Laterality: N/A; Surgeon: Joao Burch MD; Location: [facility] MAIN OR FLAP FREE RADIAL FOREARM FASCIAL Left 11/22/2019 Laterality: Left; Surgeon: Joao Burch MD; Location: [facility] MAIN OR APPENDECTOMY LIGATION OR 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 Patient Care Team: Cliff Fitzgerald MD as PCP - General (Family Medicine) Branden Goddard DDS as Referring Provider (Dentistry) Galo Domínguez MD (Radiation Oncology) Family History Problem Relation Age of Onset Diabetes Father Diabetes Paternal Grandmother Social History Socioeconomic History Marital status: Tobacco Use Smoking status: Never Smoker Smokeless tobacco: Never Used Vaping Use Vaping Use: Never used Substance and Sexual Activity Alcohol use: Not Currently Drug use: Not Currently [facility] History of Present illness Narrative* Michelle Jones MD - 04/27/2022 10:30 AM EDT No surgery scheduled - has exposed hardware Hx neck radiation 2019 anesthesia record reviewed [facility] Instructions* Patient Instructions* Elena Méndez RN - 04/20/2022 12:11 PM EDT Please call Dr. Davidson's nurse at [phone] if you notice any new lumps in head or neck, new onsetof difficulty with swallowing, persistent ear pain, hoarseness or new pains in head and neck that don't go away for 2 weeks. For covid vaccine call [phone] ([phone]). [facility] NoteCONSULTATION CONSULTATION DATE: 02/10/2022 HISTORY OF PRESENT ILLNESS: This is a very pleasant, 76-year-old gentleman, accompanied by his to the clinic today for a three month follow up for left hip pain. He was last seen in the clinic on 11/02/[address] Echeverrai and, at that time, he had significant pain to his left hip. Patient has since had that hip replaced by Dr. Foley in [place]. That was a very successful surgery and patient is currently pain free to that hip. He has chronic pain to his right hip with severe bone on bone arthritis. He describes it as sharp and 8/10. He has a scheduled right hip replacement this coming March of 2022. Medications currently include ibuprofen p.r.n., a multivitamin regimen and gabapentin 100 mg t.i.d. 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 Patient denies any new pain patterns or vasomotor weakness. 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 Patient's REVIEW OF SYSTEMS / PAST MEDICAL HISTORY / ALLERGIES and IMAGES have been reviewed and they are noted on the chart. PHYSICAL EXAM: VITALS: Blood pressure 118/74, heart rate is 70. Oxygen is 98%. Temperature is 97.5. He is 6' tall and weighs 82 kg. GENERAL APPEARANCE: Pleasant, appropriate, no acute distress. is present. FOCUSED EXAM - BACK: Range of motion is within functional limits in lateral rotation and flexion/extension. Paravertebral muscles are non-spasmodic. No reproduction of spinal axial pain to direct compression along the posterior elements of the lumbar facets. LEFT HIP: Palpation reproduces patient's pain symptomatology as does adduction and abduction. MUSCULOSKELETAL: Motor is intact, 4/5 bilaterally, left slightly weaker than right secondary to hip pathology. NEUROLOGICALLY: Negative polyneuropathy. +1 bilateral patellar reflexes. IMPRESSION: Right hip osteoarthritis and history of oral cancer. PLAN: We will restart the patient on tramadol as he feels he would need it occasionally to help manage the pain until his right hip replacement. We will start 50 mg b.i.d. p.r.n. He is to continue his gabapentin as well. Nutrition and vitamin importance was stressed and patient is compliant with his vitamin regimen. Will see the patient in three months' time unless otherwise indicated. [facility] Signed and Approved by: HALLEY SCHNEIDER . 02/17/2022 16:01:00[facility]02-15-2022 NoteCONSULTATION CHIEF COMPLAINT: Bilateral hip pain, left greater than right; left knee pain. HISTORY OF PRESENT ILLNESS: This is a very pleasant, 74-year-old gentleman who is accompanied by his . The patient has chronic bilateral hip pain and left knee pain. We have x-rays that we are reviewing in office today. The patient reports pain is a 5-6/10, a sharp pain. The patient's history is also complicated by the fact that the patient is status post radiation secondary to oral cancer. Has a non-healing wound on the maxillary area on the right hand side of the face, and the patient has facial pain. The patient currently takes baclofen 10 mg h.s. The patient will be traveling here in the near future on a vacation. The patient also takes ibuprofen 400 mg on a b.i.d. basis, along with a vitamin regimen. The patient was wanting recommendations on Dr. Foley, orthopedic surgeon. PAST MEDICAL HISTORY / PAST SURGICAL HISTORY / REVIEW OF SYSTEMS are noted on the chart, along with the MEDICATION LIST / ALLERGIES and RADIOLOGICAL IMAGES, including the x-rays which were shared with the patient and his . PHYSICAL EXAMINATION: GENERAL: This is a pleasant, cooperative gentleman, who does not appear to be in any acute distress. VITAL SIGNS: Stable at 151/81, with a heart rate of 77. At a height of 6'1 , the patient weighs 189 pounds. FOCUSED EVALUATION: The patient still has hyperpathia allodynia along the V2 distribution on the right hand side of his face. With regards to the hips, the crepitus is noted. Gross evident osteoarthritis is present on the x-rays and radiological images, which were shared with the patient and his . IMPRESSION: Current working diagnosis on the patient is bilateral osteoarthritis of the hips bilaterally, left more painful than the right; left knee pain. The patient also has status post RT (radiation therapy) for oral cancer, V2 trigeminal neuralgia. PLAN: 1. We will request an orthopedic consult from Dr. Foley. 2. Patient will take tramadol 50 mg, one tablet p.o. b.i.d. Gabapentin 300 mg on a t.i.d. basis has been noted to the patient; however, the patient will be starting in a wrap manner, starting from the evening dose, which will be at dusk to the noon dose and then morning, should he require it. The patient and his understand and would like to progress. The patient will be contacting our office subsequent to having been seen by Dr. Foley. CC: Dr. Fitzgerald [facility] Signed and Approved by: DR ELTICIA ECHEVERRIA . 11/09/2021 08:56:00[facility]01-25-2022 NoteCONSULTATION PAIN MANAGEMENT CONSULTATION CHIEF COMPLAINT: Bilateral hip pain, left leg greater than right, and bilateral leg pain. HISTORY OF PRESENT ILLNESS: This is a very pleasant 75-year-old gentleman who has had gradual increasing of his pain, left hip and leg more so. He rates the pain as a 5/10, a sharp, achy pain. The pain is worse in the morning. ADLs, activities, housework, standing aggravate the patient's pain as does lifting his leg feels heavy to him. He takes Motrin and multivitamin regimen. The patient is status post maxillofacial reconstruction for cancer; status post radiation treatment for this. He also has discomfort along his mouth and jaw on the right-hand side. He has undergone facial and palate reconstruction. PAST MEDICAL HISTORY, SURGICAL HISTORY, REVIEW OF SYSTEMS ARE NOTED ON THE CHART ALONG WITH THE MEDICATION LIST, ALLERGIES AND NO RECENT RADIOLOGICAL IMAGES ARE AVAILABLE. THE PATIENT HAD VASCULAR STUDIES PERFORMED RECENTLY THAT WERE WITHIN NORMAL LIMITS BY DR. FITZGERALD. PHYSICAL EXAMINATION: This is a pleasant, cooperative gentleman who does not appear to be in any acute distress. VITAL SIGNS: Stable, slightly elevated at 156/91 with a heart rate of 92, height of 6'1 and the patient weighs 83 kg. FOCUSED EVALUATION: The patient has dysphonia secondary to the surgical intervention. Slight tissue breakdown is noted where the patient had received radiation treatment and is currently under care for that. Facial asymmetry is noted. With regards to the low back, loss of lumbar lordosis is noted. Pelvis is rotated anteriorly. EXTREMITIES: No pedal edema is noted. MUSCULOSKELETAL: Quad weakness is present bilaterally, left-hand side greater than right-hand side. NEUROLOGICALLY: Hypesthesia, hyperpathia is noted along the L3 distribution on the left-hand side compared to the right-hand side. Motor is normal to functional limits. PSYCHIATRIC: Affect is appropriate. The patient has a very supportive who is present and his helpful with his history. CURRENT WORKING DIAGNOSIS: Bilateral hip pain, left greater than right; lumbar radiculitis/neuritis; lumbar spondylosis. PLAN: We will get an x-ray of the patient's hips bilaterally and his lumbar spine. The patient will be started on magnesium 400 mg along with Baclofen 10 mg. With regards to his maxillofacial pain, we have suggested topical clove oil application to see if this mitigates his pain symptomatology. The patient will be scheduled for lumbar epidural steroid injection under fluoroscopy. The patient will be followed up in the office subsequent to that. CC; Cliff Fitzgerald M.D. [facility] Signed and Approved by: DR LETICIA ECHEVERRIA . 10/19/2021 08:02:00[facility]08-11-2021 History of Present illness Narrative* Bobo Davidson MD - 04/28/2021 1:00 PM EDT Attending Physician Note I independently interviewed, examined and formulated the medical decision making. Details of my interview, examination findings, and medical decision- making confirmed the findings above. I have personally amended the below documentation where appropriate. I saw this patient with Rolanda Ignacio and pe rsonally wrote the impression and plan. Doing well , developing some ORN of the maxilla and fibula transfer with 1 mm plate exposure. Discussed possibility of needing to remove the plate down the line if it continues to progress, will monitor again in 3-4 months or sooner if issues arise. * Rolanda Ignacio PA-C - 04/28/2021 1:00 PM EDT HPI: Lilly Argueta is a 75 y.o. 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 Patient presents today for follow up of a cheek lesion that was present at the last visit, but has now since started draining. He denies fevers and signs of infection. Nursing documentation has been reviewed. Past Medical History: Diagnosis Date History of head and neck radiation History of pulmonary embolism 11/2019 Post-operative DVT/PE in November 2019. Treated with Eliquis; discontinued by PCP in May 2020. 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 History of tracheostomy Past Surgical History: Procedure Laterality Date DEBRIDEMENT BONE N/A 06/08/2020 Laterality: N/A; Surgeon: Bobo Davidson MD; Location: [facility] MAIN OR PLACEMENT TUBE NASO-/LIANG-GASTRIC N/A 06/08/2020 Laterality: N/A; Surgeon: Bobo Davidson MD; Location: [facility] MAIN OR LARYNGOSCOPY DIRECT DIAGNOSTIC N/A 11/22/2019 Laterality: N/A; Surgeon: Bobo Davidson MD; Location: [facility] MAIN OR ESOPHAGOSCOPY DIAGNOSTIC N/A 11/22/2019 Laterality: N/A; Surgeon: Bobo Davidson MD; Location: [facility] MAIN OR MAXILLECTOMY W/O ORBITAL EXENTERATION Right 11/22/2019 Laterality: Right; Surgeon: Bobo Davidson MD; Location: [facility] MAIN OR LYMPHADENECTOMY CERVICAL (MODIFIED RADICAL NECK DISSECTION) Right 11/22/2019 Laterality: Right; Surgeon: Bobo Davidson MD; Location: [facility] MAIN OR TRACHEOSTOMY N/A 11/22/2019 Laterality: N/A; Surgeon: Bobo Davidson MD; Location: [facility] MAIN OR EXTRACTION TOOTH N/A 11/22/2019 Laterality: N/A; Surgeon: Bobo Davidson MD; Location: [facility] MAIN OR PLACEMENT TUBE NASO-/LIANG-GASTRIC N/A 11/22/2019 Laterality: N/A; Surgeon: Bobo Davidson MD; Location: [facility] MAIN OR FLAP FREE BONE W/ MICROVASCULAR ANASTOMOSIS FIBULA N/A 11/22/2019 Laterality: N/A; Surgeon: Joao Burch MD; Location: [facility] MAIN OR FLAP FREE RADIAL FOREARM FASCIAL Left 11/22/2019 Laterality: Left; Surgeon: Joao Burch MD; Location: [facility] MAIN OR APPENDECTOMY LIGATION OR 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 Current Outpatient Medications Medication Sig Dispense Refill aspirin 81 MG Chew Tab chewable tablet Chew 81 mg at bedtime. Calcium Acetate-Magnesium Carb 450-200 MG tablet Take 1 tablet by mouth at bedtime. Chromium Picolinate (CHROMIUM PICOLATE PO) Take by mouth daily every morning. Coenzyme Q10 (Co Q 10) 100 MG capsule Take 200 mg by mouth daily every morning. ibuprofen 200 MG tablet Take 200 mg by mouth every 6 hours as needed. Multiple Vitamin (multivitamin) capsule Take 1 capsule by mouth daily every morning. omega-3 acid ethyl esters 1 g capsule Take 2 g by mouth 2 times daily. pentoxifylline 400 MG Tab CR tablet ER Take 1 tablet by mouth 3 times daily with meals. 90 tablet 0 SODIUM FLUORIDE, DENTAL GEL, 1.1 % Gel Apply 3-4 drops of gel directly to teeth. Do Not eat or drink for 30min. Once daily at bedtime. 1 Tube 12 TURMERIC PO Take by mouth daily. vitamin E 400 units capsule Take 1 capsule by mouth 2 times daily. (Patient not taking: Reported on03/10/2021) 60 capsule 0 zinc sulfate 220 MG capsule Take 220 mg by mouth daily. No current facility-administered medications for this visit. No Known Allergies Exam: BP 155/81 (BP Location: Left arm, BP Position: Sitting) Pulse 73 Temp 96.5 F (35.8 C) (Temporal) Resp 16 Wt 81.4 kg (179 lb 8 oz) SpO2 98% BMI 23.68 kg/m Smoking Status Never Smoker Documented vital signs from today's visit reviewed. Physical exam including head and neck examination of the oral cavity, oropharynx, larynx, and hypopharynx including indirect mirror exam as well asinspection and palpation of the face, parotid and neck is remarkable for findings consistent with posttreatment postoperative changes and negative for new lesions, masses or lymphadenopathy. Oral cavity exam reveals the implant post x 2 with surrounding exposed bone. There is granulation tissue developing medial to the exposed bone. Appears mildly improved compared to previous, no plate visible on exam today. Right lower leg donor site well healed. 1 x 1 cm lesion of right cheek within radiation field now with small central area of exposed metal with slight amount of purulent drainage noted. Impression/Plan: Mr. Argueta has T4a N0 SCC Right maxilla s/p maxillectomy, neck dissection, fibula flap, and adjuvant radiation. Small area of exposed fibula now s/p debridement and application of A-cell powder on 06/08. Now with [id number] improving area of exposed fibula that has now progressed to external hardware exposure noted along the right cheek. Discussed that he will likely need surgical management and removal of hardware. - Vit E and Trental - RTC in 3 months [facility] No data available for this section [facility] [place] [facility] note* Diagnosis Lung nodule Solitary pulmonary nodule [facility]* Diagnosis Oral cancer- Primary Malignant neoplasm of mouth, unspecified site [facility]* Diagnosis 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- Primary Malignant neoplasm of upper gum [facility]* Diagnosis Preop exam for internal medicine Other specified pre-operative examination 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 [facility] Diagnosis 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 [facility] Diagnosis Preop exam for internal medicine- Primary Other specified pre-operative examination 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 Preop exam for internal medicine Other specified pre-operative examination 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 [facility] Diagnosis Postoperative state- Primary Other postprocedural status 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 History of head and neck cancer History of tracheostomy Tracheostomy status History of head and neck radiation Personal history of irradiation, presenting hazards to health History of pulmonary embolism Personal history of pulmonary embolism [facility] Diagnosis 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- Primary Malignant neoplasm of upper gum [facility] Diagnosis 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- Primary Malignant neoplasm of upper gum [facility] Diagnosis 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- Primary Malignant neoplasm of upper gum S/P flap graft Other postprocedural status S/P radiation therapy Convalescence following radiotherapy Partial edentulism, unspecified edentulism class documented [facility] Diagnosis Preop exam for internal medicine- Primary Other specified pre-operative examination 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 History of pulmonary embolism Personal history of pulmonary embolism Gastroesophageal reflux disease without esophagitis Esophageal reflux PONV (postoperative nausea and vomiting) Nausea with vomiting History of tracheostomy Tracheostomy status 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 [facility] Diagnosis 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- Primary Malignant neoplasm of upper gum S/P flap graft Other postprocedural status S/P radiation therapy Convalescence following radiotherapy Partial edentulism, unspecified edentulism class documented [facility] Diagnosis 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- Primary Malignant neoplasm of upper gum [facility] Diagnosis Oral cancer- Primary Malignant neoplasm of mouth, unspecified site [facility] Diagnosis 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- Primary Malignant neoplasm of upper gum S/P flap graft Other postprocedural status S/P radiation therapy Convalescence following radiotherapy Partial edentulism, unspecified edentulism class documented [facility] Diagnosis Oral cancer- Primary Malignant neoplasm of mouth, unspecified site [facility] Diagnosis 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- Primary Malignant neoplasm of upper gum S/P flap graft Other postprocedural status S/P radiation therapy Convalescence following radiotherapy Partial edentulism, unspecified edentulism class documented [facility] Diagnosis 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- Primary Malignant neoplasm of upper gum S/P flap graft Other postprocedural status S/P radiation therapy Convalescence following radiotherapy Partially edentulous maxilla, unspecified edentulism class [facility] Diagnosis Risk for dental caries, high- Primary 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 S/P flap graft Other postprocedural status S/P radiation therapy Convalescence following radiotherapy [facility] Diagnosis 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- Primary Malignant neoplasm of upper gum S/P flap graft Other postprocedural status S/P radiation therapy Convalescence following radiotherapy Prosthesis adjustment Fitting and adjustment of unspecified prosthetic device [facility] Diagnosis Left inguinal hernia- Primary Inguinal hernia without mention of obstruction or gangrene, unilateral or unspecified, (not specified as recurrent) Family history of colon cancer Family history of malignant neoplasm of gastrointestinal tract History of head and neck cancer documented in this encounter [facility]* Diagnosis Preop examination- Primary Unspecified pre-operative examination documented in this encounter [facility]* Diagnosis Status post left inguinal hernia repair- Primary Other postprocedural status documented in this encounter [facility]* Diagnosis Seborrheic keratosis- Primary History of nevus excision Lentigines Melanocytic nevus of face, other location Melanocytic nevus of trunk Benign neoplasm of skin of trunk, except scrotum documented in this encounter [facility] HealthcareEvaluation note* Diagnosis 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- Primary Malignant neoplasm of upper gum [facility] No data available for this section [facility] [place] InstructionsNot on filedocumented in this encounter [facility] filedocumented in this [facility] No data available for this section [facility] [place] Reason for visit Narrative* Auth/CertSpecialtyDiagnoses / ProceduresReferred By ContactReferred To Contact 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] Procedures KS INSERT AND REMOVE BONE PIN KS FREE FASCIAL FLAP W MICROVASC ANAST KS FREE MUSC-SKIN FLAP W/MICROVASC ANAST KS EXPLORE WOUND,NECK KS LARYNGOSCOPY,DIRECT,DIAGNOSTIC KS ESOPHAGOSCOPY FLEXIBLE TRANSORAL DIAGNOSTIC KS TRACHEOSTOMY, PLANNED KS FREE SKIN FLAP W MICROVASC ANAST REMOVAL HARDWARE FLAP FREE RADIAL FOREARM FASCIAL FLAP FREE RECTUS ABDOMINIS MUSCLE/VRAM/TRAM EXPLORATION TRAUMATIC WOUND NECK LARYNGOSCOPY DIRECT DIAGNOSTIC ESOPHAGOSCOPY DIAGNOSTIC TRACHEOSTOMY FLAP FREE ANTEROLATERAL THIGH (ALT) SKIN Bobo Davidson MD [address] [place] [address] [facility] [address] [place] [address] Referral IDStatusReasonStart DateExpiration DateVisits RequestedVisits [id number] [facility] Summary Purpose Family History No Family History Records FoundNo Family History Records FoundNo Family History Records Found No data available for this section No Family History Records FoundNo Family History Records FoundNo Family History Records FoundNo Family History Records FoundNo Family History Records Found Advance Directives No Advanced Directives Records FoundDocuments on File TypeDate RecordedPatient RepresentativeExplanationAdvance Directives and Living WillPower of AttorneyCode StatusDate ActivatedDate InactivatedCommentsFull Code 12/06/2019 1:46 PMCode StatusDate ActivatedDate InactivatedCommentsFull Code 06/08/2020 6:06 AMFull Code11/23/2019 12:52 AM06/08/2020 6:06 AMFull Code11/22/2019 5:21 AM11/23/2019 12:52 AMCode StatusDate ActivatedDate InactivatedCommentsFull Code06/08/2020 6:06 AMFull Code11/23/2019 12:52 AM06/08/2020 6:06 AMFull Code 11/22/2019 5:21 AM11/23/2019 12:52 AMCode StatusDate ActivatedDate Inactivated CommentsFull Code05/27/2022 5:44 AMFull Code06/08/2020 6:06 AM05/27/2022 5:44 AMCode StatusDate ActivatedDate InactivatedCommentsFull Code05/27/2022 5:44 AMFull Code 06/08/2020 6:06 AM05/27/2022 5:44 AMCode StatusDate ActivatedDate Inactivated CommentsFull Code05/27/2022 5:44 AMCode StatusDate ActivatedDate Inactivated CommentsFull Code06/08/2020 6:06 AM05/27/2022 5:44 AMFull Code11/23/2019 12:52 AM 06/08/2020 6:06 AMFull Code11/22/2019 5:21 AM11/23/2019 12:52 AMCode StatusDate ActivatedDate InactivatedCommentsFull Code02/24/2023 5:53 AMCode StatusDate ActivatedDate InactivatedCommentsFull Code05/27/2022 5:44 AM02/24/2023 5:53 AMFull Code06/08/2020 6:06 AM05/27/2022 5:44 AMFull Code11/23/2019 12:52 AM06/08/2020 6:06 AM Full Code11/22/2019 5:21 AM11/23/2019 12:52 AMDate ActivatedDate InactivatedComments 02/24/2023 5:53 AMDate ActivatedDate InactivatedComments05/27/2022 5:44 AM02/24/2023 5:53 AMDate ActivatedDate InactivatedComments06/08/2020 6:06 AM05/27/2022 5:44 AM Date ActivatedDate InactivatedComments11/23/2019 12:52 AM06/08/2020 6:06 AMDate ActivatedDate InactivatedComments11/22/2019 5:21 AM11/23/2019 12:52 AM Hospital Course * Kavya Luis MD - 12/08/2019 11:36 AM EDT [facility] IN-PATIENT SERVICE [facility] Discharge Summary Patient ID: Lilly Argueta : 1945 ACCOUNT: [id number] Patient's PCP: Charlie Mullins Sr, DO Admit Date: 12/06/2019 Discharge Date: 12/08/2019 Length of Stay: 2 Code Status: Full Code Admitting Physician: Kavya Luis MD Discharge Physician: Kavya Luis MD Active Discharge Diagnoses: Hospital Problem Lists: Principal Problem: Bilateral pulmonary embolism (HCC) Resolved Problems: * No resolved hospital problems. * Admission Condition: poor Discharged Condition: fair Hospital Stay: Hospital Course: Lilly Argueta is a 74 y.o. male who was admitted for the management of Bilateral pulmonary embolism (HCC) , presented to ER with No chief complaint on file. Patient status inpatient in the Progressive Unit/Step down Bilateral pulmonary embolism probable DVT on Doppler s/p CT scan S/P [facility] Echo plan for anticoagulation for 3 to 6 months patient was given 3-month supply because of the current situation of pandemic please follow-up with your PCP for the duration of anticoagulation Recent mandibular surgery follow-up with your established surgeon Dehydration IV fluid Elevated troponin secondary to NSTEMI secondary to demand ischemia secondary to PE follow-up with cardiology as outpatient Leukocytosis present on admission resolved probably related to pulmonary embolism no evidence of pneumonia Physical exam Alert Chest: Clear to auscultation bilateral Abdomen: Nontender nondistended CVS: S1-S2 Neurology: Moves extremity Significant therapeutic interventions: Significant Diagnostic Studies: Labs / Micro: CBC: Lab Results Component Value Date WBC 7.2 12/07/2019 RBC 3.08 12/07/2019 HGB 9.3 12/07/2019 HCT 30.4 12/07/2019 MCV 98.7 12/07/2019 MCH 30.2 12/07/2019 MCHC 30.6 12/07/2019 RDW 13.8 12/07/2019 PLT 544 12/08/2019 BMP: Lab Results Component Value Date GLUCOSE 132 12/07/2019 NA 135 12/07/2019 K 3.8 12/07/2019 CL 102 12/07/2019 CO2 20 12/07/2019 ANIONGAP 13 12/07/2019 BUN 15 12/07/2019 CREATININE 0.69 12/07/2019 BUNCRER NOT REPORTED 12/07/2019 CALCIUM 8.6 12/07/2019 LABGLOM >60 12/07/2019 GFRAA >60 12/07/2019 GFR 12/07/2019 GFR NOT REPORTED 12/07/2019 HFP: Lab Results Component Value Date PROT 6.5 12/07/2019 CMP: Lab Results Component Value Date GLUCOSE 132 12/07/2019 NA 135 12/07/2019 K 3.8 12/07/2019 CL 102 12/07/2019 CO2 20 12/07/2019 BUN 15 12/07/2019 CREATININE 0.69 12/07/2019 ANIONGAP 13 12/07/2019 ALKPHOS 90 12/07/2019 ALT 73 12/07/2019 AST 29 12/07/2019 BILITOT 0.42 12/07/2019 LABALBU 2.8 12/07/2019 ALBUMIN 0.8 12/07/2019 LABGLOM >60 12/07/2019 GFRAA >60 12/07/2019 GFR 12/07/2019 GFR NOT REPORTED 12/07/2019 PROT 6.5 12/07/2019 CALCIUM 8.6 12/07/2019 PT/INR: No results found for: PTINR, PROTIME, INR PTT: Lab Results Component Value Date APTT 78.1 12/07/2019 FLP: No results found for: CHOL, TRIG, HDL U/A: No results found for: COLORU, TURBIDITY, SPECGRAV, HGBUR, PHUR, PROTEINU, GLUCOSEU, KETUA, BILIRUBINUR, UROBILINOGEN, NITRU, LEUKOCYTESUR TSH: No results found for: TSH Radiology: No results found. Consultations: Consults: Final Specialist Recommendations/Findings: IP CONSULT TO VASCULAR SURGERY IP CONSULT TO DIETITIAN IP CONSULT TO CARDIOLOGY The patient was seen and examined on day of discharge and this discharge summary is in conjunction with any daily progress note from day of discharge. Discharge plan: Disposition: Home Physician Follow Up: Sr Charlie Mullins, DO [address] [facility] [place] [address] In 1 week Martha Valerio DO [address] [place] [id number] In 1 week Requiring Further Evaluation/Follow Up POST HOSPITALIZATION/Incidental Findings: Diet: cardiac diet Activity: As tolerated Instructions to Patient: Discharge Medications: Medication List START taking these medications * apixaban 5 MG Tabs tablet Commonly known as: ELIQUIS Take 2 tablets by mouth 2 times daily for 6 days * apixaban 5 MG Tabs tablet Commonly known as: ELIQUIS Take 1 tablet by mouth 2 times daily Start after you finish 10 mg twice a day on the next scheduleddose Start taking on: December 14, 2019 * This list has 2 medication(s) that are the same as other medications prescribed for you. Read thedirections carefully, and ask your doctor or other care provider to review them with you. CONTINUE taking these medications acetaminophen 500 MG tablet Commonly known as: TYLENOL chlorhexidine 0.12 % solution Commonly known as: PERIDEX docusate 50 MG/5ML liquid Commonly known as: COLACE LORazepam 0.5 MG tablet Commonly known as: ATIVAN senna 8.6 MG tablet Commonly known as: SENOKOT STOP taking these medications ibuprofen 200 MG tablet Commonly known as: ADVIL;MOTRIN OXYCODONE ER PO Where to Get Your Medications These medications were sent to [address] - [phone] - [phone] [place] [phone] apixaban 5 MG Tabs tablet apixaban 5 MG Tabs tablet No discharge procedures on file. Time Spent on discharge is 35 mins in patient examination, evaluation, counseling as well as medication reconciliation, prescriptions for required medications, discharge plan and follow up. Electronically signed by Kavya Luis MD 12/08/2019 11:[address] Charlie Mullins, Sr, DO for the opportunity to be involved in this patient's care. documented in this encounter History of Present Illness * Martha Velásquez MD - 12/08/2019 8:37 AM EDT [employer] Electrical Engineer Progress Note Date: 12/08/2019 Patient name: Lilly Argueta Date of admission: 12/06/2019 12:25 PM Date of : 1945 PCP: Charlie Mullins Sr, DO Reason for Admission: Subjective: There were no acute events overnight, remained hemodynamically stable, denies chest pain, dyspnea, orthopnea or palpitations. Medications: Scheduled Meds: metoprolol succinate 25 mg Oral Daily atorvastatin 40 mg Oral Nightly lisinopril 2.5 mg Oral Daily apixaban 10 mg Oral BID [START ON 12/14/2019] apixaban 5 mg Oral BID sodium chloride flush 10 mL Intravenous 2 times per day chlorhexidine 15 mL Mouth/Throat TID Continuous Infusions: CBC: Recent Labs 12/06/19 1642 12/07/19 0153 12/08/19 0257 WBC 7.0 7.2 -- HGB 9.6* 9.3* -- PLT 535* 534* 544* BMP: Recent Labs 12/07/19 0153 12/07/19 0724 NA 136 135 K 3.9 3.8 CL 103 102 CO2 21 20 BUN 15 15 CREATININE 0.74 0.69* GLUCOSE 143* 132* Hepatic: Recent Labs 12/07/19 0724 AST 29 ALT 73* BILITOT 0.42 ALKPHOS 90 Troponin: No results for input(s): TROPONINI in the last 72 hours. BNP: No results for input(s): BNP in the last 72 hours. Lipids: No results for input(s): CHOL, HDL in the last 72 hours. Invalid input(s): LDLCALCU INR: No results for input(s): INR in the last 72 hours. Objective: Vitals: BP 129/71 Pulse 76 Temp 97.8 F (36.6 C) (Oral) Resp 16 Ht 5' 11 (1.803 m) Wt 179lb 6.4 oz (81.4 kg) SpO2 95% BMI 25.02 kg/m General appearance: awake, alert, in no apparent respiratory distress HEENT: Head: Normocephalic, no lesions, without obvious abnormality Neck: no JVD Lungs: clear to auscultation bilaterally, no basilar rales, no wheezing Heart: regular rate and rhythm, S1, S2 normal, no murmur, click, rub or gallop Abdomen: soft, non-tender; bowel sounds normal Extremities: No LE edema Neurologic: Mental status: Alert, oriented. Motor and sensory not done. EKG: Echocardiogram: Summary Left ventricle is normal in size. Global left ventricular systolic function is mildly reduced. Estimated ejection fraction is 45 % . Calculated EF via heart model is 45 %. Normal left ventricular wall thickness. No significant valvular regurgitation or stenosis seen. Mildly dilated right ventricular cavity. Right ventricular function appears normal . No significant pericardial effusion is seen. Assessment: 1. Bilateral PE with troponinemia 2. Mild systolic dysfunction 3. 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 Will recommend the Toprol XL 25 mg , lisinopril 2.5 mg and lipitor 2. Will order stress test as outpatient. Denies any anginal pain Discussed with patient and nursing. Valentin Slaughter MD Fellow cardiology Attending Physician Statement I have discussed the care of Lilly Argueta, including pertinent history and exam findings, with the resident. I have seen and examined the patient and the huynh elements of all parts of the encounter have been performed by me. I agree with the assessment, plan and orders as documented by the resident. Plan op stress test in few weeks, as op. * Kavya Luis MD - 12/07/2019 10:42 AM EDT [facility] IN-PATIENT SERVICE [facility] Progress Note 12/07/2019 10:42 AM Name: Lilly Argueta Acct: [id number] Room: IP Day: 1 Admit Date: 12/06/2019 12:25 PM PCP: Charlie Mullins Sr, DO Code Status: Full Code Subjective: C/C: pulmonary embolism Interval History Status: improved. Patient seen and examined Patient feels weak Patient denies fever chest pain I am seeing the patient for PE Medications: Allergies: No Known Allergies Current Meds: Scheduled Meds: apixaban 10 mg Oral BID [START ON 12/14/2019] apixaban 5 mg Oral BID sodium chloride flush 10 mL Intravenous 2 times per day chlorhexidine 15 mL Mouth/Throat TID Continuous Infusions: PRN Meds: docusate, LORazepam, sodium chloride flush, acetaminophen OR acetaminophen, polyethylene glycol, promethazine OR ondansetron, HYDROcodone 5 mg - acetaminophen Data: Past Medical History: has no past medical history on file. Social History: Family History: No family history on file. Vitals: BP 122/70 Pulse 99 Temp 98.2 F (36.8 C) (Oral) Resp 16 Ht 5' 11 (1.803 m) Wt 179 lb 6.4 oz (81.4 kg) SpO2 97% BMI 25.02 kg/m Temp (24hrs), Av.9 F (36.6 C), Min:97.6 F (36.4 C), Max:98.2 F (36.8 C) No results for input(s): POCGLU in the last 72 hours. I/O (24Hr): Intake/Output Summary (Last 24 hours) at 12/07/2019 1042 Last data filed at 12/07/2019 0619 Gross per 24 hour Intake 950 ml Output 550 ml Net 400 ml Labs: Hematology: Recent Labs 12/06/19164112/07/19 0153 WBC 7.0 7.2 RBC 3.22* 3.08* HGB 9.6* 9.3* HCT 31.5* 30.4* MCV 97.8 98.7 MCH 29.8 30.2 MCHC 30.5 30.6 RDW 13.9 13.8 PLT 535* 534* MPV 9.6 9.4 Chemistry: Recent Labs 12/06/19164112/06/19202812/07/19 0153 12/07/19 0724 NA -- -- 136 135 K -- -- 3.9 3.8 CL -- -- 103 102 CO2 -- -- 20 GLUCOSE -- -- 143* 132* BUN -- -- 15 15 CREATININE -- -- 0.74 0.69* ANIONGAP -- -- 12 13 LABGLOM -- -- >60 >60 GFRAA -- -- >60 >60 CALCIUM -- -- 8.3* 8.6 TROPHS 97* 101* 109* -- MYOGLOBIN 35 35 32 -- LACTACIDWB -- -- -- 0.8 Recent Labs 12/07/19 0724 PROT 6.5 LABALBU 2.8* AST 29 ALT 73* ALKPHOS 90 BILITOT 0.42 ABG:No results found for: POCPH, PHART, PH, POCPCO2, LTZ5LJE, PCO2, POCPO2, PO2ART, PO2, POCHCO3, VBT3NEU, HCO3, NBEA, PBEA, BEART, BE, THGBART, THB, BPQ2ZLM, UEMI3ODP, N9YJFZLV, O2SAT, FIO2 No results found for: SPECIAL No results found for: CULTURE Radiology: No results found. Physical Examination: General appearance: alert, cooperative and no distress Mental Status: oriented to person, place and time and normal affect Lungs: clear to auscultation bilaterally, normal effort Heart: regular rate and rhythm, no murmur Abdomen: soft, nontender, nondistended, normal bowel sounds, no masses, hepatomegaly, splenomegaly Extremities: no edema, redness, tenderness in the calves Skin: no gross lesions, rashes, induration Assessment: Hospital Problems Last Modified POA * (Principal) Bilateral pulmonary embolism (HCC) 12/06/2019 Yes Plan: Patient status inpatient in the Progressive Unit/Step down Bilateral pulmonary embolism probable DVT on Doppler s/p CT scan S/P heparin started on eliquis vascular surgery evaluation Echo plan for possible dc in am Recent mandibular surgery benefit outweigh the risk continue heparin for now pain control Dehydration IV fluid Elevated troponin secondary to NSTEMI secondary to demand ischemia secondary to PE Plan for stress test as out patient continue aspirin statin beta-autumn MO inhibitor for now reevaluate the need as outpatient for these medication after the stress test Leukocytosis present on admission resolved probably related to pulmonary embolism no evidence of pneumonia Kavya Luis MD 12/07/2019 10:42 AM * Kael Peterson DPM - 12/07/2019 6:46 AM EDT Vascular Surgery Progress Note PATIENT NAME: Lilly Argueta TODAY'S DATE: 12/07/2019, 6:46 AM SUBJECTIVE: Pt seen and examined. Patient denies n/v/f/c/chest pain/shortness of breath. Patient sating on roomair. Afebrile, VSS. No other complaints at this time. OBJECTIVE: Vitals: BP 122/70 Pulse 78 Temp 98.2 F (36.8 C) (Oral) Resp 16 Ht 5' 11 (1.803 m) Wt 179lb 6.4 oz (81.4 kg) SpO2 97% BMI 25.02 kg/m INTAKE/OUTPUT: Intake/Output Summary (Last 24 hours) at 12/07/2019 0646 Last data filed at 12/07/2019 0619 Gross per 24 hour Intake 950 ml Output 550 ml Net 400 ml General appearance - alert, well appearing and in no acute distress Mental status - oriented to person, place and time with normal affect Head - normocephalic and atraumatic, tracheostomy site with clean dressing applied. NG tube in. Ears - hearing appears to be intact Extremities - peripheral pulses palpable, no pedal edema or calf pain with palpation Skin - no gross lesions, rashes, or induration noted Foot Exam - Right Cam walk boot on clean, dry, and intact. MO wrap to right thigh that is clean, dry, and intact. Skin overlying bilateral feet warm and well perfused. Data: CBC: Lab Results Component Value Date WBC 7.2 12/07/2019 RBC 3.08 12/07/2019 HGB 9.3 12/07/2019 HCT 30.4 12/07/2019 MCV 98.7 12/07/2019 MCH 30.2 12/07/2019 MCHC 30.6 12/07/2019 RDW 13.8 12/07/2019 PLT 534 12/07/2019 MPV 9.4 12/07/2019 BMP: Lab Results Component Value Date NA 136 12/07/2019 K 3.9 12/07/2019 CL 103 12/07/2019 CO2 21 12/07/2019 BUN 15 12/07/2019 CREATININE 0.74 12/07/2019 CALCIUM 8.3 12/07/2019 GFRAA >60 12/07/2019 LABGLOM >60 12/07/2019 GLUCOSE 143 12/07/2019 ASSESSMENT Patient Active Problem List Diagnosis Bilateral pulmonary embolism (HCC) 1. Acute bilateral PE PLAN 1. Patient does have recent history of squamous cell carcinoma. His vitals remain stable. Recommenda stat echo in order to further evaluate patient for operative intervention. 2. Patient to be started on Eliquis 10 mg PO bid x 7 days and then transitioned to 5 mg PO bid x 6 months; once patient receives 1st dose of eliquis, heparin can be discontinued 3. Patient okay for discharge from vascular standpoint 4. Cont supportive care per primary Associated attestation - Tomasz Silva MD - 12/07/2019 3:45 PM EDT Patient on room air with mild tachycardia. Clinically stable. No plans for thrombolysis as he has arecent major surgery and only shows mild RV dilation on echo. DC heparin and start eliquis. * Amelie Robledo RN - 12/06/2019 6:59 PM EDT Spoke with at bedside. Stated that his mouth is looking different than usual. Looked inside mouth, saw some green/brown color on roof of mouth and some granulation tissue on R side of gums. She stated that he is suppose to be on peridex and asked if I could call the [facility] where he follows. Called [phone] and spoke with Dieter VELASQUEZ. Stated that an oral surgeon pharmacy operations specialist said to do the Peridex 0.12% BID or TID 15-20ml. Also, to use delores bender to area to help really clean areas. Rn passed message to Bautista Dunham via [email or web address] and order was placed. Will continue to monitor for signs of infection. * Yessy Patiño - 12/06/2019 5:04 PM EDT Echo completed at the bedside * Phoebe Brennan RD, LD - 12/06/2019 2:24 PM EDT Nutrition Assessment Type and Reason for Visit: Initial(Consult - TF ordering and management; PNS: Home tube feeding ) Nutrition Recommendations: -Continue NPO status -Recommend tube feeding of Osmolite 1.2 (standard w/out fiber) @ 70 mL/hr x 24 hrs ~> 2016 kcals, 93 gms protein -Will monitor EN intake/tolerance;adjust as needed Nutrition Assessment: RD consulted for tube feeding to start today. Pt w/ recent SCC of the mouth s/p sx earlier this month. Pt reports that he has been using 4 ensure bottles a day at home via NG (1400 kcals/d - inadequate kcal and protein needs/d). Pt stated UBW of 190 lbs - time frame is unknown. Pt reports that he has been having some diarrhea and is worried the tube feeding may cause diarrhea . Informed pt will order a tube feed formula without fiber. Will monitor. Malnutrition Assessment: Malnutrition Status: At risk for malnutrition Context: Chronic illness Findings of the 6 clinical characteristics of malnutrition (Minimum of 2 out of 6 clinical characteristics is required to make the diagnosis of moderate or severe Protein Calorie Malnutrition based on AND/ASPEN Guidelines): 1. Energy Intake-(Greater than 50% of est'd energy needs), Greater than or equal to 7 days 2. Weight Loss-1-2% loss, unable to assess 3. Fat Loss-No significant subcutaneous fat loss, 4. Muscle Loss-No significant muscle mass loss, 5. Fluid Accumulation-No significant fluid accumulation, 6. Deaf/Hard Of Hearing Specialist Strength-Not measured Nutrition Risk Level: High Nutrient Needs: Estimated Daily Total Kcal: 1.2-1.3 ~> 9670-4662 kcals/d Estimated Daily Protein (g): 1.2-1.5 gm/kg ~>94-117 gms/d Nutrition Diagnosis: Problem: Inadequate oral intake Etiology: related to Difficulty swallowing, Catabolic illness ? Signs and symptoms: as evidenced by NPO status due to medical condition, Nutrition support - EN Objective Information: Wound Type: None Current Nutrition Therapies: Oral Diet Orders: NPO Anthropometric Measures: Ht: 5' 11 (180.3 cm) Current Body Wt: 187 lb (84.8 kg) Admission Body Wt: 187 lb (84.8 kg) Usual Body Wt: 190 lb (86.2 kg)(per pt ) % Weight Change: , 1.5% wt loss - time frame unknown [place] Body Wt: 172 lb (78 kg), % [place] Body 109% adm/ideal BMI Classification: BMI 25.0 - 29.9 Overweight Nutrition Interventions: Continue NPO, Start Tube Feeding Continued Inpatient Monitoring, Education Not Indicated Nutrition Evaluation: Evaluation: Goals set Goals: Pt to meet 75-100% of est'd needs via EN Monitoring: Nutrition Progression, TF Intake, TF Tolerance, I&O, Weight, Pertinent Labs, Monitor Bowel Function, Diarrhea Contact Number: [phone] documented in this encounter Assessments Diagnosis Bilateral pulmonary embolism (HCC) Other pulmonary embolism and infarction Reason for Referral SpecialtyDiagnoses / ProceduresReferred By ContactReferred To Contact Diagnoses Lung nodule Procedures CT CHEST WITH CONTRAST KS CAT SCAN OF CHEST CONTRAST Melissa Schwartz, FROG SHAKER-CONTAINER CRANE OPERATOR [address] [place] [address] Referral IDStatusReasonStart DateExpiration DateVisits RequestedVisits [id number] / Procedures Referred By ContactReferred To Contact 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 Procedures CT ANGIO NECK KS CT ANGIO,NECK COMBO,INCL IMAGE PROCESS Bobo Davidson MD [address] [place] [address] Referral IDStatusReasonStart DateExpiration DateVisits RequestedVisits [id number] / Procedures Referred By ContactReferred To ContactSocial Work Diagnoses Postoperative state Lore Atkinson, PA-C [address] [place] [address] Referral IDStatusReasonStart DateExpiration DateVisits RequestedVisits [id number] / ProceduresReferred By ContactReferred To Contact Sharif Reyes MD [address] [place] [address] [address] [place] [phone] Referral IDStatusReasonStart DateExpiration DateVisits RequestedVisits AuthorizedSpecialtyDiagnoses / ProceduresReferred By ContactReferred To Contact BASSAM [address] [place] [address] SpecialtyDiagnoses / ProceduresReferred By ContactReferred To Contact Procedures PLATELET MONITORING PER PROTOCOL Bobo Davidson MD [address] [place] [address] Referral IDStatusReasonStart DateExpiration DateVisits RequestedVisits [id number] Request/[id number] / Procedures Referred By ContactReferred To Contact Procedures DVT/VTE RISK ASSESSMENT Bobo Davidson MD [address] [place] [address] Referral IDStatusReasonStart DateExpiration DateVisits RequestedVisits [id number] Request/[id number] / Procedures Referred By ContactReferred To Contact Tamanna Munoz MD [facility] [address] [place] [address]. [address] [place] [address] Referral IDStatusReasonStart DateExpiration DateVisits RequestedVisits [id number] Request/ Additional Source Comments (unrecognized sect ion and content) No Status Records FoundNo Status Records FoundNo Status Records FoundNo Status Records FoundNo Status Records FoundNo Status Records FoundNo Status Records FoundNo Status Records Found INFORMATION SOURCE (unrecogn ized section and content) DATE CREATED AUTHOR 12/08/2019 [facility] DATE CREATED AUTHOR AUTHOR'S ORGANIZ ATION 02/02/2020 [facility] DATE CREATED AUTHOR AUTHOR'S ORGANIZ ATION 07/14/2022 [facility] DATE CREATED AUTHOR AUTHOR'S ORGANIZ ATION 06/10/2024 [facility] DATE CREATED AUTHOR AUTHOR'S ORGANIZ ATION 07/10/2024 [facility] DATE CREATED AUTHOR AUTHOR'S ORGANIZ ATION 07/24/2024 [facility] DATE CREATED AUTHOR AUTHOR'S ORGANIZ ATION 01/06/2025 [facility] DATE CREATED AUTHOR AUTHOR'S ORGANIZ ATION 02/23/2025 [facility] Reason for Visit (unrecogniz ed section and content) SpecialtyDiagnoses / ProceduresReferred By ContactReferred To Contact Diagnoses Lung nodule Procedures CT CHEST WITH CONTRAST KS CAT SCAN OF CHEST CONTRAST Melissa Schwartz, FELIPE-CONTAINER CRANE OPERATOR [address] [place] [address] Referral IDStatusReasonStart DateExpiration DateVisits RequestedVisits [id number] Request/[id number]-hyUeweey CommentsFollow-upSpecialtyDiagnoses / ProceduresReferred By ContactReferred To Contact 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 Procedures CT ANGIO NECK [place] CT ANGIO,NECK COMBO,INCL IMAGE PROCESS Bobo Davidson MD [address] [place] [address] Referral IDStatusReasonStart DateExpiration DateVisits RequestedVisits [id number] Request/[id number]-pcxvymgdd ConsultationSpecialtyDiagnoses / ProceduresReferred By ContactReferred To ContactPreOp 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 Rolanda Ignacio, MARY BETH [address] [place] [address] Referral IDStatusReasonStart DateExpiration DateVisits RequestedVisits [id number] Request/[id number] Op Visit NgpjwnKxnqgjytWfkolq-jgKcnu-yvastjkd Oral Cavity examSpecialtyDiagnoses / ProceduresReferred By ContactReferred To ContactPreOp 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 Bobo Davidson MD [address] [place] [address] Referral IDStatusReasonStart DateExpiration DateVisits RequestedVisits [id number] Request/[id number]-vpOpwps impression for maxillary resection prosthesisReasonCommentsFollow-upDenture teeth ioq-pkRuhpuwUymoegxxFesaoh-hgIjfbvtjs maxillary prosthesisReasonComments Follow-upMetal framework for maxillary prosthesisReasonCommentsFollow-upTeeth pif-pnSovcraBwoolutdWvrarm-wrTivxbvkw metal framework prosthesisReasonComments Sndfcn-kiGowc-oikqpbbqc adjustmentsReasonCommentsFollow-upAdjustment obturator ReasonCommentsFollow-upAdjustment to maxillary prosthesisReasonCommentsHernia Left inguinal hernia, self referredReasonCommentsPost-opPost op left inguinal hernia repair performed 07/09/[facility] Check Care Teams (unrecognized sec tion and content) Team MemberRelationshipSpecialtyStart [facility] Charlie Mullins DO [address] [place] [address] PCP - GeneralFamily Medicine10/31/19 Branden Goddard DDS [address] [place] [phone] Referring ProviderDentistry10/31/19 Galo Domínguez MD [address] [place] [address] [address] [place] [address] Radiation Oncology01/09/20Team MemberRelationshipSpecialtyStart [facility] Charlie Mullins DO [address] [place] [address] PCP - GeneralFamily Medicine10/31/19 Branden Goddard DDS [address] [place] [phone] Referring ProviderDentistry10/31/19 Galo Domínguez MD [address] [facility] [address] [place] [id number] Radiation Oncology01/09/20Team MemberRelationshipSpecialtyStart DateEnd Date Cliff Fitzgerald MD [address] [place] [address] PCP - GeneralFamily Sbeimozu89/24/21 Branden Goddard [address] [address] Referring ProviderDentistry10/31/19 Galo Domínguez MD [address] [facility] [address] [place] [address] Radiation Oncology01/09/20Te MemberRelationshipSpecialtyStart DateEnd Date Cliff Fitzgerald MD [address] [place] [address] PCP - GeneralFamily Evplthmv45/24/[address] God[address]ard [address] [address] Referring ProviderDentistry10/31/19 Galo Domínguez MD [address] [facility] MAIL CODE [facility] [place] [phone] Radiation Oncology01/09/20Team MemberRelationshipSpecialtyStart DateEnd Date Cliff Fitzgerald MD [address] [place] [address] PCP - GeneralFamily Ibkhukov91/24/21 Branden Goddard DDS [address] [place] [phone] Referring ProviderDentistry10/31/19 Galo Domínguez MD [address] [facility] MA[address] [facility] [place] [address] Radiation Oncology01/09/20Team MemberRelationshipSpecialtyStart DateEnd Date Cliff Fitzegrald MD [address] [place] [address] PCP - GeneralFamily Ydfkchfn85/24/21 Branden Goddard Abdon [address] [place] [phone] Referring ProviderDentistry10/31/19 Galo Domínguez MD [address] [facility] MA[address] [facility] [place] [address] Radiation Oncology01/09/20Team MemberRelationshipSpecialtyStart DateEnd Date Cliff Fitzgerald MD [address] [place] [address] PCP - GeneralFamily Nczeujnw12/24/21 Branden Goddard Abdon [address] [place] [phone] Referring ProviderDentistry10/31/19 Galo Domínguez MD [address] [facility] MA[address] CODE [facility] [place] [address] Radiation Oncology01/09/20Team MemberRelationshipSpecialtyStart DateEnd Date Cliff Fitzgerald MD [address] [place] [address] PCP - GeneralFamily Erdrezju37/24/[address]ard [address] [address] Referring ProviderDentistry10/31/19 Galo Domínguez MD [address] [employer] MAIL CODE [facility] [place] [address] Radiation Oncology01/09/20Team MemberRelationshipSpecialtyStart DateEnd [facility] [place] [address] [place] [address] PCP - GeneralFamily Gqvfvbox72/24/[address]ard [address] [address] Referring ProviderDentistry10/31/19 Galo Domínguez MD [address] [employer] [facility] MAIL CODE [facility] [place] [address] Radiation Oncology01/09/20Team MemberRelationshipSpecialtyStart DateEnd Date Cliff Fitzgerald MD [address] [place] [address] PCP - GeneralFamily Tyblzwth08/24/[address] God[address]ard [address] [address] Referring ProviderDentistry10/31/19 Galo Domínguez MD [address] [employer] MA[address] CODE [facility] [place] [address] Radiation Oncology01/09/20Team MemberRelationshipSpecialtyStart DateEnd Date Cliff Fitzgerald MD [address] [place] [address] PCP - GeneralFamily Bczairab16/24/21 Branden Goddard DDS [address] [place] [phone] Referring ProviderDentistry10/31/19 Galo Domínguez MD [address] [place] [address] [address] [place] [address] Radiation Oncology01/09/20Team MemberRelationshipSpecialtyStart DateEnd Cliff Fitzgerald MD [address] [place] [address] PCP - GeneralFamily Rzopqypz04/24/21 Branden Goddard DDS [address] [place] [phone] Referring ProviderDentistry10/31/19 Galo Domínguez MD [address] [facility] MA[address] [facility] [place] [address] Radiation Oncology01/09/20Team MemberRelationshipSpecialtyStart DateEnd Date Cliff Fitzgerald MD [address] [place] [address] PCP - GeneralFamily Kxzhngmw90/24/21 Branden Goddard DDS [address] [place] [phone] Referring ProviderDentistry10/31/19 Galo Domínguez MD [address] MAIL CODE [facility] [place] [address] Radiation Oncology01/09/20Team MemberRelationshipSpecialtyStart DateEnd [facility] Cliff Fitzgerald MD [address] [facility] [place] [address] PCP - GeneralFamily Igjdhuev47/24/21 Branden Goddard DDS [address] [place] [phone] Referring ProviderDentistry10/31/19 Galo Domínguez MD [address]IL CODE [address] [place] [address] Radiation Oncology01/09/20Te MemberRelationshipSpecialtyStart DateEnd [facility] Cliff Fitzgerald MD [address] [place] [address] PCP - GeneralFamily Rbmocrtj56/24/21 Branden Goddard DDS [address] [place] [phone] Referring ProviderDentistry10/31/19 Galo Domínguez MD [address] MAIL CODE [facility] [place] [address] Radiation Oncology01/09/20 Bobo Davidson MD [address] [place] [address] OtolaryngologistOtolaryngology02/07/24Team MemberRelationshipSpecialtyStart Date End Date Cliff Fitzgerald MD [address] [place] [address] PCP - GeneralFamily Borbsivi52/16/24Team MemberRelationshipSpecialtyStart Date End Date Cliff Fitzgerald MD [address] [place] [address] PCP - GeneralFamily Vueqsfae64/16/24Team MemberRelationshipSpecialtyStart Date End Date Cliff Fitzgerald MD [address] [place] [address] PCP - GeneralFamily Yddlnvlf89/22/24Team MemberRelationshipSpecialtyStart Date End Date Charlie Mullins MD [address] [place] [address] PCP - GeneralFamily Cddgchvl46/2/24Team MemberRelationshipSpecialtyStart DateEnd Date Charlie Mullins MD [address] [place] [address] PCP - GeneralFamily Ernbdsre30/2/24Team MemberRelationshipSpecialtyStart DateEnd Date Cliff Fitzgerald MD [address] [place] [address] [address] [facility] [place] [address] PCP - GeneralFamily Uznhsotd81/24/21 Branden Goddard DDS [address] [place] [phone] Referring ProviderDentistry10/31/19 Galo Domínguez MD [address] [place] [address] MA[address] [facility] [place] [address] Radiation Oncology01/09/20 Bobo Davidson MD [address] [place] [address] OtolaryngologistOtolaryngology02/07/24 Scheduled Active and Recently Administ ered Medications (unrecognized section and content) Medication Order// acetaminophen (TYLENOL) oral solution 975 mg(Linked Group 1) 975 mg, Per NG tube, EVERY 8 HOURS NON-STANDARD, First dose on Mon05/27/22 at 2200, Until Discontinued, Maximum dose of acetaminophen is 4000 mg from all sources in 24 hours., Post-op/Post-Proc * 0439 (See Alternative - Provider: Cachorro Gray, RN) * 1325 (See Alternative - Provider: Allison Jones, RON) * 212 (See Alternative - Provider: Lorena Duran, RON) * 0522 (See Alternative - Provider: Lorena Duran, RON) * 1349 (See Alternative - Provider: La Barnes RN) * 2204 (See Alternative - Provider: Lorena Duran, RN) * 0545 (See Alternative - Provider: Lorena Duran, RN) * 1417 (See Alternative - Provider: Halley Arguelles RN) acetaminophen (TYLENOL) oral solution 975 mg(Linked Group 1) 975 mg, PEG Tube, EVERY 8 HOURS NON-STANDARD, First dose on Mon05/27/22 at 2200, Until Discontinued,Maximum dose of acetaminophen is 4000 mg from all sources in 24 hours., Post-op/Post-Proc * 0439 (See Alternative - Provider: Cachorro Gray RN) * 1325 (See Alternative - Provider: Allison Jones, RON) * 2129 (See Alternative - Provider: Lorena Seeholzer, RN) * 0522 (See Alternative - Provider: Lorena Duran RN) * 1349 (See Alternative - Provider: La Barnes RN) * 2204 (See Alternative - Provider: Lorena Duran RN) * 0545 (See Alternative - Provider: Lorena Duran RN) * 1417 (See Alternative - Provider: Halley Arguelles, RN) acetaminophen (TYLENOL) tablet 975 mg(Linked Group 1) 975 mg, Oral, EVERY 8 HOURS NON-STANDARD, First dose on Mon05/27/22 at 2200, Until Discontinued, Maximum dose of acetaminophen is 4000 mg from all sources in 24 hours., Post-op/Post-Proc * 0439 (Given - Provider: Cachorro Gray RN) * 1325 (Given - Provider: Allison Jones RN) * 2129 (Given - Provider: Lorena Duran RN) * 0522 (Given - Provider: Lorena Duran RN) * 1349 (Given - Provider: La Barnes RN) * 220 (Given - Provider: Lorena Duran RN) * 0545 (Given - Provider: Lorena Duran, RON) * 1417 (Given - Provider: Halley Arguelles, RN) Ampicillin-Sulbactam Sodium (UNASYN) 3 g in sodium chloride 0.9% (MB PLUS) 100 mL (total volume) IVPB 3 g, Intravenous, Administer over 30 Minutes, EVERY 6 HOURS, First dose on Mon06/01/22 at 1200, Until Discontinued, Contains a penicillin. * 1446 ($$New Bag$$ - Provider: La Barnes RN) * 1516 (Stopped - Provider: Halley Arguelles RN) * 2226 ($$New Bag$$ - Provider: Lorena Duran RN) * 2256 (Stopped - Provider: Halley Arguelles, RN) * 0325 ($$New Bag$$ - Provider: Lorena Duran RN) * 0355 (Stopped - Provider: Halley Arguelles, RN) * 0856 ($$New Bag$$ - Provider: Halley Arguelles, RN) * 0926 (Rate/Dose Verify - Provider: Halley Arguelles RN) * 0926 (Stopped - Provider: Halley Arguelles, RN) * 1500 (Canceled Entry - Provider: System Discharge - Comment: Automatically canceled at discontinue of medication order) aspirin chewable tablet 81 mg(Linked Group 2) 81 mg, Oral, DAILY, First dose on 05/28/22 at 0900, Until Discontinued, Post-op/Post-Proc * 1016 (See Alternative - Provider: Allison Jones RN) * 0829 (See Alternative - Provider: La Barnes RN) * 0857 (See Alternative - Provider: Halley Arguelles, RN) aspirin chewable tablet 81 mg(Linked Group 2) 81 mg, Per NG tube, DAILY, First dose on 05/28/22 at 0900, Until Discontinued, Post-op/Post-Proc * 1016 (Given - Provider: Allison Jones RN) * 0829 (Given - Provider: La Barnes RN) * 0857 (Given - Provider: Halley Arguelles, RN) aspirin chewable tablet 81 mg(Linked Group 2) 81 mg, PEG Tube, DAILY, First dose on 05/28/22 at 0900, Until Discontinued, Post-op/Post-Proc * 1016 (See Alternative - Provider: Allison Jones RN) * 0829 (See Alternative - Provider: La Barnes RN) * 0857 (See Alternative - Provider: Halley Arguelles, RN) caspofungin (CANCIDAS) 50 mg in sodium chloride 0.9%, with overfill 282.14 mL (total volume) IVPB (CANCELED) 50 mg, Intravenous, at 282.1 mL/hr, Administer over 60 Minutes, DAILY AT BEDTIME, First dose on Mon05/31/22 at 2100, Until Discontinued * 2030 ($$New Bag$$ - Provider: Lorena Duran, RN) * 213 (Stopped - Provider: Lorena Duran, RN) * 222 ($$New Bag$$ - Provider: Lorena Duran, RON) * 232 (Stopped - Provider: Halley Arguelles, RN) caspofungin (CANCIDAS) 50 mg in sodium chloride 0.9%, with overfill 282.14 mL (total volume) IVPB 50 mg, Intravenous, at 282.1 mL/hr, Administer over 60 Minutes, DAILY AT BEDTIME, First dose (afterlast modification) on Kyra 06/02/22 at 1500, Until Discontinued * 1415 ($$New Bag$$ - Provider: Halley Arguelles RN) * 1416 (Rate/Dose Verify - Provider: Halley Arguelles RN) * 1445 (Rate/Dose Verify - Provider: Halley Arguelles, RN) chlorhexidine (PERIDEX) 0.12 % oral solution 15 mL 15 mL, Swish & Spit, 4 TIMES DAILY, First dose on Mon05/27/22 at 2145, Until Discontinued, Post-op/Post-Proc * 1016 (Given - Provider: Allison Jones, RN) * 1325 (Given - Provider: Allison Jones, RN) * 1639 (Given - Provider: Allison Jones RN - Comment: given per ) * 203 (Given - Provider: Lorena Duran, RN) * 0829 (Given - Provider: La Barnes, RON) * 1223 (Given - Provider: La Barnes RN) * 1739 (Given - Provider: Kristina Norton RN) * 2204 (Given - Provider: Lorena Duran, RON) * 0857 (Given - Provider: Halley Arguelles, RN) * 1417 (Given - Provider: Halley Arguelles, RN) * 1700 (Canceled Entry - Provider: System Discharge - Comment: Automatically canceled at discontinue of medication order) Enoxaparin Sodium (LOVENOX) injection 40 mg 40 mg, Subcutaneous, EVERY 24 HOURS, First dose on 05/28/22 at 0900, Until Discontinued, , Indications: DVT/PE prophylaxis, Post-op/Post-Proc * 1016 (Given - Provider: Allison Jones, RON) * 0830 (Given - Provider: La Barnes, RON) * 0856 (Given - Provider: Halley Arguelles, RN) Jevity 1.5 Ismael/Fiber LIQD 340 mL/hr, Nasogastric, 5 times daily enteral feeds, First dose (after last modification) on Mon06/01/22 at 1000, Until Discontinued, Post-op/Post-Proc * 1143 (Canceled Entry - Provider: La Barnes RN) * 1350 (New Feeding/Supplement - Provider: La Barnes RN) * 1750 (New Feeding/Supplement - Provider: Kristina Norton RN - Comment: partial) * 2212 (New Feeding/Supplement - Provider: Loerna Duran RN) * 0547 (New Feeding/Supplement - Provider: Lorena Duran RN) * 0948 (New Feeding/Supplement - Provider: Halley Arguelles, RN) * 1422 (New Feeding/Supplement - Provider: Halley Arguelles, RN) * 1800 (Canceled Entry - Provider: System Discharge - Comment: Automatically canceled at discontinue of medication order) magnesium hydroxide (concentrate) (MILK OF MAGNESIA) oral suspension 10 mL 10 mL, Oral, ONCE, 1 dose, On Mon06/02/22 at 0600, 10 mL concentrate = 30 mL regular * 0549 (Not Given - Provider: Lorena Duran RN - Reason: Patient/family refused) petrolatum (LUBRIFRESH) ophthalmic ointment 1 Application 1 Application, Right Eye, DAILY AT BEDTIME, First dose (after last modification) on Mon06/01/22 at 2100, Until Discontinued, Apply thin ribbon inside lower eyelid Patient may self-administer. * 2204 (Given - Provider: Lorena Duran, RNO) piperacillin-tazobactam (ZOSYN) 4.5 g in dextrose premix IVPB (CANCELED) 4.5 g, Intravenous, Administer over 4 Hours, EVERY 8 HOURS NON-STANDARD, First dose on Mon05/29/22 at 2000, Until Discontinued, Infuse STAT doses over 30 minutes. Infuse other doses over 4 hours. Contains a penicillin., Indications: maxilla culture * 0037 (Stopped - Provider: Cachorro Gray, RN) * 0439 ($$New Bag$$ - Provider: Cachorro Gray RN) * 0510 (Rate/Dose Verify - Provider: Cachorro Gray RN) * 0839 (Stopped - Provider: Allison Jones, RN) * 1254 ($$New Bag$$ - Provider: Allison Jones, RN) * 1256 (Rate/Dose Verify - Provider: Allison Jones, RN) * 1654 (Stopped - Provider: Lorena Duran RN) * 2249 ($$New Bag$$ - Provider: Lorena Duran RN) * 2348 (Rate/Dose Verify - Provider: Lorena Duran, RN) * 0528 ($$New Bag$$ - Provider: Lorena Duran RN) polyethylene glycol (MIRALAX) packet 17 g(Linked Group 3) 17 g, Oral, DAILY, First dose on Mon05/28/22 at 0900, Until Discontinued, Post-op/Post-Proc * 1016 (See Alternative - Provider: Allison Jones, RN) * 0830 (See Alternative - Provider: La Barnes RN) * 0858 (See Alternative - Provider: Halley Arguelles, RN) polyethylene glycol (MIRALAX) packet 17 g(Linked Group 3) 17 g, Per NG tube, DAILY, First dose on Mon05/28/22 at 0900, Until Discontinued, Post-op/Post-Proc * 1016 (Given - Provider: Allison Jones RN) * 0830 (Not Given - Provider: La Barnes RN - Reason: Patient/family refused) * 0858 (Not Given - Provider: Halley Arguelles RN - Reason: Patient/family refused) Polyvinyl Alcohol-Povidone PF (REFRESH) ophthalmic solution 2 drop 2 drop, Both Eyes, 4 TIMES DAILY, First dose (after last modification) on Mon06/01/22 at 0900, Until Discontinued, Patient may self-administer. * 0829 (Given - Provider: La Barnes RN) * 1349 (Given - Provider: La Barnes, RON) * 1739 (Given - Provider: Kristina Norton RN) * 2204 (Given - Provider: Lorena Duran RN) * 0857 (Given - Provider: Halley Arguelles, RN) * 1417 (Given - Provider: Halley Arguelles, RN) * 1700 (Canceled Entry - Provider: System Discharge - Comment: Automatically canceled at discontinue of medication order) senna (SENOKOT) tablet 17.2 mg(Linked Group 4) 17.2 mg, Oral, 2 TIMES DAILY, First dose (after last modification) on Kyra 06/02/22 at 0900, Until Discontinued * 0857 (See Alternative - Provider: Halley Arguelles, RON) * 1700 (Canceled Entry - Provider: System Discharge - Comment: Automatically canceled at discontinue of medication order) senna (SENOKOT) tablet 17.2 mg(Linked Group 4) 17.2 mg, Per NG tube, 2 TIMES DAILY, First dose (after last modification) on Kyra 06/02/22 at 0900, Until Discontinued * 0857 (Given - Provider: Halley Arguelles RN) * 1700 (Canceled Entry - Provider: System Discharge - Comment: Automatically canceled at discontinue of medication order) senna (SENOKOT) tablet 8.6 mg (CANCELED) 8.6 mg, Per NG tube, 2 TIMES DAILY, First dose on 05/28/22 at 0900, Until Discontinued, Post-op/Post-Proc * 1017 (Given - Provider: Allison Jones, RON) * 1639 (See Alternative - Provider: Allison Jones RN) * 0830 (Not Given - Provider: La Barnes RN - Reason: Patient/family refused) * 1739 (Given - Provider: Kristina Norton RN) Vancomycin HCl in NaCl (Vancocin) 1,250 mg 287.5 ml premade IVPB (CANCELED) 1,250 mg (rounded from 1,197 mg = 15 mg/kg 79.8 kg Adjusted weight), Intravenous, Administer over 2Hours, EVERY 12 HOURS NON-STANDARD, First dose on 05/30/22 at 0030, Until Discontinued, Indication for treatment with Vancomycin - Culture/Source: maxilla * 0154 (Stopped - Provider: Cachorro Gray, RON) * 1256 ($$New Bag$$ - Provider: Allison Jones RN) Medication Order// Jevity 1.5 Ismael/Fiber LIQD (CANCELED) 10-65 mL/hr, Nasogastric, CONTINUOUS, Starting on 05/28/22 at 0900, Until Mon06/01/22 at 0929, Post-op/Post-Proc * 0307 (Rate/Dose Verify - Provider: Cachorro Gray, RN) * 0410 (Rate/Dose Verify - Provider: Cachorro Gray, RN) * 0439 (New Feeding/Supplement - Provider: Cachorro Gray RN) * 1030 (Rate/Dose Verify - Provider: Allison Jones RN) * 1640 (Rate/Dose Verify - Provider: Allison Jones, RON) * 2127 (New Feeding/Supplement - Provider: Lorena Duran RN) Medication Order// bisacodyl (DULCOLAX) suppository 10 mg 10 mg, Rectal, DAILY NEEDED, Starting on Mon05/27/22 at 2131, Until Mon06/02/22 at 1830, Constipation If No Bowel Movement in 48 Hours, Post-op/Post-Proc hydrALAZINE (APRESOLINE) injection 10 mg 10 mg, Intravenous, EVERY 6 HOURS NEEDED, Starting on Mon05/27/22 at 2131, Until Mon06/02/22 at 1830, SBP > 160 mmHg with HR <60 bpm, Post-op/Post-Proc labetalol (NORMODYNE) 10 mg in sodium chloride 0.9%, with overfill 62 mL (total volume) IVPB 10 mg, Intravenous, at 248 mL/hr, Administer over 15 Minutes, EVERY 6 HOURS NEEDED, Starting on Mon05/27/22 at 2131, Until Kyra 06/02/22 at 1830, SBP > 160 mmHg with HR >60 bpm, Hold for HR < 60 BPM., Post-op/Post-Proc Lidocaine 1% for PICC (XYLOCAINE) 1 % injection SOLN 10-30 mg (COMPLETED) 10-30 mg (1-3 mL), Intradermal, ADMINISTER DIRECTED, 1 dose, Starting on Mon06/01/22 at 1535, Until Discontinued, Other, PICC Placement, Use plain lidocaine only. May use 1mL to 3 mL intradermallyfor PICC insertion. (PICC TEAM ONLY), Post-op/Post-Proc * 1836 (Given - Provider: Nola Rubi RN - Comment: Given by Junaid Granados during PICC insertion) magnesium hydroxide (concentrate) (MILK OF MAGNESIA) oral suspension 10 mL 10 mL, Oral, EVERY 24 HOURS NEEDED, Starting on Mon05/27/22 at 2131, Until Kyra 06/02/22 at 1830, if no bowel movement in 48 hours, 10 mL concentrate = 30 mL regular, Post-op/Post-Proc melatonin tablet 6 mg 6 mg, Per NG tube, DAILY AT BEDTIME NEEDED, Starting on 05/27/22 at 2131, Until Kyra 06/02/22 [id number], Insomnia, Post-op/Post-Proc ondansetron (ZOFRAN) tablet 4 mg(Linked Group 5) 4 mg, Oral, EVERY 6 HOURS NEEDED, Starting on 05/28/22 at 2131, Until Kyra 06/02/22 at 1830, Nausea / Vomiting, 2nd line, Post-op/Post-Proc ondansetron (ZOFRAN) tablet 4 mg(Linked Group 5) 4 mg, Per NG tube, EVERY 6 HOURS NEEDED, Starting on 05/28/22 at 2131, Until Kyra 06/02/22 at 1830, Nausea / Vomiting, 2nd line, Post-op/Post-Proc ondansetron 4mg/2ml (ZOFRAN) injection 4 mg(Linked Group 5) 4 mg, Intravenous, EVERY 6 HOURS NEEDED, Starting on 05/28/22 at 2131, Until Kyra 06/02/22 at 1830, Nausea / Vomiting, 2nd line, Post-op/Post-Proc oxyCODONE (ROXICODONE) oral solution 10 mg(Linked Group 6) 10 mg, Oral, EVERY 4 HOURS NEEDED, Starting on 05/28/22 at 0036, Until Kyra 06/02/22 at 1830, Moderate Pain, Severe Pain, Higher dose may be administered if lower dose was previously documented as ineffective and did not result in adverse effects (RR<10, decrease in level of consciousness). Decrease back to lower dose if patient has adverse effects, or no PRN used in previous 12 hours., Post-op/Post-Proc * 0445 (See Alternative - Provider: Cachorro Gray RN) * 1015 (See Alternative - Provider: Allison Jones, RON) * 1029 (See Alternative - Provider: Allison Jones, RON) * 2129 (See Alternative - Provider: Lorena Duran, RON) * 1223 (See Alternative - Provider: La Barnes RN) * 1739 (See Alternative - Provider: Kristina Norton, RON) * 2204 (See Alternative - Provider: Lorena Duran RN) * 0545 (See Alternative - Provider: Lorena Duran RN) oxyCODONE (ROXICODONE) oral solution 10 mg(Linked Group 6) 10 mg, Per NG tube, EVERY 4 HOURS NEEDED, Starting on 05/28/22 at 0036, Until Kyra 06/02/22 at 1830, Moderate Pain, Severe Pain, Higher dose may be administered if lower dose was previously documented as ineffective and did not result in adverse effects (RR<10, decrease in level of consciousness). Decrease back to lower dose if patient has adverse effects, or no PRN used in previous 12 hours., Post-op/Post-Proc * 0445 (Given - Provider: Cachorro Gray RN) * 1015 (Not Given - Provider: Allison Jones RN - Reason: Other - Comment: spilled medication, witnessed by Lee Joseph RN) * 1029 (Given - Provider: Allison Jones RN) * 2128 (Given - Provider: Lorena Duran RN) * 1223 (Given - Provider: La Barnes RN) * 173 (Given - Provider: Kristina Norton, RON) * 220 (Given - Provider: Lorena Duran RN) * 0545 (Given - Provider: Lorena Duran RN) oxyCODONE (ROXICODONE) oral solution 5 mg(Linked Group 6) 5 mg, Oral, EVERY 4 HOURS NEEDED, Starting on 05/28/22 at 0036, Until Kyra 06/02/22 at 1830, Moderate Pain, Severe Pain, Use as initial dose. Higher dose may be administered if lower dose was previously documented as ineffective and did not result in adverse effects (RR<10, decrease in levelof consciousness)., Post-op/Post-Proc * 0445 (See Alternative - Provider: Cachorro Gray, RON) * 1015 (See Alternative - Provider: Allison Jones RN) * 1029 (See Alternative - Provider: Allison Jones RN) * 2128 (See Alternative - Provider: Lorena Duran RN) * 1223 (See Alternative - Provider: La Barnes RN) * 173 (See Alternative - Provider: Kristina Norton, RON) * 2204 (See Alternative - Provider: Lorena Duran RN) * 0545 (See Alternative - Provider: Lorena Duran, RN) oxyCODONE (ROXICODONE) oral solution 5 mg(Linked Group 6) 5 mg, Per NG tube, EVERY 4 HOURS NEEDED, Starting on 05/28/22 at 0036, Until Kyra 06/02/22 at 1830, Moderate Pain, Severe Pain, Use as initial dose. Higher dose may be administered if lower dose was previously documented as ineffective and did not result in adverse effects (RR<10, decrease in level of consciousness)., Post-op/Post-Proc * 0445 (See Alternative - Provider: Cachorro Gray RN) * 1015 (See Alternative - Provider: Allison Jones RN) * 1029 (See Alternative - Provider: Allison Jones RN) * 212 (See Alternative - Provider: Lorena Duran RN) * 1223 (See Alternative - Provider: La Barnes, RON) * 173 (See Alternative - Provider: Kristina Norton, RON) * 2204 (See Alternative - Provider: Lorena Duran, RON) * 0545 (See Alternative - Provider: Lorena Duran, RON) oxyCODONE (ROXICODONE) tablet 5 mg(Linked Group 6) 5 mg, Oral, EVERY 4 HOURS NEEDED, Starting on 05/28/22 at 0036, Until Kyra 06/02/22 at 1830, Moderate Pain, Severe Pain, Use as initial dose. Higher dose may be administered if lower dose was previously documented as ineffective and did not result in adverse effects (RR<10, decrease in levelof consciousness)., Post-op/Post-Proc * 0445 (See Alternative - Provider: Cachorro Gray RN) * 1015 (See Alternative - Provider: Allison Jones RN) * 1029 (See Alternative - Provider: Allison Jones RN) * 212 (See Alternative - Provider: Lorena Duran, RON) * 1223 (See Alternative - Provider: La Barnes, RON) * 1739 (See Alternative - Provider: Kristina Norton, RON) * 2204 (See Alternative - Provider: Lorena Duran, RON) * 0545 (See Alternative - Provider: Lorena Duran, RON) oxyCODONE HCl (ROXICODONE) tablet 10 mg(Linked Group 6) 10 mg, Oral, EVERY 4 HOURS NEEDED, Starting on 05/28/22 at 0036, Until Kyra 06/02/22 at 1830, Moderate Pain, Severe Pain, Higher dose may be administered if lower dose was previously documented as ineffective and did not result in adverse effects (RR<10, decrease in level of consciousness). Decrease back to lower dose if patient has adverse effects, or no PRN used in previous 12 hours., Post-op/Post-Proc * 0445 (See Alternative - Provider: Cachorro Gray, RN) * 1015 (See Alternative - Provider: Allison Jones, RN) * 1029 (See Alternative - Provider: Allison Jones, RN) * 2129 (See Alternative - Provider: Lorena Duran, RON) * 1223 (See Alternative - Provider: La Barnes, RON) * 1739 (See Alternative - Provider: Kristina Norton, RON) * 2204 (See Alternative - Provider: Lorena Duran, RNO) * 0545 (See Alternative - Provider: Lorena Duran, RON) prochlorperazine (COMPAZINE) injection 10 mg(Linked Group 7) 10 mg, Intravenous, EVERY 6 HOURS NEEDED, Starting on Mon05/27/22 at 2131, Until Kyra 06/02/22 at 1830, Nausea / Vomiting, 1st line, For IV route: dilute dose with 10mL normal saline and give by slowIV push at a rate of 5mg/min., Post-op/Post-Proc prochlorperazine (COMPAZINE) tablet 10 mg(Linked Group 7) 10 mg, Oral, EVERY 6 HOURS NEEDED, Starting on Mon05/27/22 at 2131, Until Kyra 06/02/22 at 1830, Nausea / Vomiting, 1st line, Post-op/Post-Proc prochlorperazine (COMPAZINE) tablet 10 mg(Linked Group 7) 10 mg, Per NG tube, EVERY 6 HOURS NEEDED, Starting on Mon05/27/22 at 2131, Until Kyra 06/02/22 at 1830, Nausea / Vomiting, Refractory Nausea Vomiting, 1st line, Post-op/Post-Proc Medication // sodium chloride 0.9% IV solution (COMPLETED) 1 dose, Starting on Mon05/31/22 at 0440, Until Mon05/31/22 at 0459, Created by cabinet override * 0442 ($$New Bag$$ - Provider: Cachorro Gray RN - Comment: for IVPB) * 0459 (Stopped - Provider: Cachorro Gray RN) sodium chloride 0.9% IV solution (COMPLETED) 1 dose, Starting on Mon06/01/22 at 2150, Until Mon06/01/22 at 2223, Created by cabinet override * 2223 ($$New Bag$$ - Provider: Lorena Duran RN) * 0926 (Rate/Dose Verify - Provider: Halley Arguelles RN) * 1445 (Rate/Dose Verify - Provider: Halley Arguelles RN) Order Group 1: acetaminophen (TYLENOL) tablet 975 mgJump to med 975 mg, Oral, EVERY 8 HOURS NON-STANDARD, First dose on Mon05/27/22 at 2200, Until Discontinued
Maximum dose of acetaminophen is 4000 mg from all sources in 24 hours.
Post-op/Post-Proc Or acetaminophen (TYLENOL) oral solution 975 mgJump to med 975 mg, Per NG tube, EVERY 8 HOURS NON-STANDARD, First dose on Mon05/27/22 at 2200, Until Discontinued
Maximum dose of acetaminophen is 4000 mg from all sources in 24 hours.
Post-op/Post-Proc Or acetaminophen (TYLENOL) oral solution 975 mgJump to med 975 mg, PEG Tube, EVERY 8 HOURS NON-STANDARD, First dose on Mon05/27/22 at 2200, Until Discontinued
Maximum dose of acetaminophen is 4000 mg from all sources in 24 hours.
Post-op/Post-Proc Group 2: aspirin chewable tablet 81 mgJump to med 81 mg, Oral, DAILY, First dose on Mon05/28/22 at 0900, Until Discontinued, Post-op/Post-Proc Or aspirin chewable tablet 81 mgJump to med 81 mg, Per NG tube, DAILY, First dose on Mon05/28/22 at 0900, Until Discontinued, Post-op/Post-Proc Or aspirin chewable tablet 81 mgJump to med 81 mg, PEG Tube, DAILY, First dose on [facility] 05/28/22 at 0900, Until Discontinued, Post-op/Post-Proc Group 3: polyethylene glycol (MIRALAX) packet 17 gJump to med 17 g, Oral, DAILY, First dose on [facility] 05/28/22 at 0900, Until Discontinued, Post-op/Post-Proc Or polyethylene glycol (MIRALAX) packet 17 gJump to med 17 g, Per NG tube, DAILY, First dose on [facility] 05/28/22 at 0900, Until Discontinued, Post-op/Post-Proc Group 4: senna (SENOKOT) tablet 17.2 mgJump to med 17.2 mg, Oral, 2 TIMES DAILY, First dose (after last modification) on [facility] 06/02/22 at 0900, Until Discontinued Or senna (SENOKOT) tablet 17.2 mgJump to med 17.2 mg, Per NG tube, 2 TIMES DAILY, First dose (after last modification) on [facility] 06/02/22 at 0900, Until Discontinued Group 5: ondansetron 4mg/2ml (ZOFRAN) injection 4 mgJump to med 4 mg, Intravenous, EVERY 6 HOURS NEEDED, Starting on [facility] 05/28/22 at 2131, Until [facility] 06/02/22 at 1830, Nausea / Vomiting, 2nd line, Post-op/Post-Proc Or ondansetron (ZOFRAN) tablet 4 mgJump to med 4 mg, Oral, EVERY 6 HOURS NEEDED, Starting on [facility] 05/28/22 at 2131, Until [facility] 06/02/22 at 1830, Nausea / Vomiting, 2nd line, Post-op/Post-Proc Or ondansetron (ZOFRAN) tablet 4 mgJump to med 4 mg, Per NG tube, EVERY 6 HOURS NEEDED, Starting on [facility] 05/28/22 at 2131, Until [facility] 06/02/22 at 1830, Nausea / Vomiting, 2nd line, Post-op/Post-Proc Group 6: oxyCODONE (ROXICODONE) tablet 5 mgJump to med 5 mg, Oral, EVERY 4 HOURS NEEDED, Starting on [facility] 05/28/22 at 0036, Until [facility] 06/02/22 at 1830, Moderate Pain, Severe Pain
Use as initial dose. Higher dose may be administered if lower dosewas previously documented as ineffective and did not result in adverse effects (RR<10, decrease in level of consciousness).
Post-op/Post-Proc Or oxyCODONE (ROXICODONE) oral solution 5 mgJump to med 5 mg, Oral, EVERY 4 HOURS NEEDED, Starting on 05/28/22 at 0036, Until Kyra 06/02/22 at 1830, Moderate Pain, Severe Pain
Use as initial dose. Higher dose may be administered if lower dosewas previously documented as ineffective and did not result in adverse effects (RR<10, decrease in level of consciousness).
Post-op/Post-Proc Or oxyCODONE (ROXICODONE) oral solution 5 mgJump to med 5 mg, Per NG tube, EVERY 4 HOURS NEEDED, Starting on 05/28/22 at 0036, Until Kyra 06/02/22 at 1830, Moderate Pain, Severe Pain
Use as initial dose. Higher dose may be administered if lower dose was previously documented as ineffective and did not result in adverse effects (RR<10, decrease in level of consciousness).
Post-op/Post-Proc Or oxyCODONE HCl (ROXICODONE) tablet 10 mgJump to med 10 mg, Oral, EVERY 4 HOURS NEEDED, Starting on 05/28/22 at 0036, Until Kyra 06/02/22 at 1830, Moderate Pain, Severe Pain
Higher dose may be administered if lower dose was previously documented as ineffective and did not result in adverse effects (RR<10, decrease in level of consciousness). Decrease back to lower dose if patient has adverse effects, or no PRN used in previous 12 hours.
Post-op/Post-Proc Or oxyCODONE (ROXICODONE) oral solution 10 mgJump to med 10 mg, Oral, EVERY 4 HOURS NEEDED, Starting on 05/28/22 at 0036, Until Kyra 06/02/22 at 1830, Moderate Pain, Severe Pain
Higher dose may be administered if lower dose was previously documented as ineffective and did not result in adverse effects (RR<10, decrease in level of consciousness). Decrease back to lower dose if patient has adverse effects, or no PRN used in previous 12 hours.
Post-op/Post-Proc Or oxyCODONE (ROXICODONE) oral solution 10 mgJump to med 10 mg, Per NG tube, EVERY 4 HOURS NEEDED, Starting on 05/28/22 at 0036, Until Kyra 06/02/22 at 1830, Moderate Pain, Severe Pain
Higher dose may be administered if lower dose was previously documented as ineffective and did not result in adverse effects (RR<10, decrease in level of consciousness). Decrease back to lower dose if patient has adverse effects, or no PRN used in previous 12 hours.
Post-op/Post-Proc Group 7: prochlorperazine (COMPAZINE) tablet 10 mgJump to med 10 mg, Oral, EVERY 6 HOURS NEEDED, Starting on Mon05/27/22 at 2131, Until Kyra 06/02/22 at 1830, Nausea / Vomiting, 1st line, Post-op/Post-Proc Or prochlorperazine (COMPAZINE) tablet 10 mgJump to med 10 mg, Per NG tube, EVERY 6 HOURS NEEDED, Starting on Mon05/27/22 at 2131, Until Kyra 06/02/22 at 1830, Nausea / Vomiting, Refractory Nausea Vomiting, 1st line, Post-op/Post-Proc Or prochlorperazine (COMPAZINE) injection 10 mgJump to med 10 mg, Intravenous, EVERY 6 HOURS NEEDED, Starting on Mon05/27/22 at 2131, Until Kyra 06/02/22 at 1830, Nausea / Vomiting, 1st line
For IV route: dilute dose with 10mL normal saline and giveby slow IV push at a rate of 5mg/min.
Post-op/Post-Proc FOR RECORDS PERTAINING TO PATIENTS WHO ARE OR HAVE BEEN ENROLLED IN A CHEMICAL DEPENDENCY/SUBSTANCEABUSE PROGRAM, SOME INFORMATION MAY BE OMITTED. This clinical summary was aggregated from multiple sources. Caution should be exercised in using it in the provision of clinical care. This summary normalizes information from multiple sources, and as a consequence, information in this document may materially change the coding, format and clinical context of patient data. In addition, data may be omitted in some cases. CLINICAL DECISIONS SHOULD BE BASED ON THE PRIMARY CLINICAL RECORDS. [facility]. provides no warranty or guarantee of the accuracy or completeness of information in this document.
--- OUTSIDE RECORDS SUMMARY | 2025-08-15 10:23 | XMS_ITS | Clinical Summary ---
Author Organization [facility] Address [address] [place] [address] Care Team Providers Care Wheelchair Rental Clerk Name Role Phone Unavailable Primary Care Provider Unavailabl e Social History Tobacco UseTypesPacks/DayYears UsedDateSmoking Tobacco: Never AssessedSex and Gender InformationValueDate RecordedSex Assigned at BirthNot on fileLegal Sex Male03/17/2022 12:23 AM EDTGender IdentityNot on fileSexual OrientationNot on file Plan of Treatment Not on file
--- OUTSIDE RECORDS SUMMARY | 2025-08-15 10:23 | XMS_ITS | Patient Health Record ---
Author Organization [facility] [place] Address [address] [place] [address] Care Team Providers Care Head Screen Worker Name Role Phone Obiezunilda Ady Primary Care Provider Allergies No Known Allergies Reason For Referral No Information Medications Medication SIG (Take, Route, Frequency, Duration) [...] alcohol in the p ast year? No Ulselh1DtkwitbtaisfsmPrcujlnu Problems Problem Type SNOMED Code ICD Code Onset Dates Problem Status W/U Status Risk Notes Problem Pulmonary Embolism (37129724) Ot her pulmonary embolism without acute cor pulmonale (I26.99) ActiveconfirmedProblemArthralgia of the pelvic region and thigh (977809962)Pain in right hip (M25.551)ActiveconfirmedProblemPain of left hip joint (finding) (323235477831860)Pain in left hip (M25.552)ActiveconfirmedProblemHistory of thromboembolism of vein (189521999)Personal history of other venous thrombosis and embolism (Z86.718)ActiveconfirmedProblemLeukopenia (24601985)Leukopenia, unspecified decreased WBC count (D72.819)ActiveconfirmedProblemLeft inguinal pain (49813174147754287)Left inguinal pain (R10.32)Activeconfirmed Vital Signs Blood pressure diastolic 80 mm Hg 08/11/2025 Yxmdts34 in08/11/2025lood pressure yaizsqcp779 mm Hg08/11/20255152Jlyuow631.2 lbs 08/11/2025BMI23.11 kg/m208/11/2025 Procedures Procedure Date Ordered Date Performed Result Body Sit e Cerumen Removal - performed 08/11/2025 08/11/2025 N/A Encounters Encounter Location Date Provider Diagnosis [facility] [address] [place] [address] 08/11/2025 Ady Hoy Leukopenia, unspecif ied decreased WBC count D72.819 ; Other pulmonary embolism without acute cor pulmonale I26.99 and Bilateral impacted cerumen H61.23 Assessments Encounter Date Diagnosis (ICD Code) Assessment Notes Treatment Notes Treatment Clinical Notes Section Notes 08/11/2025 Leukopenia, unspecified decrease d WBC count (ICD-10 - D72.819) 08/11/2025Other pulmonary embolism without acute cor pulmonale (ICD-10 - I26.99) 08/11/2025ilateral impacted cerumen (ICD-10 - H61.23) Plan Of Treatment Pending Test Test Name Order Date CMP (COMPLETE METABOLIC PANEL) 4 HEMOGLOBIN A1C (GLYCO) 08/11/2025 HEMOGLOBIN A1C (GLYCO) 05/27/2024 LIPID PANEL (CHOL/TRIG/HDL/LDL) 08/11/20 25 LIPID PANEL (CHOL/TRIG/HDL/LDL) 05/27/20 CBC WITH DIFF (EXP 07/2025) 05/27/2024 CBC W/AUTO DIFF 06/12/2024 PSA, TOTAL 05/27/2024 STOOL OCCULT BLOOD 08/11/2025 THYROID PANEL (T4/TSH/FREE T3) 5 THYROID PANEL (T4/TSH/FREE T3) 4 PSA, SCREENING 08/11/2025 CMP (COMP MET KEMP) w/eGFR CKD-EPI 2024 CBC WITH DIFF 08/11/2025 Insurance Providers Payer Name Payer Address Payer Phone Subscriber Number Group Number Insured Name Patient Relationship to Insured Coverage Start Date Coverage End Date [place] [address] [place] [address] [id number] Madan Costa - patient is the [id number] 2012 Medical (General) History Surgical History Surgery Date(Month/Year) Debridement Right Maxilla with removal o f hardware 05/30/22 Left hip replacement Left Inguinal Hernia Mmbcrh00/22/24Wedge Excision & Debulking of Right Cheek Flap02/24/23Right total Hip replacement Dr. Foley03/14/22Hospitalization History Reason Date(Month/Year) see above
--- OUTSIDE RECORDS SUMMARY | 2025-08-15 10:23 | XMS_ITS | Clinical Summary ---
Author Organization [facility] Address [id number] [address] [place] [address] Care Team Providers Care Digital Camera Technician Name Role Phone Cliff Bess MD Primary Care Provider [phone] Allergies No known active allergies Medications MedicationSigDispense QuantityRefillsLast FilledStart DateEnd DateStatus UNABLE TO FIND Take 2 tablets by mouth daily. cascara sagradaActive CALCIUM-MAGNESIUM ORAL Take 2 tablets by mouth daily.Active aspirin 81 mg Indications:Primary osteoarthritis of left hipTAKE 1 TABLET BY MOUTH TWICE A DAY *BEGIN TAKING AFTER TOTAL JOINT REPLACEMENT* 180 tablet ctive multivit-min/ferrous fumarate (MULTI VITAMIN ORAL) Take 1 capsule by mouth in the morning.Active chromium picolinate 200 mcg tablet Take 1 tablet by mouth in the morning.Active ascorbic acid (VITAMIN C ORAL) Take 500 mg by mouth in the morning.Active LECITHIN ORAL Take 1 capsule by mouth in the morning.Active coenzyme Q10 (CO Q-10) 200 mg capsule Take 200 mg by mouth in the morning.Active latanoprost 0.005 % drops, emulsion Administer 1 drop to both eyes nightly. Instill 1 drop into both eyes at bedtime 06/03/2024ctive ibuprofen (MOTRIN) 600 mg tablet Take 1 tablet (600 mg total) by mouth every 6 (six) hours as needed for pain. 30 tablet 07/09/2024ctive Active Problems ProblemNoted DateDiagnosed DatePrimary osteoarthritis of right hip02/04/2022 Overview (02/04/2022): Added automatically from request for surgery [id number] S/P total left hip mjannpxlogpj98/20/2022rimary osteoarthritis of left hip 11/19/2021 Overview (11/19/2021): Added automatically from request for surgery [id number] Family History Medical HistoryRelationNameCommentsDiabetesFatherOtherFatherprostate problems UlcersFatherBack ProblemsMotherCancerMothermouthColon cancerSisterRelationName StatusCommentsFatherDeceasedMotherDeceasedSisterAlive Social History Tobacco UseTypesPacks/DayYears UsedDateSmoking Tobacco: NeverSmokeless Tobacco: NeverAlcohol UseStandard Drinks/WeekCommentsNot Currently0 (1 standard drink = 0.6 oz pure alcohol)ChildcareAnswerDate VngfmdwcOgsllylguEgmzuwm89/02/2021 EmploymentAnswerDate VgyimdcgOxkbqddjqkVzhwnpc82/02/2021Hunger ScreeningAnswer Date RecordedWithin the past 12 months we worried whether our food would run out before we got money to buy more.Never True07/23/2024Within the past 12 months the food we bought just didn't last and we didn't have money to get more.Never True07/23/2024urpose - LifeAnswerDate RecordedPurpose and direction in life Jrrzolv4611/17/2020ex and Gender InformationValueDate RecordedSex Assigned at BirthNot on fileLegal AnyVztq0911/17/2020 8:01 AM ESTGender IdentityNot on file Sexual OrientationNot on file Last Filed Vital Signs Vital SignReadingTime TakenCommentsBlood Qfynhkio577/7907/23/2024 11:39 AM EST Kgcze367107/23/2024 11:39 AM ETHBmktjadmhsw67.4 ??C (97.6 ??F)07/09/2024 10:44 AM EDTRespiratory Beis8889 11:44 AM EDTOxygen Iizizdmixz05%07/09/2024 11:44 AM EDTInhaled Oxygen Concentration--Kidptx59.6 kg (175 lb 6.4 oz)07/23/2024 11:39 AM YEAZhhtvt674 cm (6' 0.84 )07/23/2024 11:39 AM ESTBody Mass Index23.24 07/23/2024 11:39 AM EST Plan of Treatment Health MaintenanceDue DateLast DoneCommentsDepression Kpvxhmazi99/17/1960 DTaP,Tdap and Td Vaccines (1 - Tdap)12/02/1966Zoster (Shingles) Vaccine (1 of 2) 12/02/1997Fall Risk Jtlulimhh43/17/2013RSV ( or age 60+ yrs) (1 - 1-dose 75+ series)12/02/2022OVID-19 Vaccine (4 - 2024- season)5111/07/2020, 12/08/2020, 11/17/2020Influenza Edovmgk8905/19/2025Tobacco Vsgehpfrb83/05/2025 07/23/2024 Goals GoalPatient Goal TypeAssociated ProblemsRecent ProgressPatient-Stated?Author Home with Tiffani Roe RN Note: Evaluation of progress towards goal: Current discharge plan is home with home care and support of spouse. - Tiffani Claros RN 12/06/21 1:25 PM Medical Devices ImplantedTypeAreaManufacturerDevice IdentifierShelf Expiration DateModel / Serial / LotMesh 1in Med Pp Srgpro Nabsb Knit Plg Srg Strl Clr Hrn Rpl [id number] - Sna - [id number] Implanted:Qty: 1 on 07/09/2024 [facility] AbdomenMEDTRONIC [id number]/SMPM-02 / NA / [id number] Actb 62mm Hip Lmt Hl Clr Cd Pps G7 H Hmsphr - [id number] - [id number] Implanted:Qty: 1 on 12/06/2021 [facility]: HipZimmer [id number] / [id number] / [id number] Actb 36mm H Ntrl Arcomxl G7 Hip - [id number] - [id number] Implanted:Qty: 1 on 12/06/2021 by Onel Foley MD at [facility] ImplantLeft: HipZimmer [id number] / [id number] / [id number] Hip Std Os Tpr G7 Blx D Opt Centering Ty 1 Rpl 650-1066 - [id number] - [id number] Implanted:Qty: 1 on 12/06/2021 by Onel Foley MD at [facility] ImplantLeft: HipZimmer Dyunvu86/08/3712226-1721 / [id number] / [id number] Fem 125mm 20mm 133d Hi Os Tpr Tprlk Microplasty Pps Ti - [id number] - [id number] Implanted:Qty: 1 on 12/06/2021 by Onel Foley MD at [facility] ImplantLeft: HipZimmer Uwkftb71/13/[id number] / [id number] / [id number] Fem 36mm G7 Blx D Biolox Opt Hip Rpl 650-1057 - [id number] - [id number] Implanted:Qty: 1 on 12/06/2021 by Onel Foley MD at [facility] ImplantLeft: HipZimmer [id number] / [id number] / [id number] Fem 36mm G7 Blx D Biolox Opt Hip Rpl 650-1057 - [id number] Implanted:Qty: 1 on 03/14/2022 by Onel Foley MD at [facility] ImplantRight: HipZimmer Xpholw9007/13/[id number] / / [id number] Actb 60mm Hip Lmt Hl Clr Cd Pps G7 G Hmsphr - [id number] Implanted:Qty: 1 on 03/14/2022 by Onel Foley MD at [facility] ImplantRight: HipZimmer Eevpje3603/02/[id number] / / [id number] Actb 36mm G Ntrl Arcomxl G7 Hip - [id number] Implanted:Qty: 1 on 03/14/2022 [facility] ImplantRight: HipZimmer Dndjod70/26/[id number] / / [id number] Fem 125mm 20mm 133d Hi Os Tpr Tprlk Microplasty Pps Ti - [id number] Implanted:Qty: 1 on 03/14/2022 [facility] ImplantRight: HipZimmer Yyiqix86/29/[id number] / / [id number] Hip -3mm Os Tpr G7 Blx D Opt Ti Centering Ty 1 Rpl [id number] - [id number] Implanted:Qty: 1 on 03/14/2022 by [facility] ImplantRight: HipZimmer Mtjbya54/31/[id number] / / [id number] Insurance Care Teams Team MemberRelationshipSpecialtyStart DateEnd Cliff Bess MD [address] [place] [address] PCP - GeneralFamily Onqgkafk15/22/24
--- OUTSIDE RECORDS SUMMARY | 2025-08-15 10:23 | XMS_ITS | Clinical Summary ---
Author Organization [facility] Address [address] [place] [address] Care Team Providers Care Penology Professor Name Role Phone House SrAmy, Charlie METZGER Primary Care Provider + Allergies No known active allergies Medications MedicationSigDispense QuantityRefillsLast FilledStart DateEnd DateStatus acetaminophen (TYLENOL) 500 mg tablet Take 500 mg by mouth.Active ELIQUIS 5 mg tab(s) TAKE 1 TABLET BY MOUTH TWICE A DAY (AFTER COMPLETING INITIAL ELIQUIS PRESCRIPTION)12/11/2019Active aspirin 81 mg chewable tablet Take 81 mg by mouth.12/08/2019Active Chlorhexidine Gluconate (PERIDEX) 0.12 % solution SWISH 15 20ML OF LIQUID, HOLD 15 SECONDS, THEN SPIT12/14/2019Active DIOCTO 50 mg/5 mL liquid TAKE 10ML BY MOUTH PER NG TUBE TWICE A DAY11/30/2019Active lisinopril 2.5 mg tablet Take 2.5 mg by mouth once daily.12/08/2019Active LORazepam (ATIVAN) 0.5 mg Take 1 tablet by mouth.11/04/2019Active metoprolol succinate ER (TOPROL XL) 25 mg 24 hr tablet Take 25 mg by mouth once daily.12/08/2019Active senna (SENOKOT) 8.6 mg tab by NASOGASTRIC route.11/29/2019Active Active Problems No known active problems Family History Medical HistoryRelationCommentsDiabetesFatherOral cancerMotherDiabetesPaternal GrandmotherRelationStatusCommentsFatherMotherDeceasedPaternal Grandmother Social History Tobacco UseTypesPacks/DayYears UsedDateSmoking Tobacco: NeverSmokeless Tobacco: NeverAlcohol UseStandard Drinks/WeekCommentsNot Currently0 (1 standard drink = 0.6 oz pure alcohol)Area Deprivation IndexAnswerDate RecordedNational Score (1- 100), lower number is lower riskNot on file08/25/2020State Score (1-10), lower number is lower riskNot on file08/25/2020Data from: https://www.neighborhoodatlas.medicine.[facility]/. Last address used for calculationNot on file08/25/2020Sex and Gender InformationValueDate RecordedSex Assigned at BirthNot on fileLegal IoaHobs7410/25/2019 12:45 PM ESTGender Identity Not on fileSexual OrientationNot on file Last Filed Vital Signs Vital SignReadingTime TakenCommentsBlood Sncfredc609/7606 12:35 PM EDT Nuknb2270 12:35 PM AKMEkfygbpatbn99.8 ??C (98.3 ??F)02/26/2020 12:35 PM EDTRespiratory Gwct221402/26/2020 12:35 PM EDTOxygen Vnqanuuzsf74%02/26/2020 12:35 PM EDTInhaled Oxygen Concentration--Ocusit35 kg (172 lb)02/26/2020 12:35 PM EDT Sijhbs525.4 cm (6' 1 )12/19/2019 9:14 AM EDTBody Mass Index22.6904 9:14 AM EDT Plan of Treatment Health MaintenanceDue DateLast DoneCommentsAnxiety Pvnpgzajn25/17/1966Depression Eamgsmzip37/17/1966DTaP,Tdap,Td Vaccine (1 - Tdap)12/02/1966Pneumococcal Vaccine: 50+ (1 of 1 - PCV)12/02/1997Shingrix Vaccine (1 of 2)12/02/1997RSV Vaccine (1 - 1-dose 75+ series)3Diabetes Hohvovgbz34, 12/07/2019, 12/07/2019, Additional history existsAdvance Directive Discussion 5Covid-19 Vaccine (1 - 2024- season)2025Influenza Vaccine (#1) 2025Hepatitis C AetbyfmmwXcipenwxs42/10/2020 Insurance * Guarantor: Lizett Costa TypeRelation to PatientDate of BirthPhone Billing KoeuureVrsresBcvn49/17/1946 [address] [place] [address] Care Teams Team MemberRelationshipSpecialtyStart DateEnd Charlie Cheema Sr., PCP - GeneralFamily Medicine10/25/19
--- OUTSIDE RECORDS SUMMARY | 2025-08-15 10:23 | XMS_ITS | Clinical Summary ---
Author Organization [facility] Address [address] [place] [address] Care Team Providers Care Talent Management Specialist Name Role Phone Charlie Raza MD Primary Care Provider [phone] Allergies No known active allergies Medications MedicationSigDispense QuantityRefillsLast FilledStart DateEnd DateStatus ARTIFICIAL TEAR OINTMENT OP Administer into affected eye(s)Active CALCIUM ACETATE-MAGNESIUM CARB PO Take 1 tablet by mouth at bedtimeActive CHROMIUM PICOLINATE PO Take by mouth in the morning.Active PENTOXIFYLLINE PO Active TURMERIC PO Take 1 tablet by mouth in the morning.Active aspirin 81 MG EC tablet Take 81 mg by mouth06/07/2024ctive coenzyme Q-10 200 MG capsule Take 200 mg by mouth in the morning.Active ibuprofen 600 MG tablet Take 600 mg by mouth every 6 (six) hours if ngsgvl0707/09/2024ctive latanoprost (Xalatan) 0.005 % ophthalmic solution Administer 1 drop into both eyes at ewftryj31/25/2025Active Active Problems No known active problems Social History Tobacco UseTypesPacks/DayYears UsedDateSmoking Tobacco: Unknown Tobacco Cessation:Counseling Given: Not Answered Sex and Gender InformationValueDate RecordedSex Assigned at BirthNot on file Legal CacTdjp1411/30/2022 11:20 PM EDTGender IdentityNot on fileSexual Orientation Not on file Plan of Treatment DateTypeDepartmentCare Team (Latest Contact Info)Iuftoguullq31/21/2026 11:35 AM EDTOffice Visit [facility] [email or web address] [place] [phone] Gisela Pennington MD [address] [place] [address] Health MaintenanceDue DateLast DoneCommentsPneumococcal Vaccine: 65+ Years (1 of 1 - PCV)12/02/1997COVID-19 Vaccine (4 - 2024- season)5111/07/2020, 12/08/2020, 11/17/2020Influenza Vaccine (#1)2025 Insurance Care Teams Team MemberRelationshipSpecialtyStart DateEnd Date Charlie Raza MD PCP - GeneralFamily Chbatslg77/2/24
--- OUTSIDE RECORDS SUMMARY | 2025-08-15 10:23 | XMS_ITS | Clinical Summary ---
Author Organization [facility] Address [address] [place] [address] Phone Care Team Providers Care Ambulatory Analyst Name Role Phone Unavailable Primary Care Provider Unavailabl e Social History Tobacco UseTypesPacks/DayYears UsedDateSmoking Tobacco: Never AssessedSex and Gender InformationValueDate RecordedSex Assigned at BirthNot on fileLegal Sex Male08/12/2022 5:44 PM ESTGender IdentityNot on fileSexual OrientationNot on file Plan of Treatment Not on file
--- OUTSIDE RECORDS SUMMARY | 2025-08-15 10:23 | XMS_ITS | Clinical Summary ---
Author Organization [facility] Address [address] [place] [address] Care Team Providers Care Cyber Legal Advisor Name Role Phone Branden Woods FRANCHESKA Unavailable Galo Domínguez MD Unavailable Cliff Bess MD Primary Care Provider [phone] Bobo Addison MD Unavailable [phone] Allergies No known active allergies Medications MedicationSigDispense QuantityRefillsLast FilledStart DateEnd DateStatus Calcium Acetate-Magnesium Carb 450-200 MG tablet Take 1 tablet by mouth at bedtime.Active Chromium Picolinate (CHROMIUM PICOLATE PO) Take by mouth daily every morning.Active aspirin 81 MG Chew Tab chewable tablet Chew 1 tablet at bedtime.Active Multiple Vitamin (multivitamin) capsule Take 1 capsule by mouth 2 times daily.Active vitamin E 400 units capsule Take 1 capsule by mouth 2 times daily. 60 capsule 04/28/2021ctive Cascara Sagrada 450 MG capsule Take by mouth daily every morning.Active petrolatum Ointment ophthalmic ointment Apply 1 Application to right eye at bedtime. 3.5 g 06/02/2022ctive Polyvinyl Alcohol-Povidone PF 1.4-0.6 % Solution ophthalmic solution Place 2 drops in right eye 4 times daily. 30 Each ctive Additional Information Patient not taking.Reported on 02/19/2025 Ibuprofen 200 MG tablet Take 1 tablet by mouth as needed for Mild Pain.Active Artificial Tear Ointment (DRY EYES OP) Apply to eye as needed.Active oxycodone 5 MG capsule Indications:Postoperative stateTake 1 capsule by mouth every 4 hours as needed for moderate or severe pain for up to 3 days. 10 capsule 02/24/2023 12:44 PM EDT02/24/2023ctive SODIUM FLUORIDE, DENTAL GEL, 1.1 % Gel Apply 3-4 drops of gel directly to teeth. Do Not eat or drink for 30min. Once daily at bedtime. Fruit flavor 56 g 121ctive pentoxifylline 400 MG Tab CR tablet ER Take 1 tablet by mouth 3 times daily with meals. 90 tablet /iscontinued Active Problems ProblemNoted DateDiagnosed DatePostoperative state05/27/2022History of head and neck csjkkq3707/21/2021 Overview (07/21/2021): Added automatically from request for surgery [id number] Hard of tdqhawr6105/21/2020History of pulmonary uwjjulzu06/01/2020 Overview (05/29/2020): Post-operative DVT/PE in November 2019. Treated with Eliquis; discontinued by PCP in May 2020. 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: pT4a, pN0 - Signed by Gregory Velazco MD on 12/13/2019 History of head and neck radiationHistory of tracheostomy Immunizations ImmunizationAdministration DatesNext Kmh4468-0729 COVID-19 monovalent vaccine, mRNA, Pfizer, 0.3 ML12/08/2020,11/17/2020 Family History Medical HistoryRelationNameCommentsDiabetesFatherDiabetesPaternal Grandmother RelationNameStatusCommentsFatherDeceasedMotherDeceasedPaternal Grandmother Social History Tobacco UseTypesPacks/DayYears UsedDateSmoking Tobacco: NeverSmokeless Tobacco: Never Tobacco Cessation:Counseling Given: Not Answered Alcohol UseStandard Drinks/WeekCommentsNot Currently0 (1 standard drink = 0.6 oz pure alcohol)DepressionAnswerDate RecordedPHQ-9 Total Score (Interpretation of Total Score 1-4 = Minimal depression; 5-9 = Mild depression; 10-14 = Moderate depression; 15-19 = Moderately severe depression)Sex and Gender InformationValueDate RecordedSex Assigned at BirthNot on fileLegal SexMale 10/30/2019 9:39 AM ESTGender MtybpxekYyku99/03/2025 2:44 PM EDTSexual ZspfyjepcopAlovvrpr50/03/2025 2:44 PM EDT Last Filed Vital Signs Vital SignReadingTime TakenCommentsBlood Ypherkyv762/9102/19/2025 1:00 PM EDT Ohaxh443402/19/2025 1:00 PM KAALgdjlddjwzg57.6 ??C (97.8 ??F)02/19/2025 1:00 PM EDTRespiratory Vniv320102/19/2025 1:00 PM EDTOxygen Yhmysvimoh60%02/19/2025 1:00 PM EDTInhaled Oxygen Concentration--Tkoekv80.5 kg (175 lb 3.2 oz)02/19/2025 1:00 PM TLLWyzsul348.4 cm (6' 1 )02/19/2025 1:00 PM EDTBody Mass Index23.11002/19/2025 1:00 PM EDT Plan of Treatment DateTypeDepartmentCare Team (Latest Contact Info)Fyhzcbppwsh20/10/2026 1:00 PM EDTOffice Visit Department of Otolaryngology [address] [place] [address] Bobo Addison MD [address] [place] [address] Health MaintenanceDue DateLast JuyjUhsgossfDHXTLWM01/17/1946PNEUMOCOCCAL VACCINE SERIES (1 of 2 - PCV)12/02/1966TDAP (ADULT)12/02/1966COLORECTAL CANCER SCREENING ZMSJHXZHUM96/17/1993ZOSTER (SHINGLES) VACCINE (1 of 2)12/02/1997RSV VACCINE (1 - 1-dose 75+ series)3COVID-19 VACCINE ( - 2024- season)2025 09/06/2021, 12/08/2020, 11/17/2020INFLUENZA VACCINE (#1)2025HEPATITIS C VIRUS VYYMOMPWQTqafoqzjh99/10/2020HEP B VACCINEAged OutNo longer eligible based on patient's age to complete this topic Medical Devices ImplantedTypeAreaManufacturerDevice IdentifierShelf Expiration DateModel / Serial / LotCoupler Anastomotic 4.0mm Gem2 - [id number] Implanted:Qty: 1 on 11/22/2019 by Bobo Addison MD at [facility]: Neck MZBFXTJ8304/15/20244024GCK1532 / / [id number] Anastomotic 4.0mm Gem2 - [id number] Implanted:Qty: 1 on 11/22/2019 by Bobo Addison MD at [facility]: Neck CKFYZEL8711/16/20222260BWI3943 / / [id number] Mtx Grooves Implanted:Qty: 2 on 11/22/2019 by Nell Lucio DMD at [facility]: Fibula 04/04/20241869GLRZCN06 / / [id number] Micro Maxdrv 1.5x7mm/Ea - [id number] Implanted:Qty: 1 on 11/22/2019 by Bobo Addison MD at [facility]: Denise TIJERINA KN27-754-39-50 / / Imp Tsv Mcol Mg 4.1mm 13m - [id number] Implanted:Qty: 1 on 11/22/2019 by Nell Lucio DMD at [facility]: Fibula CYNTHIA BIOMET SPINE07/30/20249857HBVM5X55 / / [id number] Collar 3.5x4.5 3mm - [id number] Implanted:Qty: 1 on 11/22/2019 by Nell Lucio DMD at [facility]: Fibula CYNTHIA BIOMET SPINE01/26/2024HC343 / / [id number] Tsv Mcol Mg 4.1mm 13m - [id number] Implanted:Qty: 1 on 11/22/2019 by Nell Lucio DMD at [facility]: Fibula CYNTHIA BIOMET SPINE07/30/20242144SRUD1X74 / / [id number] Collar 3.5x4.5 3mm - [id number] Implanted:Qty: 1 on 11/22/2019 by Nell Lucio DMD at [facility]: Fibula CYNTHIA BIOMET SPINE01/26/2024HC343 / / [id number] Collar Implanted:Qty: 2 on 11/22/2019 by Nell Lucio DMD at [facility]: Fibula 03/05/2024HC453 / / [id number] Surgical Matrix Thin Implanted:Qty: 1 on 11/22/2019 by Bobo Addison MD at [facility]: Fibula 06/17/20206448MWW5377 / [id number] / [id number] Micromatrx 200mg - [id number] Implanted:Qty: 1 on 11/22/2019 by Bobo Addison MD at [facility]: FibulaACELL 07/18/2021MM0200 / [id number] / [id number] Micromatrx 200mg - [id number] Implanted:Qty: 1 on 06/08/2020 by Bobo Addison MD at [facility]: MouthACELL 09/17/2021MM0200 / [id number] / [id number] Matrix Thin 7x10 - [id number] Implanted:Qty: 1 on 06/08/2020 by Bobo Addison MD at [facility]: MouthACELL [id number] / [id number] / [id number] Micro Maxdrv 1.5x5mm/Ea - [id number] Implanted:Qty: 13 on 11/22/2019 by Bobo Addison MD at [facility] Explanted:Qty: 10 on 05/27/2022 at [facility]: Denise TIJERINA LY53-601-36-51 / / Environmental Protection Geologist Anastomosis 3mm Ring Pin Ultrasonic Doppler - [id number] Implanted:Qty: 1 on 05/27/2022 by Bobo Addison MD at FCMHMUWHPXMX82/09/2027 ULV2570 / / [id number] IdentifierShelf Expiration DateModel / Serial / LotImplant Midface Implanted:Qty: 1 on 11/22/2019 by Bobo Addison MD at [facility] Explanted:Qty: [facility] Vezbhh20-430-49-05 / [id number] / Description:Facial reconstruction Procedures Procedure NamePriorityDate/TimeAssociated DiagnosisCommentsHEPATITIS C ANTIBODY STAT11/26/2019 10:54 AM EDT from Last 3 Months or Most Recently Relevant to Health Maintenance Results * HEPATITIS C ANTIBODY (11/26/2019 10:54 AM EDT)ComponentValueRef RangeTest MethodAnalysis TimePerformed AtPathologist SignatureHepatitis C Antibody TwaynbkwFkiylvaw80/10/2020 1:24 PM EDTOVAN WERT [facility] CLINICAL LABORATORYSpecimen (Source)Anatomical Location / LateralityCollection Method / VolumeCollection TimeReceived UmgoUptot54/10/2020 10:54 AM EDT11/26/2019 11:20 AM EDT Narrative Authorizing ProviderResult TypeResult StatusPasupa Saavedra MDIMMUNOLOGY ORDERABLES Final ResultPerforming OrganizationAddressCity/State/ZIP CodePhone Number [facility] [address] [place] [address] from Last 3 Months or Most Recently Relevant to Health Maintenance Insurance Advance Directives For more information, please contact: [phone] (7:30 AM - 6PM [place]/[facility], Monday-Monday) * Full Code (Latest Code Status on File) Date ActivatedDate InactivatedComments02/24/2023 5:53 AM * Full Code Date ActivatedDate InactivatedComments05/27/2022 5:44 AM02/24/2023 5:53 AM * Full Code Date ActivatedDate InactivatedComments06/08/2020 6:06 AM05/27/2022 5:44 AM * Full Code Date ActivatedDate InactivatedComments11/23/2019 12:52 AM06/08/2020 6:06 AM * Full Code Date ActivatedDate InactivatedComments11/22/2019 5:21 AM11/23/2019 12:52 AM Care Teams Team MemberRelationshipSpecialtyStart DateEnd Cliff Bess MD [address] [place] [address] PCP - GeneralFamily Xwnfrrag47/24/21 Branden Woods DDS [address] [place] [address] Referring ProviderDentistry10/31/19 Galo Domínguez MD [address] [place] [address] Radiation Oncology01/09/20 Bobo Addison MD [address] [place] [address] OtolaryngologistOtolaryngology02/07/24
--- OUTSIDE RECORDS SUMMARY | 2025-08-15 10:23 | XMS_ITS | Clinical Summary ---
Author Organization [facility] Address [address] [place] [address], [address] [place] [address] Care Team Providers Care Roll Grinder Name Role Phone Ry Reynoso DO, Charles P Primary Care Provider + Allergies No known active allergies Medications MedicationSigDispense QuantityRefillsLast FilledStart DateEnd DateStatus acetaminophen (TYLENOL) 500 MG tablet Take 500 mg by mouth every 6 hours as neededActive chlorhexidine (PERIDEX) 0.12 % solution Take 15-20 mLs by mouth 2 times daily11/29/2019Active LORazepam (ATIVAN) 0.5 MG tablet Take 1 tablet by mouth 2 times daily.11/04/2019Active docusate (COLACE) 50 MG/5ML liquid 100 mg by Nasogastric route 2 times daily as cpojst6211/29/2019Active senna (SENOKOT) 8.6 MG tablet 8.6 mg by Nasogastric route daily as iivnkb6211/29/2019Active apixaban (ELIQUIS) 5 MG TABS tablet Take 1 tablet by mouth 2 times daily Start after you finish 10 mg twice a day on the next scheduleddose 60 tablet Active lisinopril (PRINIVIL;ZESTRIL) 2.5 MG tablet Take 1 tablet by mouth daily 30 tablet Active metoprolol succinate (TOPROL XL) 25 MG extended release tablet Take 1 tablet by mouth daily 30 tablet Active aspirin 81 MG chewable tablet Take 1 tablet by mouth daily 30 tablet Active atorvastatin (LIPITOR) 40 MG tablet Take 1 tablet by mouth nightly 30 tablet Active Active Problems ProblemNoted DateDiagnosed DateBilateral pulmonary soycteho16/20/2020 Social History Tobacco UseTypesPacks/DayYears UsedDateSmoking Tobacco: Never AssessedSex and Gender InformationValueDate RecordedSex Assigned at BirthNot on fileLegal Sex Male12/06/2019 8:56 AM EDTGender IdentityNot on fileSexual OrientationNot on file Last Filed Vital Signs Vital SignReadingTime TakenCommentsBlood Gmmeszrr248/75012/08/2019 10:17 AM EDT Citav482612/08/2019 10:17 AM QFWPwqptrgvmmg80 ??C (98.6 ??F)12/08/2019 10:17 AM EDTRespiratory Lnxj375912/08/2019 10:17 AM EDTOxygen Cerxrinfyy31%12/08/2019 10:17 AM EDTInhaled Oxygen Concentration--Lwoniy88.4 kg (179 lb 6.4 oz)12/07/2019 6:19 AM ONKZaytox627.3 cm (5' 11 )12/06/2019 1:45 PM EDTBody Mass Index25.02 12/06/2019 1:45 PM EDT Plan of Treatment Not on file Insurance Advance Directives * Full Code (Latest Code Status on File) Date ActivatedDate InactivatedComments12/06/2019 1:46 PM12/08/2019 3:40 PM Care Teams Team MemberRelationshipSpecialtyStart DateEnd Charlie Raza Sr., DO [address] [place] [address] PCP - GeneralFamily Medicine12/06/19
[2025-08-15 11:13] LABS: Hematocrit 46.7 % (42.0-54.0); Hemoglobin 15.7 g/dL (14.0-18.0); Immature Granulocytes Abs Auto 0.02 10^3/uL (0.00-0.03); Immature Granulocytes Pct Auto 0.5 % (0.0-0.5); Lymphocytes Absolute Auto 0.8 10^3/uL (1.2-3.8); Mean Corpuscular HGB Conc 33.6 g/dL (29.9-35.2); Mean Corpuscular Hemoglobin 31.2 pg (25.9-34.0); Mean Corpuscular Volume 92.7 fL (80.0-94.0); Platelet Count 208 10^3/uL (150-450); Red Blood Count 5.04 10^6/uL (4.70-6.10); White Blood Count 4.4 10^3/uL (4.0-11.0)
[2025-08-15 11:41] LABS: Alanine Aminotransferase 25 U/L (16-63); Albumin Globulin Ratio 1.1; Albumin Level 4.1 g/dL (3.4-5.0); Alkaline Phosphatase 44 U/L (46-116); Anion Gap 7.4; Aspartate Amino Transferase 19 U/L (15-37); Blood Urea Nitrogen 18.0 mg/dL (7.0-18.0); Calcium 9.6 mg/dL (8.5-10.1); Carbon Dioxide 30.4 mmol/L (21.0-32.0); Chloride 102 mmol/L (98-107); Cholesterol 253 mg/dL (<=200); Estimated GFR (African America >60 (>=60 mL/min/1.73m^2); Estimated GFR (Non-African Ame >60 (>=60 mL/min/1.73m^2); Free T3 2.58 pg/mL (2.18-3.98); Globulin 3.6 g/dL; Glucose 108 mg/dL (74-106); HDL Cholesterol 94 mg/dL (40-60); Potassium 3.8 mmol/L (3.5-5.1); Sodium 136 mmol/L (136-145); Thyroid Stimulating Hormone 4.488 uIU/mL (0.358-3.740); Total Protein 7.7 g/dL (6.4-8.2); Triglycerides 58 mg/dL (<=150); VLDL CHOLESTEROL 11.6 mg/dL
== END 2025-08-15 10:15 | disposition home or self-care (01) ==
PROVIDERS: PCP Family Medicine; Visit Provider Family Medicine
DX: D72.819 Decreased white blood cell count, unspecified (principal); I26.99 Other pulmonary embolism without acute cor pulmonale; E78.5 Hyperlipidemia, unspecified; R73.09 Other abnormal glucose; Z12.12 Encounter for screening for malignant neoplasm of rectum; E03.9 Hypothyroidism, unspecified; I10 Essential (primary) hypertension; Z12.5 Encounter for screening for malignant neoplasm of prostate; D50.9 Iron deficiency anemia, unspecified
CPT/HCPCS: 36415; 80053; 80061; 83036; 84436; 84443; 84481; 85025; G0103